=== PATIENT | male | born 1985 | race Caucasian/White ===

== ENCOUNTER 2022-09-05 21:29 | Emergency (ER) | payer MEDICAID, SELFPAY ==
[2022-09-05 21:44] VITALS: BP 134/81; BP 158/96; PULSE 103; PULSE 116; RESP 20; TEMP 36.5; O2SAT 98; O2SAT 99; BMI 32.5
--- NOTE | 2022-09-05 22:04 | ED.GENADULT ---
HPI - General Adult General Chief complaint: Psychiatric Symptoms Stated complaint: drug use Time Seen by Provider: 09/05/22 21:44 Source: patient and EMS Mode of arrival: EMS Limitations: no limitations and other History of Present Illness HPI narrative: Patient comes to the emergency room via EMS. Patient was [place] by police department [place]. Patient did not want to come to the emergency room but they convinced him to come. Patient has no complaints, denies SI or HI, admits that he has been smoking marijuana. Denies visual or auditory hallucinations Related Data Allergies Allergy/AdvReac Type Severity Reaction Status Date / Time No Known Allergies Allergy Verified 09/05/22 21:55 Review of Systems Review of Systems: Constitutional : No Weight loss, No Fever, No Chills, No Night Sweats, No Fatigue, No Malaise ENT/Mouth : No Hearing loss, No Ear Pain, No Nasal Congestion, No Sinus Pain, No Hoarseness, No sore throat, No Rhinorrhea, No Swallowing Difficulty Eyes: No Eye Pain, No Swelling, No Redness, No Foreign Body, No Discharge, No Vision Changes Cardiovascular : No Chest Pain, No SOB, No Dyspnea on Exertion, No Orthopnea, No Edema, No Palpitations Respiratory : No Cough, No Sputum, No Wheezing, No Smoke Exposure, No Dyspnea Gastrointestinal : No Nausea, No Vomiting, No Diarrhea, No Constipation, No abdominal Pain, No Hematochezia, No Melena Genitourinary : no irregular bleeding, No Dysuria, No Urinary Frequency, No Hematuria, No Urinary Incontinence, No Urgency, No Flank Pain, No Urinary Flow Changes, No Hesitancy Musculoskeletal : No joint pain, No Myalgias, No Joint Swelling Skin : No Skin Lesions, No rash Neuro : No Weakness, No Numbness, No Paresthesias, No Loss of Consciousness, No Dizziness, No Headache Psych : No Anxiety/Panic, No Depression, No SI/HI/AH/VH, admits to smoking marijuana, patient is homeless Heme/Lymph: No Bruising, No Bleeding,No Lymphadenopathy Endocrine : No Polyuria, No Polydipsia, No Temperature Intolerance Physical Exam ED Vital Signs: Vital Signs - 24 hr 09/05/22 21:44 Temperature 97.7 F Pulse Rate 103 H Respiratory Rate 20 Blood Pressure 134/81 Pulse Oximetry 99 Oxygen Delivery Method Room Air BMI result Body Mass Index 32.5 Const Other: Appearance: Alert. Oriented X3. No acute distress. Eyes: Pupils equal, round and reactive to light. ENT: Pharynx normal. Neck: Normal inspection. Neck supple. No lymph nodes noted. No crepitus CVS: Normal heart rate and rhythm. Pulses normal. Normal S1 and S2 Respiratory: No respiratory distress. Breath sounds normal. No Wheezing. No rales Abdomen: Soft and nontender. No rigidity. No distention. Skin: Skin warm and dry. Normal skin color. Normal skin turgor. Extremities: No lower extremity edema. No Lacerations. No Rash Neuro: Oriented X 3. No motor deficit. No sensory deficit. Moving all extremities. No slurred speech. CN 2 through 12 grossly intact Psych: calm, cooperative, normal affect Medical Decision Making Medical Decision Making MDM Narrative: -patient states that he has no medical reason to be here. -patient was convinced to come to the hospital but there is no reason for him to be here according to him. Discharge Plan Discharge Clinical Impression: Marijuana use Patient Disposition: Home, Self-Care Additional Instructions: Please follow-up with your primary care physician tomorrow. If you have any worsening or new symptoms, please return to the emergency room or call 911
== END 2022-09-05 23:20 | disposition home or self-care (01) ==
PROVIDERS: Emergency Provider Emergency Medicine
DX: F12.10 Cannabis abuse, uncomplicated (principal)
CPT/HCPCS: 99284; 99285

== ENCOUNTER 2022-09-07 23:45 | Inpatient (IN) | payer OTHER, SELFPAY ==
[2022-09-08 00:02] VITALS: BP 120/69; BP 134/82; PULSE 114; PULSE 98; RESP 18; TEMP 36.7; O2SAT 98; BMI 29.5
--- NOTE | 2022-09-08 00:50 | PC.NURSE ---
pt denies SI/ HI to this rn upon arrival. ed provider assessed pt in which pt verbalized SI. per dr horta pt to be transferred to pod. rn to rn report given security changing pt over to hospital attire
--- NOTE | 2022-09-08 01:00 | MHC.EDTECH ---
[place] Police called and notified this typewriter tester that this patient has been missing since September 04, STEVE al made aware and charge authorizer and transferred call to Care Team
--- NOTE | 2022-09-08 01:00 | ED.PSYCH ---
HPI - Psych General Chief Complaint: ETOH/Substance Use Stated Complaint: Substance use Time Seen by Provider: 09/08/22 00:02 History of Present Illness HPI Narrative: Patient is a 37-year-old male with a history of being found sleeping in the grass in his side of the road. PD try to wake up the patient. Patient unsure where he was. He admits to using marijuana. Denies any other recreational drug use. Denies any alcohol. To this provider patient claims that he is suicidal. He had thoughts of hurting himself by being still. Patient denies any fever chills. No diaphoresis. Denies any cocaine or heroin. Related Data Home Medications Medication Instructions Recorded Confirmed benztropine 1 mg tablet 1 mg PO BID 09/08/22 haloperidol 20 mg tablet 20 mg PO BEDTIME 09/08/22 hydroxyzine HCl 50 mg tablet 50 mg PO TID PRN Anxiety 09/08/22 lamotrigine 25 mg tablet 75 mg PO QAM 09/08/22 lithium carbonate 300 mg 600 mg PO BID 09/08/22 tablet,extended release melatonin 3 mg tablet 3 mg PO BEDTIME 09/08/22 mirtazapine 15 mg tablet 15 mg PO BEDTIME 09/08/22 propranolol 10 mg tablet 10 mg PO DAILY 09/08/22 Allergies Allergy/AdvReac Type Severity Reaction Status Date / Time No Known Allergies Allergy Verified 09/05/22 21:55 Review of Systems Review of Systems: Positive suicidal ideation Yes all other systems are reviewed and are negative [facility] Past Medical History Attestation statement: The following information was validated with the patient. Social History Social History Alcohol intake: current Alcohol intake frequency: holidays/special occasions only Substance Use Type: Marijuana Advance Directives: No Advance Directives Information Provided: Yes Physical Exam Vital Signs: Vital Signs: Last Vital Signs Temp 98.0 F 09/08/22 00:02 Pulse 98 09/08/22 00:02 Resp 18 09/08/22 00:02 BP 120/69 09/08/22 00:02 Pulse Ox 98 09/08/22 00:02 O2 Del Method Room Air 09/08/22 00:02 BMI result Body Mass Index 29.5 Appearance: Alert. No acute distress. Eyes: Pupils equal, round and reactive to light. ENT: Pharynx normal. Neck: Normal inspection. Neck supple. No lymph nodes noted. No crepitus CVS: Normal heart rate and rhythm. Pulses normal. Normal S1 and S2 Respiratory: No respiratory distress. Breath sounds normal. No Wheezing. No rales Abdomen: Soft and nontender. No rigidity. No distention. good BS x4 Skin: Skin warm and dry. Normal skin color. Normal skin turgor. Extremities: No lower extremity edema. Neurovascular intact to all extremities. No Lacerations. No Rash Neuro: Oriented to self.. No motor deficit. No sensory deficit. Moving all extermities. No slurred speech. Grossly neuro cranial nerve intact Medications Administered Discontinued Medications Generic Name Dose Route Start Last Admin Trade Name Freq PRN Reason Stop Dose Admin Haloperidol 10 mg 09/08/22 01:47 09/08/22 01:51 Haloperidol 5 Mg Tablet PO 09/08/22 01:48 10 mg ONCE ONE Administration Medical Decision Making Medical Decision Making [facility] Narrative: Patient had positive suicidal thoughts. Behavior seems odd. Patient section. Will require psychiatric evaluation. Vital signs are normal. Labs and tox screen ordered. Patient will require care team evaluation. PD contacted the emergency department patient is a missing person. Attempted to review patient's old record. There is no significant old records here at [place] [facility]. Differential Diagnosis Differential Diagnoses: The differential diagnosis associated with the presentation includes Psychiatric illness, suicidal ideation, polysubstance abuse Lab Data 09/08/22 01:12 09/08/22 01:12 Labs: Lab Results 09/08/22 09/08/22 09/08/22 Range/Units 01:09 01:12 01:12 WBC 8.7 (4.8-10.8) X10*3/uL RBC 4.35 L (4.60-5.80) X10*6/uL Hgb 12.7 L (14.0-18.0) g/dl Hct 37.5 L (42.0-52.0) % MCV 86.2 (80.0-98.0) fL MCH 29.2 (27.0-33.0) pg MCHC 33.9 (31.0-36.0) g/dl RDW 13.4 (11.0-16.0) % Plt Count 242 (160-400) X10*3/uL MPV 8.5 L (9.4-12.4) fL Immature Gran % (Auto) 0.3 (0.0-0.4) % Neut % (Auto) 56.2 (45-73) % Lymph % (Auto) 32.9 (20-40) % Tyrrell % (Auto) 8.9 (2-11) % Eos % (Auto) 1.5 (0-4) % Baso % (Auto) 0.2 (0-2) % Lymph # (Auto) 2.9 (1.2-4.9) X10*3/uL [place] # (Auto) 0.8 (0.1-1.2) X10*3/uL Eos # (Auto) 0.1 (0.0-0.4) X10*3/uL Baso # (Auto) 0.0 (0.0-0.2) X10*3/uL Abs Immat Gran (auto) 0.03 (0.00-0.03) X10*3/uL Absolute Neuts (auto) 4.9 (2.0-8.3) x10*3/uL Absolute Nucleated RBC 0.000 (0.0-0.012) X10*3/uL Nucleated RBC % (auto) 0.0 (0.0-0.2) /100WBC Sodium 141 (135-145) mmol/L Potassium 3.5 (3.3-5.1) mmol/L Chloride 107 (96-108) mmol/L Carbon Dioxide 23 (22-29) mmol/L Anion Gap 15 (12-20) BUN 7 L (9-16) mg/dL Creatinine 0.91 (0.5-1.4) mg/dL Estim Creat Clear Calc 132.6 Estimated GFR > 60 Random Glucose 101 (60-115) mg/dL Calcium 9.2 (8.4-10.2) mg/dL Total Bilirubin 0.9 (0.0-1.0) mg/dL AST 31 (5-37) U/L ALT 25 (0-40) U/L Alkaline Phosphatase 63 (39-117) U/L Total Protein 6.7 (6.5-8.0) g/dL Albumin 4.4 (3.5-5.0) g/dL Urine Color Urine Appearance Urine pH (5.0-9.0) Ur Specific [place] (1.005-1.025) Urine Protein (Neg-Trace) mg/dL Urine Glucose (UA) (Negative) mg/dL Urine Ketones (Negative) mg/dL Urine Blood (Negative) Urine Nitrite (Negative) Ur Leukocyte Esterase (Negative) Urine Opiates Screen (Not Detect) Urine Fentanyl Screen (Not Detect) Ur Barbiturates Screen (Not Detect) Ur Phencyclidine Scrn (Not Detect) Ur Amphetamines Screen (Not Detect) U Benzodiazepines Scrn (Not Detect) [place] (0.60-1.20) mmol/L Urine Cocaine Screen (Not Detect) U Marijuana (THC) Screen (Not Detect) Ethyl Alcohol < 10 mg/dL COVID-19 (SARAH) Negative (Negative) COVID-19 Clin Com See Note 09/08/22 09/08/22 09/08/22 Range/Units 01:12 01:14 01:14 WBC (4.8-10.8) X10*3/uL RBC (4.60-5.80) X10*6/uL Hgb (14.0-18.0) g/dl Hct (42.0-52.0) % MCV (80.0-98.0) fL MCH (27.0-33.0) pg MCHC (31.0-36.0) g/dl RDW (11.0-16.0) % Plt Count (160-400) X10*3/uL MPV (9.4-12.4) fL Immature Gran % (Auto) (0.0-0.4) % Neut % (Auto) (45-73) % Lymph % (Auto) (20-40) % Tyrrell % (Auto) (2-11) % Eos % (Auto) (0-4) % Baso % (Auto) (0-2) % Lymph # (Auto) (1.2-4.9) X10*3/uL [place] # (Auto) (0.1-1.2) X10*3/uL Eos # (Auto) (0.0-0.4) X10*3/uL Baso # (Auto) (0.0-0.2) X10*3/uL Abs Immat Gran (auto) (0.00-0.03) X10*3/uL Absolute Neuts (auto) (2.0-8.3) x10*3/uL Absolute Nucleated RBC (0.0-0.012) X10*3/uL Nucleated RBC % (auto) (0.0-0.2) /100WBC Sodium (135-145) mmol/L Potassium (3.3-5.1) mmol/L Chloride (96-108) mmol/L Carbon Dioxide (22-29) mmol/L Anion Gap (12-20) BUN (9-16) mg/dL Creatinine (0.5-1.4) mg/dL Estim Creat Clear Calc Estimated GFR Random Glucose (60-115) mg/dL Calcium (8.4-10.2) mg/dL Total Bilirubin (0.0-1.0) mg/dL AST (5-37) U/L ALT (0-40) U/L Alkaline Phosphatase (39-117) U/L Total Protein (6.5-8.0) g/dL Albumin (3.5-5.0) g/dL Urine Color Yellow Urine Appearance Clear Urine pH 6.5 (5.0-9.0) Ur Specific [place] 1.010 (1.005-1.025) Urine Protein Negative (Neg-Trace) mg/dL Urine Glucose (UA) Negative (Negative) mg/dL Urine Ketones 15 (Negative) mg/dL Urine Blood Negative (Negative) Urine Nitrite Negative (Negative) Ur Leukocyte Esterase Negative (Negative) Urine Opiates Screen Not Detected (Not Detect) Urine Fentanyl Screen Not Detected (Not Detect) Ur Barbiturates Screen Not Detected (Not Detect) Ur Phencyclidine Scrn Not Detected (Not Detect) Ur Amphetamines Screen Not Detected (Not Detect) U Benzodiazepines Scrn Not Detected (Not Detect) [place] < 0.10 L (0.60-1.20) mmol/L Urine Cocaine Screen Not Detected (Not Detect) U Marijuana (THC) Screen POSITIVE H (Not Detect) Ethyl Alcohol mg/dL COVID-19 (SARAH) (Negative) COVID-19 Clin Com Discharge Plan Discharge Clinical Impression: Suicidal ideation Patient Disposition: Still a Patient Prescriptions: No Action lithium carbonate 300 mg tablet extended release 600 mg PO BID hydroxyzine HCl 50 mg tablet 50 mg PO TID PRN (Reason: Anxiety) melatonin 3 mg tablet 3 mg PO BEDTIME lamotrigine 25 mg tablet 75 mg PO QAM propranolol 10 mg tablet 10 mg PO DAILY haloperidol 20 mg tablet 20 mg PO BEDTIME benztropine 1 mg tablet 1 mg PO BID mirtazapine 15 mg tablet 15 mg PO BEDTIME
--- NOTE | 2022-09-08 01:00 | MHC.CARE ---
Jeremy DIAL ([phone]) called and stated that this pt was reported as missing from [facility]. Jeremy DIAL asked to be notified immediately if/when the pt is released. Jeremy DIAL is going to try and reach [facility] and notify them that he is here. Pt is being held on a section 12.
[2022-09-08 01:20] LABS: Basophils Percent Auto 0.2 % (0-2); Eosinophils Absolute Auto 0.1 X10*3/uL (0.0-0.4); Eosinophils Percent Auto 1.5 % (0-4); Hematocrit 37.5 % (42.0-52.0); Hemoglobin 12.7 g/dl (14.0-18.0); Imm Gran Abs Auto 0.03 X10*3/uL (0.00-0.03); Imm Gran Pct Auto 0.3 % (0.0-0.4); Lymphocytes Absolute Auto 2.9 X10*3/uL (1.2-4.9); Lymphocytes Percent Auto 32.9 % (20-40); MANUAL DIFF FLAG NO; Mean Corpuscular HGB Conc 33.9 g/dl (31.0-36.0); Mean Corpuscular Hemoglobin 29.2 pg (27.0-33.0); Mean Corpuscular Volume 86.2 fL (80.0-98.0); Mean Platelet Volume 8.5 fL (9.4-12.4); Monocytes Absolute Auto 0.8 X10*3/uL (0.1-1.2); Monocytes Percent Auto 8.9 % (2-11); Neutrophils Absolute Auto 4.9 x10*3/uL (2.0-8.3); Neutrophils Percent Auto 56.2 % (45-73); Platelet Count 242 X10*3/uL (160-400); Red Blood Count 4.35 X10*6/uL (4.60-5.80); Red Cell Distribution Width 13.4 % (11.0-16.0); White Blood Count 8.7 X10*3/uL (4.8-10.8)
[2022-09-08 01:21] LABS: Appearance Urine Clear; Color Urine Yellow; Glucose Urine UA Negative (Negative); Leukocyte Esterase Urine Negative (Negative); Nitrite Urine Negative (Negative); PH 6.5 (5.0-9.0); Urine Blood Negative (Negative); Urine Ketones 15 mg/dL (Negative); Urine Protein Negative (Neg-Trace)
[2022-09-08 01:35] LABS: COVID-19 Test Negative (Negative); IDNOW Serial# 08D9AD1C
[2022-09-08] MEDS: HaloperidoL 5 MG TABLET 10 MG PO (01:51)
[2022-09-08 01:56] LABS: Alanine Aminotransferase 25 U/L (0-40); Albumin Level 4.4 g/dL (3.5-5.0); Alkaline Phosphatase 63 U/L (39-117); Anion Gap 15 (12-20); Aspartate Amino Transferase 31 U/L (5-37); Bilirubin Total 0.9 mg/dL (0.0-1.0); Blood Urea Nitrogen 7 mg/dL (9-16); Calcium 9.2 mg/dL (8.4-10.2); Carbon Dioxide 23 mmol/L (22-29); Chloride 107 mmol/L (96-108); Creatinine Clr Calc Pharmacy 132.6; Estimated Glomerular Filt Rate > 60; Ethanol < 10 mg/dL; Glucose Random 101 mg/dL (60-115); Potassium 3.5 mmol/L (3.3-5.1); Sodium 141 mmol/L (135-145); Total Protein 6.7 g/dL (6.5-8.0)
[2022-09-08 02:10] LABS: Amphetamine Screen Urine Not Detected (Not Detect); Barbiturates, Urine Not Detected (Not Detect); Benzodiazepines Screen Urine Not Detected (Not Detect); Cannabinoid Screen Urine POSITIVE (Not Detect); Cocaine Screen Urine Not Detected (Not Detect); Fentanyl, urine Not Detected (Not Detect); Opiate Screen Urine Not Detected (Not Detect); Phencyclidine Screen Urine Not Detected (Not Detect)
[2022-09-08 02:22] LABS: Lithium < 0.10 mmol/L (0.60-1.20)
--- NOTE | 2022-09-08 05:25 | PC.NURSE ---
Patient slept through the night, no distress observed/reported, Haldol 10 mg PO administered at 0151 with + effect, med rec completed/pending provider's approval, TRANSMISSION BUILDER called/spoke with Miguel Angel/agreed to fax med list and medical history but never faxed we will try again in the morning to avail those medical record, patient was sectioned by our provider per [place] Police request because patient was reported as missing person since 09/04/22 from [facility] from [place], med rec completed/pending provider approval, patient is off his medication a.e.b. Valproic level 0.10, labs completed/resulted, care consult ordered/pending evaluation, VSS, will continue to monitor.
--- NOTE | 2022-09-08 09:09 | PHA.MEDREC ---
Pharmacy Consult ? Medication Reconciliation Pharmacy has completed the medication reconciliation. Reviewed med rec done by nursing
[2022-09-08 13:36] VITALS: BP 116/65; PULSE 101; RESP 20; TEMP 36.7; O2SAT 99
[2022-09-08 18:00] VITALS: BP 130/75; PULSE 94; RESP 18; TEMP 36.7; O2SAT 97
--- NOTE | 2022-09-08 19:01 | PC.ADMIT ---
Cam arrived to the unit on a conditional voluntary, at 1700, upon approach appears disheveled, at times fixed eye contact. Sharps check done by male RN and mental health counselor. When asked if he knew where he was stated [place], he denied feeling anxious or depressed, endorsed auditory and visual hallucinations unable to elaborate stated It's a muffle. Jerrica denied suicidal and homicidal ideation. When answering questions some self dialogue noted, laughing/smiling inappropriately, looked at teletypewriter installer and stated Are you hypnotizing me? several times when asking him questions. Jerrica also had a delayed in response appears to be thought blocking started talking unable to finish sentences, then started crying. Per assessment Jerrica was reported missing from residential 09/04/2022, he is known for often leaving the residential and not taking his medications. He was found sleeping in the grass on the side of the road, he reported HI wanting to Kill Lucifer as well as SI. When he arrived to the ED appeared disorganized/decompensated stated Will you take my temperature through my asshole and strike me down with lighting.
[2022-09-08] MEDS: HaloperidoL 5 MG TABLET 20 MG PO (20:40)
[2022-09-08] MEDS: Mirtazapine 15 MG TABLET PO (20:40)
[2022-09-08] MEDS: Melatonin 3 MG TABLET PO (20:40)
[2022-09-08] MEDS: Lithium Carbonate ER 300 MG TABLET.ER 600 MG PO (20:40)
[2022-09-08] MEDS: Benztropine Mesylate 1 MG TABLET PO (20:40)
[2022-09-09 09:28] LABS: Estimated Average Glucose 77 mg/dL; Hemoglobin A1c % 4.3 %
[2022-09-09 09:43] LABS: Alanine Aminotransferase 19 U/L (0-40); Albumin Level 3.8 g/dL (3.5-5.0); Alkaline Phosphatase 52 U/L (39-117); Anion Gap 10 (12-20); Aspartate Amino Transferase 20 U/L (5-37); Bilirubin Total 0.5 mg/dL (0.0-1.0); Blood Urea Nitrogen 6 mg/dL (9-16); Calcium 8.7 mg/dL (8.4-10.2); Carbon Dioxide 22 mmol/L (22-29); Chloride 114 mmol/L (96-108); Cholesterol 131 mg/dL; Creatinine Clr Calc Pharmacy 143.6; Estimated Glomerular Filt Rate > 60; Glucose Fasting 97 mg/dL (60-99); HDL Cholesterol 25 mg/dL; LDL Cholesterol Calculated 76 mg/dl; Potassium 4.4 mmol/L (3.3-5.1); Sodium 142 mmol/L (135-145); Total Protein 5.9 g/dL (6.5-8.0); Triglycerides 150 mg/dL
[2022-09-09 10:11] LABS: Folate 16.1 ng/mL (> or = 4.0); Thyroid Stimulating Hormone 0.51 uIU/mL (0.32-4.0)
[2022-09-09] MEDS: Lithium Carbonate ER 300 MG TABLET.ER 600 MG PO ×2 (10:29→21:21)
[2022-09-09] MEDS: Propranolol HCL 10 MG TABLET PO (10:30)
[2022-09-09] MEDS: lamoTRIgine 25 MG TABLET PO (10:30)
[2022-09-09] MEDS: Benztropine Mesylate 1 MG TABLET PO ×2 (10:30→21:20)
[2022-09-09 10:35] VITALS: BP 119/67; PULSE 100; TEMP 36.7; O2SAT 98
--- NOTE | 2022-09-09 11:16 | PC.NURSE ---
Patient signed 3 day notice on 09/09/2022 up on Wednesday09/14/2022
[2022-09-09] MEDS: hydrOXYzine HCL 50 MG TABLET PO (11:37)
[2022-09-09 12:51] LABS: Free T4 (Free Thyroxine) 0.92 ng/dL (0.71-1.85); Vitamin B12 306 pg/mL (200-900)
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
[2022-09-09 20:09] VITALS: BP 130/80; PULSE 109; RESP 16; TEMP 36.7; O2SAT 96
[2022-09-09] MEDS: Melatonin 3 MG TABLET PO (21:20)
[2022-09-09] MEDS: HaloperidoL 5 MG TABLET 20 MG PO (21:20)
[2022-09-09] MEDS: Mirtazapine 15 MG TABLET PO (21:20)
[2022-09-10 10:00] VITALS: BP 115/72; PULSE 98; TEMP 36.6; O2SAT 97
[2022-09-10] MEDS: Lithium Carbonate ER 300 MG TABLET.ER 600 MG PO ×2 (10:01→21:08)
[2022-09-10] MEDS: Propranolol HCL 10 MG TABLET PO (10:01)
[2022-09-10] MEDS: Benztropine Mesylate 1 MG TABLET PO ×2 (10:02→21:08)
[2022-09-10] MEDS: lamoTRIgine 25 MG TABLET PO (10:02)
--- NOTE | 2022-09-10 14:24 | P.PNPSI_ITS ---
Subjective Subjective Date of Service: 09/10/22 Reason For Visit: SI Interim History: no complaints or requests. per staff, spent all day yesterday in bed. anx 7, dep 10. hopeless. feeling safe in hospital. Mental Status Exam Mental Status Exam Narrative: seated in bed. gynecomastia. calm. no PMA/PMR. minimally cooperative. speech nml rate, decr amount, nml latency, nml loudness. thoughts linear in very brief interaction. affect constricted, normo-intense, non-labile. no SI/HI/AVH expressed. Diagnostics Vital Signs (24Hr): Vital Signs - 24 hr 09/09/22 20:09 09/10/22 10:00 Temperature 98.1 F 98 F Pulse Rate 109 H 98 Respiratory Rate 16 Blood Pressure 130/80 115/72 Pulse Oximetry 96 97 Oxygen Delivery Method Room Air Room Air BMI result Body Mass Index 29.5 Labs 09/08/22 01:12 09/09/22 08:56 Labs: Laboratory Results - last 48 hr 09/09/22 09/09/22 09/09/22 08:56 08:56 11:58 Sodium 142 Potassium 4.4 D Chloride 114 H Carbon Dioxide 22 Anion Gap 10 L BUN 6 L Creatinine 0.84 Estim Creat Clear Calc 143.6 Estimated GFR > 60 Fasting Glucose 97 Estimat Average Glucose 77 Hemoglobin A1c % 4.3 Calcium 8.7 Total Bilirubin 0.5 AST 20 ALT 19 Alkaline Phosphatase 52 Total Protein 5.9 L Albumin 3.8 Triglycerides 150 Cholesterol 131 LDL Cholesterol, Calc 76 HDL Cholesterol 25 Vitamin B12 Cancelled 306 Folate 16.1 TSH 0.51 Free T4 Cancelled 0.92 Medications Medications Current Medications Acetaminophen (Acetaminophen 325 Mg Tablet) 650 mg PO Q6H PRN PRN Reason: Headache/Pain Mild Scale (1-3) Al Hydroxide/Mg Hydroxide (Magnesium Hydrox/Alum Hydrox 30 Ml Oral.Susp) 30 ml PO Q6H PRN PRN Reason: Heartburn/Nausea Benztropine Mesylate (Benztropine Mesylate 1 Mg Tablet) 1 mg PO BID [facility] Last Admin: 09/10/22 10:02 Dose: 1 mg Haloperidol (Haloperidol 5 Mg Tablet) 20 mg PO BEDTIME [facility] Last Admin: 09/09/22 21:20 Dose: 20 mg Hydroxyzine HCl (Hydroxyzine Hcl 50 Mg Tablet) 50 mg PO TID PRN PRN Reason: Anxiety Last Admin: 09/09/22 11:37 Dose: 50 mg Lamotrigine (Lamotrigine 25 Mg Tablet) 25 mg PO DAILY [facility] Last Admin: 09/10/22 10:02 Dose: 25 mg [place] Carbonate ([place] Carbonate Er 300 Mg Tablet.Er) 600 mg PO BID [facility] Last Admin: 09/10/22 10:01 Dose: 600 mg Magnesium Hydroxide (Milk Of Magnesia 30 Ml Oral.Susp) 30 ml PO DAILY PRN PRN Reason: Constipation Melatonin (Melatonin 3 Mg Tablet) 3 mg PO BEDTIME [facility] Last Admin: 09/09/22 21:20 Dose: 3 mg Mirtazapine (Mirtazapine 15 Mg Tablet) 15 mg PO BEDTIME [facility] Last Admin: 09/09/22 21:20 Dose: 15 mg Nicotine Polacrilex (Nicotine Polacrilex 2 Mg Gum) 4 mg BUCCAL Q2H PRN PRN Reason: Nicotine Cravings Propranolol HCl (Propranolol Hcl 10 Mg Tablet) 10 mg PO DAILY [facility]; Protocol Last Admin: 09/10/22 10:01 Dose: 10 mg Trazodone HCl (Trazodone Hcl 50 Mg Tablet) 50 mg PO BEDTIME MRX1 PRN PRN Reason: Insomnia Allergies Allergies Allergy/AdvReac Type Severity Reaction Status Date / Time No Known Allergies Allergy Verified 09/05/22 21:55 Assessment & Plan Assessment & Plan (1) Schizoaffective disorder, bipolar type: Status: Acute Code(s): F25.0 - Schizoaffective disorder, bipolar type (2) Cannabis use disorder: Status: Acute Code(s): F12.90 - Cannabis use, unspecified, uncomplicated Plan 09/09: continue/restart outpt meds regimen. started at only 20 mg haldol at HS; T/C returning to prescribed 30. should get GRAHAM, will investigate Hx with GRAHAM meds (several of which are on the maninder's order). 09/10: return HS haldol dosing to 30 mg as ordered outpt. taking meds, disorganized but stable. Reason for continued inpatient stay Substantial Risk for: harm to self, harm to others, inability to function and rapid decompensation Time Spent With Patient Time: Total time managing care of this patient today ____ minutes.
[2022-09-10 20:10] VITALS: BP 117/72; PULSE 86; RESP 16; TEMP 36.6; O2SAT 98
[2022-09-10] MEDS: Mirtazapine 15 MG TABLET PO (21:08)
[2022-09-10] MEDS: HaloperidoL 5 MG TABLET 30 MG PO (21:08)
[2022-09-10] MEDS: Melatonin 3 MG TABLET PO (21:08)
[2022-09-11 09:00] VITALS: BP 130/69; PULSE 90; TEMP 36.6; O2SAT 98
[2022-09-11] MEDS: Lithium Carbonate ER 300 MG TABLET.ER 600 MG PO ×2 (09:03→21:08)
[2022-09-11] MEDS: Propranolol HCL 10 MG TABLET PO (09:03)
[2022-09-11] MEDS: lamoTRIgine 25 MG TABLET PO (09:03)
[2022-09-11] MEDS: Benztropine Mesylate 1 MG TABLET PO ×2 (09:04→21:08)
--- NOTE | 2022-09-11 16:19 | HO.PSYCHPN ---
Subjective Subjective Date of Service: 09/11/22 Reason For Visit: SI Interim History: in bed. monosyllabic. no complaints or requests. skin lesions noted. per staff, 3-day up 09/14. staying in room all day. taking meds. raised rash on back. asking for discharge. Mental Status Exam Mental Status Exam Narrative: lying in bed. calm. no PMA/PMR. minimally cooperative. speech nml rate, decr amount, nml latency, nml loudness. thoughts linear in very brief interaction. affect constricted, normo-intense, non-labile. no SI/HI/AVH expressed. Diagnostics Vital Signs (24Hr): Vital Signs - 24 hr 09/10/22 20:10 09/11/22 09:00 Temperature 97.8 F 97.9 F Pulse Rate 86 90 Respiratory Rate 16 Blood Pressure 117/72 130/69 Pulse Oximetry 98 98 Oxygen Delivery Method Room Air Room Air BMI result Body Mass Index 29.5 Labs 09/08/22 01:12 09/09/22 08:56 Medications Medications Current Medications Acetaminophen (Acetaminophen 325 Mg Tablet) 650 mg PO Q6H PRN PRN Reason: Headache/Pain Mild Scale (1-3) Al Hydroxide/Mg Hydroxide (Magnesium Hydrox/Alum Hydrox 30 Ml Oral.Susp) 30 ml PO Q6H PRN PRN Reason: Heartburn/Nausea Benztropine Mesylate (Benztropine Mesylate 1 Mg Tablet) 1 mg PO BID [facility] Last Admin: 09/11/22 09:04 Dose: 1 mg Haloperidol (Haloperidol 5 Mg Tablet) 30 mg PO BEDTIME [facility] Last Admin: 09/10/22 21:08 Dose: 30 mg Hydroxyzine HCl (Hydroxyzine Hcl 50 Mg Tablet) 50 mg PO TID PRN PRN Reason: Anxiety Last Admin: 09/09/22 11:37 Dose: 50 mg Lamotrigine (Lamotrigine 25 Mg Tablet) 25 mg PO DAILY [facility] Last Admin: 09/11/22 09:03 Dose: 25 mg [place] Carbonate ([place] Carbonate Er 300 Mg Tablet.Er) 600 mg PO BID [facility] Last Admin: 09/11/22 09:03 Dose: 600 mg Magnesium Hydroxide (Milk Of Magnesia 30 Ml Oral.Susp) 30 ml PO DAILY PRN PRN Reason: Constipation Melatonin (Melatonin 3 Mg Tablet) 3 mg PO BEDTIME [facility] Last Admin: 09/10/22 21:08 Dose: 3 mg Mirtazapine (Mirtazapine 15 Mg Tablet) 15 mg PO BEDTIME [facility] Last Admin: 09/10/22 21:08 Dose: 15 mg Nicotine Polacrilex (Nicotine Polacrilex 2 Mg Gum) 4 mg BUCCAL Q2H PRN PRN Reason: Nicotine Cravings Propranolol HCl (Propranolol Hcl 10 Mg Tablet) 10 mg PO DAILY [facility]; Protocol Last Admin: 09/11/22 09:03 Dose: 10 mg Trazodone HCl (Trazodone Hcl 50 Mg Tablet) 50 mg PO BEDTIME MRX1 PRN PRN Reason: Insomnia Allergies Allergies Allergy/AdvReac Type Severity Reaction Status Date / Time No Known Allergies Allergy Verified 09/05/22 21:55 Assessment & Plan Assessment & Plan (1) Schizoaffective disorder, bipolar type: Status: Acute Code(s): F25.0 - Schizoaffective disorder, bipolar type (2) Cannabis use disorder: Status: Acute Code(s): F12.90 - Cannabis use, unspecified, uncomplicated Plan 09/09: continue/restart outpt meds regimen. started at only 20 mg haldol at HS; T/C returning to prescribed 30. should get GRAHAM, will investigate Hx with GRAHAM meds (several of which are on the maninder's order). 09/10: return HS haldol dosing to 30 mg as ordered outpt. taking meds, disorganized but stable. 09/11: continue current mgmt. stable presentation. Reason for continued inpatient stay Substantial Risk for: harm to self, inability to function and rapid decompensation Time Spent With Patient Time: Total time managing care of this patient today ____ minutes.
--- NOTE | 2022-09-11 19:22 | P.CONHOSP_ITS ---
History of Present Illness Data of Consult Service Date: 09/11/22 Primary Care Provider: Unknown Physician HPI Reason for consult: Skin lesions on hands, arms, and back Patient is a 37-year-old male with a PMH significant for schizoaffective disorder bipolar type who was admitted to psychiatry unit for increasing depression with a SI. Ptwas apparently found sleeping outside in the grass by the side of the road. Patient minimally responsive during interview, mostly monosyllabic and with a poor sense of his own history. Patient denied knowing where he might have gotten his skin lesions, not sure where he had been the past few days or where he had been sleeping. Says his skin lesions began a few days ago. Denies his skin lesions hurt. Says they ?sometimes? itch, though states they currently do not itch. Reports he has had a similar rash ?a long time? before, but is unable to clarify exactly when, from what source, or if he used any treatments to alleviate his symptoms. Patient denies fever, chills, nausea, vomiting, diarrhea, abdominal pain. No chest pain/pressure, palpitations. Denies shortness of breath. Patient admits to using marijuana but denies any other recreational drugs, including IV drugs. Review of Systems Review of Systems: Skin lesions on hands, arms, and back Lesions occasionally itch Denies lesions hurt No fever, chills, nausea, vomiting, diarrhea, abdominal pain Yes all other systems are reviewed and are negative [facility] Social History Household Members: Other Household Members Other:: Per assessment patient lives at [facility] in [place] Housing: Assisted Living Facility Housing Other:: I'm a traveler Do you presently have visiting nurse or other home services: No Unable to assess alcohol history related to: Unknown Alcohol intake: current Alcohol intake frequency: 3 or more drinks per day Alcohol type: other Patient Tobacco Use Status: Former Tobacco user Tobacco use type: Cigarette Smoked in Last 30 Days: Yes e-Cigarette/Vaping Use: Never Used Patient Interested in Nicotine Replacement: No Patient Given Instructions on How to Stop Smoking: No Second Hand Smoke Exposure: No Use of substances other than those prescribed or required for medical reasons: Yes Substance Use Type: Marijuana Substance Use Frequency: Chronic Longstanding Last Used Substance: Just Prior to Admission Last Used Substance Other:: Per assessment prior to admission. Currently Displaying Signs/Symptoms of Drug Intoxication Withdrawal: No Any prior treatment program specific to substance use: Yes Advance Directives: No Advance Directives Information Provided: Yes Healthcare Proxy: No Guardian: Yes (Joe Wells [phone]) Do you have thoughts of harming others: None Do you have a plan to hurt others: No Plan Recently lost weight without trying: Unsure Eating poorly because of decreased appetite: No Nutrition Risks: No Nutritional Risk service: No Sexual orientation: Don't Know Meds Allergies Allergy/AdvReac Type Severity Reaction Status Date / Time No Known Allergies Allergy Verified 09/05/22 21:55 Active Medications: Current Medications Acetaminophen (Acetaminophen 325 Mg Tablet) 650 mg PO Q6H PRN PRN Reason: Headache/Pain Mild Scale (1-3) Al Hydroxide/Mg Hydroxide (Magnesium Hydrox/Alum Hydrox 30 Ml Oral.Susp) 30 ml PO Q6H PRN PRN Reason: Heartburn/Nausea Benztropine Mesylate (Benztropine Mesylate 1 Mg Tablet) 1 mg PO BID [facility] Last Admin: 09/11/22 09:04 Dose: 1 mg Haloperidol (Haloperidol 5 Mg Tablet) 30 mg PO BEDTIME [facility] Last Admin: 09/10/22 21:08 Dose: 30 mg Hydroxyzine HCl (Hydroxyzine Hcl 50 Mg Tablet) 50 mg PO TID PRN PRN Reason: Anxiety Last Admin: 09/09/22 11:37 Dose: 50 mg Lamotrigine (Lamotrigine 25 Mg Tablet) 25 mg PO DAILY [facility] Last Admin: 09/11/22 09:03 Dose: 25 mg [place] Carbonate ([place] Carbonate Er 300 Mg Tablet.Er) 600 mg PO BID [facility] Last Admin: 09/11/22 09:03 Dose: 600 mg Magnesium Hydroxide (Milk Of Magnesia 30 Ml Oral.Susp) 30 ml PO DAILY PRN PRN Reason: Constipation Melatonin (Melatonin 3 Mg Tablet) 3 mg PO BEDTIME [facility] Last Admin: 09/10/22 21:08 Dose: 3 mg Mirtazapine (Mirtazapine 15 Mg Tablet) 15 mg PO BEDTIME [facility] Last Admin: 09/10/22 21:08 Dose: 15 mg Nicotine Polacrilex (Nicotine Polacrilex 2 Mg Gum) 4 mg BUCCAL Q2H PRN PRN Reason: Nicotine Cravings Propranolol HCl (Propranolol Hcl 10 Mg Tablet) 10 mg PO DAILY [facility]; Protocol Last Admin: 09/11/22 09:03 Dose: 10 mg Trazodone HCl (Trazodone Hcl 50 Mg Tablet) 50 mg PO BEDTIME MRX1 PRN PRN Reason: Insomnia Home Medications Medication Instructions Recorded Confirmed Last Taken Type benztropine 1 mg tablet 1 mg PO BID 09/08/22 09/08/22 Unknown History haloperidol 10 mg tablet 10 mg PO BEDTIME 09/08/22 09/08/22 Unknown History haloperidol 20 mg tablet 20 mg PO BEDTIME 09/08/22 09/08/22 Unknown History hydroxyzine HCl 50 mg tablet 50 mg PO TID PRN Anxiety 09/08/22 09/08/22 Unknown History lamotrigine 25 mg tablet 75 mg PO QAM 09/08/22 09/08/22 Unknown History lithium carbonate 300 mg 600 mg PO BID 09/08/22 09/08/22 Unknown History tablet,extended release melatonin 3 mg tablet 3 mg PO BEDTIME 09/08/22 09/08/22 Unknown History mirtazapine 15 mg tablet 15 mg PO BEDTIME 09/08/22 09/08/22 Unknown History propranolol 10 mg tablet 10 mg PO DAILY 09/08/22 09/08/22 Unknown History Physical Exam Vital Signs and Narrative: Vital Signs: Last Vital Signs Temp 97.9 F 09/11/22 09:00 Pulse 90 09/11/22 09:00 Resp 16 09/10/22 20:10 BP 130/69 09/11/22 09:00 Pulse Ox 98 09/11/22 09:00 O2 Del Method Room Air 09/11/22 09:00 BMI result Body Mass Index 29.5 General: AOx3, no acute distress Resp: Breathing nonlabored, no accessory muscles use, have a low speaking in full sentences GI: NT, no distention Skin: Multiple sites of maculopapular rash on the left antecubital fossa area, right elbow, lateral palmar aspect of right hand, and back of patient. Large 4- 5cm circular area of erythema on right upper mid back. Please see pictures below. Neuro: Cranial nerves II-XII grossly intact bilaterally. Motor grossly intact bilaterally Extremities: No edema Psych: Appropriate affect Results Labs 09/08/22 01:12 09/09/22 08:56 Assessment and Plan (1) Maculopapular rash: Status: Acute Plan Patient is a 37-year-old male with a PMH significant for schizoaffective disorder bipolar type who was admitted to [facility] psychiatry unit for increasing depression with a SI. Ptwas apparently found sleeping outside in the grass by the side of the road. Patient minimally responsive during interview, mostly monosyllabic and with a poor sense of his own history. Patient denied knowing where he might have gotten his skin lesions, not sure where he had been the past few days or where he had been sleeping. Says his skin lesions began a few days ago. Denies his skin lesions hurt. Says they ?sometimes? itch, though states they currently do not itch. Maculopapular rash Unclear etiology: Contact dermatitis versus insect bites versus eczema versus psoriasis Will obtain labs: CBC, CMP, ESR, CRP, TRINI Patient currently asymptomatic with no pain or itching, will defer treatment pending labs If pt continues to be asymptomatic and labs unremarkable, patient should follow- up outpatient with PCP or dermatology Thank you for allowing us to participate in the care of this patient. Will continue to follow at this time. Please let us know if there are any acute complaints or questions. Time Spent With Patient Time: Total time managing care of this patient today ____ minutes.
[2022-09-11] MEDS: Mirtazapine 15 MG TABLET PO (21:08)
[2022-09-11] MEDS: Melatonin 3 MG TABLET PO (21:08)
[2022-09-11] MEDS: HaloperidoL 5 MG TABLET 30 MG PO (21:08)
[2022-09-11 21:10] VITALS: BP 107/58; PULSE 85; RESP 18; TEMP 37.1; O2SAT 99
--- NOTE | 2022-09-12 05:38 | PC.NURSE ---
Cam spent the entire evening and night in bed. he had to be awoken for HS medications he denies all psych symptoms, no behavioral concerns
[2022-09-12 06:00] VITALS: BP 127/83; PULSE 77; RESP 16; TEMP 37; O2SAT 98
--- NOTE | 2022-09-12 07:14 | PC.NURSE ---
Cam's rash was evaluated by this RN and the area on his mid back appears to be a bug bite AEB a large softball sized bright red area with an apparent bite cherelle in the center. the remainder of rash areas on bilateral low back buttock and arms appear to be a contact dermatitis which resembles a typical rash from poison tawnya. it does not appear to be weeping but some areas to have a serous type crust. the patient reports that the rash is itchy.
[2022-09-12] MEDS: lamoTRIgine 25 MG TABLET PO (10:06)
[2022-09-12] MEDS: Benztropine Mesylate 1 MG TABLET PO ×2 (10:06→21:49)
[2022-09-12] MEDS: Lithium Carbonate ER 300 MG TABLET.ER 600 MG PO ×2 (10:06→21:49)
[2022-09-12] MEDS: Propranolol HCL 10 MG TABLET PO (10:07)
--- NOTE | 2022-09-12 13:48 | HO.PSYCHPN ---
Subjective Subjective Date of Service: 09/12/22 Reason For Visit: SI Interim History: in bed. monosyllabic. no complaints or requests. skin lesions noted. per staff, 3-day up 09/14. staying in room all day. taking meds. raised rash on back. Withdrawn. Desheveled. Internally preoccupied. Review of Systems Review of Systems Skin lesions on hands, arms, and back Lesions occasionally itch Denies lesions hurt No fever, chills, nausea, vomiting, diarrhea, abdominal pain Yes all other systems are reviewed and are negative Mental Status Exam Mental Status Exam Narrative: lying in bed. calm. no PMA/PMR. minimally cooperative. speech nml rate, decr amount, nml latency, nml loudness. thoughts linear in very brief interaction. affect constricted, normo-intense, non-labile. no SI/HI/AVH expressed. Diagnostics Vital Signs (24Hr): Vital Signs - 24 hr 09/11/22 21:10 09/12/22 06:00 Temperature 98.7 F 98.6 F Pulse Rate 85 77 Respiratory Rate 18 16 Blood Pressure 107/58 L 127/83 Pulse Oximetry 99 98 Oxygen Delivery Method Room Air Room Air BMI result Body Mass Index 29.5 Labs 09/08/22 01:12 09/09/22 08:56 Medications Medications Current Medications Acetaminophen (Acetaminophen 325 Mg Tablet) 650 mg PO Q6H PRN PRN Reason: Headache/Pain Mild Scale (1-3) Al Hydroxide/Mg Hydroxide (Magnesium Hydrox/Alum Hydrox 30 Ml Oral.Susp) 30 ml PO Q6H PRN PRN Reason: Heartburn/Nausea Benztropine Mesylate (Benztropine Mesylate 1 Mg Tablet) 1 mg PO BID [facility] Last Admin: 09/12/22 10:06 Dose: 1 mg Haloperidol (Haloperidol 5 Mg Tablet) 30 mg PO BEDTIME [facility] Last Admin: 09/11/22 21:08 Dose: 30 mg Hydroxyzine HCl (Hydroxyzine Hcl 50 Mg Tablet) 50 mg PO TID PRN PRN Reason: Anxiety Last Admin: 09/09/22 11:37 Dose: 50 mg Lamotrigine (Lamotrigine 25 Mg Tablet) 25 mg PO DAILY [facility] Last Admin: 09/12/22 10:06 Dose: 25 mg [place] Carbonate ([place] Carbonate Er 300 Mg Tablet.Er) 600 mg PO BID [facility] Last Admin: 09/12/22 10:06 Dose: 600 mg Magnesium Hydroxide (Milk Of Magnesia 30 Ml Oral.Susp) 30 ml PO DAILY PRN PRN Reason: Constipation Melatonin (Melatonin 3 Mg Tablet) 3 mg PO BEDTIME [facility] Last Admin: 09/11/22 21:08 Dose: 3 mg Mirtazapine (Mirtazapine 15 Mg Tablet) 15 mg PO BEDTIME [facility] Last Admin: 09/11/22 21:08 Dose: 15 mg Nicotine Polacrilex (Nicotine Polacrilex 2 Mg Gum) 4 mg BUCCAL Q2H PRN PRN Reason: Nicotine Cravings Propranolol HCl (Propranolol Hcl 10 Mg Tablet) 10 mg PO DAILY [facility]; Protocol Last Admin: 09/12/22 10:07 Dose: 10 mg Trazodone HCl (Trazodone Hcl 50 Mg Tablet) 50 mg PO BEDTIME MRX1 PRN PRN Reason: Insomnia Allergies Allergies Allergy/AdvReac Type Severity Reaction Status Date / Time No Known Allergies Allergy Verified 09/05/22 21:55 Assessment & Plan Assessment & Plan (1) Schizoaffective disorder, bipolar type: Status: Acute Code(s): F25.0 - Schizoaffective disorder, bipolar type Assessment and Plan: 09/09:? continue/restart outpt meds regimen.? started at only 20 mg haldol at HS; T/C returning to prescribed 30.? should get GRAHAM, will investigate Hx with GRAHAM meds (several of which are on the maninder's order). 09/10:? return HS haldol dosing to 30 mg as ordered outpt.? taking meds, disorganized but stable. 09/11:? continue current mgmt.? stable presentation. 09/12: Continue current regimen. Plan Patient is a 37-year-old male with a PMH significant for schizoaffective disorder bipolar type who was admitted to psychiatry unit for increasing depression with a SI. Ptwas apparently found sleeping outside in the grass by the side of the road. Patient minimally responsive during interview, mostly monosyllabic and with a poor sense of his own history. Patient denied knowing where he might have gotten his skin lesions, not sure where he had been the past few days or where he had been sleeping. Says his skin lesions began a few days ago. Denies his skin lesions hurt. Says they ?sometimes? itch, though states they currently do not itch. Maculopapular rash Unclear etiology: Contact dermatitis versus insect bites versus eczema versus psoriasis Will obtain labs: CBC, CMP, ESR, CRP, TRINI Patient currently asymptomatic with no pain or itching, will defer treatment pending labs If pt continues to be asymptomatic and labs unremarkable, patient should follow-up outpatient with PCP or dermatology Thank you for allowing us to participate in the care of this patient. Will continue to follow at this time. Please let us know if there are any acute complaints or questions. Reason for continued inpatient stay Substantial Risk for: harm to self, inability to function and rapid decompensation Time Spent With Patient Time: Total time managing care of this patient today ____ minutes.
--- NOTE | 2022-09-12 13:58 | PM.EVENT ---
Event Note Date of Service: 09/12/22 Event Note: Pt with macuopapular rash of back of unclear etiology that appears slightly improved compared to yesterday. He does ensorse some pruritus. Please collect labs as ordered previously. Recommend famotidine BID and loratidine until rash resolves. Can continue using hydroxyzine prn. Use topical hydrocortisone BID prn. Thank you for allowing me to participate in this consult. Signing off at this time. Please do not hesitate to call for further questions. Time Spent With Patient Time: Total time managing care of this patient today ____ minutes.
[2022-09-12] MEDS: Mirtazapine 15 MG TABLET PO (21:49)
[2022-09-12] MEDS: Famotidine 20 MG TABLET PO (21:49)
[2022-09-12] MEDS: hydrOXYzine HCL 50 MG TABLET PO (21:49)
[2022-09-12] MEDS: Melatonin 3 MG TABLET PO (21:49)
[2022-09-12] MEDS: Hydrocortisone 1 % Cream 28.35 GM TUBE 1 APPL TOPICAL (21:49)
[2022-09-12] MEDS: HaloperidoL 5 MG TABLET 30 MG PO (21:50)
[2022-09-13 06:00] VITALS: BP 118/67; PULSE 77; RESP 16; TEMP 36.6; O2SAT 98
[2022-09-13] MEDS: lamoTRIgine 25 MG TABLET PO (09:35)
[2022-09-13] MEDS: Propranolol HCL 10 MG TABLET PO (09:35)
[2022-09-13] MEDS: Famotidine 20 MG TABLET PO ×2 (09:35→20:59)
[2022-09-13] MEDS: Benztropine Mesylate 1 MG TABLET PO ×2 (09:35→20:59)
[2022-09-13] MEDS: Loratadine 10 MG TABLET PO (09:35)
[2022-09-13] MEDS: Lithium Carbonate ER 300 MG TABLET.ER 600 MG PO ×2 (09:35→20:58)
--- NOTE | 2022-09-13 15:51 | HO.PSYCHPN ---
Subjective Subjective Date of Service: 09/13/22 Reason For Visit: SI Interim History: In bed. monosyllabic answers. no complaints or requests. Reported that he doesn't remember anything how he came here because he was smoking MJ and he blacked out. per staff, 3-day up 09/14. staying in room most of the day except for brief trips to the kitchen to get juice then goes back. Taking meds. raised rash on back. Withdrawn. Disheveled. Internally preoccupied. Review of Systems Review of Systems Skin lesions on hands, arms, and back Lesions occasionally itch Denies lesions hurt No fever, chills, nausea, vomiting, diarrhea, abdominal pain Yes all other systems are reviewed and are negative Mental Status Exam Mental Status Exam Narrative: lying in bed. calm. no PMA/PMR. minimally cooperative. speech nml rate, decr amount, nml latency, nml loudness. thoughts linear in very brief interaction. affect constricted, normo-intense, non-labile. no SI/HI/AVH expressed. Diagnostics Vital Signs (24Hr): Vital Signs - 24 hr 09/13/22 06:00 Temperature 97.8 F Pulse Rate 77 Respiratory Rate 16 Blood Pressure 118/67 Pulse Oximetry 98 Oxygen Delivery Method Room Air BMI result Body Mass Index 29.5 Labs 09/08/22 01:12 09/09/22 08:56 Medications Medications Current Medications Acetaminophen (Acetaminophen 325 Mg Tablet) 650 mg PO Q6H PRN PRN Reason: Headache/Pain Mild Scale (1-3) Al Hydroxide/Mg Hydroxide (Magnesium Hydrox/Alum Hydrox 30 Ml Oral.Susp) 30 ml PO Q6H PRN PRN Reason: Heartburn/Nausea Benztropine Mesylate (Benztropine Mesylate 1 Mg Tablet) 1 mg PO BID [facility] Last Admin: 09/13/22 09:35 Dose: 1 mg Famotidine (Famotidine 20 Mg Tablet) 20 mg PO BID [facility] Last Admin: 09/13/22 09:35 Dose: 20 mg Haloperidol (Haloperidol 5 Mg Tablet) 30 mg PO BEDTIME [facility] Last Admin: 09/12/22 21:50 Dose: 30 mg Hydrocortisone (Hydrocortisone 1 % Cream 28.35 Gm Tube) 1 appl TOPICAL BID PRN; Protocol PRN Reason: Rash Last Admin: 09/12/22 21:49 Dose: 1 appl Hydroxyzine HCl (Hydroxyzine Hcl 50 Mg Tablet) 50 mg PO TID PRN PRN Reason: Anxiety Last Admin: 09/12/22 21:49 Dose: 50 mg Lamotrigine (Lamotrigine 25 Mg Tablet) 25 mg PO DAILY [facility] Last Admin: 09/13/22 09:35 Dose: 25 mg Donald Carbonate (Donald Carbonate Er 300 Mg Tablet.Er) 600 mg PO BID [facility] Last Admin: 09/13/22 09:35 Dose: 600 mg Loratadine (Loratadine 10 Mg Tablet) 10 mg PO DAILY [facility] Last Admin: 09/13/22 09:35 Dose: 10 mg Magnesium Hydroxide (Milk Of Magnesia 30 Ml Oral.Susp) 30 ml PO DAILY PRN PRN Reason: Constipation Melatonin (Melatonin 3 Mg Tablet) 3 mg PO BEDTIME [facility] Last Admin: 09/12/22 21:49 Dose: 3 mg Mirtazapine (Mirtazapine 15 Mg Tablet) 15 mg PO BEDTIME [facility] Last Admin: 09/12/22 21:49 Dose: 15 mg Nicotine Polacrilex (Nicotine Polacrilex 2 Mg Gum) 4 mg BUCCAL Q2H PRN PRN Reason: Nicotine Cravings Propranolol HCl (Propranolol Hcl 10 Mg Tablet) 10 mg PO DAILY [facility]; Protocol Last Admin: 09/13/22 09:35 Dose: 10 mg Trazodone HCl (Trazodone Hcl 50 Mg Tablet) 50 mg PO BEDTIME MRX1 PRN PRN Reason: Insomnia Allergies Allergies Allergy/AdvReac Type Severity Reaction Status Date / Time No Known Allergies Allergy Verified 09/05/22 21:55 Assessment & Plan Assessment & Plan (1) Schizoaffective disorder, bipolar type: Status: Acute Code(s): F25.0 - Schizoaffective disorder, bipolar type Assessment and Plan: 09/09:? continue/restart outpt meds regimen.? started at only 20 mg haldol at HS; T/C returning to prescribed 30.? should get GRAHAM, will investigate Hx with GRAHAM meds (several of which are on the maninder's order). 09/10:? return HS haldol dosing to 30 mg as ordered outpt.? taking meds, disorganized but stable. 09/11:? continue current mgmt.? stable presentation. 09/12: Continue current regimen. 09/13: Continue current treatment. 09/13: He refused labs yesterday for work up of the rash. Plan Patient is a 37-year-old male with a PMH significant for schizoaffective disorder bipolar type who was admitted to [facility] for increasing depression with a SI. Ptwas apparently found sleeping outside in the grass by the side of the road. Patient minimally responsive during interview, mostly monosyllabic and with a poor sense of his own history. Patient denied knowing where he might have gotten his skin lesions, not sure where he had been the past few days or where he had been sleeping. Says his skin lesions began a few days ago. Denies his skin lesions hurt. Says they ?sometimes? itch, though states they currently do not itch. Maculopapular rash Unclear etiology: Contact dermatitis versus insect bites versus eczema versus psoriasis Will obtain labs: CBC, CMP, ESR, CRP, TRINI Patient currently asymptomatic with no pain or itching, will defer treatment pending labs If pt continues to be asymptomatic and labs unremarkable, patient should follow-up outpatient with PCP or dermatology Thank you for allowing us to participate in the care of this patient. Will continue to follow at this time. Please let us know if there are any acute complaints or questions. Reason for continued inpatient stay Substantial Risk for: inability to function and rapid decompensation Time Spent With Patient Time: Total time managing care of this patient today ____ minutes.
--- NOTE | 2022-09-13 17:48 | PM.EVENT ---
Event Note Date of Service: 09/13/22 Event Note: Maculopapular rash on back greatly improved on exam today. Erythema receding with mild excoriation noted. Suspect this is a contact/irritant dermatitis following laying in grass for prolonged period as previously mentioned. Would recommend continuing famotidine and loratidine until rash resolved. use hydrocortisone cream as needed. Pt denies any pruritus at this time.Will sign off at this time. Please do not hesitate to reach out with any questions or concerns. Time Spent With Patient Time: Total time managing care of this patient today ____ minutes.
[2022-09-13 20:27] VITALS: BP 112/66; PULSE 85; RESP 14; TEMP 36.6; O2SAT 97
[2022-09-13] MEDS: HaloperidoL 5 MG TABLET 30 MG PO (20:57)
[2022-09-13] MEDS: Melatonin 3 MG TABLET PO (20:59)
[2022-09-13] MEDS: Mirtazapine 15 MG TABLET PO (20:59)
[2022-09-13] MEDS: Hydrocortisone 1 % Cream 28.35 GM TUBE 1 APPL TOPICAL (21:01)
[2022-09-14 09:50] VITALS: BP 109/64; PULSE 90; TEMP 36.4; O2SAT 97
[2022-09-14] MEDS: Lithium Carbonate ER 300 MG TABLET.ER 600 MG PO ×2 (09:57→21:29)
[2022-09-14] MEDS: lamoTRIgine 25 MG TABLET PO (09:57)
[2022-09-14] MEDS: Famotidine 20 MG TABLET PO ×2 (09:58→21:25)
[2022-09-14] MEDS: Benztropine Mesylate 1 MG TABLET PO ×2 (09:58→21:25)
[2022-09-14] MEDS: Propranolol HCL 10 MG TABLET PO (09:58)
[2022-09-14] MEDS: Loratadine 10 MG TABLET PO (09:58)
[2022-09-14] MEDS: Paliperidone Palmitate 234 MG/1.5 ML SYRINGE IM (14:11)
--- NOTE | 2022-09-14 15:14 | PC.NURSE ---
Pt ws upset that he wasn't being discharged today. He took AM medications without issues but after he was told he wasn't leaving, he initially refused IM Invega. When RN explained that he had to receive this per his Bjorn's order, pt refused and placed blanket over his face & did not engage with staff. Pt eventually accepted IM injection at 1411 in left deltoid. Pt has remained withdrawn to his room.
--- NOTE | 2022-09-14 16:13 | P.PNPSI_ITS ---
Subjective Subjective Date of Service: 09/14/22 Reason For Visit: SI Interim History: seen with BRIAN. calm and cooperative. states he does not wish to return to his shelter and plans to go to [facility] for a couple weeks and sleep on the sidewalk, which he describes as a safe place to sleep. says his room at the shelter has bad energy, and he does not feel safe there. per SW, according to pt's father he usually agrees to return to the shelter when he is ready to leave the hospital. per shelter pt last had invega oswaldo in mid july. per staff, 3-day notice up today. isolative to room. takes meds. Mental Status Exam Mental Status Exam Narrative: OOB. calm. no PMA/PMR. cooperative. speech nml rate, decr amount, nml latency, nml loudness. thoughts linear and illogical. affect constricted, normo-intense, non-labile. no SI/HI/AVH expressed. Diagnostics Vital Signs (24Hr): Vital Signs - 24 hr 09/13/22 20:27 09/14/22 09:50 Temperature 97.8 F 97.6 F Pulse Rate 85 90 Respiratory Rate 14 Blood Pressure 112/66 109/64 Pulse Oximetry 97 97 Oxygen Delivery Method Room Air Room Air BMI result Body Mass Index 29.5 Labs 09/08/22 01:12 09/09/22 08:56 Medications Medications Current Medications Acetaminophen (Acetaminophen 325 Mg Tablet) 650 mg PO Q6H PRN PRN Reason: Headache/Pain Mild Scale (1-3) Al Hydroxide/Mg Hydroxide (Magnesium Hydrox/Alum Hydrox 30 Ml Oral.Susp) 30 ml PO Q6H PRN PRN Reason: Heartburn/Nausea Benztropine Mesylate (Benztropine Mesylate 1 Mg Tablet) 1 mg PO BID [facility] Last Admin: 09/14/22 09:58 Dose: 1 mg Famotidine (Famotidine 20 Mg Tablet) 20 mg PO BID [facility] Last Admin: 09/14/22 09:58 Dose: 20 mg Haloperidol (Haloperidol 5 Mg Tablet) 30 mg PO BEDTIME [facility] Last Admin: 09/13/22 20:57 Dose: 30 mg Hydrocortisone (Hydrocortisone 1 % Cream 28.35 Gm Tube) 1 appl TOPICAL BID PRN; Protocol PRN Reason: Rash Last Admin: 09/13/22 21:01 Dose: 1 appl Hydroxyzine HCl (Hydroxyzine Hcl 50 Mg Tablet) 50 mg PO TID PRN PRN Reason: Anxiety Last Admin: 09/12/22 21:49 Dose: 50 mg Lamotrigine (Lamotrigine 25 Mg Tablet) 25 mg PO DAILY [facility] Last Admin: 09/14/22 09:57 Dose: 25 mg [place] Carbonate ([place] Carbonate Er 300 Mg Tablet.Er) 600 mg PO BID [facility] Last Admin: 09/14/22 09:57 Dose: 600 mg Loratadine (Loratadine 10 Mg Tablet) 10 mg PO DAILY [facility] Last Admin: 09/14/22 09:58 Dose: 10 mg Magnesium Hydroxide (Milk Of Magnesia 30 Ml Oral.Susp) 30 ml PO DAILY PRN PRN Reason: Constipation Melatonin (Melatonin 3 Mg Tablet) 3 mg PO BEDTIME [facility] Last Admin: 09/13/22 20:59 Dose: 3 mg Mirtazapine (Mirtazapine 15 Mg Tablet) 15 mg PO BEDTIME [facility] Last Admin: 09/13/22 20:59 Dose: 15 mg Nicotine Polacrilex (Nicotine Polacrilex 2 Mg Gum) 4 mg BUCCAL Q2H PRN PRN Reason: Nicotine Cravings Propranolol HCl (Propranolol Hcl 10 Mg Tablet) 10 mg PO DAILY [facility]; Protocol Last Admin: 09/14/22 09:58 Dose: 10 mg Trazodone HCl (Trazodone Hcl 50 Mg Tablet) 50 mg PO BEDTIME MRX1 PRN PRN Reason: Insomnia Allergies Allergies Allergy/AdvReac Type Severity Reaction Status Date / Time No Known Allergies Allergy Verified 09/05/22 21:55 Assessment & Plan Assessment & Plan (1) Schizoaffective disorder, bipolar type: Status: Acute Code(s): F25.0 - Schizoaffective disorder, bipolar type Assessment and Plan: 09/09:? continue/restart outpt meds regimen.? started at only 20 mg haldol at HS; T/C returning to prescribed 30.? should get GRAHAM, will investigate Hx with GRAHAM meds (several of which are on the maninder's order). 09/10:? return HS haldol dosing to 30 mg as ordered outpt.? taking meds, disorganized but stable. 09/11:? continue current mgmt.? stable presentation. 09/12: Continue current regimen. 6/11: Continue current treatment. 09/13: He refused labs yesterday for work up of the rash. 09/14: 3-day up, commitment paperwork filed. cassy sustenna 234 mg given today, per maninder's order. next 156 mg in 3 days. improved from admission but not able to protect himself in the community. Plan Patient is a 37-year-old male with a PMH significant for schizoaffective disorder bipolar type who was admitted to [facility] for increasing depression with a SI. Ptwas apparently found sleeping outside in the grass by the side of the road. Patient minimally responsive during interview, mostly monosyllabic and with a poor sense of his own history. Patient denied knowing where he might have gotten his skin lesions, not sure where he had been the past few days or where he had been sleeping. Says his skin lesions began a few days ago. Denies his skin lesions hurt. Says they ?sometimes? itch, though states they currently do not itch. Maculopapular rash Unclear etiology: Contact dermatitis versus insect bites versus eczema versus psoriasis Will obtain labs: CBC, CMP, ESR, CRP, TRINI Patient currently asymptomatic with no pain or itching, will defer treatment pending labs If pt continues to be asymptomatic and labs unremarkable, patient should follow- up outpatient with PCP or dermatology Thank you for allowing us to participate in the care of this patient. Will continue to follow at this time. Please let us know if there are any acute complaints or questions. Reason for continued inpatient stay Substantial Risk for: harm to self, inability to function and rapid decompensation Time Spent With Patient Time: Total time managing care of this patient today __35__ minutes.
[2022-09-14] MEDS: Mirtazapine 15 MG TABLET PO (21:25)
[2022-09-14] MEDS: Melatonin 3 MG TABLET PO (21:25)
[2022-09-14] MEDS: HaloperidoL 5 MG TABLET 30 MG PO (21:28)
[2022-09-14] MEDS: Hydrocortisone 1 % Cream 28.35 GM TUBE 1 APPL TOPICAL (21:29)
[2022-09-14 21:30] VITALS: BP 99/57; PULSE 89; RESP 14; TEMP 36.7; O2SAT 95
[2022-09-15 09:08] VITALS: BP 112/61; PULSE 77; RESP 20; TEMP 37.2; O2SAT 95
[2022-09-15] MEDS: Propranolol HCL 10 MG TABLET PO (09:09)
[2022-09-15] MEDS: Benztropine Mesylate 1 MG TABLET PO ×2 (09:09→21:14)
[2022-09-15] MEDS: lamoTRIgine 25 MG TABLET PO (09:09)
[2022-09-15] MEDS: Lithium Carbonate ER 300 MG TABLET.ER 600 MG PO ×2 (09:09→21:13)
[2022-09-15] MEDS: Famotidine 20 MG TABLET PO ×2 (09:10→21:13)
[2022-09-15] MEDS: Loratadine 10 MG TABLET PO (09:10)
--- NOTE | 2022-09-15 13:27 | HO.PSYCHPN ---
Subjective Subjective Date of Service: 09/15/22 Reason For Visit: SI Interim History: restin in bed, rousable. hypo-verbal, denies any problems. no questions or complaints. per staff, upset re no D/C yesterday. ate breakfast, refused lunch. upset to have been given invega sustenna yesterday. slept well. Mental Status Exam Mental Status Exam Narrative: lying in bed. calm. no PMA/PMR. minimally cooperative. speech nml rate, decr amount, nml latency, nml loudness. thoughts linear in very brief interaction. affect constricted, normo-intense, non-labile. no SI/HI/AVH expressed. Diagnostics Vital Signs (24Hr): Vital Signs - 24 hr 09/14/22 21:30 09/15/22 09:08 Temperature 98.1 F 98.9 F Pulse Rate 89 77 Respiratory Rate 14 20 Blood Pressure 99/57 L 112/61 Pulse Oximetry 95 95 Oxygen Delivery Method Room Air Room Air BMI result Body Mass Index 29.5 Labs 09/08/22 01:12 09/09/22 08:56 Medications Medications Current Medications Acetaminophen (Acetaminophen 325 Mg Tablet) 650 mg PO Q6H PRN PRN Reason: Headache/Pain Mild Scale (1-3) Al Hydroxide/Mg Hydroxide (Magnesium Hydrox/Alum Hydrox 30 Ml Oral.Susp) 30 ml PO Q6H PRN PRN Reason: Heartburn/Nausea Benztropine Mesylate (Benztropine Mesylate 1 Mg Tablet) 1 mg PO BID [facility] Last Admin: 09/15/22 09:09 Dose: 1 mg Famotidine (Famotidine 20 Mg Tablet) 20 mg PO BID [facility] Last Admin: 09/15/22 09:10 Dose: 20 mg Haloperidol (Haloperidol 5 Mg Tablet) 30 mg PO BEDTIME [facility] [place] Last Admin: 09/14/22 21:28 Dose: 30 mg Hydrocortisone (Hydrocortisone 1 % Cream 28.35 Gm Tube) 1 appl TOPICAL BID PRN; Protocol PRN Reason: Rash Last Admin: 09/14/22 21:29 Dose: 1 appl Hydroxyzine HCl (Hydroxyzine Hcl 50 Mg Tablet) 50 mg PO TID PRN PRN Reason: Anxiety Last Admin: 09/12/22 21:49 Dose: 50 mg Lamotrigine (Lamotrigine 25 Mg Tablet) 25 mg PO DAILY [facility] [place] Last Admin: 09/15/22 09:09 Dose: 25 mg Angelica Carbonate (Angelica Carbonate Er 300 Mg Tablet.Er) 600 mg PO BID [facility] [place] Last Admin: 09/15/22 09:09 Dose: 600 mg Loratadine (Loratadine 10 Mg Tablet) 10 mg PO DAILY [facility] Last Admin: 09/15/22 09:10 Dose: 10 mg Magnesium Hydroxide (Milk Of Magnesia 30 Ml Oral.Susp) 30 ml PO DAILY PRN PRN Reason: Constipation Melatonin (Melatonin 3 Mg Tablet) 3 mg PO BEDTIME [facility] Last Admin: 09/14/22 21:25 Dose: 3 mg Mirtazapine (Mirtazapine 15 Mg Tablet) 15 mg PO BEDTIME [facility] [place] Last Admin: 09/14/22 21:25 Dose: 15 mg Nicotine Polacrilex (Nicotine Polacrilex 2 Mg Gum) 4 mg BUCCAL Q2H PRN PRN Reason: Nicotine Cravings Propranolol HCl (Propranolol Hcl 10 Mg Tablet) 10 mg PO DAILY [facility] [place]; Protocol Last Admin: 09/15/22 09:09 Dose: 10 mg Trazodone HCl (Trazodone Hcl 50 Mg Tablet) 50 mg PO BEDTIME MRX1 PRN PRN Reason: Insomnia Allergies Allergies Allergy/AdvReac Type Severity Reaction Status Date / Time No Known Allergies Allergy Verified 09/05/22 21:55 Assessment & Plan Assessment & Plan (1) Schizoaffective disorder, bipolar type: Status: Acute Code(s): F25.0 - Schizoaffective disorder, bipolar type Assessment and Plan: 09/09:? continue/restart outpt meds regimen.? started at only 20 mg haldol at HS; T/C returning to prescribed 30.? should get GRAHAM, will investigate Hx with GRAHAM meds (several of which are on the maninder's order). 09/10:? return HS haldol dosing to 30 mg as ordered outpt.? taking meds, disorganized but stable. 09/11:? continue current mgmt.? stable presentation. 09/12: Continue current regimen. 09/13: Continue current treatment. 09/13: He refused labs yesterday for work up of the rash. 09/14: 3-day up, commitment paperwork filed. invega sustenna 234 mg given today, per maninder's order. next 156 mg in 3 days. improved from admission but not able to protect himself in the community. 09/15: no change in presentation, not engaging. Invega sustenna 156 mg for . Plan Patient is a 37-year-old male with a PMH significant for schizoaffective disorder bipolar type who was admitted to [facility] for increasing depression with a SI. Ptwas apparently found sleeping outside in the grass by the side of the road. Patient minimally responsive during interview, mostly monosyllabic and with a poor sense of his own history. Patient denied knowing where he might have gotten his skin lesions, not sure where he had been the past few days or where he had been sleeping. Says his skin lesions began a few days ago. Denies his skin lesions hurt. Says they ?sometimes? itch, though states they currently do not itch. Maculopapular rash Unclear etiology: Contact dermatitis versus insect bites versus eczema versus psoriasis Will obtain labs: CBC, CMP, ESR, CRP, TRINI Patient currently asymptomatic with no pain or itching, will defer treatment pending labs If pt continues to be asymptomatic and labs unremarkable, patient should follow-up outpatient with PCP or dermatology Thank you for allowing us to participate in the care of this patient. Will continue to follow at this time. Please let us know if there are any acute complaints or questions. Reason for continued inpatient stay Substantial Risk for: harm to self, harm to others, inability to function and rapid decompensation Time Spent With Patient Time: Total time managing care of this patient today ____ minutes.
[2022-09-15 20:30] VITALS: BP 121/69; PULSE 77; RESP 18; TEMP 36.9; O2SAT 97
[2022-09-15] MEDS: Melatonin 3 MG TABLET PO (21:13)
[2022-09-15] MEDS: HaloperidoL 5 MG TABLET 30 MG PO (21:13)
[2022-09-15] MEDS: Mirtazapine 15 MG TABLET PO (21:13)
[2022-09-16 06:00] VITALS: BP 110/58; PULSE 75; RESP 18; O2SAT 97
[2022-09-16] MEDS: Propranolol HCL 10 MG TABLET PO (08:30)
[2022-09-16] MEDS: Loratadine 10 MG TABLET PO (08:31)
[2022-09-16] MEDS: lamoTRIgine 25 MG TABLET PO (08:31)
[2022-09-16] MEDS: Lithium Carbonate ER 300 MG TABLET.ER 600 MG PO ×2 (08:31→21:26)
[2022-09-16] MEDS: Famotidine 20 MG TABLET PO ×2 (08:31→21:27)
[2022-09-16] MEDS: Benztropine Mesylate 1 MG TABLET PO ×2 (08:31→21:27)
--- NOTE | 2022-09-16 14:08 | HO.PSYCHPN ---
Subjective Subjective Date of Service: 09/16/22 Reason For Visit: SI Interim History: calm, cooperative. not forthcoming - sitting in bed writing extensively, declines to inform MD of what is on his mind or what he is writing about. states he would like to return to the halfway but unable to say what has changed his mind. no complaints or requests. per staff, isolative. unsure of his plans. says he wants to return to halfway, though. Mental Status Exam Mental Status Exam Narrative: sitting in bed writing. calm. no PMA/PMR. minimally cooperative. speech nml rate, decr amount, incr latency, nml loudness. thoughts linear in very brief interaction, but vague and evasive. affect constricted, normo-intense, non-labile. no SI/HI/AVH expressed. Diagnostics Vital Signs (24Hr): Vital Signs - 24 hr 09/15/22 20:30 09/16/22 06:00 Temperature 98.4 F Pulse Rate 77 75 Respiratory Rate 18 18 Blood Pressure 121/69 110/58 L Pulse Oximetry 97 97 Oxygen Delivery Method Room Air Room Air BMI result Body Mass Index 29.5 Labs 09/08/22 01:12 09/09/22 08:56 Medications Medications Current Medications Acetaminophen (Acetaminophen 325 Mg Tablet) 650 mg PO Q6H PRN PRN Reason: Headache/Pain Mild Scale (1-3) Al Hydroxide/Mg Hydroxide (Magnesium Hydrox/Alum Hydrox 30 Ml Oral.Susp) 30 ml PO Q6H PRN PRN Reason: Heartburn/Nausea Benztropine Mesylate (Benztropine Mesylate 1 Mg Tablet) 1 mg PO BID [facility] Last Admin: 09/16/22 08:31 Dose: 1 mg Famotidine (Famotidine 20 Mg Tablet) 20 mg PO BID [facility] Last Admin: 09/16/22 08:31 Dose: 20 mg Haloperidol (Haloperidol 5 Mg Tablet) 30 mg PO BEDTIME [facility] Last Admin: 09/15/22 21:13 Dose: 30 mg Hydrocortisone (Hydrocortisone 1 % Cream 28.35 Gm Tube) 1 appl TOPICAL BID PRN; Protocol PRN Reason: Rash Last Admin: 09/14/22 21:29 Dose: 1 appl Hydroxyzine HCl (Hydroxyzine Hcl 50 Mg Tablet) 50 mg PO TID PRN PRN Reason: Anxiety Last Admin: 09/12/22 21:49 Dose: 50 mg Lamotrigine (Lamotrigine 25 Mg Tablet) 25 mg PO DAILY [facility] Last Admin: 09/16/22 08:31 Dose: 25 mg [place] Carbonate ([place] Carbonate Er 300 Mg Tablet.Er) 600 mg PO BID [facility] Last Admin: 09/16/22 08:31 Dose: 600 mg Loratadine (Loratadine 10 Mg Tablet) 10 mg PO DAILY [facility] Last Admin: 09/16/22 08:31 Dose: 10 mg Magnesium Hydroxide (Milk Of Magnesia 30 Ml Oral.Susp) 30 ml PO DAILY PRN PRN Reason: Constipation Melatonin (Melatonin 3 Mg Tablet) 3 mg PO BEDTIME [facility] Last Admin: 09/15/22 21:13 Dose: 3 mg Mirtazapine (Mirtazapine 15 Mg Tablet) 15 mg PO BEDTIME [facility] Last Admin: 09/15/22 21:13 Dose: 15 mg Nicotine Polacrilex (Nicotine Polacrilex 2 Mg Gum) 4 mg BUCCAL Q2H PRN PRN Reason: Nicotine Cravings Paliperidone Palmitate (Paliperidone Palmitate 156 Mg/Ml Syringe) 156 mg IM ONCE ONE Stop: 09/17/22 08:01 Propranolol HCl (Propranolol Hcl 10 Mg Tablet) 10 mg PO DAILY [facility]; Protocol Last Admin: 09/16/22 08:30 Dose: 10 mg Trazodone HCl (Trazodone Hcl 50 Mg Tablet) 50 mg PO BEDTIME MRX1 PRN PRN Reason: Insomnia Allergies Allergies Allergy/AdvReac Type Severity Reaction Status Date / Time No Known Allergies Allergy Verified 09/05/22 21:55 Assessment & Plan Assessment & Plan (1) Schizoaffective disorder, bipolar type: Status: Acute Code(s): F25.0 - Schizoaffective disorder, bipolar type Assessment and Plan: 09/09:? continue/restart outpt meds regimen.? started at only 20 mg haldol at HS; T/C returning to prescribed 30.? should get GRAHAM, will investigate Hx with GRAHAM meds (several of which are on the maninder's order). 09/10:? return HS haldol dosing to 30 mg as ordered outpt.? taking meds, disorganized but stable. 09/11:? continue current mgmt.? stable presentation. 09/12: Continue current regimen. 09/13: Continue current treatment. 6/11: He refused labs yesterday for work up of the rash. 09/14: 3-day up, commitment paperwork filed. invega sustenna 234 mg given today, per maninder's order. next 156 mg in 3 days. improved from admission but not able to protect himself in the community. 09/15: no change in presentation, not engaging. Invega sustenna 156 mg for . 09/16: no change to plan. now saying he wants to return to halfway. invega sustenna 156 tomorrow. attempt to have halfway staff come in to assess for baseline and attempt to establish connection. court scheduled for next wednesday. Plan Patient is a 37-year-old male with a PMH significant for schizoaffective disorder bipolar type who was admitted to psychiatry unit for increasing depression with a SI. Ptwas apparently found sleeping outside in the grass by the side of the road. Patient minimally responsive during interview, mostly monosyllabic and with a poor sense of his own history. Patient denied knowing where he might have gotten his skin lesions, not sure where he had been the past few days or where he had been sleeping. Says his skin lesions began a few days ago. Denies his skin lesions hurt. Says they ?sometimes? itch, though states they currently do not itch. Maculopapular rash Unclear etiology: Contact dermatitis versus insect bites versus eczema versus psoriasis Will obtain labs: CBC, CMP, ESR, CRP, TRINI Patient currently asymptomatic with no pain or itching, will defer treatment pending labs If pt continues to be asymptomatic and labs unremarkable, patient should follow-up outpatient with PCP or dermatology Thank you for allowing us to participate in the care of this patient. Will continue to follow at this time. Please let us know if there are any acute complaints or questions. Reason for continued inpatient stay Substantial Risk for: harm to self, inability to function and rapid decompensation Time Spent With Patient Time: Total time managing care of this patient today __25__ minutes.
[2022-09-16] MEDS: HaloperidoL 5 MG TABLET 30 MG PO (21:26)
[2022-09-16] MEDS: Melatonin 3 MG TABLET PO (21:27)
[2022-09-16] MEDS: Mirtazapine 15 MG TABLET PO (21:27)
[2022-09-16 21:35] VITALS: BP 124/70; PULSE 72; RESP 18; TEMP 36.8; O2SAT 97
[2022-09-17 06:00] VITALS: BP 129/89; PULSE 86; RESP 18; TEMP 36.8; O2SAT 95
[2022-09-17] MEDS: lamoTRIgine 25 MG TABLET PO (09:27)
[2022-09-17] MEDS: Famotidine 20 MG TABLET PO ×2 (09:27→21:12)
[2022-09-17] MEDS: Benztropine Mesylate 1 MG TABLET PO ×2 (09:27→21:12)
[2022-09-17] MEDS: Propranolol HCL 10 MG TABLET PO (09:27)
[2022-09-17] MEDS: Lithium Carbonate ER 300 MG TABLET.ER 600 MG PO ×2 (09:27→21:11)
[2022-09-17] MEDS: Loratadine 10 MG TABLET PO (09:27)
[2022-09-17] MEDS: Paliperidone Palmitate 156 MG/ML SYRINGE IM (10:34)
[2022-09-17] MEDS: hydrOXYzine HCL 50 MG TABLET PO (13:57)
--- NOTE | 2022-09-17 16:16 | P.PNPSI_ITS ---
Subjective Subjective Date of Service: 09/17/22 Reason For Visit: SI Interim History: lying in bed resting, either awake or easily roused. denies any problems, has no questions or complaints. informed pt his ACCS worker would be visiting tomorrow at 11:30. pt denied knowledge of the identity of said worker. per staff, anxious and depressed. not attending groups. sleeping a lot. denies AVH. paranoid/guarded. ACCS worker to visit tomorrow at 1130. Mental Status Exam Mental Status Exam Narrative: lying in bed. calm. no PMA/PMR. minimally cooperative. speech nml rate, decr amount, nml latency, nml loudness. thoughts linear in very brief interaction. affect constricted, normo-intense, non-labile. no SI/HI/AVH expressed. Diagnostics Vital Signs (24Hr): Vital Signs - 24 hr 09/16/22 21:35 09/17/22 06:00 Temperature 98.3 F 98.3 F Pulse Rate 72 86 Respiratory Rate 18 18 Blood Pressure 124/70 129/89 Pulse Oximetry 97 95 Oxygen Delivery Method Room Air Room Air BMI result Body Mass Index 29.5 Labs 09/08/22 01:12 09/09/22 08:56 Medications Medications Current Medications Acetaminophen (Acetaminophen 325 Mg Tablet) 650 mg PO Q6H PRN PRN Reason: Headache/Pain Mild Scale (1-3) Al Hydroxide/Mg Hydroxide (Magnesium Hydrox/Alum Hydrox 30 Ml Oral.Susp) 30 ml PO Q6H PRN PRN Reason: Heartburn/Nausea Benztropine Mesylate (Benztropine Mesylate 1 Mg Tablet) 1 mg PO BID [facility] Last Admin: 09/17/22 09:27 Dose: 1 mg Famotidine (Famotidine 20 Mg Tablet) 20 mg PO BID [facility] Last Admin: 09/17/22 09:27 Dose: 20 mg Haloperidol (Haloperidol 5 Mg Tablet) 30 mg PO BEDTIME [facility] Last Admin: 09/16/22 21:26 Dose: 30 mg Hydrocortisone (Hydrocortisone 1 % Cream 28.35 Gm Tube) 1 appl TOPICAL BID PRN; Protocol PRN Reason: Rash Last Admin: 09/14/22 21:29 Dose: 1 appl Hydroxyzine HCl (Hydroxyzine Hcl 50 Mg Tablet) 50 mg PO TID PRN PRN Reason: Anxiety Last Admin: 09/17/22 13:57 Dose: 50 mg Lamotrigine (Lamotrigine 25 Mg Tablet) 25 mg PO DAILY [facility] Last Admin: 09/17/22 09:27 Dose: 25 mg [place] Carbonate ([place] Carbonate Er 300 Mg Tablet.Er) 600 mg PO BID [facility] Last Admin: 09/17/22 09:27 Dose: 600 mg Loratadine (Loratadine 10 Mg Tablet) 10 mg PO DAILY [facility] Last Admin: 09/17/22 09:27 Dose: 10 mg Magnesium Hydroxide (Milk Of Magnesia 30 Ml Oral.Susp) 30 ml PO DAILY PRN PRN Reason: Constipation Melatonin (Melatonin 3 Mg Tablet) 3 mg PO BEDTIME [facility] Last Admin: 09/16/22 21:27 Dose: 3 mg Mirtazapine (Mirtazapine 15 Mg Tablet) 15 mg PO BEDTIME [facility] Last Admin: 09/16/22 21:27 Dose: 15 mg Nicotine Polacrilex (Nicotine Polacrilex 2 Mg Gum) 4 mg BUCCAL Q2H PRN PRN Reason: Nicotine Cravings Propranolol HCl (Propranolol Hcl 10 Mg Tablet) 10 mg PO DAILY [facility]; Protocol Last Admin: 09/17/22 09:27 Dose: 10 mg Trazodone HCl (Trazodone Hcl 50 Mg Tablet) 50 mg PO BEDTIME MRX1 PRN PRN Reason: Insomnia Allergies Allergies Allergy/AdvReac Type Severity Reaction Status Date / Time No Known Allergies Allergy Verified 09/05/22 21:55 Assessment & Plan Assessment & Plan (1) Schizoaffective disorder, bipolar type: Status: Acute Code(s): F25.0 - Schizoaffective disorder, bipolar type Assessment and Plan: 09/09:? continue/restart outpt meds regimen.? started at only 20 mg haldol at HS; T/C returning to prescribed 30.? should get GRAHAM, will investigate Hx with GRAHAM meds (several of which are on the maninder's order). 09/10:? return HS haldol dosing to 30 mg as ordered outpt.? taking meds, disorganized but stable. 09/11:? continue current mgmt.? stable presentation. 09/12: Continue current regimen. 09/13: Continue current treatment. 09/13: He refused labs yesterday for work up of the rash. 09/14: 3-day up, commitment paperwork filed. invega sustenna 234 mg given today, per maninder's order. next 156 mg in 3 days. improved from admission but not able to protect himself in the community. 09/15: no change in presentation, not engaging. Invega sustenna 156 mg for . 09/16: no change to plan. now saying he wants to return to skilled nursing. invega sustenna 156 tomorrow. attempt to have skilled nursing staff come in to assess for baseline and attempt to establish connection. court scheduled for next wednesday. 09/17: no change in presentation. received invega sustenna 156 mg IM today. ACCS worker to visit tomorrow. court scheduled for wednesday. Plan Patient is a 37-year-old male with a PMH significant for schizoaffective disorder bipolar type who was admitted to [facility] unit for increasing depression with a SI. Ptwas apparently found sleeping outside in the grass by the side of the road. Patient minimally responsive during interview, mostly monosyllabic and with a poor sense of his own history. Patient denied knowing where he might have gotten his skin lesions, not sure where he had been the past few days or where he had been sleeping. Says his skin lesions began a few days ago. Denies his skin lesions hurt. Says they ?sometimes? itch, though states they currently do not itch. Maculopapular rash Unclear etiology: Contact dermatitis versus insect bites versus eczema versus psoriasis Will obtain labs: CBC, CMP, ESR, CRP, TRINI Patient currently asymptomatic with no pain or itching, will defer treatment pending labs If pt continues to be asymptomatic and labs unremarkable, patient should follow- up outpatient with PCP or dermatology Thank you for allowing us to participate in the care of this patient. Will continue to follow at this time. Please let us know if there are any acute complaints or questions. Reason for continued inpatient stay Substantial Risk for: inability to function and rapid decompensation Time Spent With Patient Time: Total time managing care of this patient today __25__ minutes.
[2022-09-17] MEDS: HaloperidoL 5 MG TABLET 30 MG PO (21:11)
[2022-09-17] MEDS: Mirtazapine 15 MG TABLET PO (21:12)
[2022-09-17] MEDS: Melatonin 3 MG TABLET PO (21:12)
[2022-09-17 21:40] VITALS: BP 125/75; PULSE 82; RESP 20; TEMP 36.8; O2SAT 98
[2022-09-18 08:30] VITALS: BP 111/71; PULSE 81; RESP 16; TEMP 36.6; O2SAT 95
[2022-09-18] MEDS: Lithium Carbonate ER 300 MG TABLET.ER 600 MG PO ×2 (08:48→20:39)
[2022-09-18] MEDS: Benztropine Mesylate 1 MG TABLET PO ×2 (08:48→20:39)
[2022-09-18] MEDS: lamoTRIgine 25 MG TABLET PO (08:48)
[2022-09-18] MEDS: Propranolol HCL 10 MG TABLET PO (08:48)
[2022-09-18] MEDS: Famotidine 20 MG TABLET PO ×2 (08:49→20:39)
[2022-09-18] MEDS: Loratadine 10 MG TABLET PO (08:49)
--- NOTE | 2022-09-18 13:40 | HO.PSYCHPN ---
Subjective Subjective Date of Service: 09/18/22 Reason For Visit: SI Interim History: in bed, rousable. no change in presentation. sattes he is doing good. no questions or complaints. per staff, got second invega dose yesterday. paranoid. only drinking bottled water, eating sealed foods. Mental Status Exam Mental Status Exam Narrative: lying in bed. calm. no PMA/PMR. minimally cooperative. speech nml rate, decr amount, nml latency, nml loudness. thoughts linear in very brief interaction. affect constricted, normo-intense, non-labile. no SI/HI/AVH expressed. Diagnostics Vital Signs (24Hr): Vital Signs - 24 hr 09/17/22 21:40 Temperature 98.3 F Pulse Rate 82 Respiratory Rate 20 Blood Pressure 125/75 Pulse Oximetry 98 Oxygen Delivery Method Room Air BMI result Body Mass Index 29.5 Labs 09/08/22 01:12 09/09/22 08:56 Medications Medications Current Medications Acetaminophen (Acetaminophen 325 Mg Tablet) 650 mg PO Q6H PRN PRN Reason: Headache/Pain Mild Scale (1-3) Al Hydroxide/Mg Hydroxide (Magnesium Hydrox/Alum Hydrox 30 Ml Oral.Susp) 30 ml PO Q6H PRN PRN Reason: Heartburn/Nausea Benztropine Mesylate (Benztropine Mesylate 1 Mg Tablet) 1 mg PO BID [facility] Last Admin: 09/18/22 08:48 Dose: 1 mg Famotidine (Famotidine 20 Mg Tablet) 20 mg PO BID [facility] Last Admin: 09/18/22 08:49 Dose: 20 mg Haloperidol (Haloperidol 5 Mg Tablet) 30 mg PO BEDTIME [facility] Last Admin: 09/17/22 21:11 Dose: 30 mg Hydrocortisone (Hydrocortisone 1 % Cream 28.35 Gm Tube) 1 appl TOPICAL BID PRN; Protocol PRN Reason: Rash Last Admin: 09/14/22 21:29 Dose: 1 appl Hydroxyzine HCl (Hydroxyzine Hcl 50 Mg Tablet) 50 mg PO TID PRN PRN Reason: Anxiety Last Admin: 09/17/22 13:57 Dose: 50 mg Lamotrigine (Lamotrigine 25 Mg Tablet) 25 mg PO DAILY [facility] Last Admin: 09/18/22 08:48 Dose: 25 mg [place] Carbonate ([place] Carbonate Er 300 Mg Tablet.Er) 600 mg PO BID [facility] Last Admin: 09/18/22 08:48 Dose: 600 mg Loratadine (Loratadine 10 Mg Tablet) 10 mg PO DAILY [facility] Last Admin: 09/18/22 08:49 Dose: 10 mg Magnesium Hydroxide (Milk Of Magnesia 30 Ml Oral.Susp) 30 ml PO DAILY PRN PRN Reason: Constipation Melatonin (Melatonin 3 Mg Tablet) 3 mg PO BEDTIME [facility] Last Admin: 09/17/22 21:12 Dose: 3 mg Mirtazapine (Mirtazapine 15 Mg Tablet) 15 mg PO BEDTIME [facility] Last Admin: 09/17/22 21:12 Dose: 15 mg Nicotine Polacrilex (Nicotine Polacrilex 2 Mg Gum) 4 mg BUCCAL Q2H PRN PRN Reason: Nicotine Cravings Propranolol HCl (Propranolol Hcl 10 Mg Tablet) 10 mg PO DAILY [facility]; Protocol Last Admin: 09/18/22 08:48 Dose: 10 mg Trazodone HCl (Trazodone Hcl 50 Mg Tablet) 50 mg PO BEDTIME MRX1 PRN PRN Reason: Insomnia Allergies Allergies Allergy/AdvReac Type Severity Reaction Status Date / Time No Known Allergies Allergy Verified 09/05/22 21:55 Assessment & Plan Assessment & Plan (1) Schizoaffective disorder, bipolar type: Status: Acute Code(s): F25.0 - Schizoaffective disorder, bipolar type Assessment and Plan: 09/09:? continue/restart outpt meds regimen.? started at only 20 mg haldol at HS; T/C returning to prescribed 30.? should get GRAHAM, will investigate Hx with GRAHAM meds (several of which are on the maninder's order). 09/10:? return HS haldol dosing to 30 mg as ordered outpt.? taking meds, disorganized but stable. 09/11:? continue current mgmt.? stable presentation. 09/12: Continue current regimen. 09/13: Continue current treatment. 09/13: He refused labs yesterday for work up of the rash. 09/14: 3-day up, commitment paperwork filed. invega sustenna 234 mg given today, per maninder's order. next 156 mg in 3 days. improved from admission but not able to protect himself in the community. 09/15: no change in presentation, not engaging. Invega sustenna 156 mg for . 09/16: no change to plan. now saying he wants to return to snf. invega sustenna 156 tomorrow. attempt to have snf staff come in to assess for baseline and attempt to establish connection. court scheduled for next wednesday. 09/17: no change in presentation. received invega sustenna 156 mg IM today. ACCS worker to visit tomorrow. court scheduled for wednesday. 09/18: per SW, ACCS worker feels pt is at his baseline. will continue to Tx pt in structured setting but will likely discharge back to snf if he continues in good behavioral control and continues to endorse reasonable discharge plan through the weekend. continue current mgmt. Plan Patient is a 37-year-old male with a PMH significant for schizoaffective disorder bipolar type who was admitted to psychiatry unit for increasing depression with a SI. Ptwas apparently found sleeping outside in the grass by the side of the road. Patient minimally responsive during interview, mostly monosyllabic and with a poor sense of his own history. Patient denied knowing where he might have gotten his skin lesions, not sure where he had been the past few days or where he had been sleeping. Says his skin lesions began a few days ago. Denies his skin lesions hurt. Says they ?sometimes? itch, though states they currently do not itch. Maculopapular rash Unclear etiology: Contact dermatitis versus insect bites versus eczema versus psoriasis Will obtain labs: CBC, CMP, ESR, CRP, TRINI Patient currently asymptomatic with no pain or itching, will defer treatment pending labs If pt continues to be asymptomatic and labs unremarkable, patient should follow-up outpatient with PCP or dermatology Thank you for allowing us to participate in the care of this patient. Will continue to follow at this time. Please let us know if there are any acute complaints or questions. Reason for continued inpatient stay Substantial Risk for: harm to self, inability to function and rapid decompensation Time Spent With Patient Time: Total time managing care of this patient today __25__ minutes.
[2022-09-18 20:30] VITALS: BP 128/74; PULSE 85; RESP 16; TEMP 36.8; O2SAT 96
[2022-09-18] MEDS: HaloperidoL 5 MG TABLET 30 MG PO (20:37)
[2022-09-18] MEDS: Mirtazapine 15 MG TABLET PO (20:39)
[2022-09-18] MEDS: Melatonin 3 MG TABLET PO (20:39)
[2022-09-19 08:42] VITALS: BP 92/60; PULSE 88; RESP 18; TEMP 37.1; O2SAT 98
[2022-09-19] MEDS: Benztropine Mesylate 1 MG TABLET PO ×2 (08:43→20:49)
[2022-09-19] MEDS: Propranolol HCL 10 MG TABLET PO (08:43)
[2022-09-19] MEDS: Loratadine 10 MG TABLET PO (08:43)
[2022-09-19] MEDS: Lithium Carbonate ER 300 MG TABLET.ER 600 MG PO ×2 (08:43→20:48)
[2022-09-19] MEDS: Famotidine 20 MG TABLET PO ×2 (08:43→20:49)
[2022-09-19] MEDS: lamoTRIgine 25 MG TABLET PO (08:43)
--- NOTE | 2022-09-19 09:01 | P.PNPSI_ITS ---
Subjective Subjective Date of Service: 09/19/22 Reason For Visit: SI Subjective Notes: [facility] Order and Section 7 Interim History: Patient was seen and discussed in rounds today. Records and plans were reviewed. He continues to be mostly in his room, isolative with very limited response to others. Denies any auditory or visual hallucinations. No SI. He has been medication compliant and received his Invega Sustenna 234 mg. Eating adequately/sealed food No complaints or side effects. No changes were made today Medication Compliance: Yes Side effects from medications: No Attending Groups: No Review of Systems Review of Systems Skin lesions on hands, arms, and back Lesions occasionally itch Denies lesions hurt No fever, chills, nausea, vomiting, diarrhea, abdominal pain Yes all other systems are reviewed and are negative Mental Status Exam Mental Status Exam Narrative: In today's visit he is alert, minimally interactive. Normal speech. No eye contact. Affect is constricted. Denies any auditory or visual hallucinations. No overt delusions. Cognitively he has slow thought processes and paucity of thought. No active SI. Judgment is marginal. Diagnostics Vital Signs (24Hr): Vital Signs - 24 hr 09/18/22 20:30 09/19/22 08:42 Temperature 98.3 F 98.8 F Pulse Rate 85 88 Respiratory Rate 16 18 Blood Pressure 128/74 92/60 Pulse Oximetry 96 98 Oxygen Delivery Method Room Air Room Air BMI result Body Mass Index 29.5 Labs 09/08/22 01:12 09/09/22 08:56 Medications Medications Current Medications Acetaminophen (Acetaminophen 325 Mg Tablet) 650 mg PO Q6H PRN PRN Reason: Headache/Pain Mild Scale (1-3) Al Hydroxide/Mg Hydroxide (Magnesium Hydrox/Alum Hydrox 30 Ml Oral.Susp) 30 ml PO Q6H PRN PRN Reason: Heartburn/Nausea Benztropine Mesylate (Benztropine Mesylate 1 Mg Tablet) 1 mg PO BID [facility] Last Admin: 09/19/22 08:43 Dose: 1 mg Famotidine (Famotidine 20 Mg Tablet) 20 mg PO BID [facility] Last Admin: 09/19/22 08:43 Dose: 20 mg Haloperidol (Haloperidol 5 Mg Tablet) 30 mg PO BEDTIME [facility] Last Admin: 09/18/22 20:37 Dose: 30 mg Hydrocortisone (Hydrocortisone 1 % Cream 28.35 Gm Tube) 1 appl TOPICAL BID PRN; Protocol PRN Reason: Rash Last Admin: 09/14/22 21:29 Dose: 1 appl Hydroxyzine HCl (Hydroxyzine Hcl 50 Mg Tablet) 50 mg PO TID PRN PRN Reason: Anxiety Last Admin: 09/17/22 13:57 Dose: 50 mg Lamotrigine (Lamotrigine 25 Mg Tablet) 25 mg PO DAILY [facility] Last Admin: 09/19/22 08:43 Dose: 25 mg [place] Carbonate ([place] Carbonate Er 300 Mg Tablet.Er) 600 mg PO BID [facility] Last Admin: 09/19/22 08:43 Dose: 600 mg Loratadine (Loratadine 10 Mg Tablet) 10 mg PO DAILY [facility] Last Admin: 09/19/22 08:43 Dose: 10 mg Magnesium Hydroxide (Milk Of Magnesia 30 Ml Oral.Susp) 30 ml PO DAILY PRN PRN Reason: Constipation Melatonin (Melatonin 3 Mg Tablet) 3 mg PO BEDTIME [facility] Last Admin: 09/18/22 20:39 Dose: 3 mg Mirtazapine (Mirtazapine 15 Mg Tablet) 15 mg PO BEDTIME [facility] Last Admin: 09/18/22 20:39 Dose: 15 mg Nicotine Polacrilex (Nicotine Polacrilex 2 Mg Gum) 4 mg BUCCAL Q2H PRN PRN Reason: Nicotine Cravings Propranolol HCl (Propranolol Hcl 10 Mg Tablet) 10 mg PO DAILY [facility]; Protocol Last Admin: 09/19/22 08:43 Dose: 10 mg Trazodone HCl (Trazodone Hcl 50 Mg Tablet) 50 mg PO BEDTIME MRX1 PRN PRN Reason: Insomnia Allergies Allergies Allergy/AdvReac Type Severity Reaction Status Date / Time No Known Allergies Allergy Verified 09/05/22 21:55 Assessment & Plan Assessment & Plan (1) Schizoaffective disorder, bipolar type: Status: Acute Code(s): F25.0 - Schizoaffective disorder, bipolar type Assessment and Plan: 09/09:? continue/restart outpt meds regimen.? started at only 20 mg haldol at HS; T/C returning to prescribed 30.? should get GRAHAM, will investigate Hx with GRAHAM meds (several of which are on the maninder's order). 09/10:? return HS haldol dosing to 30 mg as ordered outpt.? taking meds, disorganized but stable. 09/11:? continue current mgmt.? stable presentation. 09/12: Continue current regimen. 09/13: Continue current treatment. 09/13: He refused labs yesterday for work up of the rash. 09/14: 3-day up, commitment paperwork filed. invega sustenna 234 mg given today, per maninder's order. next 156 mg in 3 days. improved from admission but not able to protect himself in the community. 09/15: no change in presentation, not engaging. Invega sustenna 156 mg for . 09/16: no change to plan. now saying [facility]. invega sustenna 156 tomorrow. attempt to have [facility]iary staff come in to assess for baseline and attempt to establish connection. court scheduled for next wednesday. 09/17: no change in presentation. received invega sustenna 156 mg IM today. ACCS worker to visit tomorrow. court scheduled for wednesday. 09/18: per SW, ACCS worker feels pt is at his baseline. will continue to Tx pt in structured setting but will likely discharge back to [facility]iary if he continues in good behavioral control and continues to endorse reasonable discharge plan through the weekend. continue current mgmt. 09/19: Continue current regimen and plans Plan Patient is a 37-year-old male with a PMH significant for schizoaffective disorder bipolar type who was admitted to [facility] for increasing depression with a SI. Ptwas apparently found sleeping outside in the grass by the side of the road. Patient minimally responsive during interview, mostly monosyllabic and with a poor sense of his own history. Patient denied knowing where he might have gotten his skin lesions, not sure where he had been the past few days or where he had been sleeping. Says his skin lesions began a few days ago. Denies his skin lesions hurt. Says they ?sometimes? itch, though states t hey currently do not itch. Maculopapular rash Unclear etiology: Contact dermatitis versus insect bites versus eczema versus psoriasis Will obtain labs: CBC, CMP, ESR, CRP, TRINI Patient currently asymptomatic with no pain or itching, will defer treatment pending labs If pt continues to be asymptomatic and labs unremarkable, patient should follow- up outpatient with PCP or dermatology Thank you for allowing us to participate in the care of this patient. Will continue to follow at this time. Please let us know if there are any acute complaints or questions. Reason for continued inpatient stay Substantial Risk for: med/psych decompensation Time Spent With Patient Time: Total time managing care of this patient today ____ minutes.
[2022-09-19 20:40] VITALS: BP 122/70; PULSE 88; RESP 16; TEMP 35.7; O2SAT 99
[2022-09-19] MEDS: HaloperidoL 5 MG TABLET 30 MG PO (20:48)
[2022-09-19] MEDS: Mirtazapine 15 MG TABLET PO (20:49)
[2022-09-19] MEDS: Melatonin 3 MG TABLET PO (20:49)
[2022-09-20 08:57] VITALS: BP 102/56; PULSE 79; RESP 18; TEMP 37; O2SAT 96
[2022-09-20] MEDS: Lithium Carbonate ER 300 MG TABLET.ER 600 MG PO ×2 (08:58→21:00)
[2022-09-20] MEDS: Famotidine 20 MG TABLET PO ×2 (08:58→21:01)
[2022-09-20] MEDS: Loratadine 10 MG TABLET PO (08:58)
[2022-09-20] MEDS: lamoTRIgine 25 MG TABLET PO (08:58)
[2022-09-20] MEDS: Propranolol HCL 10 MG TABLET PO (08:59)
--- NOTE | 2022-09-20 09:24 | HO.PSYCHPN ---
Subjective Subjective Date of Service: 09/20/22 Reason For Visit: SI Subjective Notes: Parsons Order and Section 7 Interim History: Patient was seen and discussed in rounds today. Records and plans were reviewed. He continues to be mostly isolative and in his room. He was sleeping most of the day yesterday. He endorses some anxiety. No SI. Eating and sleeping adequately and excessively with his sleep. No changes on his injection site reaction. He is medication compliant. No changes were made today. Medication Compliance: Yes Side effects from medications: No Attending Groups: No Review of Systems Review of Systems Skin lesions on hands, arms, and back Lesions occasionally itch Denies lesions hurt No fever, chills, nausea, vomiting, diarrhea, abdominal pain Yes all other systems are reviewed and are negative Diagnostics Vital Signs (24Hr): Vital Signs - 24 hr 09/19/22 20:40 09/20/22 08:57 Temperature 96.2 F L 98.6 F Pulse Rate 88 79 Respiratory Rate 16 18 Blood Pressure 122/70 102/56 L Pulse Oximetry 99 96 Oxygen Delivery Method Room Air Room Air BMI result Body Mass Index 29.5 Labs 09/08/22 01:12 09/09/22 08:56 Medications Medications Current Medications Acetaminophen (Acetaminophen 325 Mg Tablet) 650 mg PO Q6H PRN PRN Reason: Headache/Pain Mild Scale (1-3) Al Hydroxide/Mg Hydroxide (Magnesium Hydrox/Alum Hydrox 30 Ml Oral.Susp) 30 ml PO Q6H PRN PRN Reason: Heartburn/Nausea Benztropine Mesylate (Benztropine Mesylate 1 Mg Tablet) 1 mg PO BID SMITA Last Admin: 09/19/22 20:49 Dose: 1 mg Famotidine (Famotidine 20 Mg Tablet) 20 mg PO BID SMITA Last Admin: 09/20/22 08:58 Dose: 20 mg Haloperidol (Haloperidol 5 Mg Tablet) 30 mg PO BEDTIME [facility] Last Admin: 09/19/22 20:48 Dose: 30 mg Hydrocortisone (Hydrocortisone 1 % Cream 28.35 Gm Tube) 1 appl TOPICAL BID PRN; Protocol PRN Reason: Rash Last Admin: 09/14/22 21:29 Dose: 1 appl Hydroxyzine HCl (Hydroxyzine Hcl 50 Mg Tablet) 50 mg PO TID PRN PRN Reason: Anxiety Last Admin: 09/17/22 13:57 Dose: 50 mg Lamotrigine (Lamotrigine 25 Mg Tablet) 25 mg PO DAILY [facility] Last Admin: 09/20/22 08:58 Dose: 25 mg [place] Carbonate ([place] Carbonate Er 300 Mg Tablet.Er) 600 mg PO BID [facility] Last Admin: 09/20/22 08:58 Dose: 600 mg Loratadine (Loratadine 10 Mg Tablet) 10 mg PO DAILY [facility] Last Admin: 09/20/22 08:58 Dose: 10 mg Magnesium Hydroxide (Milk Of Magnesia 30 Ml Oral.Susp) 30 ml PO DAILY PRN PRN Reason: Constipation Melatonin (Melatonin 3 Mg Tablet) 3 mg PO BEDTIME [facility] Last Admin: 09/19/22 20:49 Dose: 3 mg Mirtazapine (Mirtazapine 15 Mg Tablet) 15 mg PO BEDTIME [facility] Last Admin: 09/19/22 20:49 Dose: 15 mg Nicotine Polacrilex (Nicotine Polacrilex 2 Mg Gum) 4 mg BUCCAL Q2H PRN PRN Reason: Nicotine Cravings Propranolol HCl (Propranolol Hcl 10 Mg Tablet) 10 mg PO DAILY [facility]; Protocol Last Admin: 09/20/22 08:59 Dose: 10 mg Trazodone HCl (Trazodone Hcl 50 Mg Tablet) 50 mg PO BEDTIME MRX1 PRN PRN Reason: Insomnia Allergies Allergies Allergy/AdvReac Type Severity Reaction Status Date / Time No Known Allergies Allergy Verified 09/05/22 21:55 Assessment & Plan Assessment & Plan (1) Schizoaffective disorder, bipolar type: Status: Acute Code(s): F25.0 - Schizoaffective disorder, bipolar type Assessment and Plan: 09/09:? continue/restart outpt meds regimen.? started at only 20 mg haldol at HS; T/C returning to prescribed 30.? should get GRAHAM, will investigate Hx with GRAHAM meds (several of which are on the maninder's order). 09/10:? return HS haldol dosing to 30 mg as ordered outpt.? taking meds, disorganized but stable. 09/11:? continue current mgmt.? stable presentation. 09/12: Continue current regimen. 09/13: Continue current treatment. 09/13: He refused labs yesterday for work up of the rash. 09/14: 3-day up, commitment paperwork filed. invega sustenna 234 mg given today, per maninder's order. next 156 mg in 3 days. improved from admission but not able to protect himself in the community. 09/15: no change in presentation, not engaging. Invega sustenna 156 mg for . 09/16: no change to plan. now saying he wants to return to [facility]. invega sustenna 156 tomorrow. attempt to have [facility] staff come in to assess for baseline and attempt to establish connection. court scheduled for next wednesday. 09/17: no change in presentation. received invega sustenna 156 mg IM today. ACCS worker to visit tomorrow. court scheduled for wednesday. 09/18: per SW, ACCS worker feels pt is at his baseline. will continue to Tx pt in structured setting but will likely discharge back to [facility] if he continues in good behavioral control and continues to endorse reasonable discharge plan through the weekend. continue current mgmt. 09/19: Continue current regimen and plans 09/20: Continue current plans and regimen Plan Patient is a 37-year-old male with a PMH significant for schizoaffective disorder bipolar type who was admitted to [facility] psychiatry unit for increasing depression with a SI. Ptwas apparently found sleeping outside in the grass by the side of the road. Patient minimally responsive during interview, mostly monosyllabic and with a poor sense of his own history. Patient denied knowing where he might have gotten his skin lesions, not sure where he had been the past few days or where he had been sleeping. Says his skin lesions began a few days ago. Denies his skin lesions hurt. Says they ?sometimes? itch, though states they currently do not itch. Maculopapular rash Unclear etiology: Contact dermatitis versus insect bites versus eczema versus psoriasis Will obtain labs: CBC, CMP, ESR, CRP, TRINI Patient currently asymptomatic with no pain or itching, will defer treatment pending labs If pt continues to be asymptomatic and labs unremarkable, patient should follow-up outpatient with PCP or dermatology Thank you for allowing us to participate in the care of this patient. Will continue to follow at this time. Please let us know if there are any acute complaints or questions. Reason for continued inpatient stay Substantial Risk for: inability to function and med/psych decompensation Time Spent With Patient Time: Total time managing care of this patient today ____ minutes.
[2022-09-20] MEDS: Benztropine Mesylate 1 MG TABLET PO ×2 (09:58→21:00)
[2022-09-20 20:20] VITALS: BP 124/72; PULSE 87; RESP 18; TEMP 36.8; O2SAT 95
[2022-09-20 20:29] LABS: Lithium 0.75 mmol/L (0.60-1.20)
[2022-09-20 20:35] LABS: Anion Gap 15 (12-20); Blood Urea Nitrogen 14 mg/dL (9-16); Calcium 9.9 mg/dL (8.4-10.2); Carbon Dioxide 25 mmol/L (22-29); Chloride 104 mmol/L (96-108); Creatinine Clr Calc Pharmacy 118.3; Estimated Glomerular Filt Rate > 60; Glucose Random 91 mg/dL (60-115); Potassium 4.1 mmol/L (3.3-5.1); Sodium 140 mmol/L (135-145)
[2022-09-20] MEDS: HaloperidoL 5 MG TABLET 30 MG PO (20:59)
[2022-09-20] MEDS: Melatonin 3 MG TABLET PO (21:00)
[2022-09-20] MEDS: Mirtazapine 15 MG TABLET PO (21:01)
[2022-09-21 06:00] VITALS: BP 118/68; RESP 16; TEMP 36.9; O2SAT 97
[2022-09-21] MEDS: Propranolol HCL 10 MG TABLET PO (09:19)
[2022-09-21] MEDS: Lithium Carbonate ER 300 MG TABLET.ER 600 MG PO ×2 (09:19→20:39)
[2022-09-21] MEDS: Famotidine 20 MG TABLET PO ×2 (09:19→20:39)
[2022-09-21] MEDS: lamoTRIgine 25 MG TABLET PO (09:19)
[2022-09-21] MEDS: Benztropine Mesylate 1 MG TABLET PO ×2 (09:19→20:39)
[2022-09-21] MEDS: Loratadine 10 MG TABLET PO (09:20)
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
[2022-09-21 18:37] VITALS: BP 133/75; PULSE 88; RESP 20; TEMP 36.9; O2SAT 96
[2022-09-21] MEDS: Melatonin 3 MG TABLET PO (20:35)
[2022-09-21] MEDS: HaloperidoL 5 MG TABLET 30 MG PO (20:39)
[2022-09-21] MEDS: Mirtazapine 15 MG TABLET PO (20:39)
[2022-09-22 08:20] VITALS: BP 128/70; PULSE 89; RESP 16; TEMP 36.7; O2SAT 94
[2022-09-22] MEDS: Lithium Carbonate ER 300 MG TABLET.ER 600 MG PO (08:25)
[2022-09-22] MEDS: Famotidine 20 MG TABLET PO (08:25)
[2022-09-22] MEDS: Benztropine Mesylate 1 MG TABLET PO (08:25)
[2022-09-22] MEDS: Loratadine 10 MG TABLET PO (08:25)
[2022-09-22] MEDS: lamoTRIgine 25 MG TABLET PO (08:25)
[2022-09-22] MEDS: Propranolol HCL 10 MG TABLET PO (08:25)
--- NOTE | 2022-09-22 08:54 | PC.NURSE ---
Cam ia alert, pleasant and cooperative with discharge process. He denies ideation, plan or intent to harm himself or others. He denies physical complaint
== END 2022-09-22 10:46 | disposition home or self-care (01) | DRG 885 ==
LOC: HO.ED 09-08 07:39 → HO.PADLT16 09-08 16:47
PROVIDERS: Admitting Provider Psychiatry & Neurology Psychiatry; Emergency Provider Emergency Medicine Emergency Medical Services; Visit Provider Psychiatry & Neurology Psychiatry
DX: F25.0 Schizoaffective disorder, bipolar type (principal); L25.5 Unspecified contact dermatitis due to plants, except food; Z87.891 Personal history of nicotine dependence; Z79.899 Other long term (current) drug therapy
CPT/HCPCS: 36415; 80048; 80053; 80061; 80178; 80307; 81003; 82607; 82746; 83036; 84439; 84443; 85025; 87635; 99285; J2426; S9485

== ENCOUNTER 2022-11-04 18:26 | Inpatient (IN) | payer OTHER, SELFPAY ==
[2022-11-04 19:40] VITALS: BP 143/93; PULSE 106; RESP 18; TEMP 36.7; O2SAT 97
--- NOTE | 2022-11-04 21:20 | PC.ADMIT ---
Cam arrived to the unit at 1850 on a section 12B. He appeared flat on approach, some eye contact made. He denied feeling anxious or depressed, when asked if he had any thoughts of wanting to hurt self stated No, nodded head for yes when asked if he would notify staff if urge to hurt self occurred. When asked if he had any pain stated Yes, I'm hurting inside, tears started coming down. 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
[2022-11-05 07:00] VITALS: BMI 30.6
[2022-11-05 08:15] VITALS: BP 125/86; PULSE 117; RESP 18; TEMP 36.1; O2SAT 97
[2022-11-05 09:40] LABS: Estimated Average Glucose 80 mg/dL; Hemoglobin A1C 82.9955 umol/L; Hemoglobin A1c % 4.4 %
[2022-11-05 09:42] LABS: Alanine Aminotransferase 18 U/L (0-40); Albumin Level 4.2 g/dL (3.5-5.0); Alkaline Phosphatase 56 U/L (39-117); Anion Gap 16 (12-20); Aspartate Amino Transferase 16 U/L (5-37); Bilirubin Total 0.7 mg/dL (0.0-1.0); Blood Urea Nitrogen 13 mg/dL (9-16); Calcium 9.3 mg/dL (8.4-10.2); Carbon Dioxide 20 mmol/L (22-29); Chloride 109 mmol/L (96-108); Cholesterol 127 mg/dL; Estimated Glomerular Filt Rate > 60; Glucose Fasting 101 mg/dL (60-99); HDL Cholesterol 28 mg/dL; LDL Cholesterol Calculated 75 mg/dl; Magnesium 2.3 mg/dL (1.6-2.6); Sodium 141 mmol/L (135-145); Total Protein 6.9 g/dL (6.5-8.0); Triglycerides 121 mg/dL
[2022-11-05 09:51] LABS: Free T4 (Free Thyroxine) 0.85 ng/dL (0.71-1.85); Thyroid Stimulating Hormone 1.11 uIU/mL (0.32-4.0)
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
[2022-11-05 10:10] LABS: Folate 13.4 ng/mL (> or = 4.0); Vitamin B12 340 pg/mL (200-900)
[2022-11-05] MEDS: LORazepam 1 MG TABLET 2 MG PO ×2 (14:20→21:20)
[2022-11-05] MEDS: LORazepam 1 MG TABLET PO (16:35)
[2022-11-05 18:39] VITALS: BP 115/72; PULSE 117; RESP 18; TEMP 37.3; O2SAT 96
--- NOTE | 2022-11-05 18:43 | PC.NURSE ---
PT given 1mg of Ativan at 16:26 with no effect. PT is lying in bed, minimally responsive to commands but will shake head yes and no. Denies any somatic complaints. VS stable @ this time.
--- NOTE | 2022-11-05 19:14 | HO.PM.IMCN ---
History of Present Illness Data of Consult Service Date: 11/05/22 Primary Care Provider: Unknown Physician HPI Reason for consult: Admission H&P Pt is a 37-year-old male with a PMH significant for?schizoaffective disorder bipolar type who is admitted to psychiatry unit after being found wandering in the middle of the street and displaying disorganized thoughts, possibly secondary to meth and marijuana use. Medical consult for admission H&P. ?Patient has no acute medical complaints at this time. Denies headache, vision changes, lightheadedness, dizziness. No chest pain/pressure, palpitations. Denies shortness of breath. No fever, chills, nausea, vomiting, diarrhea, abdominal pain. Labs reviewed, grossly unremarkable. Review of Systems Review of Systems: Patient has no acute medical complaints at this time Yes all other systems are reviewed and are negative [facility]LY [facility], [facility] Social History Household Members: Unknown / Unable to assess Household Members Other:: Per assessment patient lives at [facility] Housing: Assisted Living Facility Housing Other:: I'm a traveler Do you presently have visiting nurse or other home services: No Unable to assess alcohol history related to: Unknown Alcohol intake: current Alcohol intake frequency: 3 or more drinks per day Alcohol type: other Patient Tobacco Use Status: Former Tobacco user Tobacco use type: Cigarette e-Cigarette/Vaping Use: Never Used Use of substances other than those prescribed or required for medical reasons: Yes Substance Use Type: Marijuana and Other Substance Use Type Other:: Meth Last Used Substance Other:: Unknown Currently Displaying Signs/Symptoms of Drug Intoxication Withdrawal: No Spiritual Healthcare Practices: Unknown Advance Directives: No Advance Directives Information Provided: No Do you have thoughts of harming others: None Do you have a plan to hurt others: No Plan Recently lost weight without trying: Unsure service: No Sexual orientation: Don't Know Meds Allergies Allergy/AdvReac Type Severity Reaction Status Date / Time No Known Allergies Allergy Verified 09/05/22 21:55 Active Medications: Current Medications Acetaminophen (Acetaminophen 325 Mg Tablet) 650 mg PO Q6H PRN PRN Reason: Headache/Pain Mild Scale (1-3) Al Hydroxide/Mg Hydroxide (Magnesium Hydrox/Alum Hydrox 30 Ml Oral.Susp) 30 ml PO Q6H PRN PRN Reason: Heartburn/Nausea Hydroxyzine HCl (Hydroxyzine Hcl 25 Mg Tablet) 25 mg PO Q6H PRN PRN Reason: Anxiety Lorazepam (Lorazepam 1 Mg Tablet) 2 mg PO TID SMITA Magnesium Hydroxide (Milk Of Magnesia 30 Ml Oral.Susp) 30 ml PO DAILY PRN PRN Reason: Constipation Trazodone HCl (Trazodone Hcl 50 Mg Tablet) 50 mg PO BEDTIME PRN PRN Reason: Insomnia Physical Exam Vital Signs and Narrative: Vital Signs: Last Vital Signs Temp 99.1 F 11/05/22 18:39 Pulse 117 H 11/05/22 18:39 Resp 18 11/05/22 18:39 BP 115/72 11/05/22 18:39 Pulse Ox 96 11/05/22 18:39 O2 Del Method Room Air 11/05/22 18:39 BMI result Body Mass Index 30.6 General: AOx3, no acute distress Resp: CTA bilaterally CVS: S1, S2, regular rhythm, tachy GI: +BS, NT, no distention Skin: No rash Neuro: Cranial nerves II-XII grossly intact bilaterally. Motor grossly intact bilaterally Extremities: No edema Psych: Flat affect Results Labs 11/05/22 08:44 Labs: Laboratory Results - last 24 hr 11/05/22 11/05/22 11/05/22 08:44 08:44 08:44 Anion Gap 16 Estim Creat Clear Calc TNP Estimated GFR > 60 Fasting Glucose 101 H Estimat Average Glucose 80 Hemoglobin A1c % 4.4 Calcium 9.3 D Magnesium 2.3 Total Bilirubin 0.7 AST 16 ALT 18 Alkaline Phosphatase 56 Total Protein 6.9 Albumin 4.2 Triglycerides 121 Cholesterol 127 LDL Cholesterol, Calc 75 HDL Cholesterol 28 Vitamin B12 340 Folate 13.4 TSH 1.11 Free T4 0.85 Assessment and Plan (1) Routine history and physical examination of adult: Status: Acute Plan Pt is a 37-year-old male with a PMH significant for?schizoaffective disorder bipolar type who is admitted to M5 psychiatry unit after being found wandering in the middle of the street and displaying disorganized thoughts, possibly secondary to meth and marijuana use. Medical consult for admission H&P. ?Patient has no acute medical complaints at this time. Mood disorder Plan as per Psychiatry Maculopapular rash, resolved Patient presented on 09/11/2022 with widespread maculopapular rash likely secondary to contact dermatitis as patient was sleeping on the ground in a field Rash now resolved, patient's skin clear Thank you for allowing us to participate in the care of this patient. Signing off at this time. Please let us know if there are any acute complaints or questions. Time Spent With Patient Time: Total time managing care of this patient today ____ minutes.
[2022-11-06 08:00] VITALS: BP 124/66; PULSE 115; RESP 16; TEMP 36.4; O2SAT 98
[2022-11-06] MEDS: LORazepam 1 MG TABLET 2 MG PO ×3 (09:03→21:19)
--- NOTE | 2022-11-06 16:48 | P.PNPSI_ITS ---
Subjective Subjective Date of Service: 11/06/22 Reason For Visit: schizoaffective d/o; bipolar type Subjective Notes: Conditional Voluntary Interim History: Pt mostly in bed, slightly more talkative but still staring in bed, minimal spontaneous verbalization. Pt denies SI/HI. When explained catatonia, he states no, I am fine. Then again is staring at ceiling. Review of Systems Review of Systems Patient has no acute medical complaints at this time Yes all other systems are reviewed and are negative Mental Status Exam Mental Status Exam Narrative: Appearance: wearing hospital gown, disheveled, poor hygiene, in NAD Behavior: limited participation due to catatonia and underlying psychosis Psychomotor: retardation noted, waxy flexibility Speech: mostly mute, soft when he does speak, single words, minimally spontaneous TP: single words TC: mostly mute Mood: unable to describe Affect: constricted SI: pt denied HI: denies VH/AH: appears internally preoccupied. Delusions: appears internally preoccupied Insight/judgment: impaired x 2. Diagnostics Vital Signs (24Hr): Vital Signs - 24 hr 11/05/22 18:39 11/06/22 08:00 Temperature 99.1 F 97.6 F Pulse Rate 117 H 115 H Respiratory Rate 18 16 Blood Pressure 115/72 124/66 Pulse Oximetry 96 98 Oxygen Delivery Method Room Air Room Air BMI result Body Mass Index 30.6 Labs 11/05/22 08:44 Labs: Laboratory Results - last 48 hr 11/05/22 11/05/22 11/05/22 08:44 08:44 08:44 Sodium 141 Potassium 4.0 Chloride 109 H Carbon Dioxide 20 L Anion Gap 16 BUN 13 Creatinine 0.88 Estim Creat Clear Calc TNP Estimated GFR > 60 Fasting Glucose 101 H Estimat Average Glucose 80 Hemoglobin A1c % 4.4 Calcium 9.3 D Magnesium 2.3 Total Bilirubin 0.7 AST 16 ALT 18 Alkaline Phosphatase 56 Total Protein 6.9 Albumin 4.2 Triglycerides 121 Cholesterol 127 LDL Cholesterol, Calc 75 HDL Cholesterol 28 Vitamin B12 340 Folate 13.4 TSH 1.11 Free T4 0.85 Medications Medications Current Medications Acetaminophen (Acetaminophen 325 Mg Tablet) 650 mg PO Q6H PRN PRN Reason: Headache/Pain Mild Scale (1-3) Al Hydroxide/Mg Hydroxide (Magnesium Hydrox/Alum Hydrox 30 Ml Oral.Susp) 30 ml PO Q6H PRN PRN Reason: Heartburn/Nausea Hydroxyzine HCl (Hydroxyzine Hcl 25 Mg Tablet) 25 mg PO Q6H PRN PRN Reason: Anxiety Lorazepam (Lorazepam 1 Mg Tablet) 2 mg PO TID SMITA Last Admin: 11/06/22 14:15 Dose: 2 mg Magnesium Hydroxide (Milk Of Magnesia 30 Ml Oral.Susp) 30 ml PO DAILY PRN PRN Reason: Constipation Trazodone HCl (Trazodone Hcl 50 Mg Tablet) 50 mg PO BEDTIME PRN PRN Reason: Insomnia Allergies Allergies Allergy/AdvReac Type Severity Reaction Status Date / Time No Known Allergies Allergy Verified 09/05/22 21:55 Assessment & Plan Assessment & Plan (1) Schizophrenia, 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 Zabala is a 37 year-old male with hx of schizophrenia. He resides at from [facility] for about one year. Since then, per staff, pt has had about 12 inpati ent admission. Pt was recently discharged from medical floor after being treated for pneumonia. The day after pt was described as disorganized, wondering the streets, laying on the streets. He was brought via EMS to [facility]. Utox is negative. Pt does have hx of cannabis use but this time it was negative. Pt presents with symptoms of catatonia including waxy flexibility, negativism, intermittent mutism and black stare. Pt has not missed dose of Invega Sustenna- he has been on 234mg IM which has been given on 09/15 while on M3, 10/17 in the community. Pt also on haldol 30mg po qhs. Will hold haldol given s/s of catatonia. Pt is on [facility] which expires today but extension has been filed and granted- per CM awating paperwork from court. Guardian is his father- Joe Wells [phone]. PLAN 1. Admit to M5, Sect 12b, 15 minutes checks 2. start ativan 2mg po TID- for catatonia. Pt given one time dose ativan 2mg po with good effect. 3. Will hold haldol due to catatonia 4. obtain collateral information 5. Aftercare planning. 11/06 continue ativan, monitor s/s catatonia. hold haldol until some improvement in s/s of catatonia. Reason for continued inpatient stay Substantial Risk for: inability to function Time Spent With Patient Time: Total time managing care of this patient today ____ minutes.
[2022-11-06 17:01] VITALS: BP 118/66; PULSE 108; RESP 18; TEMP 36.9; O2SAT 95
[2022-11-07 08:00] VITALS: BP 107/65; PULSE 94; RESP 16; TEMP 36.6; O2SAT 98
[2022-11-07] MEDS: LORazepam 1 MG TABLET 2 MG PO ×3 (08:49→22:23)
[2022-11-07 18:00] VITALS: BP 112/74; PULSE 104; RESP 18; TEMP 37.2; O2SAT 99
--- NOTE | 2022-11-07 18:55 | P.PNPSI_ITS ---
Subjective Subjective Date of Service: 11/07/22 Reason For Visit: schizoaffective d/o; bipolar type Interim History: Pt seen, reviewed with the team. Pt is in bed. He is diffiuclt to engage and denies issues of concern. Denies psych sx Isolative, not visable in milieu today. Medication Compliance: Yes Side effects from medications: No Attending Groups: No Review of Systems Acute medical concerns: No Medical Review of Systems: unchanged Mental Status Exam Mental Status Exam Narrative: Appearance: wearing hospital gown, disheveled, poor hygiene, in NAD Behavior: limited participation due to catatonia and underlying psychosis Psychomotor: retardation noted, waxy flexibility Speech: mostly mute, soft when he does speak, single words, minimally spontaneous TP: single words TC: mostly mute Mood: unable to describe Affect: constricted SI: pt denied HI: denies VH/AH: appears internally preoccupied. Delusions: appears internally preoccupied Insight/judgment: impaired x 2. Diagnostics Vital Signs (24Hr): Vital Signs - 24 hr 11/07/22 08:00 Temperature 97.9 F Pulse Rate 94 Respiratory Rate 16 Blood Pressure 107/65 Pulse Oximetry 98 Oxygen Delivery Method Room Air BMI result Body Mass Index 30.6 Labs 11/05/22 08:44 Medications Medications Current Medications Acetaminophen (Acetaminophen 325 Mg Tablet) 650 mg PO Q6H PRN PRN Reason: Headache/Pain Mild Scale (1-3) Al Hydroxide/Mg Hydroxide (Magnesium Hydrox/Alum Hydrox 30 Ml Oral.Susp) 30 ml PO Q6H PRN PRN Reason: Heartburn/Nausea Hydroxyzine HCl (Hydroxyzine Hcl 25 Mg Tablet) 25 mg PO Q6H PRN PRN Reason: Anxiety Lorazepam (Lorazepam 1 Mg Tablet) 2 mg PO TID [facility] Last Admin: 11/07/22 08:49 Dose: 2 mg Magnesium Hydroxide (Milk Of Magnesia 30 Ml Oral.Susp) 30 ml PO DAILY PRN PRN Reason: Constipation Trazodone HCl (Trazodone Hcl 50 Mg Tablet) 50 mg PO BEDTIME PRN PRN Reason: Insomnia Allergies Allergies Allergy/AdvReac Type Severity Reaction Status Date / Time No Known Allergies Allergy Verified 09/05/22 21:55 Assessment & Plan Assessment & Plan (1) Schizophrenia, 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 Salken is a 37 year-old male with hx of schizophrenia. He resides at from [facility] for about one year. Since then, per staff, pt has had about 12 inpatient admission. Pt was recently discharged from medical floor after being treated for pneumonia. The day after pt was described as disorganized, wondering the streets, laying on the streets. He was brought via EMS to [facility]. Utox is n egative. Pt does have hx of cannabis use but this time it was negative. Pt presents with symptoms of catatonia including waxy flexibility, negativism, intermittent mutism and black stare. Pt has not missed dose of Invega Sustenna- he has been on 234mg IM which has been given on 09/15 while on M3, 10/17 in the community. Pt also on haldol 30mg po qhs. Will hold haldol given s/s of catatonia. Pt is on [place] which expires today but extension has been filed and granted- per CM awating paperwork from court. Guardian is his father- Joe Wells [phone]. PLAN 1. Admit to M5, Sect 12b, 15 minutes checks 2. start ativan 2mg po TID- for catatonia. Pt given one time dose ativan 2mg po with good effect. 3. Will hold haldol due to catatonia 4. obtain collateral information 5. Aftercare planning. 11/06 continue ativan, monitor s/s catatonia. hold haldol until some improvement in s/s of catatonia. 11/07/22- continue current regime and plan of care. Pt denies all symptoms. Informed Consent: further education needed Reason for continued inpatient stay Substantial Risk for: rapid decompensation Time Spent With Patient Time: Total time managing care of this patient today ____ minutes.
[2022-11-08 08:00] VITALS: BP 121/70; PULSE 95; RESP 16; TEMP 36.7; O2SAT 100
[2022-11-08] MEDS: LORazepam 1 MG TABLET 2 MG PO ×3 (08:39→20:13)
--- NOTE | 2022-11-08 16:51 | P.PNPSI_ITS ---
Subjective Subjective Date of Service: 11/08/22 Reason For Visit: schizoaffective d/o; bipolar type Interim History: Pt reviewed with team who report a reverse sleep cycle. Pt sleeps days and is awake evenings/nights. Pt denies sx of concern. Eating, drinking, sleeping. Denies concerns at this time. Medication Compliance: Yes Side effects from medications: No Attending Groups: No Review of Systems Acute medical concerns: No Medical Review of Systems: unchanged Mental Status Exam Mental Status Exam Patient Appearance: Fatigued Patient Orientation: Person and Place Level of Consciousness: Sedated Patient Behavior: Fatigued Mood Description: Flat Affect Description: Flat Patient Cognition Impaired: No Ability to Follow Directions: Good Speech Pattern: Impoverished and Spontaneous Speech Hallucinations: None Perceptual Disturbances: Depersonalization Depressive Symptoms: Sleeping More Than Usual Judgement: Poor Diagnostics Vital Signs (24Hr): Vital Signs - 24 hr 11/07/22 18:00 11/08/22 08:00 Temperature 99.0 F 98.0 F Pulse Rate 104 H 95 Respiratory Rate 18 16 Blood Pressure 112/74 121/70 Pulse Oximetry 99 100 Oxygen Delivery Method Room Air Room Air BMI result Body Mass Index 30.6 Labs 11/05/22 08:44 Medications Medications Current Medications Acetaminophen (Acetaminophen 325 Mg Tablet) 650 mg PO Q6H PRN PRN Reason: Headache/Pain Mild Scale (1-3) Al Hydroxide/Mg Hydroxide (Magnesium Hydrox/Alum Hydrox 30 Ml Oral.Susp) 30 ml PO Q6H PRN PRN Reason: Heartburn/Nausea Hydroxyzine HCl (Hydroxyzine Hcl 25 Mg Tablet) 25 mg PO Q6H PRN PRN Reason: Anxiety Lorazepam (Lorazepam 1 Mg Tablet) 2 mg PO TID SMITA Last Admin: 11/08/22 14:08 Dose: 2 mg Magnesium Hydroxide (Milk Of Magnesia 30 Ml Oral.Susp) 30 ml PO DAILY PRN PRN Reason: Constipation Trazodone HCl (Trazodone Hcl 50 Mg Tablet) 50 mg PO BEDTIME PRN PRN Reason: Insomnia Allergies Allergies Allergy/AdvReac Type Severity Reaction Status Date / Time No Known Allergies Allergy Verified 09/05/22 21:55 Assessment & Plan Assessment & Plan (1) Schizophrenia, 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 Zabala is a 37 year-old male with hx of schizophrenia. He resides at from [facility] for about one year. Since then, per staff, pt has had about 12 inpatient admission. Pt was recently discharged from medical floor after being treated for pneumonia. The day after pt was described as disorganized, wondering the streets, laying on the streets. He was brought via EMS to [facility]. Utox is negative. Pt does have hx of cannabis use but this time it was negative. Pt presents with symptoms of catatonia including waxy flexibility, negativism, intermittent mutism and black stare. Pt has not missed dose of Invega Sustenna- he has been on 234mg IM which has been given on 09/15 while on M3, 10/17 in the community. Pt also on haldol 30mg po qhs. Will hold haldol given s/s of catatonia. Pt is on [place] which expires today but extension has been filed and granted- per CM awating paperwork from court. Guardian is his father- Joe Wells [phone]. PLAN 1. Admit to M5, Sect 12b, 15 minutes checks 2. start ativan 2mg po TID- for catatonia. Pt given one time dose ativan 2mg po with good effect. 3. Will hold haldol due to catatonia 4. obtain collateral information 5. Aftercare planning. 11/06 continue ativan, monitor s/s catatonia. hold haldol until some improvement in s/s of catatonia. 11/07/22- continue current regime and plan of care. Pt denies all symptoms. 11/08/22- starting to hear reports of evening improvement. continue current plan for now. Reason for continued inpatient stay Substantial Risk for: rapid decompensation Time Spent With Patient Time: Total time managing care of this patient today ____ minutes.
[2022-11-08 18:00] VITALS: BP 118/68; PULSE 94; RESP 18; TEMP 37.2; O2SAT 100
[2022-11-09 08:00] VITALS: BP 126/71; PULSE 101; RESP 14; TEMP 36.4; O2SAT 98
[2022-11-09] MEDS: LORazepam 1 MG TABLET 2 MG PO ×4 (08:35→22:47)
--- NOTE | 2022-11-09 17:11 | HO.PSYCHPN ---
Subjective Subjective Date of Service: 11/09/22 Reason For Visit: schizoaffective d/o; bipolar type Subjective Notes: Section 7 Interim History: Pt has been mostly in bed. Speech continues to be minimally spontaneous. Pt's 3 day is up today. He asks if he will be discharged. Pt informed team concern about his ability to care for himself. When asked if he would retract 3 day or would rather have team file, pt states I want to file. Pt denies SI/HI. He reports he read over the weekend but staff reports pt in room, not sleeping but with eyes covered with blanket around head. Review of Systems Review of Systems Patient has no acute medical complaints at this time Yes all other systems are reviewed and are negative Mental Status Exam Mental Status Exam Narrative: Appearance: wearing hospital gown, disheveled, poor hygiene, in NAD Behavior: limited participation due to catatonia and underlying psychosis Psychomotor: retardation noted, waxy flexibility Speech: mostly mute, soft when he does speak, single words, minimally spontaneous TP: single words TC: mostly mute Mood: unable to describe Affect: constricted SI: pt denied HI: denies VH/AH: appears internally preoccupied. Delusions: appears internally preoccupied Insight/judgment: impaired x 2. Diagnostics Vital Signs (24Hr): Vital Signs - 24 hr 11/08/22 18:00 11/09/22 08:00 Temperature 99 F 97.6 F Pulse Rate 94 101 H Respiratory Rate 18 14 Blood Pressure 118/68 126/71 Pulse Oximetry 100 98 Oxygen Delivery Method Room Air Room Air BMI result Body Mass Index 30.6 Labs 11/05/22 08:44 Medications Medications Current Medications Acetaminophen (Acetaminophen 325 Mg Tablet) 650 mg PO Q6H PRN PRN Reason: Headache/Pain Mild Scale (1-3) Al Hydroxide/Mg Hydroxide (Magnesium Hydrox/Alum Hydrox 30 Ml Oral.Susp) 30 ml PO Q6H PRN PRN Reason: Heartburn/Nausea Hydroxyzine HCl (Hydroxyzine Hcl 25 Mg Tablet) 25 mg PO Q6H PRN PRN Reason: Anxiety Blue Grass Carbonate (Blue Grass Carbonate 300 Mg Capsule) 300 mg PO BID SMITA Lorazepam (Lorazepam 1 Mg Tablet) 2 mg PO QID SMITA Magnesium Hydroxide (Milk Of Magnesia 30 Ml Oral.Susp) 30 ml PO DAILY PRN PRN Reason: Constipation Trazodone HCl (Trazodone Hcl 50 Mg Tablet) 50 mg PO BEDTIME PRN PRN Reason: Insomnia Allergies Allergies Allergy/AdvReac Type Severity Reaction Status Date / Time No Known Allergies Allergy Verified 09/05/22 21:55 Assessment & Plan Assessment & Plan (1) Schizophrenia, 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 Zabala is a 37 year-old male with hx of schizophrenia. He resides at from [facility] for about one year. Since then, per staff, pt has had about 12 inpatient admission. Pt was recently discharged from medical floor after being treated for pneumonia. The day after pt was described as disorganized, wondering the streets, laying on the streets. He was brought via EMS to [facility]. Utox is negative. Pt does have hx of cannabis use but this time it was negative. Pt presents with symptoms of catatonia including waxy flexibility, negativism, intermittent mutism and black stare. Pt has not missed dose of Invega Sustenna- he has been on 234mg IM which has been given on 09/15 while on M3, 10/17 in the community. Pt also on haldol 30mg po qhs. Will hold haldol given s/s of catatonia. Pt is on [place] which expires today but extension has been filed and granted- per CM awating paperwork from court. Guardian is his father- Joe Wells [phone]. PLAN 1. Admit to M5, Sect 12b, 15 minutes checks 2. start ativan 2mg po TID- for catatonia. Pt given one time dose ativan 2mg po with good effect. 3. Will hold haldol due to catatonia 4. obtain collateral information 5. Aftercare planning. 11/06 continue ativan, monitor s/s catatonia. hold haldol until some improvement in s/s of catatonia. 11/07/22- continue current regime and plan of care. Pt denies all symptoms. 11/08/22- starting to hear reports of evening improvement. continue current plan for now. 11/09 file for involuntary tx due to inability to care for self due to catatonia. will restart lithium 300mg po BID. Reason for continued inpatient stay Substantial Risk for: inability to function Time Spent With Patient Time: Total time managing care of this patient today ____ minutes.
[2022-11-09 18:00] VITALS: BP 117/92; PULSE 107; RESP 18; TEMP 36; O2SAT 97
[2022-11-09] MEDS: Lithium Carbonate 300 MG CAPSULE PO (22:47)
[2022-11-10 06:00] VITALS: BP 122/85; PULSE 104; RESP 16; TEMP 36.8; O2SAT 100
[2022-11-10] MEDS: Lithium Carbonate 300 MG CAPSULE PO ×2 (08:29→20:12)
[2022-11-10] MEDS: LORazepam 1 MG TABLET PO ×3 (08:30→20:12)
--- NOTE | 2022-11-10 17:41 | P.PNPSI_ITS ---
Subjective Subjective Date of Service: 11/10/22 Reason For Visit: schizoaffective d/o; bipolar type Subjective Notes: Section 7 Interim History: Pt agree to get out of the room. He reports feeling depressed. When asked to elaborate, he states, I'm here. Pt mostly staring. He denies SI/HI. He also denies VH/AH but appears internally preoccupied. Pt reports spiritual themes have been on concern to him, when asked to elaborate, he states I wonder what happens after you When asked if he is worried about dying or if he believes something specific will happen to him after he dies, he states I don't know. it was explained to patient, concern in terms of his ability to care for himself as he was lying on the streets, and here mostly in bed, talking more now but still not at baseline. Per nursing, pt mostly in his room, not interacting with peers. Medication Compliance: Yes Side effects from medications: No Review of Systems Review of Systems Patient has no acute medical complaints at this time Yes all other systems are reviewed and are negative Mental Status Exam Mental Status Exam Narrative: Appearance: wearing hospital gown, disheveled, poor hygiene, in NAD Behavior: limited participation due to catatonia and underlying psychosis Psychomotor: retardation noted, waxy flexibility Speech: mostly mute, soft when he does speak, single words, minimally spontaneous TP: single words TC: mostly mute Mood: unable to describe Affect: constricted SI: pt denied HI: denies VH/AH: appears internally preoccupied. Delusions: appears internally preoccupied Insight/judgment: impaired x 2. Diagnostics Vital Signs (24Hr): Vital Signs - 24 hr 11/09/22 18:00 11/10/22 06:00 Temperature 96.8 F 98.3 F Pulse Rate 107 H 104 H Respiratory Rate 18 16 Blood Pressure 117/92 H 122/85 Pulse Oximetry 97 100 Oxygen Delivery Method Room Air Room Air BMI result Body Mass Index 30.6 Labs 11/05/22 08:44 Medications Medications Current Medications Acetaminophen (Acetaminophen 325 Mg Tablet) 650 mg PO Q6H PRN PRN Reason: Headache/Pain Mild Scale (1-3) Al Hydroxide/Mg Hydroxide (Magnesium Hydrox/Alum Hydrox 30 Ml Oral.Susp) 30 ml PO Q6H PRN PRN Reason: Heartburn/Nausea Hydroxyzine HCl (Hydroxyzine Hcl 25 Mg Tablet) 25 mg PO Q6H PRN PRN Reason: Anxiety [place] Carbonate ([place] Carbonate 300 Mg Capsule) 300 mg PO BID [facility] Last Admin: 11/10/22 08:29 Dose: 300 mg Lorazepam (Lorazepam 1 Mg Tablet) 1 mg PO TID [facility] Last Admin: 11/10/22 15:47 Dose: 1 mg Magnesium Hydroxide (Milk Of Magnesia 30 Ml Oral.Susp) 30 ml PO DAILY PRN PRN Reason: Constipation Trazodone HCl (Trazodone Hcl 50 Mg Tablet) 50 mg PO BEDTIME PRN PRN Reason: Insomnia Allergies Allergies Allergy/AdvReac Type Severity Reaction Status Date / Time No Known Allergies Allergy Verified 09/05/22 21:55 Assessment & Plan Assessment & Plan (1) Schizophrenia, 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 Zabala is a 37 year-old male with hx of schizophrenia. He resides at from [facility] for about one year. Since then, per staff, pt has had about 12 inpatient admission. Pt was recently discharged from medical floor after being treated for pneumonia. The day after pt was described as disorganized, wondering the streets, laying on the streets. He was brought via EMS to [facility]. Utox is negative. Pt does have hx of cannabis use but this time it was negative. Pt presents with symptoms of catatonia including waxy flexibility, negativism, intermittent mutism and black stare. Pt has not missed dose of Invega Sustenna- he has been on 234mg IM which has been given on 09/15 while on M3, 10/17 in the community. Pt also on haldol 30mg po qhs. Will hold haldol given s/s of catatoni a. Pt is on [facility] which expires today but extension has been filed and granted- per CM awating paperwork from court. Guardian is his father- Joe Wells [phone]. PLAN 1. Admit to M5, Sect 12b, 15 minutes checks 2. start ativan 2mg po TID- for catatonia. Pt given one time dose ativan 2mg po with good effect. 3. Will hold haldol due to catatonia 4. obtain collateral information 5. Aftercare planning. 11/06 continue ativan, monitor s/s catatonia. hold haldol until some improvement in s/s of catatonia. 11/07/22- continue current regime and plan of care. Pt denies all symptoms. 11/08/22- starting to hear reports of evening improvement. continue current plan for now. 11/09 file for involuntary tx due to inability to care for self due to catatonia. will restart lithium 300mg po BID. 11/10 slightly less mute, still with delayed response rate and appears internally preoccupied. will lower ativan continue monitor for worsening of s/s of catatonia. Reason for continued inpatient stay Substantial Risk for: inability to function Time Spent With Patient Time: Total time managing care of this patient today ____ minutes.
[2022-11-10 18:33] VITALS: BP 126/81; PULSE 91; TEMP 36.2; O2SAT 97
[2022-11-11 06:00] VITALS: RESP 16
[2022-11-11] MEDS: LORazepam 1 MG TABLET PO ×3 (08:40→21:34)
[2022-11-11] MEDS: Lithium Carbonate 300 MG CAPSULE PO ×2 (08:40→21:34)
[2022-11-11 09:42] LABS: Lithium 0.27 mmol/L (0.60-1.20)
[2022-11-11 19:10] VITALS: BP 123/80; PULSE 98; TEMP 36.4; O2SAT 95
--- NOTE | 2022-11-11 20:27 | HO.PSYCHPN ---
Subjective Subjective Date of Service: 11/11/22 Reason For Visit: schizoaffective d/o; bipolar type Subjective Notes: Section 7 Interim History: Pt's speech is more spontaneous and fluid with less delayed in response. Pt denies SI/HI. Poverty of thought noted. Pt mostly in room but slowly coming out of his room. Not social with peers or staff. No aggression towards self or others. Collateral information gathered from his father, Ramon, who reports he has not seen him in 4 years. Father reports he does not believe that his son has schizophrenia. Father does admit that he has seen pt talking to himself and delusional content. Father reports this is due to cannabis and other substance use. Father educated on fact that substances can worsen psychosis but in his son's case he also has underlying psychiatric illness. Father reports he was unaware of [facility]. Father also reports he would like son to receive naturopathic treatment. This physician underwriter asked father if he has consider bringing him to alternative treatment since he feels so strongly about it, but father reports he has not because he is not in the [facility]. Father also informed that pt this time presented with s/s of catatonia, which seems to be slowly resolving and that his utox was negative for all substances including cannabis. Medication Compliance: Yes Side effects from medications: No Review of Systems Review of Systems Patient has no acute medical complaints at this time Yes all other systems are reviewed and are negative Mental Status Exam Mental Status Exam Narrative: Appearance: wearing hospital gown, disheveled, poor hygiene, in NAD Behavior: limited participation due to catatonia and underlying psychosis Psychomotor: retardation noted, waxy flexibility Speech: mostly mute, soft when he does speak, single words, minimally spontaneous TP: single words TC: mostly mute Mood: unable to describe Affect: constricted SI: pt denied HI: denies VH/AH: appears internally preoccupied. Delusions: appears internally preoccupied Insight/judgment: impaired x 2. Diagnostics Vital Signs (24Hr): Vital Signs - 24 hr 11/11/22 06:00 11/11/22 19:10 Temperature 97.5 F Pulse Rate 98 Respiratory Rate 16 Blood Pressure 123/80 Pulse Oximetry 95 Oxygen Delivery Method Room Air BMI result Body Mass Index 30.6 Labs 11/05/22 08:44 Labs: Laboratory Results - last 48 hr 11/11/22 08:49 [place] 0.27 L Medications Medications Current Medications Acetaminophen (Acetaminophen 325 Mg Tablet) 650 mg PO Q6H PRN PRN Reason: Headache/Pain Mild Scale (1-3) Al Hydroxide/Mg Hydroxide (Magnesium Hydrox/Alum Hydrox 30 Ml Oral.Susp) 30 ml PO Q6H PRN PRN Reason: Heartburn/Nausea Hydroxyzine HCl (Hydroxyzine Hcl 25 Mg Tablet) 25 mg PO Q6H PRN PRN Reason: Anxiety [place] Carbonate ([place] Carbonate 300 Mg Capsule) 300 mg PO BID [facility] Last Admin: 11/11/22 08:40 Dose: 300 mg Lorazepam (Lorazepam 1 Mg Tablet) 1 mg PO TID [facility] Last Admin: 11/11/22 14:02 Dose: 1 mg Magnesium Hydroxide (Milk Of Magnesia 30 Ml Oral.Susp) 30 ml PO DAILY PRN PRN Reason: Constipation Trazodone HCl (Trazodone Hcl 50 Mg Tablet) 50 mg PO BEDTIME PRN PRN Reason: Insomnia Allergies Allergies Allergy/AdvReac Type Severity Reaction Status Date / Time No Known Allergies Allergy Verified 09/05/22 21:55 Assessment & Plan Assessment & Plan (1) Schizophrenia, 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 Zabala is a 37 year-old male with hx of schizophrenia. He resides at from [facility] for about one year. Since then, per staff, pt has had about 12 inpatient admission. Pt was recently discharged from medical floor after being treated for pneumonia. The day after pt was described as disorganized, wondering the streets, laying on the streets. He was brought via EMS to [facility]. Utox is negative. Pt does have hx of cannabis use but this time it was negative. Pt presents with symptoms of catatonia including waxy flexibility, negativism, intermittent mutism and black stare. Pt has not missed dose of Invega Sustenna- he has been on 234mg IM which has been given on 09/15 while on M3, 10/17 in the community. Pt also on haldol 30mg po qhs. Will hold haldol given s/s of catatonia. Pt is on [facility] which expires today but extension has been filed and granted- per CM awating paperwork from court. Guardian is his father- Joe Wells [phone]. PLAN 1. Admit to M5, Sect 12b, 15 minutes checks 2. start ativan 2mg po TID- for catatonia. Pt given one time dose ativan 2mg po with good effect. 3. Will hold haldol due to catatonia 4. obtain collateral information 5. Aftercare planning. 11/06 continue ativan, monitor s/s catatonia. hold haldol until some improvement in s/s of catatonia. 11/07/22- continue current regime and plan of care. Pt denies all symptoms. 11/08/22- starting to hear reports of evening improvement. continue current plan for now. 11/09 file for involuntary tx due to inability to care for self due to catatonia. will restart lithium 300mg po BID. 11/10 slightly less mute, still with delayed response rate and appears internally preoccupied. will lower ativan continue monitor for worsening of s/s of catatonia. 11/11 less mute, more spontaneous in speech, less psychomotor retardation. Patient educated on: diagnosis and medication risk/benefits Guardian/Caregiver educated on: diagnosis Informed Consent: further education needed Reason for continued inpatient stay Substantial Risk for: inability to function Time Spent With Patient Time: Total time managing care of this patient today ____ minutes.
[2022-11-12 07:00] VITALS: BMI 30.3
[2022-11-12 08:20] VITALS: BP 123/74; PULSE 101; RESP 18; TEMP 36.9; O2SAT 96
[2022-11-12] MEDS: Lithium Carbonate 300 MG CAPSULE PO ×2 (08:56→21:23)
[2022-11-12] MEDS: LORazepam 1 MG TABLET PO ×3 (08:56→21:23)
--- NOTE | 2022-11-12 13:50 | HO.PSYCHPN ---
Subjective Subjective Date of Service: 11/12/22 Reason For Visit: schizoaffective d/o; bipolar type Subjective Notes: Conditional Voluntary Interim History: Pt slightly more visible, speech more spontaneous but continues to be mostly in his room. He denies SI/HI. he appears internally preoccupied. Per nursing, pt slept through the night. He continues to take medications as prescribed. Medication Compliance: Yes Side effects from medications: No Attending Groups: No Review of Systems Review of Systems Patient has no acute medical complaints at this time Yes all other systems are reviewed and are negative Mental Status Exam Mental Status Exam Narrative: Appearance: wearing hospital gown, disheveled, poor hygiene, in NAD Behavior: limited participation due to catatonia and underlying psychosis Psychomotor: retardation noted, waxy flexibility Speech: mostly mute, soft when he does speak, single words, minimally spontaneous TP: single words TC: mostly mute Mood: unable to describe Affect: constricted SI: pt denied HI: denies VH/AH: appears internally preoccupied. Delusions: appears internally preoccupied Insight/judgment: impaired x 2. Patient Appearance: Fatigued Patient Orientation: Person and Place Level of Consciousness: Sedated Patient Behavior: Fatigued Mood Description: Flat Affect Description: Flat Patient Cognition Impaired: No Ability to Follow Directions: Good Speech Pattern: Impoverished and Spontaneous Speech Diagnostics Vital Signs (24Hr): Vital Signs - 24 hr 11/11/22 19:10 11/12/22 08:20 Temperature 97.5 F 98.4 F Pulse Rate 98 101 H Respiratory Rate 18 Blood Pressure 123/80 123/74 Pulse Oximetry 95 96 Oxygen Delivery Method Room Air Room Air BMI result Body Mass Index 30.3 Labs 11/05/22 08:44 Labs: Laboratory Results - last 48 hr 11/11/22 08:49 [place] 0.27 L Medications Medications Current Medications Acetaminophen (Acetaminophen 325 Mg Tablet) 650 mg PO Q6H PRN PRN Reason: Headache/Pain Mild Scale (1-3) Al Hydroxide/Mg Hydroxide (Magnesium Hydrox/Alum Hydrox 30 Ml Oral.Susp) 30 ml PO Q6H PRN PRN Reason: Heartburn/Nausea Hydroxyzine HCl (Hydroxyzine Hcl 25 Mg Tablet) 25 mg PO Q6H PRN PRN Reason: Anxiety [place] Carbonate ([place] Carbonate 300 Mg Capsule) 300 mg PO BID [facility] Last Admin: 11/12/22 08:56 Dose: 300 mg Lorazepam (Lorazepam 1 Mg Tablet) 1 mg PO TID [facility] Last Admin: 11/12/22 08:56 Dose: 1 mg Magnesium Hydroxide (Milk Of Magnesia 30 Ml Oral.Susp) 30 ml PO DAILY PRN PRN Reason: Constipation Trazodone HCl (Trazodone Hcl 50 Mg Tablet) 50 mg PO BEDTIME PRN PRN Reason: Insomnia Allergies Allergies Allergy/AdvReac Type Severity Reaction Status Date / Time No Known Allergies Allergy Verified 09/05/22 21:55 Assessment & Plan Assessment & Plan (1) Schizophrenia, 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 Zabala is a 37 year-old male with hx of schizophrenia. He resides at from [facility] for about one year. Since then, per staff, pt has had about 12 inpatient admission. Pt was recently discharged from medical floor after being treated for pneumonia. The day after pt was described as disorganized, wondering the streets, laying on the streets. He was brought via EMS to [facility]. Utox is negative. Pt does have hx of cannabis use but this time it was negative. Pt presents with symptoms of catatonia including waxy flexibility, negativism, intermittent mutism and black stare. Pt has not missed dose of Invega Sustenna- he has been on 234mg IM which has been given on 09/15 while on M3, 10/17 in the community. Pt also on haldol 30mg po qhs. Will hold haldol given s/s of catatonia. Pt is on [facility] which expires today but extension has been filed and granted- per CM awating paperwork from court. Guardian is his father- Joe Wells [phone]. PLAN 1. Admit to M5, Sect 12b, 15 minutes checks 2. start ativan 2mg po TID- for catatonia. Pt given one time dose ativan 2mg po with good effect. 3. Will hold haldol due to catatonia 4. obtain collateral information 5. Aftercare planning. 11/06 continue ativan, monitor s/s catatonia. hold haldol until some improvement in s/s of catatonia. 11/07/22- continue current regime and plan of care. Pt denies all symptoms. 11/08/22- starting to hear reports of evening improvement. continue current plan for now. 11/09 file for involuntary tx due to inability to care for self due to catatonia. will restart lithium 300mg po BID. 11/10 slightly less mute, still with delayed response rate and appears internally preoccupied. will lower ativan continue monitor for worsening of s/s of catatonia. 11/11 less mute, more spontaneous in speech, less psychomotor retardation. 11/12 continue tx. Next Invega Sustenna 234mg IM due on 11/13/2022 Reason for continued inpatient stay Substantial Risk for: inability to function Time Spent With Patient Time: Total time managing care of this patient today ____ minutes.
[2022-11-12 18:00] VITALS: BP 124/82; PULSE 96; RESP 16; TEMP 36.8; O2SAT 97
--- NOTE | 2022-11-13 | ECG_ITS ---
Test Reason : chest tightness Blood Pressure : / mmHG Vent. Rate : 098 BPM Atrial Rate : 098 BPM P-R Int : 198 ms QRS Dur : 088 ms QT Int : 340 ms P-R-T Axes : 050 045 043 degrees QTc Int : 434 ms Normal sinus rhythm Normal ECG No previous ECGs available Referred By: Cori Haile Electronically Signed By:Tip Agneles
[2022-11-13 06:00] VITALS: BP 120/76; PULSE 101; RESP 16; TEMP 36.4; O2SAT 98
--- NOTE | 2022-11-13 08:43 | P.PNPSI_ITS ---
Subjective Subjective Date of Service: 11/13/22 Reason For Visit: schizoaffective d/o; bipolar type Subjective Notes: Conditional Voluntary Interim History: Pt more talkative. Pt reports he has heart burn. Pt also reports some chest tightness. EKG completed, which is normal. Pt started on tums- which he reports helped in the past. Pt reports he hopes to be discharged soon. He states I get in trouble a lot. When asked to explained he states I was lying on the road. Pt does report that is easier to talk. He received Invega Sustenna 234mg IM today. continue to monitor exacerbation of catatonia. Review of Systems Review of Systems Patient has no acute medical complaints at this time Yes all other systems are reviewed and are negative Mental Status Exam Mental Status Exam Narrative: Appearance: wearing hospital gown, disheveled, poor hygiene, in NAD Behavior: limited participation due to catatonia and underlying psychosis Psychomotor: retardation noted, waxy flexibility Speech: mostly mute, soft when he does speak, single words, minimally spontaneous TP: single words TC: mostly mute Mood: unable to describe Affect: constricted SI: pt denied HI: denies VH/AH: appears internally preoccupied. Delusions: appears internally preoccupied Insight/judgment: impaired x 2. Diagnostics Vital Signs (24Hr): Vital Signs - 24 hr 11/12/22 18:00 Temperature 98.2 F Pulse Rate 96 Respiratory Rate 16 Blood Pressure 124/82 Pulse Oximetry 97 Oxygen Delivery Method Room Air BMI result Body Mass Index 30.3 Labs 11/05/22 08:44 Labs: Laboratory Results - last 48 hr 11/11/22 08:49 [place] 0.27 L Medications Medications Current Medications Acetaminophen (Acetaminophen 325 Mg Tablet) 650 mg PO Q6H PRN PRN Reason: Headache/Pain Mild Scale (1-3) Al Hydroxide/Mg Hydroxide (Magnesium Hydrox/Alum Hydrox 30 Ml Oral.Susp) 30 ml PO Q6H PRN PRN Reason: Heartburn/Nausea Hydroxyzine HCl (Hydroxyzine Hcl 25 Mg Tablet) 25 mg PO Q6H PRN PRN Reason: Anxiety [place] Carbonate ([place] Carbonate 300 Mg Capsule) 300 mg PO BID [facility] Last Admin: 11/12/22 21:23 Dose: 300 mg Lorazepam (Lorazepam 1 Mg Tablet) 1 mg PO TID [facility] Last Admin: 11/12/22 21:23 Dose: 1 mg Magnesium Hydroxide (Milk Of Magnesia 30 Ml Oral.Susp) 30 ml PO DAILY PRN PRN Reason: Constipation Paliperidone Palmitate (Paliperidone Palmitate 234 Mg/1.5 Ml Syringe) 234 mg IM Q30D [facility] Trazodone HCl (Trazodone Hcl 50 Mg Tablet) 50 mg PO BEDTIME PRN PRN Reason: Insomnia Allergies Allergies Allergy/AdvReac Type Severity Reaction Status Date / Time No Known Allergies Allergy Verified 09/05/22 21:55 Assessment & Plan Assessment & Plan (1) Schizophrenia, 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 Zabala is a 37 year-old male with hx of schizophrenia. He resides at from [facility] for about one year. Since then, per staff, pt has had about 12 innv tie admission. Pt was recently discharged from medical floor after being treated for pneumonia. The day after pt was described as disorganized, wondering the streets, laying on the streets. He was brought via EMS to [facility]. Utox is negative. Pt does have hx of cannabis use but this time it was negative. Pt presents with symptoms of catatonia including waxy flexibility, negativism, intermittent mutism and black stare. Pt has not missed dose of Invega Sustenna- he has been on 234mg IM which has been given on 09/15 while on M3, 10/17 in the community. Pt also on haldol 30mg po qhs. Will hold haldol given s/s of catatonia. Pt is on [facility] which expires today but extension has been filed and granted- per CM awating paperwork from court. Guardian is his father- Joe Wells [phone]. PLAN 1. Admit to M5, Sect 12b, 15 minutes checks 2. start ativan 2mg po TID- for catatonia. Pt given one time dose ativan 2mg po with good effect. 3. Will hold haldol due to catatonia 4. obtain collateral information 5. Aftercare planning. 11/06 continue ativan, monitor s/s catatonia. hold haldol until some improvement in s/s of catatonia. 11/07/22- continue current regime and plan of care. Pt denies all symptoms. 11/08/22- starting to hear reports of evening improvement. continue current plan for now. 11/09 file for involuntary tx due to inability to care for self due to catatonia. will restart lithium 300mg po BID. 11/10 slightly less mute, still with delayed response rate and appears internally preoccupied. will lower ativan continue monitor for worsening of s/s of catatonia. 11/11 less mute, more spontaneous in speech, less psychomotor retardation. 11/12 continue tx. Next Invega Sustenna 234mg IM due on 11/13/202211/13 He received Invega Sustenna 234mg IM today. continue to monitor exacerbation of catatonia. continue ativan 1mg po TID. Reason for continued inpatient stay Substantial Risk for: inability to function Time Spent With Patient Time: Total time managing care of this patient today ____ minutes.
[2022-11-13] MEDS: Lithium Carbonate 300 MG CAPSULE PO ×2 (08:53→20:14)
[2022-11-13] MEDS: LORazepam 1 MG TABLET PO ×4 (08:53→20:14)
[2022-11-13] MEDS: Paliperidone Palmitate 234 MG/1.5 ML SYRINGE IM (09:36)
[2022-11-13] MEDS: Calcium Carbonate 750 MG TAB.CHEW PO ×2 (12:16→20:14)
[2022-11-13 18:00] VITALS: BP 128/86; PULSE 94; TEMP 36.4; O2SAT 96
[2022-11-14] MEDS: Calcium Carbonate 750 MG TAB.CHEW PO ×2 (09:18→20:43)
[2022-11-14] MEDS: Lithium Carbonate 300 MG CAPSULE PO ×2 (09:18→20:43)
[2022-11-14] MEDS: LORazepam 1 MG TABLET PO ×3 (09:19→20:43)
[2022-11-14 09:20] VITALS: BP 128/72; PULSE 103; RESP 18; TEMP 36.8; O2SAT 96
--- NOTE | 2022-11-14 13:41 | P.PNPSI_ITS ---
Subjective Subjective Date of Service: 11/14/22 Reason For Visit: schizoaffective d/o; bipolar type Subjective Notes: Section 7 Interim History: Patient anxious ruminating appears fearful very soft-spoken generally not wanting to engage Medication Compliance: No Mental Status Exam Mental Status Exam Narrative: Appearance: wearing hospital gown, disheveled, poor hygiene, in NAD Behavior: limited participation due to catatonia and underlying psychosis Psychomotor: retardation noted, waxy flexibility Speech: mostly mute, soft when he does speak, single words, minimally spontaneous TP: single words TC: mostly mute Mood: unable to describe Affect: constricted SI: pt denied HI: denies VH/AH: appears internally preoccupied. Delusions: appears internally preoccupied Insight/judgment: impaired x 2. Diagnostics Vital Signs (24Hr): Vital Signs - 24 hr 11/13/22 18:00 11/14/22 09:20 Temperature 97.6 F 98.2 F Pulse Rate 94 103 H Respiratory Rate 18 Blood Pressure 128/86 128/72 Pulse Oximetry 96 96 Oxygen Delivery Method Room Air Room Air BMI result Body Mass Index 30.3 Labs 11/05/22 08:44 Medications Medications Current Medications Acetaminophen (Acetaminophen 325 Mg Tablet) 650 mg PO Q6H PRN PRN Reason: Headache/Pain Mild Scale (1-3) Al Hydroxide/Mg Hydroxide (Magnesium Hydrox/Alum Hydrox 30 Ml Oral.Susp) 30 ml PO Q6H PRN PRN Reason: Heartburn/Nausea Calcium Carbonate (Calcium Carbonate 750 Mg Tab.Chew) 750 mg PO BID ON LICENSE OF [facility] Last Admin: 11/14/22 09:18 Dose: 750 mg Hydroxyzine HCl (Hydroxyzine Hcl 25 Mg Tablet) 25 mg PO Q6H PRN PRN Reason: Anxiety [place] Carbonate ([place] Carbonate 300 Mg Capsule) 300 mg PO BID ON LICENSE OF [facility] Last Admin: 11/14/22 09:18 Dose: 300 mg Lorazepam (Lorazepam 1 Mg Tablet) 1 mg PO TID ON LICENSE OF [facility] Last Admin: 11/14/22 09:19 Dose: 1 mg Magnesium Hydroxide (Milk Of Magnesia 30 Ml Oral.Susp) 30 ml PO DAILY PRN PRN Reason: Constipation Paliperidone Palmitate (Paliperidone Palmitate 234 Mg/1.5 Ml Syringe) 234 mg IM Q30D ON LICENSE OF [facility] Last Admin: 11/13/22 09:36 Dose: 234 mg Trazodone HCl (Trazodone Hcl 50 Mg Tablet) 50 mg PO BEDTIME PRN PRN Reason: Insomnia Allergies Allergies Allergy/AdvReac Type Severity Reaction Status Date / Time No Known Allergies Allergy Verified 09/05/22 21:55 Assessment & Plan Assessment & Plan (1) Schizophrenia, 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 Zabala is a 37 year-old male with hx of schizophrenia. He resides at from [facility] for about one year. Since then, per staff, pt has had about 12 inpatient admission. Pt was recently discharged from medical floor after being treated for pneumonia. The day after pt was described as disorganized, wondering the streets, laying on the streets. He was brought via EMS to [facility]. Utox is negative. Pt does have hx of cannabis use but this time it was negative. Pt presents with symptoms of catatonia including waxy flexibility, negativism, intermittent mutism and black stare. Pt has not missed dose of Invega Sustenna- he has been on 234mg IM which has been given on 09/15 while on M3, 10/17 in the community. Pt also on haldol 30mg po qhs. Will hold haldol given s/s of catatonia. Pt is on [place] which expires today but extension has been filed and granted- per CM awating paperwork from court. Guardian is his father- Joe Wells [phone]. PLAN 1. Admit to M5, Sect 12b, 15 minutes checks 2. start ativan 2mg po TID- for catatonia. Pt given one time dose ativan 2mg po with good effect. 3. Will hold haldol due to catatonia 4. obtain collateral information 5. Aftercare planning. 11/06 continue ativan, monitor s/s catatonia. hold haldol until some improvement in s/s of catatonia. 11/07/22- continue current regime and plan of care. Pt denies all symptoms. 11/08/22- starting to hear reports of evening improvement. continue current plan for now. 11/09 file for involuntary tx due to inability to care for self due to catatonia. will restart lithium 300mg po BID. 11/10 slightly less mute, still with delayed response rate and appears internally preoccupied. will lower ativan continue monitor for worsening of s/s of catatonia. 11/11 less mute, more spontaneous in speech, less psychomotor retardation. 11/12 continue tx. Next Invega Sustenna 234mg IM due on 11/13/202211/13 He received Invega Sustenna 234mg IM today. continue to monitor exacerbation of catatonia. continue ativan 1mg po TID. 11/14/2022 No clear improvement to this point Patient fearful M withdrawn Reason for continued inpatient stay Substantial Risk for: inability to function, rapid decompensation and med/psych decompensation Time Spent With Patient Time: Total time managing care of this patient today ____ minutes.
[2022-11-14 18:00] VITALS: BP 132/75; PULSE 135; TEMP 36.5; O2SAT 93
[2022-11-15] MEDS: LORazepam 1 MG TABLET PO (08:19)
[2022-11-15] MEDS: Lithium Carbonate 300 MG CAPSULE PO ×2 (08:19→19:55)
[2022-11-15] MEDS: Calcium Carbonate 750 MG TAB.CHEW PO ×2 (08:19→19:55)
[2022-11-15 08:20] VITALS: BP 129/100; PULSE 110; RESP 18; TEMP 36.2; O2SAT 95
[2022-11-15 19:35] VITALS: BP 121/88; PULSE 103; RESP 18; TEMP 37.2; O2SAT 97
--- NOTE | 2022-11-16 00:27 | HO.PSYCHPN ---
Subjective Subjective Date of Service: 11/15/22 Reason For Visit: schizoaffective d/o; bipolar type Subjective Notes: Section 7 Interim History: Patient continues isolative to room lying in bed covers over him generally not wanting to engage very soft-spoken no significant information or engagement Mental Status Exam Mental Status Exam Narrative: Appearance: wearing hospital gown, disheveled, poor hygiene, in NAD Behavior: limited participation due to catatonia and underlying psychosis Psychomotor: retardation noted, waxy flexibility Speech: mostly mute, soft when he does speak, single words, minimally spontaneous TP: single words TC: mostly mute Mood: unable to describe Affect: constricted SI: pt denied HI: denies VH/AH: appears internally preoccupied. Delusions: appears internally preoccupied Insight/judgment: impaired x 2. Diagnostics Vital Signs (24Hr): Vital Signs - 24 hr 11/15/22 08:20 11/15/22 19:35 Temperature 97.2 F 98.9 F Pulse Rate 110 H 103 H Respiratory Rate 18 18 Blood Pressure 129/100 H 121/88 Pulse Oximetry 95 97 Oxygen Delivery Method Room Air Room Air BMI result Body Mass Index 30.3 Labs 11/05/22 08:44 Medications Medications Current Medications Acetaminophen (Acetaminophen 325 Mg Tablet) 650 mg PO Q6H PRN PRN Reason: Headache/Pain Mild Scale (1-3) Al Hydroxide/Mg Hydroxide (Magnesium Hydrox/Alum Hydrox 30 Ml Oral.Susp) 30 ml PO Q6H PRN PRN Reason: Heartburn/Nausea Calcium Carbonate (Calcium Carbonate 750 Mg Tab.Chew) 750 mg PO BID [facility] Last Admin: 11/15/22 19:55 Dose: 750 mg Hydroxyzine HCl (Hydroxyzine Hcl 25 Mg Tablet) 25 mg PO Q6H PRN PRN Reason: Anxiety [place] Carbonate ([place] Carbonate 300 Mg Capsule) 300 mg PO BID [facility] Last Admin: 11/15/22 19:55 Dose: 300 mg Magnesium Hydroxide (Milk Of Magnesia 30 Ml Oral.Susp) 30 ml PO DAILY PRN PRN Reason: Constipation Paliperidone Palmitate (Paliperidone Palmitate 234 Mg/1.5 Ml Syringe) 234 mg IM Q30D [facility] Last Admin: 11/13/22 09:36 Dose: 234 mg Trazodone HCl (Trazodone Hcl 50 Mg Tablet) 50 mg PO BEDTIME PRN PRN Reason: Insomnia Allergies Allergies Allergy/AdvReac Type Severity Reaction Status Date / Time No Known Allergies Allergy Verified 09/05/22 21:55 Assessment & Plan Assessment & Plan (1) Schizophrenia, 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 Zabala is a 37 year-old male with hx of schizophrenia. He resides at from [facility] for about one year. Since then, per staff, pt has had about 12 inpatient admission. Pt was recently discharged from medical floor after being treated for pneumonia. The day after pt was described as disorganized, wondering the streets, laying on the streets. He was brought via EMS to [facility]. Utox is negative. Pt does have hx of cannabis use but this time it was negative. Pt presents with symptoms of catatonia including waxy flexibility, negativism, intermittent mutism and black stare. Pt has not missed dose of Invega Sustenna- he has been on 234mg IM which has been given on 09/15 while on M3, 10/17 in the community. Pt also on haldol 30mg po qhs. Will hold haldol given s/s of catatonia. Pt is on [place] which expires today but extension has been filed and granted- per CM awating paperwork from court. Guardian is his father- Joe Wells [phone]. PLAN 1. Admit to M5, Sect 12b, 15 minutes checks 2. start ativan 2mg po TID- for catatonia. Pt given one time dose ativan 2mg po with good effect. 3. Will hold haldol due to catatonia 4. obtain collateral information 5. Aftercare planning. 11/06 continue ativan, monitor s/s catatonia. hold haldol until some improvement in s/s of catatonia. 11/07/22- continue current regime and plan of care. Pt denies all symptoms. 11/08/22- starting to hear reports of evening improvement. continue current plan for now. 11/09 file for involuntary tx due to inability to care for self due to catatonia. will restart lithium 300mg po BID. 11/10 slightly less mute, still with delayed response rate and appears internally preoccupied. will lower ativan continue monitor for worsening of s/s of catatonia. 11/11 less mute, more spontaneous in speech, less psychomotor retardation. 11/12 continue tx. Next Invega Sustenna 234mg IM due on 11/13/202211/13 He received Invega Sustenna 234mg IM today. continue to monitor exacerbation of catatonia. continue ativan 1mg po TID. 11/14/2022 No clear improvement to this point Patient fearful M withdrawn 11/15/2022 No clear improvement question ECT Reason for continued inpatient stay Substantial Risk for: inability to function and med/psych decompensation Time Spent With Patient Time: Total time managing care of this patient today ____ minutes.
[2022-11-16 08:20] VITALS: BP 118/75; PULSE 102; RESP 18; TEMP 37.1; O2SAT 95
[2022-11-16] MEDS: Lithium Carbonate 300 MG CAPSULE PO ×2 (08:57→20:06)
[2022-11-16] MEDS: Calcium Carbonate 750 MG TAB.CHEW PO (08:57)
--- NOTE | 2022-11-16 14:23 | P.PNPSI_ITS ---
Subjective Subjective Date of Service: 11/16/22 Reason For Visit: schizoaffective d/o; bipolar type Interim History: met with patient; discussed with team; reviewed notes pt remains with significant speech latency and internal preoccupations; confirms he still has AH, but says more of it's positive than negative. He would like the negative to be reduced but does not want to stay longer on unit for more medication management, saying he misses senior care. Discussed catatonia and he does remember staying in bed most of weekend; agrees to continued tx for catatonia. Remains isolated but out of bed a little more and a little more engaging him Mental Status Exam Mental Status Exam Narrative: Pt is alert and oriented; behavior is slowed, quiet, isolative but not uncoop erative;patient is not in distress; dressed in hospital attire with unkempt hair and malodorous; mood is described as ok and affect blunted; eye contact appropriate; Speech is latent, slowed, low volume, monotone; significant psychomotor retardation present; thought process is marred by thought blocking but able to be goal directed; Thought content is on AH; no paranoid delusions expressed; denies any SI/HI. Positive for AH Patients insight and judgment impaired Diagnostics Vital Signs (24Hr): Vital Signs - 24 hr 11/15/22 19:35 11/16/22 08:20 Temperature 98.9 F 98.8 F Pulse Rate 103 H 102 H Respiratory Rate 18 18 Blood Pressure 121/88 118/75 Pulse Oximetry 97 95 Oxygen Delivery Method Room Air Room Air BMI result Body Mass Index 30.3 Labs 11/05/22 08:44 Medications Medications Current Medications Acetaminophen (Acetaminophen 325 Mg Tablet) 650 mg PO Q6H PRN PRN Reason: Headache/Pain Mild Scale (1-3) Al Hydroxide/Mg Hydroxide (Magnesium Hydrox/Alum Hydrox 30 Ml Oral.Susp) 30 ml PO Q6H PRN PRN Reason: Heartburn/Nausea Calcium Carbonate (Calcium Carbonate 750 Mg Tab.Chew) 750 mg PO BID [facility] Last Admin: 11/16/22 08:57 Dose: 750 mg Hydroxyzine HCl (Hydroxyzine Hcl 25 Mg Tablet) 25 mg PO Q6H PRN PRN Reason: Anxiety [place] Carbonate ([place] Carbonate 300 Mg Capsule) 300 mg PO BID [facility] Last Admin: 11/16/22 08:57 Dose: 300 mg Magnesium Hydroxide (Milk Of Magnesia 30 Ml Oral.Susp) 30 ml PO DAILY PRN PRN Reason: Constipation Paliperidone Palmitate (Paliperidone Palmitate 234 Mg/1.5 Ml Syringe) 234 mg IM Q30D [facility] Last Admin: 11/13/22 09:36 Dose: 234 mg Trazodone HCl (Trazodone Hcl 50 Mg Tablet) 50 mg PO BEDTIME PRN PRN Reason: Insomnia Allergies Allergies Allergy/AdvReac Type Severity Reaction Status Date / Time No Known Allergies Allergy Verified 09/05/22 21:55 Assessment & Plan Assessment & Plan (1) Schizophrenia, 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 Zabala is a 37 year-old male with hx of schizophrenia. He resides at from [facility] for about one year. Since then, per staff, pt has had about 12 inpatient admission. Pt was recently discharged from medical floor after being treated for pneumonia. The day after pt was described as disorganized, wondering the streets, laying on the streets. He was brought via EMS to [facility]. Utox is negative. Pt does have hx of cannabis use but this time it was negative. Pt presents with symptoms of catatonia including waxy flexibility, negativism, intermittent mutism and black stare. Pt has not missed dose of Invega Sustenna- he has been on 234mg IM which has been given on 09/15 while on M3, 10/17 in the community. Pt also on haldol 30mg po qhs. Will hold haldol given s/s of catatonia. Pt is on [facility] which expires today but extension has been filed and granted- per CM awating paperwork from court. Guardian is his father- Joe Wells [phone]. PLAN 1. Admit to M5, Sect 12b, 15 minutes checks 2. start ativan 2mg po TID- for catatonia. Pt given one time dose ativan 2mg po with good effect. 3. Will hold haldol due to catatonia 4. obtain collateral information 5. Aftercare planning. 11/06 continue ativan, monitor s/s catatonia. hold haldol until some improvement in s/s of catatonia. 11/07/22- continue current regime and plan of care. Pt denies all symptoms. 11/08/22- starting to hear reports of evening improvement. continue current plan for now. 11/09 file for involuntary tx due to inability to care for self due to catatonia. will restart lithium 300mg po BID. 11/10 slightly less mute, still with delayed response rate and appears internally preoccupied. will lower ativan continue monitor for worsening of s/s of catatonia. 11/11 less mute, more spontaneous in speech, less psychomotor retardation. 11/12 continue tx. Next Invega Sustenna 234mg IM due on 11/13/202211/13 He received Invega Sustenna 234mg IM today. continue to monitor exacerbation of catatonia. continue ativan 1mg po TID. 11/14/2022 No clear improvement to this point Patient fearful M withdrawn 11/15/2022 No clear improvement question ECT 11/16 patient remains with catatonic symptoms; staff reports patient is doing a little better will continue with Ativan; still need collateral on baseline Patient educated on: diagnosis and medication risk/benefits Informed Consent: understands and further education needed Reason for continued inpatient stay Substantial Risk for: inability to function and rapid decompensation Time Spent With Patient Time: Total time managing care of this patient today ____ minutes.
[2022-11-16 19:19] VITALS: BP 130/75; PULSE 103; TEMP 36.6
[2022-11-17] MEDS: Lithium Carbonate 300 MG CAPSULE PO ×2 (09:21→23:16)
[2022-11-17 09:23] VITALS: BP 134/84; PULSE 97; RESP 18; TEMP 37; O2SAT 95
[2022-11-17] MEDS: LORazepam 1 MG TABLET 2 MG PO ×3 (13:24→23:16)
--- NOTE | 2022-11-17 17:42 | P.PNPSI_ITS ---
Subjective Subjective Date of Service: 11/17/22 Reason For Visit: schizoaffective d/o; bipolar type Interim History: Met with patient; discussed with team Patient remains with significant speech latency and psychomotor retardation; today he seems slower than yesterday and it was discovered that Ativan inadvertently was discontinued and he did not receive any yesterday. Patient agrees that he is slower today and that it is harder to talk. Had another discussion about catatonia and the treatment; patient said that he did want to stay longer on the unit to help treat catatonia and signed a CV. AH remain, but he reports not overly negative. Remains eating very little, hardly get out of bed Mental Status Exam Mental Status Exam Narrative: Pt is alert and oriented; behavior is slowed, quiet, isolative but not uncooperative;patient is not in distress; dressed in hospital attire with unkempt hair and malodorous; mood is described as ok and affect blunted; eye contact appropriate; Speech is latent, slowed, low volume, monotone; significant psychomotor retardation present; thought process is marred by thought blocking but able to be goal directed; Thought content is on AH; no paranoid delusions expressed; denies any SI/HI. Positive for Patients insight and judgment impaired Diagnostics Vital Signs (24Hr): Vital Signs - 24 hr 11/16/22 19:19 11/17/22 09:23 Temperature 97.8 F 98.6 F Pulse Rate 103 H 97 Respiratory Rate 18 Blood Pressure 130/75 134/84 Pulse Oximetry 95 Oxygen Delivery Method Room Air BMI result Body Mass Index 30.3 Labs 11/05/22 08:44 Medications Medications Current Medications Acetaminophen (Acetaminophen 325 Mg Tablet) 650 mg PO Q6H PRN PRN Reason: Headache/Pain Mild Scale (1-3) Al Hydroxide/Mg Hydroxide (Magnesium Hydrox/Alum Hydrox 30 Ml Oral.Susp) 30 ml PO Q6H PRN PRN Reason: Heartburn/Nausea Calcium Carbonate (Calcium Carbonate 750 Mg Tab.Chew) 750 mg PO BID [facility] Last Admin: 11/17/22 09:21 Dose: Not Given Hydroxyzine HCl (Hydroxyzine Hcl 25 Mg Tablet) 25 mg PO Q6H PRN PRN Reason: Anxiety [place] Carbonate ([place] Carbonate 300 Mg Capsule) 300 mg PO BID [facility] Last Admin: 11/17/22 09:21 Dose: 300 mg Lorazepam (Lorazepam 1 Mg Tablet) 2 mg PO TID [facility] Last Admin: 11/17/22 13:24 Dose: 2 mg Magnesium Hydroxide (Milk Of Magnesia 30 Ml Oral.Susp) 30 ml PO DAILY PRN PRN Reason: Constipation Paliperidone Palmitate (Paliperidone Palmitate 234 Mg/1.5 Ml Syringe) 234 mg IM Q30D [facility] Last Admin: 11/13/22 09:36 Dose: 234 mg Trazodone HCl (Trazodone Hcl 50 Mg Tablet) 50 mg PO BEDTIME PRN PRN Reason: Insomnia Allergies Allergies Allergy/AdvReac Type Severity Reaction Status Date / Time No Known Allergies Allergy Verified 09/05/22 21:55 Assessment & Plan Assessment & Plan (1) Schizophrenia, 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 Zabala is a 37 year-old male with hx of schizophrenia. He resides at from [facility] for about one year. Since then, per staff, pt has had about 12 inpatient admission. Pt was recently discharged from medical floor after being treated for pneumonia. The day after pt was described as disorganized, wondering the streets, laying on the streets. He was brought via EMS to [facility]. Utox is negative. Pt does have hx of cannabis use but this time it was negative. Pt presents with symptoms of catatonia including waxy flexibility, negativism, intermittent mutism and black stare. Pt has not missed dose of Invega Sustenna- he has been on 234mg IM which has been given on 09/15 while on M3, 10/17 in the community. Pt also on haldol 30mg po qhs. Will hold haldol given s/s of catatonia. Pt is on [place] which expires today but extension has been filed and granted- per CM awating paperwork from court. Guardian is his father- Joe Wells [phone]. PLAN CV Q 15 minute checks Restart ativan 2mg po TID- for catatonia (inadvertently was discontinued) Will hold haldol due to catatonia Received Invega Sustenna 234 mg IM on 11/13 Invega Sustenna 156mg IM due on by 11/20 4. obtain collateral information 5. Aftercare planning. 11/06 continue ativan, monitor s/s catatonia. hold haldol until some improvement in s/s of catatonia. 11/07/22- continue current regime and plan of care. Pt denies all symptoms. 11/08/22- starting to hear reports of evening improvement. continue current plan for now. 11/09 file for involuntary tx due to inability to care for self due to catatonia. will restart lithium 300mg po BID. 11/10 slightly less mute, still with delayed response rate and appears internally preoccupied. will lower ativan continue monitor for worsening of s/s of catatoni a. 11/11 less mute, more spontaneous in speech, less psychomotor retardation. 11/12 continue tx. Next Invega Sustenna 234mg IM due on 11/13/202211/13 He received Invega Sustenna 234mg IM today. continue to monitor exacerbation of catatonia. continue ativan 1mg po TID. 11/14/2022 No clear improvement to this point Patient fearful M withdrawn 11/15/2022 No clear improvement question ECT 11/16 patient remains with catatonic symptoms; staff reports patient is doing a little better will continue with Ativan; still need collateral on baseline 11/17 restarted Ativan 2 mg t.i.d. since it accidentally fell off and patient's catatonic symptoms have worsened. Patient understands he has catatonia and signed a CV to remain on the unit longer for treatment Patient educated on: diagnosis and medication risk/benefits Informed Consent: understands and further education needed Reason for continued inpatient stay Substantial Risk for: inability to function Time Spent With Patient Time: Total time managing care of this patient today ____ minutes.
[2022-11-17 18:00] VITALS: BP 121/78; PULSE 99; TEMP 36.1
[2022-11-17] MEDS: Milk of Magnesia 30 ML ORAL.SUSP PO (19:43)
[2022-11-18 08:46] VITALS: BP 136/86; PULSE 99; RESP 16; TEMP 36.4; O2SAT 96
--- NOTE | 2022-11-18 10:21 | HO.PSYCHPN ---
Subjective Subjective Date of Service: 11/18/22 Reason For Visit: schizoaffective d/o; bipolar type Interim History: Met with patient; discussed with team; discussed case without patient's provider LESLIE Laurent Patient remains with significant catatonic symptoms, slowed speech, slow movements, hardly getting out of bed at all, not eating much, but still seems to be drinking fluids adequately. Patient said he is disappointed heating get to go back home but accepts to remain for continued treatment. Talked with patient's outpatient prescriber who reports that over the past year she has only seen him 3 times because he ends up in the hospital so frequently. She says that typically he will get out of the hospital and within a few weeks [facility], looking for cannabis; once he starts smoking cannabis he is gets and all kinds of other substance abuse. She says he was last at [facility] where he was started on Haldol which seems the likely cause of this episode of catatonia. She says this admission was the 1st time he was not engaged in substance abuse. She says at baseline he is able to have a fluent conversation; she said his speech may be a little bit slowed but not much and talks spontaneously without any latency or thought blocking. She agrees that current presentation sounds like catatonia and agrees that Haldol should not be restarted. Regarding medications she said he is normally on lithium 600 b.i.d.; she thought Latuda might be good option once catatonia resolved. Mental Status Exam Mental Status Exam Narrative: Pt is alert and oriented; behavior is slowed, quiet, isolative, mostly lying in bed all day, but not uncooperative;patient is not in distress; dressed in hospital attire with unkempt hair and malodorous; mood is described as ok and affect blunted; eye contact appropriate; Speech is latent, slowed, low volume, monotone; significant psychomotor retardation present; thought process is marred by thought blocking but able to be goal directed; Thought content is on AH; no paranoid delusions expressed; denies any SI/HI. Positive for AH Patients insight and judgment impaired Diagnostics Vital Signs (24Hr): Vital Signs - 24 hr 11/17/22 18:00 Temperature 97 F Pulse Rate 99 Blood Pressure 121/78 BMI result Body Mass Index 30.3 Labs 11/05/22 08:44 Medications Medications Current Medications Acetaminophen (Acetaminophen 325 Mg Tablet) 650 mg PO Q6H PRN PRN Reason: Headache/Pain Mild Scale (1-3) Al Hydroxide/Mg Hydroxide (Magnesium Hydrox/Alum Hydrox 30 Ml Oral.Susp) 30 ml PO Q6H PRN PRN Reason: Heartburn/Nausea Calcium Carbonate (Calcium Carbonate 750 Mg Tab.Chew) 750 mg PO BID [facility] Last Admin: 11/17/22 23:23 Dose: Not Given Hydroxyzine HCl (Hydroxyzine Hcl 25 Mg Tablet) 25 mg PO Q6H PRN PRN Reason: Anxiety Dane Carbonate (Dane Carbonate 300 Mg Capsule) 300 mg PO BID [facility] Last Admin: 11/17/22 23:16 Dose: 300 mg Lorazepam (Lorazepam 1 Mg Tablet) 2 mg PO TID [facility] Last Admin: 11/17/22 23:16 Dose: 2 mg Magnesium Hydroxide (Milk Of Magnesia 30 Ml Oral.Susp) 30 ml PO DAILY PRN PRN Reason: Constipation Last Admin: 11/17/22 19:43 Dose: 30 ml Paliperidone Palmitate (Paliperidone Palmitate 234 Mg/1.5 Ml Syringe) 234 mg IM Q30D [facility] Last Admin: 11/13/22 09:36 Dose: 234 mg Trazodone HCl (Trazodone Hcl 50 Mg Tablet) 50 mg PO BEDTIME PRN PRN Reason: Insomnia Allergies Allergies Allergy/AdvReac Type Severity Reaction Status Date / Time No Known Allergies Allergy Verified 09/05/22 21:55 Assessment & Plan Assessment & Plan (1) Schizophrenia, 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 Zabala is a 37 year-old male with hx of schizophrenia. He resides at from [facility] for about one year. Since then, per staff, pt has had about 12 inpatient admission. Pt was recently discharged from medical floor after being treated for pneumonia. The day after pt was described as disorganized, wondering the streets, laying on the streets. He was brought via EMS to [facility]. Utox is negative. Pt does have hx of cannabis use but this time it was negative. Pt presents with symptoms of catatonia including waxy flexibility, negativism, intermittent mutism and black stare. Pt has not missed dose of Invega Sustenna- he has been on 234mg IM which has been given on 09/15 while on M3, 10/17 in the community. Pt also on haldol 30mg po qhs. Will hold haldol given s/s of catatonia. Pt is on [employer] which expires today but extension has been filed and granted- per CM awating paperwork from court. Guardian is his father- Joe Wells [phone]. PLAN CV Q 15 minute checks Restart ativan 2mg po TID- for catatonia (inadvertently was discontinued) DC haldol due to likely cause of catatonia (started at most recent admission at [facility]) Received Invega Sustenna 234 mg IM on 11/13 Invega Sustenna 156mg IM due on by 11/20, but will likely hold 4. obtain collateral information 5. Aftercare planning. 11/06 continue ativan, monitor s/s catatonia. hold haldol until some improvement in s/s of catatonia. 11/07/22- continue current regime and plan of care. Pt denies all symptoms. 11/08/22- starting to hear reports of evening improvement. continue current plan for now. 11/09 file for involuntary tx due to inability to care for self due to catatonia. will restart lithium 300mg po BID. 11/10 slightly less mute, still with delayed response rate and appears internally preoccupied. will lower ativan continue monitor for worsening of s/s of catatonia. 11/11 less mute, more spontaneous in speech, less psychomotor retardation. 11/12 continue tx. Next Invega Sustenna 234mg IM due on 11/13/202211/13 He received Invega Sustenna 234mg IM today. continue to monitor exacerbation of catatonia. continue ativan 1mg po TID. 11/14/2022 No clear improvement to this point Patient fearful M withdrawn 11/15/2022 No clear improvement question ECT 11/16 patient remains with catatonic symptoms; staff reports patient is doing a little better will continue with Ativan; still need collateral on baseline 11/17 restarted Ativan 2 mg t.i.d. since it accidentally fell off and patient's catatonic symptoms have worsened. Patient understands he has catatonia and signed a CV to remain on the unit longer for treatment 8/16 Patient remains with significant catatonic symptoms, slowed speech, slow movements, hardly getting out of bed at all, not eating much, but still seems to be drinking fluids adequately. Talked with patient's provider LESLIE Laurent who reports that over the past year she has only seen him 3 times because he ends up in the hospital so frequently. She says that typically he will get out of the hospital and within a few weeks [facility] from the [facility], looking for cannabis; once he starts smoking cannabis he is gets and all kinds of other substance abuse. She says he was last at [facility] where he was started on Haldol which seems the likely cause of this episode of catatonia. She says this admission was the 1st time he was not engaged in substance abuse. She says at baseline he is able to have a fluent conversation; she said his speech may be a little bit slowed but not much and talks spontaneously without any latency or thought blocking. She agrees that current presentation sounds like catatonia Patient educated on: diagnosis and medication risk/benefits Informed Consent: understands and further education needed Reason for continued inpatient stay Substantial Risk for: inability to function Time Spent With Patient Time: Total time managing care of this patient today ____ minutes.
[2022-11-18] MEDS: LORazepam 1 MG TABLET 2 MG PO ×3 (10:43→20:10)
[2022-11-18] MEDS: Calcium Carbonate 750 MG TAB.CHEW PO (10:43)
[2022-11-18] MEDS: Lithium Carbonate 300 MG CAPSULE PO ×2 (10:43→20:10)
[2022-11-18 18:56] VITALS: BP 117/70; PULSE 91; TEMP 37.1
[2022-11-19 07:00] VITALS: BMI 29.7
[2022-11-19 08:10] VITALS: BP 114/69; PULSE 94; RESP 18; TEMP 36.8; O2SAT 97
[2022-11-19] MEDS: Lithium Carbonate 300 MG CAPSULE PO ×2 (08:19→20:34)
[2022-11-19] MEDS: LORazepam 1 MG TABLET 2 MG PO ×4 (08:19→20:34)
--- NOTE | 2022-11-19 12:45 | PC.NURSE ---
Pt refused AM tums
--- NOTE | 2022-11-19 18:34 | P.PNPSI_ITS ---
Subjective Subjective Date of Service: 11/19/22 Reason For Visit: schizoaffective d/o; bipolar type Interim History: Met with patient; discussed with team Patient agrees that he remains very slowed down; not eating much at all; not getting out of bed. Discussed patient's condition and he remembered the word catatonia and necessary treatment. He agreed to increasing Ativan to 4 times a day; also discussed the possible need for ECT should catatonia not resolve with Ativan. He said he will consider at. Discussed medication for preventing DVT which patient agreed to. Patient says auditory hallucinations are bad. Mental Status Exam Mental Status Exam Narrative: Pt is alert and oriented; behavior is slowed, quiet, remains in bed almost all day, eating very little; isolative but not uncooperative; patient is not in distress; dressed in hospital attire with unkempt hair and malodorous; mood is described as ok and affect blunted; eye contact with a blank stare; Speech is latent, slowed, low volume, monotone; significant psychomotor retardation present; thought process is marred by thought blocking but able to be goal directed; Thought content is on AH; no paranoid delusions expressed; denies any SI/HI. Positive for AH Patients insight and judgment impaired Diagnostics Vital Signs (24Hr): Vital Signs - 24 hr 11/18/22 18:56 11/19/22 08:10 Temperature 98.7 F 98.2 F Pulse Rate 91 94 Respiratory Rate 18 Blood Pressure 117/70 114/69 Pulse Oximetry 97 Oxygen Delivery Method Room Air BMI result Body Mass Index 29.7 Labs 11/05/22 08:44 Medications Medications Current Medications Acetaminophen (Acetaminophen 325 Mg Tablet) 650 mg PO Q6H PRN PRN Reason: Headache/Pain Mild Scale (1-3) Al Hydroxide/Mg Hydroxide (Magnesium Hydrox/Alum Hydrox 30 Ml Oral.Susp) 30 ml PO Q6H PRN PRN Reason: Heartburn/Nausea Calcium Carbonate (Calcium Carbonate 750 Mg Tab.Chew) 750 mg PO BID [facility] Last Admin: 11/19/22 08:20 Dose: Not Given Hydroxyzine HCl (Hydroxyzine Hcl 25 Mg Tablet) 25 mg PO Q6H PRN PRN Reason: Anxiety [place] Carbonate ([place] Carbonate 300 Mg Capsule) 300 mg PO BID [facility] Last Admin: 11/19/22 08:19 Dose: 300 mg Lorazepam (Lorazepam 1 Mg Tablet) 2 mg PO QID [facility] Last Admin: 11/19/22 16:34 Dose: 2 mg Magnesium Hydroxide (Milk Of Magnesia 30 Ml Oral.Susp) 30 ml PO DAILY PRN PRN Reason: Constipation Last Admin: 11/17/22 19:43 Dose: 30 ml Paliperidone Palmitate (Paliperidone Palmitate 234 Mg/1.5 Ml Syringe) 234 mg IM Q30D [facility] Last Admin: 11/13/22 09:36 Dose: 234 mg Trazodone HCl (Trazodone Hcl 50 Mg Tablet) 50 mg PO BEDTIME PRN PRN Reason: Insomnia Allergies Allergies Allergy/AdvReac Type Severity Reaction Status Date / Time No Known Allergies Allergy Verified 09/05/22 21:55 Assessment & Plan Assessment & Plan (1) Schizophrenia, 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 Zabala is a 37 year-old male, on community [employer]/guardian, with hx of schizophrenia. He resides at from [facility] for about one year. Since then, per staff, pt has had about 12 inpatient admission. Pt was recently discharged from medical floor after being treated for pneumonia. The day after pt was described as disorganized, wondering the streets, laying on the streets. He was brought via EMS to [facility]. Utox is negative. Pt does have hx of cannabis use but this time it was negative. Pt presents with symptoms of catatonia including waxy flexibility, negativism, intermittent mutism and black stare. Pt has not missed dose of Invega Sustenna- he has been on 234mg IM which has been given on 09/15 while on M3, 10/17 in the community. Pt also on haldol 30mg po qhs. Will hold haldol given s/s of catatonia. Pt is on [employer] which expires today but extension has been filed and granted- per CM awating paperwork from court. Guardian is his father- Joe Wells [phone]. PLAN CV Q 15 minute checks add Lovenox to prevent DVT (pt hardly gets out of bed at all) INCREASED TO ativan 2mg po QID- for continued catatonia DC haldol due to likely cause of catatonia (started at most recent admission at [facility]) Received Invega Sustenna 234 mg IM on 11/13 HOLD Off on Invega Sustenna 156mg IM (due on by 11/20) since pt remains w/ catatonia Need to consider ECT if Ativan not effective discuss with guardian (father) HOSPITAL COURSE: 11/06 continue ativan, monitor s/s catatonia. hold haldol until some improvement in s/s of catatonia. 11/07/22- continue current regime and plan of care. Pt denies all symptoms. 11/08/22- starting to hear reports of evening improvement. continue current plan f or now. 11/09 file for involuntary tx due to inability to care for self due to catatonia. will restart lithium 300mg po BID. 11/10 slightly less mute, still with delayed response rate and appears internally preoccupied. will lower ativan continue monitor for worsening of s/s of catatonia. 11/11 less mute, more spontaneous in speech, less psychomotor retardation. 11/12 continue tx. Next Invega Sustenna 234mg IM due on 11/13/202211/13 He received Invega Sustenna 234mg IM today. continue to monitor exace rbation of catatonia. continue ativan 1mg po TID. 11/14/2022 No clear improvement to this point; Patient fearful M withdrawn 11/15/2022 No clear improvement question ECT 11/16 patient remains with catatonic symptoms; staff reports patient is doing a little better will continue with Ativan; still need collateral on baseline 11/17 restarted Ativan 2 mg t.i.d. since it accidentally fell off and patient's catatonic symptoms have worsened. Patient understands he has catatonia and signed a CV to remain on the unit longer for treatment 11/18 Patient remains with significant catatonic symptoms, slowed speech, slow movements, hardly getting out of bed at all, not eating much, but still seems to be drinking fluids adequately. Talked with patient's provider LESLIE Laurent who reports that over the past year she has only seen him 3 times because he ends up in the hospital so frequently. She says that typically he will get out of the hospital and within a few weeks eloped from the alf, looking for cannabis; once he starts smoking cannabis he is gets and all kinds of other substance abuse. She says he was last at [facility] where he was started on Haldol which seems the likely cause of this episode of catatonia. She says this admission was the 1st time he was not engaged in substance abuse. She says at baseline he is able to have a fluent conversation; she said his speech may be a little bit slowed but not much and talks spontaneously without any latency or thought blocking. She agrees that current presentation sounds like catatonia 11/19 patient agrees to increasing Ativan if needed; discussed possibility of ECT which he said he agreed to consider (patient on [facility] and has a guardian and is not able to consent) Patient educated on: diagnosis, medication risk/benefits and ECT Informed Consent: understands and further education needed Reason for continued inpatient stay Substantial Risk for: inability to function Time Spent With Patient Time: Total time managing care of this patient today ____ minutes.
[2022-11-19 19:23] VITALS: BP 117/73; PULSE 98; RESP 18; TEMP 36.1; O2SAT 97
[2022-11-20 08:30] VITALS: BP 128/72; PULSE 95; RESP 18; TEMP 36.6; O2SAT 96
[2022-11-20] MEDS: LORazepam 1 MG TABLET 2 MG PO ×2 (08:40→13:55)
[2022-11-20] MEDS: Lithium Carbonate 300 MG CAPSULE PO ×2 (08:40→20:16)
--- NOTE | 2022-11-20 12:25 | HO.PSYCHPN ---
Subjective Subjective Date of Service: 11/20/22 Reason For Visit: schizoaffective d/o; bipolar type Interim History: Met with patient; discussed with team; discussed with legal; discussed case with colleagues No change, patient remains lying in bed, moving very slowly, significant speech latency, talking slowly. Hardly eating (though continues to drink fluids). Agrees to increase Ativan. Discussed situation with legal arm of the team; as patient is currently on a Parsons order with a guardian, he cannot consent to ECT. Hopefully with increased Ativan, catatonic symptoms will break. Mental Status Exam Mental Status Exam Narrative: Pt is alert and oriented; behavior is slowed, quiet, remains in bed almost all day, eating very little; isolative but not uncooperative; patient is not in distress; dressed in hospital attire with unkempt hair and malodorous; mood is described as ok and affect blunted; eye contact with a blank stare; Speech is latent, slowed, low volume, monotone; significant psychomotor retardation present; thought process is marred by thought blocking but able to be goal directed; Thought content is on AH; no paranoid delusions expressed; denies any SI/HI. Positive for AH Patients insight and judgment impaired Diagnostics Vital Signs (24Hr): Vital Signs - 24 hr 11/19/22 19:23 11/20/22 08:30 Temperature 97.0 F 97.9 F Pulse Rate 98 95 Respiratory Rate 18 18 Blood Pressure 117/73 128/72 Pulse Oximetry 97 96 Oxygen Delivery Method Room Air Room Air BMI result Body Mass Index 29.7 Labs 11/05/22 08:44 Medications Medications Current Medications Acetaminophen (Acetaminophen 325 Mg Tablet) 650 mg PO Q6H PRN PRN Reason: Headache/Pain Mild Scale (1-3) Al Hydroxide/Mg Hydroxide (Magnesium Hydrox/Alum Hydrox 30 Ml Oral.Susp) 30 ml PO Q6H PRN PRN Reason: Heartburn/Nausea Calcium Carbonate (Calcium Carbonate 750 Mg Tab.Chew) 750 mg PO BID [facility] Last Admin: 11/20/22 08:38 Dose: Not Given Enoxaparin Sodium (Enoxaparin Sodium 30 Mg/0.3 Ml Syringe) 30 mg SUBCUT Q24H [facility] Last Admin: 11/19/22 20:35 Dose: Not Given Hydroxyzine HCl (Hydroxyzine Hcl 25 Mg Tablet) 25 mg PO Q6H PRN PRN Reason: Anxiety [place] Carbonate ([place] Carbonate 300 Mg Capsule) 300 mg PO BID [facility] Last Admin: 11/20/22 08:40 Dose: 300 mg Lorazepam (Lorazepam 1 Mg Tablet) 2 mg PO QID [facility] Last Admin: 11/20/22 08:40 Dose: 2 mg Magnesium Hydroxide (Milk Of Magnesia 30 Ml Oral.Susp) 30 ml PO DAILY PRN PRN Reason: Constipation Last Admin: 11/17/22 19:43 Dose: 30 ml Paliperidone Palmitate (Paliperidone Palmitate 234 Mg/1.5 Ml Syringe) 234 mg IM Q30D [facility] Last Admin: 11/13/22 09:36 Dose: 234 mg Trazodone HCl (Trazodone Hcl 50 Mg Tablet) 50 mg PO BEDTIME PRN PRN Reason: Insomnia Allergies Allergies Allergy/AdvReac Type Severity Reaction Status Date / Time No Known Allergies Allergy Verified 09/05/22 21:55 Assessment & Plan Assessment & Plan (1) Schizophrenia, 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 Zabala is a 37 year-old male, on community Parsons/guardian, with hx of schizophrenia. He resides at from [facility] for about one year. Since then, per staff, pt has had about 12 inpatient admission. Pt was recently discharged from medical floor after being treated for pneumonia. The day after pt was described as disorganized, wondering the streets, laying on the streets. He was brought via EMS to [facility]. Utox is negative. Pt does have hx of cannabis use but this time it was negative. Pt presents with symptoms of catatonia including waxy flexibility, negativism, intermittent mutism and black stare. Pt has not missed dose of Invega Sustenna- he has been on 234mg IM which has been given on 09/15 while on M3, 10/17 in the community. Pt also on haldol 30mg po qhs. Will hold haldol given s/s of catatonia. Pt is on [employer]ons which expires today but extension has been filed and granted- per CM awating paperwork from court. Guardian is his father- Joe Wells [phone]. PLAN CV Q 15 minute checks add Lovenox to prevent DVT (pt hardly gets out of bed at all) INCREASED TO ativan 3mg po QID- for continued catatonia (up from 2mg) DC haldol due to likely cause of catatonia (started at most recent admission at [facility]) Received Invega Sustenna 234 mg IM on 11/13 HOLD Off on Invega Sustenna 156mg IM (due on by 11/20) since pt remains w/ catatonia Need to consider ECT if Ativan not effective discuss with guardian (father) HOSPITAL COURSE: 11/06 continue ativan, monitor s/s catatonia. hold haldol until some improvement in s/s of catatonia. 11/07/22- continue current regime and plan of care. Pt denies all symptoms. 11/08/22- starting to hear reports of evening improvement. continue current plan for now. 11/09 file for involuntary tx due to inability to care for self due to catatonia. will restart lithium 300mg po BID. 11/10 slightly less mute, still with delayed response rate and appears internally preoccupied. will lower ativan continue monitor for worsening of s/s of catatonia. 11/11 less mute, more spontaneous in speech, less psychomotor retardation. 11/12 continue tx. Next Invega Sustenna 234mg IM due on 11/13/202211/13 He received Invega Sustenna 234mg IM today. continue to monitor exacerbation of catatonia. continue ativan 1mg po TID. 11/14/2022 No clear improvement to this point; Patient fearful M withdrawn 11/15/2022 No clear improvement question ECT 11/16 patient remains with catatonic symptoms; staff reports patient is doing a little better will continue with Ativan; still need collateral on baseline 11/17 restarted Ativan 2 mg t.i.d. since it accidentally fell off and patient's catatonic symptoms have worsened. Patient understands he has catatonia and signed a CV to remain on the unit longer for treatment 11/18 Patient remains with significant catatonic symptoms, slowed speech, slow movements, hardly getting out of bed at all, not eating much, but still seems to be drinking fluids adequately. Talked with patient's provider LESLIE Laurent who reports that over the past year she has only seen him 3 times because he ends up in the hospital so frequently. She says that typically he will get out of the hospital and within a few weeks eloped from the longterm, looking for cannabis; once he starts smoking cannabis he is gets and all kinds of other substance abuse. She says he was last at [facility] where he was started on Haldol which seems the likely cause of this episode of catatonia. She says this admission was the 1st time he was not engaged in substance abuse. She says at baseline he is able to have a fluent conversation; she said his speech may be a little bit slowed but not much and talks spontaneously without any latency or thought blocking. She agrees that current presentation sounds like catatonia 11/19 patient agrees to increasing Ativan if needed; discussed possibility of ECT which he said he agreed to consider (patient on [facility]ons and has a guardian and is not able to consent) 11/20 No change, patient remains lying in bed, moving very slowly, significant speech latency, talking slowly. Hardly eating (though continues to drink fluids). Agrees to increase Ativan. Discussed situation with legal arm of the team; as patient is currently on a Parsons order with a guardian, he cannot consent to ECT. Hopefully with increased Ativan, catatonic symptoms will break. Discussed treatment for catatonia with colleagues with 2 different thoughts, one going as high as 16 mg per day, another hesitant to go above 8 mg. Since no improvement thus far engineering writer decided to split the difference and increased to total of 12 mg daily (there is little harm in going to higher doses of ativan other than it makes tapering off a more lengthy process) Patient educated on: diagnosis and medication risk/benefits Informed Consent: understands and further education needed Reason for continued inpatient stay Substantial Risk for: inability to function Time Spent With Patient Time: Total time managing care of this patient today ____ minutes.
[2022-11-20] MEDS: LORazepam 1 MG TABLET 3 MG PO ×2 (16:09→20:16)
[2022-11-20] MEDS: Rivaroxaban 10 MG TABLET PO (16:32)
[2022-11-20 19:45] VITALS: BP 129/84; PULSE 109; RESP 17; TEMP 36; O2SAT 97
[2022-11-21 06:00] VITALS: BP 117/68; PULSE 86; RESP 18
[2022-11-21] MEDS: Rivaroxaban 10 MG TABLET PO (08:35)
[2022-11-21] MEDS: Lithium Carbonate 300 MG CAPSULE PO ×2 (08:35→20:01)
[2022-11-21] MEDS: LORazepam 1 MG TABLET 3 MG PO ×4 (08:35→20:01)
--- NOTE | 2022-11-21 12:05 | HO.PSYCHPN ---
Subjective Subjective Date of Service: 11/21/22 Reason For Visit: schizoaffective d/o; bipolar type Interim History: Isolative and in room; No change, patient remains lying in bed, moving very slowly, significant speech latency, talking slowly. Hardly eating (though continues to drink fluids). Tolerating increase in Ativan. Medication Compliance: Yes Side effects from medications: No Attending Groups: No Review of Systems Review of Systems Patient has no acute medical complaints at this time Yes all other systems are reviewed and are negative Mental Status Exam Mental Status Exam Narrative: Pt is alert and oriented; behavior is slowed, quiet, remains in bed almost all day, eating very little; isolative but not uncooperative; patient is not in distress; dressed in hospital attire with unkempt hair and malodorous; mood is described as ok and affect blunted; eye contact with a blank stare; Speech is latent, slowed, low volume, monotone; significant psychomotor retardation present; thought process is marred by thought blocking but able to be goal directed; Thought content is on AH; no paranoid delusions expressed; denies any SI/HI. Positive for AH. Patients insight and judgment impaired Patient Appearance: Fatigued Patient Orientation: Person and Place Level of Consciousness: Sedated Patient Behavior: Fatigued Mood Description: Flat Affect Description: Flat Patient Cognition Impaired: No Ability to Follow Directions: Good Speech Pattern: Impoverished and Spontaneous Speech Diagnostics Vital Signs (24Hr): Vital Signs - 24 hr 11/20/22 19:45 11/21/22 06:00 Temperature 96.8 F Pulse Rate 109 H 86 Respiratory Rate 17 18 Blood Pressure 129/84 117/68 Pulse Oximetry 97 Oxygen Delivery Method Room Air BMI result Body Mass Index 29.7 Labs 11/05/22 08:44 Medications Medications Current Medications Acetaminophen (Acetaminophen 325 Mg Tablet) 650 mg PO Q6H PRN PRN Reason: Headache/Pain Mild Scale (1-3) Al Hydroxide/Mg Hydroxide (Magnesium Hydrox/Alum Hydrox 30 Ml Oral.Susp) 30 ml PO Q6H PRN PRN Reason: Heartburn/Nausea Calcium Carbonate (Calcium Carbonate 750 Mg Tab.Chew) 750 mg PO BID [facility] Last Admin: 11/21/22 08:36 Dose: Not Given Hydroxyzine HCl (Hydroxyzine Hcl 25 Mg Tablet) 25 mg PO Q6H PRN PRN Reason: Anxiety [place] Carbonate ([place] Carbonate 300 Mg Capsule) 300 mg PO BID [facility] Last Admin: 11/21/22 08:35 Dose: 300 mg Lorazepam (Lorazepam 1 Mg Tablet) 3 mg PO QID [facility] Last Admin: 11/21/22 08:35 Dose: 3 mg Magnesium Hydroxide (Milk Of Magnesia 30 Ml Oral.Susp) 30 ml PO DAILY PRN PRN Reason: Constipation Last Admin: 11/17/22 19:43 Dose: 30 ml Paliperidone Palmitate (Paliperidone Palmitate 234 Mg/1.5 Ml Syringe) 234 mg IM Q30D [facility] Last Admin: 11/13/22 09:36 Dose: 234 mg Rivaroxaban (Rivaroxaban 10 Mg Tablet) 10 mg PO DAILY [facility] Last Admin: 11/21/22 08:35 Dose: 10 mg Trazodone HCl (Trazodone Hcl 50 Mg Tablet) 50 mg PO BEDTIME PRN PRN Reason: Insomnia Allergies Allergies Allergy/AdvReac Type Severity Reaction Status Date / Time No Known Allergies Allergy Verified 09/05/22 21:55 Assessment & Plan Assessment & Plan (1) Schizophrenia, 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 Zabala is a 37 year-old male, on community [employer]/guardian, with hx of schizophrenia. He resides at from [facility] for about one year. Since then, per staff, pt has had about 12 inpatient admission. Pt was recently discharged from medical floor after being treated for pneumonia. The day after pt was described as disorganized, wondering the streets, laying on the streets. He was brought via EMS to [facility]. Utox is negative. Pt does have hx of cannabis use but this time it was negative. Pt presents with symptoms of catatonia including waxy flexibility, negativism, intermittent mutism and black stare. Pt has not missed dose of Invega Sustenna- he has been on 234mg IM which has been given on 09/15 while on M3, 10/17 in the community. Pt also on haldol 30mg po qhs. Will hold haldol given s/s of catatonia. Pt is on [employer]ons which expires today but extension has been filed and granted- per CM awating paperwork from court. Guardian is his father- Joe Wells [phone]. PLAN CV Q 15 minute checks add Lovenox to prevent DVT (pt hardly gets out of bed at all) INCREASED TO ativan 3mg po QID- for continued catatonia (up from 2mg) DC haldol due to likely cause of catatonia (started at most recent admission at [facility]) Received Invega Sustenna 234 mg IM on 11/13 HOLD Off on Invega Sustenna 156mg IM (due on by 11/20) since pt remains w/ catatonia Need to consider ECT if Ativan not effective discuss with guardian (father) HOSPITAL COURSE: 11/06 continue ativan, monitor s/s catatonia. hold haldol until some improvement in s/s of catatonia. 11/07/22- continue current regime and plan of care. Pt denies all symptoms. 11/08/22- starting to hear reports of evening improvement. continue current plan for now. 11/09 file for involuntary tx due to inability to care for self due to catatonia. will restart lithium 300mg po BID. 11/10 slightly less mute, still with delayed response rate and appears internally preoccupied. will lower ativan continue monitor for worsening of s/s of catatonia. 11/11 less mute, more spontaneous in speech, less psychomotor retardation. 11/12 continue tx. Next Invega Sustenna 234mg IM due on 11/13/202211/13 He received Invega Sustenna 234mg IM today. continue to monitor exacerbation of catatonia. continue ativan 1mg po TID. 11/14/2022 No clear improvement to this point; Patient fearful M withdrawn 11/15/2022 No clear improvement question ECT 11/16 patient remains with catatonic symptoms; staff reports patient is doing a little better will continue with Ativan; still need collateral on baseline 11/17 restarted Ativan 2 mg t.i.d. since it accidentally fell off and patient's catatonic symptoms have worsened. Patient understands he has catatonia and signed a CV to remain on the unit longer for treatment 11/18 Patient remains with significant catatonic symptoms, slowed speech, slow movements, hardly getting out of bed at all, not eating much, but still seems to be drinking fluids adequately. Talked with patient's provider LESLIE Laurent who reports that over the past year she has only seen him 3 times because he ends up in the hospital so frequently. She says that typically he will get out of the hospital and within a few weeks [facility] the [place], looking for cannabis; once he starts smoking cannabis he is gets and all kinds of other substance abuse. She says he was last at [facility] where he was started on Haldol which seems the likely cause of this episode of catatonia. She says this admission was the 1st time he was not engaged in substance abuse. She says at baseline he is able to have a fluent conversation; she said his speech may be a little bit slowed but not much and talks spontaneously without any latency or thought blocking. She agrees that current presentation sounds like catatonia 11/19 patient agrees to increasing Ativan if needed; discussed possibility of ECT which he said he agreed to consider (patient on community Parsons and has a guardian and is not able to consent) 11/20 No change, patient remains lying in bed, moving very slowly, significant speech latency, talking slowly. Hardly eating (though continues to drink fluids). Agrees to increase Ativan. Discussed situation with legal arm of the team; as patient is currently on a [employer]ons order with a guardian, he cannot consent to ECT. Hopefully with increased Ativan, catatonic symptoms will break. Discussed treatment for catatonia with colleagues with 2 different thoughts, one going as high as 16 mg per day, another hesitant to go above 8 mg. Since no improvement thus far marketing writer decided to split the difference and increased to total of 12 mg daily (there is little harm in going to higher doses of ativan other than it makes tapering off a more lengthy process) 11/21/22 Continue with current treatment plan Reason for continued inpatient stay Substantial Risk for: harm to self, inability to function, rapid decompensation and med/psych decompensation Time Spent With Patient Time: Total time managing care of this patient today ____ minutes.
[2022-11-21 16:29] VITALS: BP 113/70; PULSE 103; TEMP 36.6; O2SAT 94
[2022-11-22 06:00] VITALS: BP 104/68; PULSE 82; RESP 16; TEMP 36.9; O2SAT 96
[2022-11-22] MEDS: Calcium Carbonate 750 MG TAB.CHEW PO (08:56)
[2022-11-22] MEDS: Rivaroxaban 10 MG TABLET PO (08:56)
[2022-11-22] MEDS: LORazepam 1 MG TABLET 3 MG PO ×4 (08:56→20:12)
--- NOTE | 2022-11-22 12:21 | HO.PSYCHPN ---
Subjective Subjective Date of Service: 11/22/22 Reason For Visit: schizoaffective d/o; bipolar type Interim History: Pt spending much of shift in his bed; staff report in afternoon and evening he is getting out of bed and asking for water; when he does that staff instruct him to walk some laps in [place] and he is doing that. During day he is still moving very slowly, significant speech latency, talking slowly. Hardly eating (though continues to drink fluids). Tolerating increase in Ativan and appears to be benefitting from it. Medication Compliance: Yes Side effects from medications: No Attending Groups: No Review of Systems Acute medical concerns: No Medical Review of Systems: unchanged Review of Systems Review of Systems Patient has no acute medical complaints at this time Yes all other systems are reviewed and are negative Mental Status Exam Mental Status Exam Narrative: Pt is alert and oriented; behavior is slowed, quiet, remains in bed most of day, reports of him oob more in evening nd late afternoon; eating very little; isolating but not uncooperative; patient is not in distress; dressed in hospital attire with unkempt hair and malodorous; mood is described as ok and affect blunted; eye contact with a blank stare; Speech is latent, slowed, low volume, monotone; significant psychomotor retardation present; thought process is marred by thought blocking but able to be goal directed; Thought content is on AH; no paranoid delusions expressed; denies any SI/HI. Positive for AH. Patients insight and judgment impaired Patient Appearance: Fatigued Patient Orientation: Person and Place Level of Consciousness: Sedated Patient Behavior: Fatigued Mood Description: Flat Affect Description: Flat Patient Cognition Impaired: No Ability to Follow Directions: Good Speech Pattern: Impoverished and Spontaneous Speech Diagnostics Vital Signs (24Hr): Vital Signs - 24 hr 11/21/22 16:29 11/22/22 06:00 Temperature 97.9 F 98.4 F Pulse Rate 103 H 82 Respiratory Rate 16 Blood Pressure 113/70 104/68 Pulse Oximetry 94 96 Oxygen Delivery Method Room Air Room Air BMI result Body Mass Index 29.7 Labs 11/05/22 08:44 Medications Medications Current Medications Acetaminophen (Acetaminophen 325 Mg Tablet) 650 mg PO Q6H PRN PRN Reason: Headache/Pain Mild Scale (1-3) Al Hydroxide/Mg Hydroxide (Magnesium Hydrox/Alum Hydrox 30 Ml Oral.Susp) 30 ml PO Q6H PRN PRN Reason: Heartburn/Nausea Calcium Carbonate (Calcium Carbonate 750 Mg Tab.Chew) 750 mg PO BID [facility] Last Admin: 11/22/22 08:56 Dose: 750 mg Hydroxyzine HCl (Hydroxyzine Hcl 25 Mg Tablet) 25 mg PO Q6H PRN PRN Reason: Anxiety [place] Carbonate ([place] Carbonate 300 Mg Capsule) 300 mg PO BID [facility] Last Admin: 11/22/22 09:01 Dose: Not Given Lorazepam (Lorazepam 1 Mg Tablet) 3 mg PO QID [facility] Last Admin: 11/22/22 08:56 Dose: 3 mg Magnesium Hydroxide (Milk Of Magnesia 30 Ml Oral.Susp) 30 ml PO DAILY PRN PRN Reason: Constipation Last Admin: 11/17/22 19:43 Dose: 30 ml Paliperidone Palmitate (Paliperidone Palmitate 234 Mg/1.5 Ml Syringe) 234 mg IM Q30D [facility] Last Admin: 11/13/22 09:36 Dose: 234 mg Rivaroxaban (Rivaroxaban 10 Mg Tablet) 10 mg PO DAILY [facility] Last Admin: 11/22/22 08:56 Dose: 10 mg Trazodone HCl (Trazodone Hcl 50 Mg Tablet) 50 mg PO BEDTIME PRN PRN Reason: Insomnia Allergies Allergies Allergy/AdvReac Type Severity Reaction Status Date / Time No Known Allergies Allergy Verified 09/05/22 21:55 Assessment & Plan Assessment & Plan (1) Schizophrenia, 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 Zabala is a 37 year-old male, on community Parsons/guardian, with hx of schizophrenia. He resides at from [facility] for about one year. Since then, per staff, pt has had about 12 inpatient admission. Pt was recently discharged from medical floor after being treated for pneumonia. The day after pt was described as disorganized, wondering the streets, laying on the streets. He was brought via EMS to [facility]. Utox is negative. Pt does have hx of cannabis use but this time it was negative. Pt presents with symptoms of catatonia including waxy flexibility, negativism, intermittent mutism and black stare. Pt has not missed dose of Invega Sustenna- he has been on 234mg IM which has been given on 09/15 while on M3, 10/17 in the community. Pt also on haldol 30mg po qhs. Will hold haldol given s/s of catatonia. Pt is on Parsons which expires today but extension has been filed and granted- per CM awating paperwork from court. Guardian is his father- Joe Wells [phone]. PLAN CV Q 15 minute checks add Lovenox to prevent DVT (pt hardly gets out of bed at all) INCREASED TO ativan 3mg po QID- for continued catatonia (up from 2mg) DC haldol due to likely cause of catatonia (started at most recent admission at [facility]) Received Invega Sustenna 234 mg IM on 11/13 HOLD Off on Invega Sustenna 156mg IM (due on by 11/20) since pt remains w/ catatonia Need to consider ECT if Ativan not effective discuss with guardian (father) HOSPITAL COURSE: 11/06 continue ativan, monitor s/s catatonia. hold haldol until some improvement in s/s of catatonia. 11/07/22- continue current regime and plan of care. Pt denies all symptoms. 11/08/22- starting to hear reports of evening improvement. continue current plan for now. 11/09 file for involuntary tx due to inability to care for self due to catatonia. will restart lithium 300mg po BID. 11/10 slightly less mute, still with delayed response rate and appears internally preoccupied. will lower ativan continue monitor for worsening of s/s of catatonia. 11/11 less mute, more spontaneous in speech, less psychomotor retardation. 11/12 continue tx. Next Invega Sustenna 234mg IM due on 11/13/202211/13 He received Invega Sustenna 234mg IM today. continue to monitor exacerbation of catatonia. continue ativan 1mg po TID. 11/14/2022 No clear improvement to this point; Patient fearful M withdrawn 11/15/2022 No clear improvement question ECT 11/16 patient remains with catatonic symptoms; staff reports patient is doing a little better will continue with Ativan; still need collateral on baseline 11/17 restarted Ativan 2 mg t.i.d. since it accidentally fell off and patient's catatonic symptoms have worsened. Patient understands he has catatonia and signed a CV to remain on the unit longer for treatment 11/18 Patient remains with significant catatonic symptoms, slowed speech, slow movements, hardly getting out of bed at all, not eating much, but still seems to be drinking fluids adequately. Talked with patient's provider LESLIE Laurent who reports that over the past year she has only seen him 3 times because he ends up in the hospital so frequently. She says that typically he will get out of the hospital and within a few weeks eloped from the senior living, looking for cannabis; once he starts smoking cannabis he is gets and all kinds of other substance abuse. She says he was last at [facility] where he was started on Haldol which seems the likely cause of this episode of catatonia. She says this admission was the 1st time he was not engaged in substance abuse. She says at baseline he is able to have a fluent conversation; she said his speech may be a little bit slowed but not much and talks spontaneously without any latency or thought blocking. She agrees that current presentation sounds like catatonia 11/19 patient agrees to increasing Ativan if needed; discussed possibility of ECT which he said he agreed to consider (patient on [facility] and has a guardian and is not able to consent) 11/20 No change, patient remains lying in bed, moving very slowly, significant speech latency, talking slowly. Hardly eating (though continues to drink fluids). Agrees to increase Ativan. Discussed situation with legal arm of the team; as patient is currently on a [employer] order with a guardian, he cannot consent to ECT. Hopefully with increased Ativan, catatonic symptoms will break. Discussed treatment for catatonia with colleagues with 2 different thoughts, one going as high as 16 mg per day, another hesitant to go above 8 mg. Since no improvement thus far gag writer decided to split the difference and increased to total of 12 mg daily (there is little harm in going to higher doses of ativan other than it makes tapering off a more lengthy process) 11/21/22 Continue with current treatment plan 11/22/22 Continue treatmetn plan Patient educated on: diagnosis, medication risk/benefits and therapeutic strategies Informed Consent: further education needed Reason for continued inpatient stay Substantial Risk for: inability to function and rapid decompensation Time Spent With Patient Time: Total time managing care of this patient today ____ minutes.
[2022-11-22 17:55] VITALS: BP 112/70; PULSE 101; TEMP 36.1
[2022-11-22] MEDS: Lithium Carbonate 300 MG CAPSULE PO (20:12)
[2022-11-23 08:40] VITALS: BP 117/76; PULSE 84; RESP 16; TEMP 37.2; O2SAT 100
[2022-11-23] MEDS: Rivaroxaban 10 MG TABLET PO (08:42)
[2022-11-23] MEDS: LORazepam 1 MG TABLET 3 MG PO ×3 (08:42→16:15)
[2022-11-23] MEDS: Lithium Carbonate 300 MG CAPSULE PO ×2 (08:42→20:30)
--- NOTE | 2022-11-23 09:23 | HO.PSYCHPN ---
Subjective Subjective Date of Service: 11/23/22 Reason For Visit: schizoaffective d/o; bipolar type Interim History: Met with patient; discussed with team; reviewed progress notes pt has some improved behaviors and did take a shower yesterday and even sat in on a group; also willingly walking davis to avoid dvt; however, still remains with very slowed movements, slowed speech, sometimes holding arm aloft w/out purpose, staying in bed most of the day needing prompting, and eating very little. Discussed treatment and he says his parents are against ECT. He said he is willing to have it if he needs it; agrees to increase in Ativan. Intermittent AH. Mental Status Exam Mental Status Exam Narrative: Pt is alert and oriented; behavior is slowed, quiet, remains in bed almost all day, eating very little, however did get out of bed yesterday and showered, willingly walking halls w/ prompting; isolative; cooperative; patient is not in distress; dressed in hospital attire with unkempt hair and improved hygiene; mood is described as ok and affect blunted; eye contact with a blank stare; Speech is latent, slowed, low volume, monotone; significant psychomotor retardation present; thought process is marred by thought blocking but able to be goal directed; Thought content is on AH; no paranoid delusions expressed; denies any SI/HI. Positive for AH Patients insight and judgment impaired. Diagnostics Vital Signs (24Hr): Vital Signs - 24 hr 11/22/22 17:55 11/23/22 08:40 Temperature 97 F 99 F Pulse Rate 101 H 84 Respiratory Rate 16 Blood Pressure 112/70 117/76 Pulse Oximetry 100 Oxygen Delivery Method Room Air BMI result Body Mass Index 29.7 Labs 11/05/22 08:44 Medications Medications Current Medications Acetaminophen (Acetaminophen 325 Mg Tablet) 650 mg PO Q6H PRN PRN Reason: Headache/Pain Mild Scale (1-3) Al Hydroxide/Mg Hydroxide (Magnesium Hydrox/Alum Hydrox 30 Ml Oral.Susp) 30 ml PO Q6H PRN PRN Reason: Heartburn/Nausea Calcium Carbonate (Calcium Carbonate 750 Mg Tab.Chew) 750 mg PO BID [facility] Last Admin: 11/23/22 08:44 Dose: Not Given Hydroxyzine HCl (Hydroxyzine Hcl 25 Mg Tablet) 25 mg PO Q6H PRN PRN Reason: Anxiety [place] Carbonate ([place] Carbonate 300 Mg Capsule) 300 mg PO BID [facility] Last Admin: 11/23/22 08:42 Dose: 300 mg Lorazepam (Lorazepam 1 Mg Tablet) 3 mg PO QID [facility] Last Admin: 11/23/22 08:42 Dose: 3 mg Magnesium Hydroxide (Milk Of Magnesia 30 Ml Oral.Susp) 30 ml PO DAILY PRN PRN Reason: Constipation Last Admin: 11/17/22 19:43 Dose: 30 ml Paliperidone Palmitate (Paliperidone Palmitate 234 Mg/1.5 Ml Syringe) 234 mg IM Q30D [facility] Last Admin: 11/13/22 09:36 Dose: 234 mg Rivaroxaban (Rivaroxaban 10 Mg Tablet) 10 mg PO DAILY [facility] Last Admin: 11/23/22 08:42 Dose: 10 mg Trazodone HCl (Trazodone Hcl 50 Mg Tablet) 50 mg PO BEDTIME PRN PRN Reason: Insomnia Allergies Allergies Allergy/AdvReac Type Severity Reaction Status Date / Time No Known Allergies Allergy Verified 09/05/22 21:55 Assessment & Plan Assessment & Plan (1) Schizophrenia, 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 Zabala is a 37 year-old male, on community Parsons/guardian, with hx of schizophrenia. He resides at from [facility] for about one year. Since then, per staff, pt has had about 12 inpatient admission. Pt was recently discharged from medical floor after being treated for pneumonia. The day after pt was described as disorganized, wondering the streets, laying on the streets. He was brought via EMS to [facility]. Utox is negative. Pt does have hx of cannabis use but this time it was negative. Pt presents with symptoms of catatonia including waxy flexibility, negativism, intermittent mutism and black stare. Pt has not missed dose of Invega Sustenna- he has been on 234mg IM which has been given on 09/15 while on M3, 10/17 in the community. Pt also on haldol 30mg po qhs. Will hold haldol given s/s of catatonia. Pt is on Parsons which expires today but extension has been filed and granted- per CM awating paperwork from court. Guardian is his father- Joe Wells [phone]. PLAN 3 day Q 15 minute checks DC Xeralto (pt now walks davis w/ prompting) INCREASED TO ativan 4mg po QID- for continued catatonia (up from 2mg) DC haldol due to likely cause of catatonia (started at most recent admission at [facility]) Received Invega Sustenna 234 mg IM on 11/13 HOLD Off on Invega Sustenna 156mg IM (due on by 11/20) since pt remains w/ catatonia Need to consider ECT if Ativan not effective discuss with guardian (father) HOSPITAL COURSE: 11/06 continue ativan, monitor s/s catatonia. hold haldol until some improvement in s/s of catatonia. 11/07/22- continue current regime and plan of care. Pt denies all symptoms. 11/08/22- starting to hear reports of evening improvement. continue current plan for now. 11/09 file for involuntary tx due to inability to care for self due to catatonia. will restart lithium 300mg po BID. 11/10 slightly less mute, still with delayed response rate and appears internally preoccupied. will lower ativan continue monitor for worsening of s/s of catatonia. 11/11 less mute, more spontaneous in speech, less psychomotor retardation. 11/12 continue tx. Next Invega Sustenna 234mg IM due on 11/13/202211/13 He received Invega Sustenna 234mg IM today. continue to monitor exacerbation of catatonia. continue ativan 1mg po TID. 11/14/2022 No clear improvement to this point; Patient fearful M withdrawn 11/15/2022 No clear improvement question ECT 11/16 patient remains with catatonic symptoms; staff reports patient is doing a little better will continue with Ativan; still need collateral on baseline 11/17 restarted Ativan 2 mg t.i.d. since it accidentally fell off and patient's catatonic symptoms have worsened. Patient understands he has catatonia and signed a CV to remain on the unit longer for treatment 11/18 Patient remains with significant catatonic symptoms, slowed speech, slow movements, hardly getting out of bed at all, not eating much, but still seems to be drinking fluids adequately. Talked with patient's provider LESLIE Laurent who reports that over the past year she has only seen him 3 times because he ends up in the hospital so frequently. She says that typically he will get out of the hospital and within a few weeks eloped from the senior care, looking for cannabis; once he starts smoking cannabis he is gets and all kinds of other substance abuse. She says he was last at [facility] where he was started on Haldol which seems the likely cause of this episode of catatonia. She says this admission was the 1st time he was not engaged in substance abuse. She says at baseline he is able to have a fluent conversation; she said his speech may be a little bit slowed but not much and talks spontaneously without any latency or thought blocking. She agrees that current presentation sounds like catatonia 11/19 patient agrees to increasing Ativan if needed; discussed possibility of ECT which he said he agreed to consider (patient on [facility] Parsons and has a guardian and is not able to consent) 11/20 No change, patient remains lying in bed, moving very slowly, significant speech latency, talking slowly. Hardly eating (though continues to drink fluids). Agrees to increase Ativan. Discussed situation with legal arm of the team; as patient is currently on a Parsons order with a guardian, he cannot consent to ECT. Hopefully with increased Ativan, catatonic symptoms will break. Discussed treatment for catatonia with colleagues with 2 different thoughts, one going as high as 16 mg per day, another hesitant to go above 8 mg. Since no improvement thus far senior copywriter decided to split the difference and increased to total of 12 mg daily (there is little harm in going to higher doses of ativan other than it makes tapering off a more lengthy process) 11/21/22 Continue with current treatment plan 11/22/22 Continue treatmetn plan 11/23 pt some improvement, showering yesterday, sat in on a group and willing to walk the davis each shift to avoid DVT. However, when not prompted, stays in bed, hardly moving, eating very little, significant psycomotor retardation and speech latency. Agrees to increase ativan; says he is open to ECT if he needs it but his parents, father who is guardian, is against it. Later in day, pt signed 3 day. Thus, Will increase Ativan to 4mg qid (total daily dose of 16mg) in hopes for effect. His improvement is minimal and he remains at significant risk for continued and worsening catatonic symptoms. Will reach out to Father/guardian; will dc Xeralto since walking periodically during day. Patient educated on: diagnosis, medication risk/benefits and ECT Informed Consent: understands and further education needed Reason for continued inpatient stay Substantial Risk for: inability to function Time Spent With Patient Time: Total time managing care of this patient today ____ minutes.
[2022-11-23 18:00] VITALS: BP 109/68; PULSE 86; RESP 16; TEMP 37.1; O2SAT 98
[2022-11-23] MEDS: LORazepam 1 MG TABLET 4 MG PO (20:30)
[2022-11-23] MEDS: Calcium Carbonate 750 MG TAB.CHEW PO (20:31)
[2022-11-24 08:10] VITALS: BP 119/72; PULSE 88; RESP 18; TEMP 36.5; O2SAT 95
[2022-11-24] MEDS: LORazepam 1 MG TABLET 4 MG PO ×4 (08:16→21:58)
[2022-11-24] MEDS: Lithium Carbonate 300 MG CAPSULE PO ×2 (08:16→21:55)
--- NOTE | 2022-11-24 10:02 | HO.PSYCHPN ---
Subjective Subjective Date of Service: 11/24/22 Reason For Visit: schizoaffective d/o; bipolar type Interim History: met with patient; discussed with team Maintenance Mechanic Millwright gave woodard warning which patient expressed that he understood and explained it back to teletypewriter installer. pt remains catatonic, with significant psychomotor retardation slowed movements, slowed speech speech latency, hardly eating; blank stare. thankfully patient is drinking fluids and willingly walking up and down the davis at least once per shift to avoid DVT. Maintenance Mechanic Millwright asked about 3 day notice and patient said it is because his parents want me out of here and do not want to get ECT. Maintenance Mechanic Millwright explained catatonia again and the risks associated with it including worsening catatonia into malignant catatonia which can be life-threatening. Patient says he wants treatment, he does not want to , wants treatment to prevent catatonia from worsening however he still wants to discharge home. Maintenance Mechanic Millwright explained that patient's function is severely impaired and is at high risk for worsening symptoms and the hospital is considering asking for involuntary commitment if patient continues to pursue discharge. Focused neuro exam: No upper/lower limb stiffness or rigidity; b/l patellar, triceps brachioradialis reflexes 2+/ WNL Mental Status Exam Mental Status Exam Narrative: Pt is alert and oriented; behavior is slowed, quiet, remains in bed almost all day, eating very little; willingly walking halls w/ prompting; isolative; cooperative; patient is not in distress; dressed in hospital attire with unkempt hair and improved hygiene; mood is described as ok and affect blunted; eye contact with a blank stare; Speech is latent, slowed, low volume, monotone; significant psychomotor retardation present; thought process is marred by thought blocking but able to be goal directed; Thought content is on discharge or vacuous; no paranoid delusions expressed; denies any SI/HI. Positive for AH Patients insight and judgment impaired. Diagnostics Vital Signs (24Hr): Vital Signs - 24 hr 11/23/22 18:00 11/24/22 08:10 Temperature 98.7 F 97.7 F Pulse Rate 86 88 Respiratory Rate 16 18 Blood Pressure 109/68 119/72 Pulse Oximetry 98 95 Oxygen Delivery Method Room Air Room Air BMI result Body Mass Index 29.7 Labs 11/05/22 08:44 Medications Medications Current Medications Acetaminophen (Acetaminophen 325 Mg Tablet) 650 mg PO Q6H PRN PRN Reason: Headache/Pain Mild Scale (1-3) Al Hydroxide/Mg Hydroxide (Magnesium Hydrox/Alum Hydrox 30 Ml Oral.Susp) 30 ml PO Q6H PRN PRN Reason: Heartburn/Nausea Calcium Carbonate (Calcium Carbonate 750 Mg Tab.Chew) 750 mg PO BID [facility] Last Admin: 11/24/22 09:11 Dose: Not Given Hydroxyzine HCl (Hydroxyzine Hcl 25 Mg Tablet) 25 mg PO Q6H PRN PRN Reason: Anxiety [place] Carbonate ([place] Carbonate 300 Mg Capsule) 300 mg PO BID [facility] Last Admin: 11/24/22 08:16 Dose: 300 mg Lorazepam (Lorazepam 1 Mg Tablet) 4 mg PO QID [facility] Last Admin: 11/24/22 08:16 Dose: 4 mg Magnesium Hydroxide (Milk Of Magnesia 30 Ml Oral.Susp) 30 ml PO DAILY PRN PRN Reason: Constipation Last Admin: 11/17/22 19:43 Dose: 30 ml Paliperidone Palmitate (Paliperidone Palmitate 234 Mg/1.5 Ml Syringe) 234 mg IM Q30D [facility] Last Admin: 11/13/22 09:36 Dose: 234 mg Trazodone HCl (Trazodone Hcl 50 Mg Tablet) 50 mg PO BEDTIME PRN PRN Reason: Insomnia Allergies Allergies Allergy/AdvReac Type Severity Reaction Status Date / Time No Known Allergies Allergy Verified 09/05/22 21:55 Assessment & Plan Assessment & Plan (1) Schizophrenia, 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 Zabala is a 37 year-old male, on community Parsons/guardian, with hx of schizophrenia. He resides at from [facility] for about one year. Since then, per staff, pt has had about 12 inpatient admission. Pt was recently discharged from medical floor after being treated for pneumonia. The day after pt was described as disorganized, wondering the streets, laying on the streets. He was brought via EMS to [facility]. Utox is negative. Pt does have hx of cannabis use but this time it was negative. Pt presents with symptoms of catatonia including waxy flexibility, negativism, intermittent mutism and black stare. Pt has not missed dose of Invega Sustenna- he has been on 234mg IM which has been given on 09/15 while on M3, 10/17 in the community. Pt also on haldol 30mg po qhs. Will hold haldol given s/s of catatonia. Pt is on Parsons which expires today but extension has been filed and granted- per CM awating paperwork from court. Guardigerardo is his father- Joe Wells [phone]. PLAN 3 day Q 15 minute checks DC Xeralto (pt now walks davis w/ prompting) Continue ativan 4mg po QID- for continued catatonia (up from 2mg) DC haldol due to likely cause of catatonia (started at most recent admission at [facility]) Received Invega Sustenna 234 mg IM on 11/13 HOLD Off on Invega Sustenna 156mg IM (due on by 11/20) since pt remains w/ catatonia Need to consider ECT if Ativan not effective Left voicemail for baljeet (father) HOSPITAL COURSE: 11/06 continue ativan, monitor s/s catatonia. hold haldol until some improvement in s/s of catatonia. 11/07/22- continue current regime and plan of care. Pt denies all symptoms. 11/08/22- starting to hear reports of evening improvement. continue current plan for now. 11/09 file for involuntary tx due to inability to care for self due to catatonia. will restart lithium 300mg po BID. 11/10 slightly less mute, still with delayed response rate and appears internally preoccupied. will lower ativan continue monitor for worsening of s/s of catatonia. 11/11 less mute, more spontaneous in speech, less psychomotor retardation. 11/12 continue tx. Next Invega Sustenna 234mg IM due on 11/13/202211/13 He received Invega Sustenna 234mg IM today. continue to monitor exacerbation of catatonia. continue ativan 1mg po TID. 11/14/2022 No clear improvement to this point; Patient fearful M withdrawn 11/15/2022 No clear improvement question ECT 11/16 patient remains with catatonic symptoms; staff reports patient is doing a little better will continue with Ativan; still need collateral on baseline 11/17 restarted Ativan 2 mg t.i.d. since it accidentally fell off and patient's catatonic symptoms have worsened. Patient understands he has catatonia and signed a CV to remain on the unit longer for treatment 11/18 Patient remains with significant catatonic symptoms, slowed speech, slow movements, hardly getting out of bed at all, not eating much, but still seems to be drinking fluids adequately. Talked with patient's provider LESLIE Laurent who reports that over the past year she has only seen him 3 times because he ends up in the hospital so frequently. She says that typically he will get out of the hospital and within a few weeks eloped from the longterm, looking for cannabis; once he starts smoking cannabis he is gets and all kinds of other substance abuse. She says he was last at [facility] where he was started on Haldol which seems the likely cause of this episode of catatonia. She says this admission was the 1st time he was not engaged in substance abuse. She says at baseline he is able to have a fluent conversation; she said his speech may be a little bit slowed but not much and talks spontaneously without any latency or thought blocking. She agrees that current presentation sounds like catatonia 11/19 patient agrees to increasing Ativan if needed; discussed possibility of ECT which he said he agreed to consider (patient on community Parsons and has a guardian and is not able to consent) 11/20 No change, patient remains lying in bed, moving very slowly, significant speech latency, talking slowly. Hardly eating (though continues to drink fluids). Agrees to increase Ativan. Discussed situation with legal arm of the team; as patient is currently on a Parsons order with a guardian, he cannot consent to ECT. Hopefully with increased Ativan, catatonic symptoms will break. Discussed treatment for catatonia with colleagues with 2 different thoughts, one going as high as 16 mg per day, another hesitant to go above 8 mg. Since no improvement thus far teletypewriter installer decided to split the difference and increased to total of 12 mg daily (there is little harm in going to higher doses of ativan other than it makes tapering off a more lengthy process) 11/21/22 Continue with current treatment plan 11/22/22 Continue treatmetn plan 11/23 pt some improvement, showering yesterday, sat in on a group and willing to walk the davis each shift to avoid DVT. However, when not prompted, stays in bed, hardly moving, eating very little, significant psycomotor retardation and speech latency. Agrees to increase ativan; says he is open to ECT if he needs it but his parents, father who is guardian, is against it. Later in day, pt signed 3 day. Thus, Will increase Ativan to 4mg qid (total daily dose of 16mg) in hopes for effect. His improvement is minimal and he remains at significant risk for continued and worsening catatonic symptoms. Will reach out to Father/guardian; will dc Xeralto since walking periodically during day. 11/24 patient remains with retarded catatonia with Inhibited movements, posturing, blankly staring; poor food intake; Though thankfully seems to be adequate fluid intake. currently no longer at risk for DVT; since patient is now walking with prompting. Has insight to know that he has catatonia; however while he seems to understand that without treatment this is a high risk of it worsening and that it can become life-threatening and despite expressing he wants to live and wants treatment, he is not yet willing to retract his 3 day notice and commit to staying for treatment. Patient says that his parents want him out of the hospital and do not want him to get ECT. Maintenance Mechanic Millwright explained again that the only treatments for catatonia are benzodiazepines and ECT which patient said he understood. -patient is catatonic and remains with significantly impaired functioning. Maintenance Mechanic Millwright reviewed literature on catatonia in [employer] and standard treatment is that if benzodiazepines are not effectively resolving catatonia within 1 week, ECT becomes the next and only other treatment option and should be started promptl; otherwise risk catatonia developing into a malignant catatonia which can be life-threatening (malignant catatonia which is associated with fever, autonomic instability (hypertension/hypotension, tachycardia, tachypnea, diaphoresis, delirium, rigidity and ). Additionally patient is on only half his regular dose of lithium and did not get full dose of Invega Sustenna leaving his psychotic illness only partially treated. Patient requires prompting to do ADLs. At this time, patient is not safe for discharge, needs continued treatment with longterm. If patient does not retract his 3 day notice will very likely petitioned the court for involuntary commitment and substituted judgment for treatment. -teletypewriter installer has reached out to father who is patient's guardian and left a voicemail. Focused neuro exam: No upper/lower limb stiffness or rigidity; b/l patellar, triceps brachioradialis reflexes 2+/ WNL No autonomic instability and low concern for NMS however ordered WBC, CPK; LDH; also ordered bun/Cr given patient on lithium and also lying in bed much of the day with some mildly increased risk for rhabdo Patient educated on: diagnosis, medication risk/benefits, ECT and medical condition Informed Consent: understands Reason for continued inpatient stay Substantial Risk for: inability to function Time Spent With Patient Time: Total time managing care of this patient today ____ minutes.
[2022-11-24 16:59] LABS: Alanine Aminotransferase 12 U/L (0-40); Albumin Level 4.3 g/dL (3.5-5.0); Alkaline Phosphatase 44 U/L (39-117); Anion Gap 10 (12-20); Aspartate Amino Transferase 10 U/L (5-37); Bilirubin Total 0.4 mg/dL (0.0-1.0); Blood Urea Nitrogen 6 mg/dL (9-16); Calcium 9.8 mg/dL (8.4-10.2); Carbon Dioxide 23 mmol/L (22-29); Chloride 110 mmol/L (96-108); Creatinine Clr Calc Pharmacy 144.8; Estimated Glomerular Filt Rate > 60; Glucose Random 121 mg/dL (60-115); Lactate Dehydrogenase 101 U/L (118-273); Potassium 3.7 mmol/L (3.3-5.1); Sodium 139 mmol/L (135-145)
[2022-11-24 17:10] LABS: TSH reflex Free T4 0.46 uIU/mL (0.32-4.0)
[2022-11-24 18:00] VITALS: BP 110/75; PULSE 88; RESP 18; TEMP 36.8; O2SAT 92
[2022-11-24] MEDS: traZODone HCL 50 MG TABLET PO (21:55)
[2022-11-25 08:15] VITALS: BP 102/68; PULSE 93; RESP 18; TEMP 34.1; O2SAT 97
[2022-11-25] MEDS: Lithium Carbonate 300 MG CAPSULE PO ×2 (08:52→20:07)
[2022-11-25] MEDS: LORazepam 1 MG TABLET 4 MG PO ×4 (08:52→20:07)
--- NOTE | 2022-11-25 10:05 | HO.PSYCHPN ---
Subjective Subjective Date of Service: 11/25/22 Reason For Visit: schizoaffective d/o; bipolar type Subjective Notes: 3 Day Interim History: met with patient; discussed with team; discussed case with father who is his guardian and patient's mother Alejandrina; father asked creative services writer to call and discuss with patient's mother Patient remains with catatonic symptoms, hardly moving hardly talking, with significant psychomotor retardation, speech latency; hardly eating so creative services writer ordered ensure since he continues to drink fluid. [employer] discussed patient's catatonic symptoms and he retracted is 3 day notice saying he wants to remain for treatment; he says he wants ECT. [employer] discussed case with his father who is guardian. After discussing catatonia and treatment, patient's father/guardian said that he would agree with ECT treatment as long as his mother concurred and asked creative services writer to call patient's mother Alejandrina. [employer] discussed case with Alejandrina who also agreed with ECT given the lack of other options. In general his father does not want him on any medications at all. When discussing patient's auditory hallucinations, father said so what? And explained that AH is not worse than medications side effects. He said maybe patient's psychotic symptoms are also partly due to a spirit a problem or a nutritional deficit. He also blames a significant amount of patient's worsening symptoms on his chronic cannabis use. Patient's mother feels somewhat differently and wondered if there is some medication that could help him return to a more normal life. She referred to a hospital in [place] were patient was doing well but does not know what medications patient was on at the time. She also expressed significant dissatisfaction with patient's current skilled nursing situation and wants him to be in a different setting. Mental Status Exam Mental Status Exam Narrative: Pt is alert and oriented; behavior is slowed, quiet, remains in bed almost all day, eating very little; willingly walking halls w/ prompting; isolative; cooperative; patient is not in distress; dressed in hospital attire with unkempt hair and improved hygiene; mood is blunted; affect blunted; eye contact with a blank stare; Speech is latent, few words, slowed, low volume and monotone; significant psychomotor retardation present; thought process is marred by thought blocking but able to be goal directed; Thought content is on treatment; no paranoid delusions expressed though he will only drink bottled water; denies any SI/HI. Positive for AH Patients insight and judgment impaired. Diagnostics Vital Signs (24Hr): Vital Signs - 24 hr 11/24/22 18:00 Temperature 98.2 F Pulse Rate 88 Respiratory Rate 18 Blood Pressure 110/75 Pulse Oximetry 92 Oxygen Delivery Method Room Air BMI result Body Mass Index 29.7 Labs 11/24/22 16:28 Labs: Laboratory Results - last 48 hr 11/24/22 16:28 Sodium 139 Potassium 3.7 Chloride 110 H Carbon Dioxide 23 Anion Gap 10 L BUN 6 L Creatinine 0.86 Estim Creat Clear Calc 144.8 Estimated GFR > 60 Random Glucose 121 H Calcium 9.8 Total Bilirubin 0.4 AST 10 ALT 12 Alkaline Phosphatase 44 Lactate Dehydrogenase 101 L Total Creatine Kinase 25 L Total Protein 7.0 Albumin 4.3 TSH 0.46 Medications Medications Current Medications Acetaminophen (Acetaminophen 325 Mg Tablet) 650 mg PO Q6H PRN PRN Reason: Headache/Pain Mild Scale (1-3) Al Hydroxide/Mg Hydroxide (Magnesium Hydrox/Alum Hydrox 30 Ml Oral.Susp) 30 ml PO Q6H PRN PRN Reason: Heartburn/Nausea Calcium Carbonate (Calcium Carbonate 750 Mg Tab.Chew) 750 mg PO BID [facility] Last Admin: 11/25/22 08:53 Dose: Not Given Hydroxyzine HCl (Hydroxyzine Hcl 25 Mg Tablet) 25 mg PO Q6H PRN PRN Reason: Anxiety Sherrard Carbonate (Sherrard Carbonate 300 Mg Capsule) 300 mg PO BID [facility] Last Admin: 11/25/22 08:52 Dose: 300 mg Lorazepam (Lorazepam 1 Mg Tablet) 4 mg PO QID [facility] Last Admin: 11/25/22 08:52 Dose: 4 mg Magnesium Hydroxide (Milk Of Magnesia 30 Ml Oral.Susp) 30 ml PO DAILY PRN PRN Reason: Constipation Last Admin: 11/17/22 19:43 Dose: 30 ml Paliperidone Palmitate (Paliperidone Palmitate 234 Mg/1.5 Ml Syringe) 234 mg IM Q30D [facility] Last Admin: 11/13/22 09:36 Dose: 234 mg Trazodone HCl (Trazodone Hcl 50 Mg Tablet) 50 mg PO BEDTIME PRN PRN Reason: Insomnia Last Admin: 11/24/22 21:55 Dose: 50 mg Allergies Allergies Allergy/AdvReac Type Severity Reaction Status Date / Time No Known Allergies Allergy Verified 09/05/22 21:55 Assessment & Plan Assessment & Plan (1) Schizophrenia, 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 Zabala is a 37 year-old male, on community Parsons/guardian, with hx of schizophrenia. He resides at from [facility] for about one year. Since then, per staff, pt has had about 12 inpatient admission. Pt was recently discharged from medical floor after being treated for pneumonia. The day after pt was described as disorganized, wondering the streets, laying on the streets. He was brought via EMS to [facility]. Utox is negative. Pt does have hx of cannabis use but this time it was negative. Pt presents with symptoms of catatonia including waxy flexibility, negativism, intermittent mutism and black stare. Pt has not missed dose of Invega Sustenna- he has been on 234mg IM which has been given on 09/15 while on M3, 10/17 in the community. Pt also on haldol 30mg po qhs. Will hold haldol given s/s of catatonia. Pt is on Parsons which expires today but extension has been filed and granted- per CM awating paperwork from court. Guardian is his father- Joe Wells [phone]. PLAN 3 day Q 15 minute checks DC Xeralto (pt now walks davis w/ prompting) Continue ativan 4mg po QID- for continued catatonia (up from 2mg) DC haldol due to likely cause of catatonia (started at most recent admission at [facility]) Received Invega Sustenna 234 mg IM on 11/13 HOLD Off on Invega Sustenna 156mg IM (due on by 11/20) since pt remains w/ catatonia Need to consider ECT if Ativan not effective Left voicemail for guardian (father) HOSPITAL COURSE: 11/06 continue ativan, monitor s/s catatonia. hold haldol until some improvement in s/s of catatonia. 11/07/22- continue current regime and plan of care. Pt denies all symptoms. 11/08/22- starting to hear reports of evening improvement. continue current plan for now. 11/09 file for involuntary tx due to inability to care for self due to catatonia. will restart lithium 300mg po BID. 11/10 slightly less mute, still with delayed response rate and appears internally preoccupied. will lower ativan continue monitor for worsening of s/s of catatonia. 11/11 less mute, more spontaneous in speech, less psychomotor retardation. 11/12 continue tx. Next Invega Sustenna 234mg IM due on 11/13/202211/13 He received Invega Sustenna 234mg IM today. continue to monitor exacerbation of catatonia. continue ativan 1mg po TID. 11/14/2022 No clear improvement to this point; Patient fearful M withdrawn 11/15/2022 No clear improvement question ECT 11/16 patient remains with catatonic symptoms; staff reports patient is doing a little better will continue with Ativan; still need collateral on baseline 11/17 restarted Ativan 2 mg t.i.d. since it accidentally fell off and patient's catatonic symptoms have worsened. Patient understands he has catatonia and signed a CV to remain on the unit longer for treatment 11/18 Patient remains with significant catatonic symptoms, slowed speech, slow movements, hardly getting out of bed at all, not eating much, but still seems to be drinking fluids adequately. Talked with patient's provider LESLIE Laurent who reports that over the past year she has only seen him 3 times because he ends up in the hospital so frequently. She says that typically he will get out of the hospital and within a few weeks eloped from the skilled nursing, looking for cannabis; once he starts smoking cannabis he is gets and all kinds of other substance abuse. She says he was last at [facility] where he was started on Haldol which seems the likely cause of this episode of catatonia. She says this admission was the 1st time he was not engaged in substance abuse. She says at baseline he is able to have a fluent conversation; she said his speech may be a little bit slowed but not much and talks spontaneously without any latency or thought blocking. She agrees that current presentation sounds like catatonia 11/19 patient agrees to increasing Ativan if needed; discussed possibility of ECT which he said he agreed to consider (patient on [facility] and has a guardian and is not able to consent) 11/20 No change, patient remains lying in bed, moving very slowly, significant speech latency, talking slowly. Hardly eating (though continues to drink fluids). Agrees to increase Ativan. Discussed situation with legal arm of the team; as patient is currently on a Parsons order with a guardian, he cannot consent to ECT. Hopefully with increased Ativan, catatonic symptoms will break. Discussed treatment for catatonia with colleagues with 2 different thoughts, one going as high as 16 mg per day, another hesitant to go above 8 mg. Since no improvement thus far creative services writer decided to split the difference and increased to total of 12 mg daily (there is little harm in going to higher doses of ativan other than it makes tapering off a more lengthy process) 11/21/22 Continue with current treatment plan 11/22/22 Continue treatmetn plan 11/23 pt some improvement, showering yesterday, sat in on a group and willing to walk the davis each shift to avoid DVT. However, when not prompted, stays in bed, hardly moving, eating very little, significant psycomotor retardation and speech latency. Agrees to increase ativan; says he is open to ECT if he needs it but his parents, father who is guardian, is against it. Later in day, pt signed 3 day. Thus, Will increase Ativan to 4mg qid (total daily dose of 16mg) in hopes for effect. His improvement is minimal and he remains at significant risk for continued and worsening catatonic symptoms. Will reach out to Father/guardian; will dc Xeralto since walking periodically during day. 11/24 patient remains with retarded catatonia with Inhibited movements, posturing, blankly staring; poor food intake; Though thankfully seems to be adequate fluid intake. currently no longer at risk for DVT; since patient is now walking with prompting. Has insight to know that he has catatonia; however while he seems to understand that without treatment this is a high risk of it worsening and that it can become life-threatening and despite expressing he wants to live and wants treatment, he is not yet willing to retract his 3 day notice and commit to staying for treatment. Patient says that his parents want him out of the hospital and do not want him to get ECT. [employer] explained again that the only treatments for catatonia are benzodiazepines and ECT which patient said he understood. -patient is catatonic and remains with significantly impaired functioning. [employer] reviewed literature on catatonia in [employer] and standard treatment is that if benzodiazepines are not effectively resolving catatonia within 1 week, ECT becomes the next and only other treatment option and should be started promptl; otherwise risk catatonia developing into a malignant catatonia which can be life-threatening (malignant catatonia which is associated with fever, autonomic instability (hypertension/hypotension, tachycardia, tachypnea, diaphoresis, delirium, rigidity and ). Additionally patient is on only half his regular dose of lithium and did not get full dose of Invega Sustenna leaving his psychotic illness only partially treated. Patient requires prompting to do ADLs. At this time, patient is not safe for discharge, needs continued treatment with nursing home. If patient does not retract his 3 day notice will very likely petitioned the court for involuntary commitment and substituted judgment for treatment. -creative services writer has reached out to father who is patient's guardian and left a voicemail. Focused neuro exam: No upper/lower limb stiffness or rigidity; b/l patellar, triceps brachioradialis reflexes 2+/ WNL No autonomic instability and low concern for NMS however ordered WBC, CPK; LDH; also ordered bun/Cr given patient on lithium and also lying in bed much of the day with some mildly increased risk for rhabdo 11/25 Patient remains with catatonic symptoms, hardly moving hardly talking, with significant psychomotor retardation, speech latency; hardly eating so creative services writer ordered ensure since he continues to drink fluid. [employer] discussed patient's catatonic symptoms and he retracted is 3 day notice saying he wants to remain for treatment; he says he wants ECT. [employer] discussed case with his father who is guardian. After discussing catatonia and treatment, patient's father/guardian said that he would agree with ECT treatment as long as his mother concurred and asked creative services writer to call patient's mother Alejandrina. [employer] discussed case with Alejandrina who also agreed with ECT given the lack of other options. Patient educated on: diagnosis, medication risk/benefits and ECT Informed Consent: understands and further education needed Reason for continued inpatient stay Substantial Risk for: inability to function Time Spent With Patient Time: Total time managing care of this patient today ____ minutes.
[2022-11-25 18:32] VITALS: BP 123/79; PULSE 86; TEMP 36.3
[2022-11-26 06:00] VITALS: BP 118/69; PULSE 86; RESP 14; TEMP 36.5; O2SAT 95
[2022-11-26] MEDS: Lithium Carbonate 300 MG CAPSULE PO ×2 (09:24→20:45)
[2022-11-26] MEDS: LORazepam 1 MG TABLET 4 MG PO ×4 (09:24→20:44)
--- NOTE | 2022-11-26 13:40 | P.PNPSI_ITS ---
Subjective Subjective Date of Service: 11/26/22 Reason For Visit: schizoaffective d/o; bipolar type Interim History: Met with patient; discussed with team Patient a little bit more articulate which is perhaps some mild improvement. Patient eating a muffin. He says that auditory hallucinations are not so much. He also says he wants to go to a different [facility]. When editorial writer asked him why, he said they give meet to many medications... Spanish Language Lecturer explained that it is the provider that prescribes medications and would never usp he goes to, they will be giving him the medications that he is prescribed. Spanish Language Lecturer asked if he likes the staff and the people there to which he replied that he does. Spanish Language Lecturer agreed to discuss usp situation after patient recovers and approaches discharge. Mental Status Exam Mental Status Exam Narrative: Pt is alert and oriented; behavior is slowed, quiet, remains in bed almost all day, eating very little; willingly walking halls w/ prompting; isolative; cooperative; patient is not in distress; dressed in hospital attire with unkempt hair and improved hygiene; mood is blunted; affect blunted; eye contact with a blank stare; Speech is latent, few words, slowed, low volume and monotone; significant psychomotor retardation present; thought process is marred by thought blocking but able to be goal directed; Thought content is on treatment; no paranoid delusions expressed though he will only drink bottled water; denies any SI/HI. Positive for Patients insight and judgment impaired. Diagnostics Vital Signs (24Hr): Vital Signs - 24 hr 11/25/22 18:32 11/26/22 06:00 Temperature 97.3 F 97.7 F Pulse Rate 86 86 Respiratory Rate 14 Blood Pressure 123/79 118/69 Pulse Oximetry 95 Oxygen Delivery Method Room Air BMI result Body Mass Index 29.7 Labs 11/24/22 16:28 Labs: Laboratory Results - last 48 hr 11/24/22 16:28 Sodium 139 Potassium 3.7 Chloride 110 H Carbon Dioxide 23 Anion Gap 10 L BUN 6 L Creatinine 0.86 Estim Creat Clear Calc 144.8 Estimated GFR > 60 Random Glucose 121 H Calcium 9.8 Total Bilirubin 0.4 AST 10 ALT 12 Alkaline Phosphatase 44 Lactate Dehydrogenase 101 L Total Creatine Kinase 25 L Total Protein 7.0 Albumin 4.3 TSH 0.46 Medications Medications Current Medications Acetaminophen (Acetaminophen 325 Mg Tablet) 650 mg PO Q6H PRN PRN Reason: Headache/Pain Mild Scale (1-3) Al Hydroxide/Mg Hydroxide (Magnesium Hydrox/Alum Hydrox 30 Ml Oral.Susp) 30 ml PO Q6H PRN PRN Reason: Heartburn/Nausea Calcium Carbonate (Calcium Carbonate 750 Mg Tab.Chew) 750 mg PO BID [facility] Last Admin: 11/26/22 10:06 Dose: Not Given Hydroxyzine HCl (Hydroxyzine Hcl 25 Mg Tablet) 25 mg PO Q6H PRN PRN Reason: Anxiety [place] Carbonate ([place] Carbonate 300 Mg Capsule) 300 mg PO BID [facility] Last Admin: 11/26/22 09:24 Dose: 300 mg Lorazepam (Lorazepam 1 Mg Tablet) 4 mg PO QID [facility] Last Admin: 11/26/22 13:19 Dose: 4 mg Magnesium Hydroxide (Milk Of Magnesia 30 Ml Oral.Susp) 30 ml PO DAILY PRN PRN Reason: Constipation Last Admin: 11/17/22 19:43 Dose: 30 ml Paliperidone Palmitate (Paliperidone Palmitate 234 Mg/1.5 Ml Syringe) 234 mg IM Q30D [facility] Last Admin: 11/13/22 09:36 Dose: 234 mg Trazodone HCl (Trazodone Hcl 50 Mg Tablet) 50 mg PO BEDTIME PRN PRN Reason: Insomnia Last Admin: 11/24/22 21:55 Dose: 50 mg Allergies Allergies Allergy/AdvReac Type Severity Reaction Status Date / Time No Known Allergies Allergy Verified 09/05/22 21:55 Assessment & Plan Assessment & Plan (1) Schizophrenia, 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 Zabala is a 37 year-old male, on community Parsons/guardian, with hx of schizophrenia. He resides at from [facility] for about one year. Since then, per staff, pt has had about 12 inpatient admission. Pt was recently discharged from medical floor after being treated for pneumonia. The day after pt was described as disorganized, wondering the streets, laying on the streets. He was brought via EMS to [facility]. Utox is negative. Pt does have hx of cannabis use but this time it was negative. Pt presents with symptoms of catatonia including waxy flexibility, negativism, intermittent mutism and black stare. Pt has not missed dose of Invega Sustenna- he has been on 234mg IM which has been given on 09/15 while on M3, 10/17 in the community. Pt also on haldol 30mg po qhs. Will hold haldol given s/s of catatonia. Pt is on Parsons which expires today but extension has been filed and granted- per CM awating paperwork from court. Guardian is his father- Joe Wells [phone]. PLAN 3 day Q 15 minute checks DC Xeralto (pt now walks davis w/ prompting) Continue ativan 4mg po QID- for continued catatonia (up from 2mg) DC haldol due to likely cause of catatonia (started at most recent admission at [facility]) Received Invega Sustenna 234 mg IM on 11/13 HOLD Off on Invega Sustenna 156mg IM (due on by 11/20) since pt remains w/ catatonia Need to consider ECT if Ativan not effective Left voicemail for baljeet (father) HOSPITAL COURSE: 11/06 continue ativan, monitor s/s catatonia. hold haldol until some improvement in s/s of catatonia. 11/07/22- continue current regime and plan of care. Pt denies all symptoms. 11/08/22- starting to hear reports of evening improvement. continue current plan for now. 11/09 file for involuntary tx due to inability to care for self due to catatonia. will restart lithium 300mg po BID. 11/10 slightly less mute, still with delayed response rate and appears internally preoccupied. will lower ativan continue monitor for worsening of s/s of catatonia. 11/11 less mute, more spontaneous in speech, less psychomotor retardation. 11/12 continue tx. Next Invega Sustenna 234mg IM due on 11/13/202211/13 He received Invega Sustenna 234mg IM today. continue to monitor exacerbation of catatonia. continue ativan 1mg po TID. 11/14/2022 No clear improvement to this point; Patient fearful M withdrawn 11/15/2022 No clear improvement question ECT 11/16 patient remains with catatonic symptoms; staff reports patient is doing a little better will continue with Ativan; still need collateral on baseline 11/17 restarted Ativan 2 mg t.i.d. since it accidentally fell off and patient's catatonic symptoms have worsened. Patient understands he has catatonia and signed a CV to remain on the unit longer for treatment 11/18 Patient remains with significant catatonic symptoms, slowed speech, slow movements, hardly getting out of bed at all, not eating much, but still seems to be drinking fluids adequately. Talked with patient's provider LESLIE Laurent who reports that over the past year she has only seen him 3 times because he ends up in the hospital so frequently. She says that typically he will get out of the hospital and within a few weeks eloped from the [facility], looking for cannabis; once he starts smoking cannabis he is gets and all kinds of other substance abuse. She says he was last at [facility] where he was started on Haldol which seems the likely cause of this episode of catatonia. She says this admission was the 1st time he was not engaged in substance abuse. She says at baseline he is able to have a fluent conversation; she said his speech may be a little bit slowed but not much and talks spontaneously without any latency or thought blocking. She agrees that current presentation sounds like catatonia 11/19 patient agrees to increasing Ativan if needed; discussed possibility of ECT which he said he agreed to consider (patient on community Parsons and has a guardian and is not able to consent) 11/20 No change, patient remains lying in bed, moving very slowly, significant speech latency, talking slowly. Hardly eating (though continues to drink fluids). Agrees to increase Ativan. Discussed situation with legal arm of the team; as patient is currently on a Parsons order with a guardian, he cannot consent to ECT. Hopefully with increased Ativan, catatonic symptoms will break. Discussed treatment for catatonia with colleagues with 2 different thoughts, one going as high as 16 mg per day, another hesitant to go above 8 mg. Since no improvement thus far editorial writer decided to split the difference and increased to total of 12 mg daily (there is little harm in going to higher doses of ativan other than it makes tapering off a more lengthy process) 11/21/22 Continue with current treatment plan 11/22/22 Continue treatmetn plan 11/23 pt some improvement, showering yesterday, sat in on a group and willing to walk the davis each shift to avoid DVT. However, when not prompted, stays in bed, hardly moving, eating very little, significant psycomotor retardation and speech latency. Agrees to increase ativan; says he is open to ECT if he needs it but his parents, father who is guardian, is against it. Later in day, pt signed 3 day. Thus, Will increase Ativan to 4mg qid (total daily dose of 16mg) in hopes for effect. His improvement is minimal and he remains at significant risk for continued and worsening catatonic symptoms. Will reach out to Father/guardian; will dc Xeralto since walking periodically during day. 11/24 patient remains with retarded catatonia with Inhibited movements, posturing, blankly staring; poor food intake; Though thankfully seems to be adequate fluid intake. currently no longer at risk for DVT; since patient is now walking with prompting. Has insight to know that he has catatonia; however while he seems to understand that without treatment this is a high risk of it worsening and that it can become life-threatening and despite expressing he wants to live and wants treatment, he is not yet willing to retract his 3 day notice and commit to staying for treatment. Patient says that his parents want him out of the hospital and do not want him to get ECT. Spanish Language Lecturer explained again that the only treatments for catatonia are benzodiazepines and ECT which patient said he understood. -patient is catatonic and remains with significantly impaired functioning. Spanish Language Lecturer reviewed literature on catatonia in [employer] and standard treatment is that if benzodiazepines are not effectively resolving catatonia within 1 week, ECT becomes the next and only other treatment option and should be started promptl; otherwise risk catatonia developing into a malignant catatonia which can be life-threatening (malignant catatonia which is associated with fever, autonomic instability (hypertension/hypotension, tachycardia, tachypnea, diaphoresis, delirium, rigidity and ). Additionally patient is on only half his regular dose of lithium and did not get full dose of Invega Sustenna leaving his psychotic illness only partially treated. Patient requires prompting to do ADLs. At this time, patient is not safe for discharge, needs continued treatment with long-term. If patient does not retract his 3 day notice will very likely petitioned the court for involuntary commitment and substituted judgment for treatment. -editorial writer has reached out to father who is patient's guardian and left a voicemail. Focused neuro exam: No upper/lower limb stiffness or rigidity; b/l patellar, triceps brachioradialis reflexes 2+/ WNL No autonomic instability and low concern for NMS however ordered WBC, CPK; LDH; also ordered bun/Cr given patient on lithium and also lying in bed much of the day with some mildly increased risk for rhabdo 11/25 Patient remains with catatonic symptoms, hardly moving hardly talking, with significant psychomotor retardation, speech latency; hardly eating so editorial writer ordered ensure since he continues to drink fluid. Spanish Language Lecturer discussed patient's catatonic symptoms and he retracted is 3 day notice saying he wants to remain for treatment; he says he wants ECT. Spanish Language Lecturer discussed case with his father who is guardian. After discussing catatonia and treatment, patient's father/guardian said that he would agree with ECT treatment as long as his mother concurred and asked editorial writer to call patient's mother Alejandrina. Spanish Language Lecturer discussed case with Alejandrina who also agreed with ECT given the lack of other options. 11/26 continue current treatment plan Patient educated on: diagnosis and therapeutic strategies Informed Consent: understands and further education needed Reason for continued inpatient stay Substantial Risk for: inability to function Time Spent With Patient Time: Total time managing care of this patient today ____ minutes.
[2022-11-26 18:00] VITALS: BP 132/86; PULSE 121; RESP 16; TEMP 36; O2SAT 96
[2022-11-27 06:00] VITALS: BP 120/73; PULSE 90; RESP 16; TEMP 36.6; O2SAT 96
[2022-11-27] MEDS: LORazepam 1 MG TABLET 4 MG PO ×4 (09:15→21:22)
[2022-11-27] MEDS: Lithium Carbonate 300 MG CAPSULE PO ×2 (09:15→21:22)
[2022-11-27] MEDS: Calcium Carbonate 750 MG TAB.CHEW PO (09:15)
--- NOTE | 2022-11-27 09:53 | HO.PSYCHPN ---
Subjective Subjective Date of Service: 11/27/22 Reason For Visit: schizoaffective d/o; bipolar type Interim History: Met with patient; discussed with team; discussed with legal and feeling out Parsons order addendum Patient remains with catatonic symptoms; no improvement at all and maybe even a little less movement today. On approach, Looked up at typewriter assembly and parts inspector and muttered something but difficult with which to engage. hardly eating. Will increase monitoring Mental Status Exam Mental Status Exam Narrative: Pt is alert and oriented; behavior is slowed, quiet, remains in bed almost all day, eating very little; patient is not in physical distress; dressed in hospital attire with unkempt hair and poor hygiene; mood is blunted; affect blunted; eye contact with a blank stare; Speech is latent, few words, slowed, low volume and monotone; significant psychomotor retardation present; thought process is marred by thought blocking but can be goal directed; Thought content is on treatment; no paranoid delusions expressed, though he will only drink bottled water; denies any SI/HI. Positive for Patients insight and judgment impaired. Diagnostics Vital Signs (24Hr): Vital Signs - 24 hr 11/26/22 18:00 11/27/22 06:00 Temperature 96.8 F 97.8 F Pulse Rate 121 H 90 Respiratory Rate 16 16 Blood Pressure 132/86 120/73 Pulse Oximetry 96 96 Oxygen Delivery Method Room Air Room Air BMI result Body Mass Index 29.7 Labs 11/24/22 16:28 Medications Medications Current Medications Acetaminophen (Acetaminophen 325 Mg Tablet) 650 mg PO Q6H PRN PRN Reason: Headache/Pain Mild Scale (1-3) Al Hydroxide/Mg Hydroxide (Magnesium Hydrox/Alum Hydrox 30 Ml Oral.Susp) 30 ml PO Q6H PRN PRN Reason: Heartburn/Nausea Calcium Carbonate (Calcium Carbonate 750 Mg Tab.Chew) 750 mg PO BID [facility] Last Admin: 11/27/22 09:15 Dose: 750 mg Hydroxyzine HCl (Hydroxyzine Hcl 25 Mg Tablet) 25 mg PO Q6H PRN PRN Reason: Anxiety [place] Carbonate ([place] Carbonate 300 Mg Capsule) 300 mg PO BID [facility] Last Admin: 11/27/22 09:15 Dose: 300 mg Lorazepam (Lorazepam 1 Mg Tablet) 4 mg PO QID [facility] Last Admin: 11/27/22 09:15 Dose: 4 mg Magnesium Hydroxide (Milk Of Magnesia 30 Ml Oral.Susp) 30 ml PO DAILY PRN PRN Reason: Constipation Last Admin: 11/17/22 19:43 Dose: 30 ml Paliperidone Palmitate (Paliperidone Palmitate 234 Mg/1.5 Ml Syringe) 234 mg IM Q30D [facility] Last Admin: 11/13/22 09:36 Dose: 234 mg Trazodone HCl (Trazodone Hcl 50 Mg Tablet) 50 mg PO BEDTIME PRN PRN Reason: Insomnia Last Admin: 11/24/22 21:55 Dose: 50 mg Allergies Allergies Allergy/AdvReac Type Severity Reaction Status Date / Time No Known Allergies Allergy Verified 09/05/22 21:55 Assessment & Plan Assessment & Plan (1) Schizophrenia, 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 Zabala is a 37 year-old male, on community Parsons/guardian, with hx of schizophrenia. He resides at from [facility] for about one year. Since then, per staff, pt has had about 12 inpatient admission. Pt was recently discharged from medical floor after being treated for pneumonia. The day after pt was described as disorganized, wondering the streets, laying on the streets. He was brought via EMS to [facility]. Utox is negative. Pt does have hx of cannabis use but this time it was negative. Pt presents with symptoms of catatonia including waxy flexibility, negativism, intermittent mutism and black stare. Pt has not missed dose of Invega Sustenna- he has been on 234mg IM which has been given on 09/15 while on M3, 10/17 in the community. Pt also on haldol 30mg po qhs. Will hold haldol given s/s of catatonia. Pt is on Parsons which expires today but extension has been filed and granted- per CM awating paperwork from court. Guardian is his father- Joe Wells [phone]. PLAN 3 day Q 15 minute checks DC Xeralto (pt now walks davis w/ prompting) Continue ativan 4mg po QID- for continued catatonia (up from 2mg) DC haldol due to likely cause of catatonia (started at most recent admission at [facility]) Received Invega Sustenna 234 mg IM on 11/13 HOLD Off on Invega Sustenna 156mg IM (due on by 11/20) since pt remains w/ catatonia Need to consider ECT if Ativan not effective Left voicemail for guardian (father) HOSPITAL COURSE: 11/06 continue ativan, monitor s/s catatonia. hold haldol until some improvement in s/s of catatonia. 11/07/22- continue current regime and plan of care. Pt denies all symptoms. 11/08/22- starting to hear reports of evening improvement. continue current plan for now. 11/09 file for involuntary tx due to inability to care for self due to catatonia. will restart lithium 300mg po BID. 11/10 slightly less mute, still with delayed response rate and appears internally preoccupied. will lower ativan continue monitor for worsening of s/s of catatonia. 11/11 less mute, more spontaneous in speech, less psychomotor retardation. 11/12 continue tx. Next Invega Sustenna 234mg IM due on 11/13/202211/13 He received Invega Sustenna 234mg IM today. continue to monitor exacerbation of catatonia. continue ativan 1mg po TID. 11/14/2022 No clear improvement to this point; Patient fearful M withdrawn 11/15/2022 No clear improvement question ECT 11/16 patient remains with catatonic symptoms; staff reports patient is doing a little better will continue with Ativan; still need collateral on baseline 11/17 restarted Ativan 2 mg t.i.d. since it accidentally fell off and patient's catatonic symptoms have worsened. Patient understands he has catatonia and signed a CV to remain on the unit longer for treatment 11/18 Patient remains with significant catatonic symptoms, slowed speech, slow movements, hardly getting out of bed at all, not eating much, but still seems to be drinking fluids adequately. Talked with patient's provider LESLIE Laurent who reports that over the past year she has only seen him 3 times because he ends up in the hospital so frequently. She says that typically he will get out of the hospital and within a few weeks eloped from the halfway, looking for cannabis; once he starts smoking cannabis he is gets and all kinds of other substance abuse. She says he was last at [facility] where he was started on Haldol which seems the likely cause of this episode of catatonia. She says this admission was the 1st time he was not engaged in substance abuse. She says at baseline he is able to have a fluent conversation; she said his speech may be a little bit slowed but not much and talks spontaneously without any latency or thought blocking. She agrees that current presentation sounds like catatonia 11/19 patient agrees to increasing Ativan if needed; discussed possibility of ECT which he said he agreed to consider (patient on [facility] Parsons and has a guardian and is not able to consent) 11/20 No change, patient remains lying in bed, moving very slowly, significant speech latency, talking slowly. Hardly eating (though continues to drink fluids). Agrees to increase Ativan. Discussed situation with legal arm of the team; as patient is currently on a Parsons order with a guardian, he cannot consent to ECT. Hopefully with increased Ativan, catatonic symptoms will break. Discussed treatment for catatonia with colleagues with 2 different thoughts, one going as high as 16 mg per day, another hesitant to go above 8 mg. Since no improvement thus far typewriter assembly and parts inspector decided to split the difference and increased to total of 12 mg daily (there is little harm in going to higher doses of ativan other than it makes tapering off a more lengthy process) 11/21/22 Continue with current treatment plan 11/22/22 Continue treatmetn plan 11/23 pt some improvement, showering yesterday, sat in on a group and willing to walk the davis each shift to avoid DVT. However, when not prompted, stays in bed, hardly moving, eating very little, significant psycomotor retardation and speech latency. Agrees to increase ativan; says he is open to ECT if he needs it but his parents, father who is guardian, is against it. Later in day, pt signed 3 day. Thus, Will increase Ativan to 4mg qid (total daily dose of 16mg) in hopes for effect. His improvement is minimal and he remains at significant risk for continued and worsening catatonic symptoms. Will reach out to Father/guardian; will dc Xeralto since walking periodically during day. 11/24 patient remains with retarded catatonia with Inhibited movements, posturing, blankly staring; poor food intake; Though thankfully seems to be adequate fluid intake. currently no longer at risk for DVT; since patient is now walking with prompting. Has insight to know that he has catatonia; however while he seems to understand that without treatment this is a high risk of it worsening and that it can become life-threatening and despite expressing he wants to live and wants treatment, he is not yet willing to retract his 3 day notice and commit to staying for treatment. Patient says that his parents want him out of the hospital and do not want him to get ECT. Sisal Picker explained again that the only treatments for catatonia are benzodiazepines and ECT which patient said he understood. -patient is catatonic and remains with significantly impaired functioning. Sisal Picker reviewed literature on catatonia in [employer]To[employer] and standard treatment is that if benzodiazepines are not effectively resolving catatonia within 1 week, ECT becomes the next and only other treatment option and should be started promptl; otherwise risk catatonia developing into a malignant catatonia which can be life-threatening (malignant catatonia which is associated with fever, autonomic instability (hypertension/hypotension, tachycardia, tachypnea, diaphoresis, delirium, rigidity and ). Additionally patient is on only half his regular dose of lithium and did not get full dose of Invega Sustenna leaving his psychotic illness only partially treated. Patient requires prompting to do ADLs. At this time, patient is not safe for discharge, needs continued treatment [facility]. If patient does not retract his 3 day notice will very likely petitioned the court for involuntary commitment and substituted judgment for treatment. -typewriter assembly and parts inspector has reached out to father who is patient's guardian and left a voicemail. -Focused neuro exam: No upper/lower limb stiffness or rigidity; b/l patellar, triceps brachioradialis reflexes 2+/ WNL -No autonomic instability and low concern for NMS however ordered WBC, CPK; LDH; also ordered bun/Cr given patient on lithium and also lying in bed much of the day with some mildly increased risk for rhabdo 11/25 Patient remains with catatonic symptoms, hardly moving hardly talking, with significant psychomotor retardation, speech latency; hardly eating so typewriter assembly and parts inspector ordered ensure since he continues to drink fluid. Sisal Picker discussed patient's catatonic symptoms and he retracted is 3 day notice saying he wants to remain for treatment; he says he wants ECT. Sisal Picker discussed case with his father who is guardian. After discussing catatonia and treatment, patient's father/guardian said that he would agree with ECT treatment as long as his mother concurred and asked typewriter assembly and parts inspector to call patient's mother Alejandrina. Sisal Picker discussed case with Alejandrina who also agreed with ECT given the lack of other options. 11/26 continue current treatment plan 11/27 remains with severe catatonic symptoms; will increase monitoring of vitals to t.i.d.; nursing staff informed to make sure patient walks the davis once per day to avoid DVT; otherwise to inform provider to consider DVT prophylaxis. Discussed case with colleague who recommended giving a 1 time extra Ativan dose to see if there was any benefit at all as a means to consider whether not to increase total daily Ativan dose. Discussed case with legal and filling out paperwork to amend Parsons with ECT. Reason for continued inpatient stay Substantial Risk for: inability to function Time Spent With Patient Time: Total time managing care of this patient today ____ minutes.
[2022-11-27] MEDS: LORazepam 1 MG TABLET 2 MG PO ×2 (18:25→19:19)
[2022-11-27 19:02] VITALS: BP 126/82; PULSE 98; TEMP 36.4
[2022-11-28] MEDS: LORazepam 1 MG TABLET 4 MG PO ×4 (08:17→19:54)
[2022-11-28] MEDS: Lithium Carbonate 300 MG CAPSULE PO ×2 (08:17→19:54)
[2022-11-28 08:30] VITALS: BP 110/72; PULSE 82; RESP 18; TEMP 36.3; O2SAT 95
[2022-11-28 13:00] VITALS: BP 111/69; PULSE 101; RESP 18; TEMP 36.5; O2SAT 95
--- NOTE | 2022-11-28 16:13 | HO.PSYCHPN ---
Subjective Subjective Date of Service: 11/28/22 Reason For Visit: schizoaffective d/o; bipolar type Interim History: met with patient. Chart reviewed. Discussed with Nursing. Noted SCZ, catatonia and current Ativan dosing. Also noted pursuing potential ECT treatment with court order. Patient has been accepting medication. Has been walking around once per shift. Noted some empty water bottles decide bed today. He does present as alert and oriented. Recognize resume writer from another hospital. Reports that he is hearing voices and they are negative in nature and upsetting. Reports feeling safe on the unit. Aware he has been here for around 3 weeks or so. Medication Compliance: Yes Side effects from medications: No Attending Groups: No Review of Systems Review of Systems Nothing acute. Ongoing monitoring around mobilization and intake Mental Status Exam Mental Status Exam Narrative: in bed. For self-care. Is alert, but minimal engagement and psychomotor retardation. Endorses auditory hallucinations. Does appear paranoid and guarded. No evidence of SI or HI. Insight and judgment is limited Diagnostics Vital Signs (24Hr): Vital Signs - 24 hr 11/27/22 19:02 11/28/22 08:30 11/28/22 13:00 Temperature 97.6 F 97.4 F 97.7 F Pulse Rate 98 82 101 H Respiratory Rate 18 18 Blood Pressure 126/82 110/72 111/69 Pulse Oximetry 95 95 Oxygen Delivery Method Room Air Room Air BMI result Body Mass Index 29.7 Labs 11/24/22 16:28 Medications Medications Current Medications Acetaminophen (Acetaminophen 325 Mg Tablet) 650 mg PO Q6H PRN PRN Reason: Headache/Pain Mild Scale (1-3) Al Hydroxide/Mg Hydroxide (Magnesium Hydrox/Alum Hydrox 30 Ml Oral.Susp) 30 ml PO Q6H PRN PRN Reason: Heartburn/Nausea Calcium Carbonate (Calcium Carbonate 750 Mg Tab.Chew) 750 mg PO BID [facility] Last Admin: 11/28/22 08:44 Dose: Not Given Hydroxyzine HCl (Hydroxyzine Hcl 25 Mg Tablet) 25 mg PO Q6H PRN PRN Reason: Anxiety [place] Carbonate ([place] Carbonate 300 Mg Capsule) 300 mg PO BID [facility] Last Admin: 11/28/22 08:17 Dose: 300 mg Lorazepam (Lorazepam 1 Mg Tablet) 4 mg PO QID [facility] Last Admin: 11/28/22 12:42 Dose: 4 mg Magnesium Hydroxide (Milk Of Magnesia 30 Ml Oral.Susp) 30 ml PO DAILY PRN PRN Reason: Constipation Last Admin: 11/17/22 19:43 Dose: 30 ml Paliperidone Palmitate (Paliperidone Palmitate 234 Mg/1.5 Ml Syringe) 234 mg IM Q30D [facility] Last Admin: 11/13/22 09:36 Dose: 234 mg Trazodone HCl (Trazodone Hcl 50 Mg Tablet) 50 mg PO BEDTIME PRN PRN Reason: Insomnia Last Admin: 11/24/22 21:55 Dose: 50 mg Allergies Allergies Allergy/AdvReac Type Severity Reaction Status Date / Time No Known Allergies Allergy Verified 09/05/22 21:55 Assessment & Plan Assessment & Plan (1) Schizophrenia, 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 Zabala is a 37 year-old male, on community Parsons/guardian, with hx of schizophrenia. He resides at from [facility] for about one year. Since then, per staff, pt has had about 12 inpatient admission. Pt was recently discharged from medical floor after being treated for pneumonia. The day after pt was described as disorganized, wondering the streets, laying on the streets. He was brought via EMS to [facility]. Utox is negative. Pt does have hx of cannabis use but this time it was negative. Pt presents with symptoms of catatonia including waxy flexibility, negativism, intermittent mutism and black stare. Pt has not missed dose of Invega Sustenna- he has been on 234mg IM which has been given on 09/15 while on M3, 10/17 in the community. Pt also on haldol 30mg po qhs. Will hold haldol given s/s of catatonia. Pt is on Parsons which expires today but extension has been filed and granted- per CM awating paperwork from court. Guardian is his father- Joe Wells [phone]. PLAN 3 day Q 15 minute checks DC Xeralto (pt now walks davis w/ prompting) Continue ativan 4mg po QID- for continued catatonia (up from 2mg) DC haldol due to likely cause of catatonia (started at most recent admission at [facility]) Received Invega Sustenna 234 mg IM on 11/13 HOLD Off on Invega Sustenna 156mg IM (due on by 11/20) since pt remains w/ catatonia Need to consider ECT if Ativan not effective Left voicemail for guardian (father) HOSPITAL COURSE: 11/06 continue ativan, monitor s/s catatonia. hold haldol until some improvement in s/s of catatonia. 11/07/22- continue current regime and plan of care. Pt denies all symptoms. 11/08/22- starting to hear reports of evening improvement. continue current plan for now. 11/09 file for involuntary tx due to inability to care for self due to catatonia. will restart lithium 300mg po BID. 11/10 slightly less mute, still with delayed response rate and appears internally preoccupied. will lower ativan continue monitor for worsening of s/s of catatonia. 11/11 less mute, more spontaneous in speech, less psychomotor retardation. 11/12 continue tx. Next Invega Sustenna 234mg IM due on 11/13/202211/13 He received Invega Sustenna 234mg IM today. continue to monitor exacerbation of catatonia. continue ativan 1mg po TID. 11/14/2022 No clear improvement to this point; Patient fearful M withdrawn 11/15/2022 No clear improvement question ECT 11/16 patient remains with catatonic symptoms; staff reports patient is doing a little better will continue with Ativan; still need collateral on baseline 11/17 restarted Ativan 2 mg t.i.d. since it accidentally fell off and patient's catatonic symptoms have worsened. Patient understands he has catatonia and signed a CV to remain on the unit longer for treatment 11/18 Patient remains with significant catatonic symptoms, slowed speech, slow movements, hardly getting out of bed at all, not eating much, but still seems to be drinking fluids adequately. Talked with patient's provider LESLIE Laurent who reports that over the past year she has only seen him 3 times because he ends up in the hospital so frequently. She says that typically he will get out of the hospital and within a few weeks eloped from the halfway, looking for cannabis; once he starts smoking cannabis he is gets and all kinds of other substance abuse. She says he was last at [facility] where he was started on Haldol which seems the likely cause of this episode of catatonia. She says this admission was the 1st time he was not engaged in substance abuse. She says at baseline he is able to have a fluent conversation; she said his speech may be a little bit slowed but not much and talks spontaneously without any latency or thought blocking. She agrees that current presentation sounds like catatonia 11/19 patient agrees to increasing Ativan if needed; discussed possibility of ECT which he said he agreed to consider (patient on [facility] and has a guardian and is not able to consent) 11/20 No change, patient remains lying in bed, moving very slowly, significant speech latency, talking slowly. Hardly eating (though continues to drink fluids). Agrees to increase Ativan. Discussed situation with legal arm of the team; as patient is currently on a Parsons order with a guardian, he cannot consent to ECT. Hopefully with increased Ativan, catatonic symptoms will break. Discussed treatment for catatonia with colleagues with 2 different thoughts, one going as high as 16 mg per day, another hesitant to go above 8 mg. Since no improvement thus far resume writer decided to split the difference and increased to total of 12 mg daily (there is little harm in going to higher doses of ativan other than it makes tapering off a more lengthy process) 11/21/22 Continue with current treatment plan 11/22/22 Continue treatmetn plan 11/23 pt some improvement, showering yesterday, sat in on a group and willing to walk the davis each shift to avoid DVT. However, when not prompted, stays in bed, hardly moving, eating very little, significant psycomotor retardation and speech latency. Agrees to increase ativan; says he is open to ECT if he needs it but his parents, father who is guardian, is against it. Later in day, pt signed 3 day. Thus, Will increase Ativan to 4mg qid (total daily dose of 16mg) in hopes for effect. His improvement is minimal and he remains at significant risk for continued and worsening catatonic symptoms. Will reach out to Father/guardian; will dc Xeralto since walking periodically during day. 11/24 patient remains with retarded catatonia with Inhibited movements, posturing, blankly staring; poor food intake; Though thankfully seems to be adequate fluid intake. currently no longer at risk for DVT; since patient is now walking with prompting. Has insight to know that he has catatonia; however while he seems to understand that without treatment this is a high risk of it worsening and that it can become life-threatening and despite expressing he wants to live and wants treatment, he is not yet willing to retract his 3 day notice and commit to staying for treatment. Patient says that his parents want him out of the hospital and do not want him to get ECT. [employer] Representative explained again that the only treatments for catatonia are benzodiazepines and ECT which patient said he understood. -patient is catatonic and remains with significantly impaired functioning. [employer] Representative reviewed literature on catatonia in [employer] and standard treatment is that if benzodiazepines are not effectively resolving catatonia within 1 week, ECT becomes the next and only other treatment option and should be started promptl; otherwise risk catatonia developing into a malignant catatonia which can be life-threatening (malignant catatonia which is associated with fever, autonomic instability (hypertension/hypotension, tachycardia, tachypnea, diaphoresis, delirium, rigidity and ). Additionally patient is on only half his regular dose of lithium and did not get full dose of Invega Sustenna leaving his psychotic illness only partially treated. Patient requires prompting to do ADLs. At this time, patient is not safe for discharge, needs continued treatment with [facility]. If patient does not retract his 3 day notice will very likely petitioned the court for involuntary commitment and substituted judgment for treatment. -resume writer has reached out to father who is patient's guardian and left a voicemail. -Focused neuro exam: No upper/lower limb stiffness or rigidity; b/l patellar, triceps brachioradialis reflexes 2+/ WNL -No autonomic instability and low concern for NMS however ordered WBC, CPK; LDH; also ordered bun/Cr given patient on lithium and also lying in bed much of the day with some mildly increased risk for rhabdo 11/25 Patient remains with catatonic symptoms, hardly moving hardly talking, with significant psychomotor retardation, speech latency; hardly eating so resume writer ordered ensure since he continues to drink fluid. [employer] Representative discussed patient's catatonic symptoms and he retracted is 3 day notice saying he wants to remain for treatment; he says he wants ECT. [employer] Representative discussed case with his father who is guardian. After discussing catatonia and treatment, patient's father/guardian said that he would agree with ECT treatment as long as his mother concurred and asked resume writer to call patient's mother Alejandrina. [employer] Representative discussed case with Alejandrina who also agreed with ECT given the lack of other options. 11/26 continue current treatment plan 11/27 remains with severe catatonic symptoms; will increase monitoring of vitals to t.i.d.; nursing staff informed to make sure patient walks the davis once per day to avoid DVT; otherwise to inform provider to consider DVT prophylaxis. Discussed case with colleague who recommended giving a 1 time extra Ativan dose to see if there was any benefit at all as a means to consider whether not to increase total daily Ativan dose. Discussed case with legal and filling out paperwork to amend [facility] with ECT. 11/28/2022: No changes to current plan. Reason for continued inpatient stay Substantial Risk for: inability to function Time Spent With Patient Time: Total time managing care of this patient today ____ minutes.
--- NOTE | 2022-11-28 17:59 | PC.NURSE ---
Patient ambulated in the hallway twice.
[2022-11-28 19:45] VITALS: BP 106/69; PULSE 100; TEMP 36.6; O2SAT 96
[2022-11-29] MEDS: LORazepam 1 MG TABLET 4 MG PO ×4 (08:44→21:29)
[2022-11-29] MEDS: Lithium Carbonate 300 MG CAPSULE PO ×2 (08:45→21:29)
[2022-11-29 08:50] VITALS: BP 117/73; PULSE 87; RESP 18; TEMP 36.2; O2SAT 98
[2022-11-29 13:00] VITALS: BP 120/74; PULSE 92; RESP 18; TEMP 36.3; O2SAT 96
--- NOTE | 2022-11-29 13:10 | HO.PSYCHPN ---
Subjective Subjective Date of Service: 11/29/22 Reason For Visit: schizoaffective d/o; bipolar type Interim History: Ongoing SCZ and catatonia. Patient has been accepting medication. Has been walking around once per shift. Noted some empty water bottles decide bed today and chocolate milk. Not eating breakfast. He does present as alert and oriented. Still hearing voices and they are negative in nature and upsetting. Reports feeling safe on the unit. Aware team pursuing ECT Medication Compliance: Yes Side effects from medications: No Attending Groups: No Review of Systems Review of Systems Nothing acute. Ongoing monitoring around mobilization and intake Mental Status Exam Mental Status Exam Narrative: in bed. For self-care. Is alert, but minimal engagement and psychomotor retardation. Endorses auditory hallucinations. Does appear paranoid and guarded. No evidence of SI or HI. Insight and judgment is limited Diagnostics Vital Signs (24Hr): Vital Signs - 24 hr 11/28/22 19:45 11/29/22 08:50 Temperature 97.8 F 97.2 F Pulse Rate 100 87 Respiratory Rate 18 Blood Pressure 106/69 117/73 Pulse Oximetry 96 98 Oxygen Delivery Method Room Air Room Air BMI result Body Mass Index 29.7 Labs 11/24/22 16:28 Medications Medications Current Medications Acetaminophen (Acetaminophen 325 Mg Tablet) 650 mg PO Q6H PRN PRN Reason: Headache/Pain Mild Scale (1-3) Al Hydroxide/Mg Hydroxide (Magnesium Hydrox/Alum Hydrox 30 Ml Oral.Susp) 30 ml PO Q6H PRN PRN Reason: Heartburn/Nausea Calcium Carbonate (Calcium Carbonate 750 Mg Tab.Chew) 750 mg PO BID [facility] Last Admin: 11/29/22 09:01 Dose: Not Given Hydroxyzine HCl (Hydroxyzine Hcl 25 Mg Tablet) 25 mg PO Q6H PRN PRN Reason: Anxiety [place] Carbonate ([place] Carbonate 300 Mg Capsule) 300 mg PO BID [facility] Last Admin: 11/29/22 08:45 Dose: 300 mg Lorazepam (Lorazepam 1 Mg Tablet) 4 mg PO QID [facility] Last Admin: 11/29/22 08:44 Dose: 4 mg Magnesium Hydroxide (Milk Of Magnesia 30 Ml Oral.Susp) 30 ml PO DAILY PRN PRN Reason: Constipation Last Admin: 11/17/22 19:43 Dose: 30 ml Paliperidone Palmitate (Paliperidone Palmitate 234 Mg/1.5 Ml Syringe) 234 mg IM Q30D [facility] Last Admin: 11/13/22 09:36 Dose: 234 mg Trazodone HCl (Trazodone Hcl 50 Mg Tablet) 50 mg PO BEDTIME PRN PRN Reason: Insomnia Last Admin: 11/24/22 21:55 Dose: 50 mg Allergies Allergies Allergy/AdvReac Type Severity Reaction Status Date / Time No Known Allergies Allergy Verified 09/05/22 21:55 Assessment & Plan Assessment & Plan (1) Schizophrenia, 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 Zabala is a 37 year-old male, on community Parsons/guardian, with hx of schizophrenia. He resides at from [facility] for about one year. Since then, per staff, pt has had about 12 inpatient admission. Pt was recently discharged from medical floor after being treated for pneumonia. The day after pt was described as disorganized, wondering the streets, laying on the streets. He was brought via EMS to [facility]. Utox is negative. Pt does have hx of cannabis use but this time it was negative. Pt presents with symptoms of catatonia including waxy flexibility, negativism, intermittent mutism and black stare. Pt has not missed dose of Invega Sustenna- he has been on 234mg IM which has been given on 09/15 while on M3, 10/17 in the community. Pt also on haldol 30mg po qhs. Will hold haldol given s/s of catatonia. Pt is on Parsons which expires today but extension has been filed and granted- per CM awating paperwork from court. Guardian is his father- Joe Wells [phone]. PLAN 3 day Q 15 minute checks DC Xeralto (pt now walks davis w/ prompting) Continue ativan 4mg po QID- for continued catatonia (up from 2mg) DC haldol due to likely cause of catatonia (started at most recent admission at [facility]) Received Invega Sustenna 234 mg IM on 11/13 HOLD Off on Invega Sustenna 156mg IM (due on by 11/20) since pt remains w/ catatonia Need to consider ECT if Ativan not effective Left voicemail for guardian (father) HOSPITAL COURSE: 11/06 continue ativan, monitor s/s catatonia. hold haldol until some improvement in s/s of catatonia. 11/07/22- continue current regime and plan of care. Pt denies all symptoms. 11/08/22- starting to hear reports of evening improvement. continue current plan for now. 11/09 file for involuntary tx due to inability to care for self due to catatonia. will restart lithium 300mg po BID. 11/10 slightly less mute, still with delayed response rate and appears internally preoccupied. will lower ativan continue monitor for worsening of s/s of catatonia. 11/11 less mute, more spontaneous in speech, less psychomotor retardation. 11/12 continue tx. Next Invega Sustenna 234mg IM due on 11/13/202211/13 He received Invega Sustenna 234mg IM today. continue to monitor exacerbation of catatonia. continue ativan 1mg po TID. 11/14/2022 No clear improvement to this point; Patient fearful M withdrawn 11/15/2022 No clear improvement question ECT 11/16 patient remains with catatonic symptoms; staff reports patient is doing a little better will continue with Ativan; still need collateral on baseline 11/17 restarted Ativan 2 mg t.i.d. since it accidentally fell off and patient's catatonic symptoms have worsened. Patient understands he has catatonia and signed a CV to remain on the unit longer for treatment 11/18 Patient remains with significant catatonic symptoms, slowed speech, slow movements, hardly getting out of bed at all, not eating much, but still seems to be drinking fluids adequately. Talked with patient's provider LESLIE Laurent who reports that over the past year she has only seen him 3 times because he ends up in the hospital so frequently. She says that typically he will get out of the hospital and within a few [facility], [facility]; once he starts smoking cannabis he is gets and all kinds of other substance abuse. She says he was last at [facility] where he was started on Haldol which seems the likely cause of this episode of catatonia. She says this admission was the 1st time he was not engaged in substance abuse. She says at baseline he is able to have a fluent conversation; she said his speech may be a little bit slowed but not much and talks spontaneously without any latency or thought blocking. She agrees that current presentation sounds like catatonia 11/19 patient agrees to increasing Ativan if needed; discussed possibility of ECT which he said he agreed to consider (patient on community Parsons and has a guardian and is not able to consent) 11/20 No change, patient remains lying in bed, moving very slowly, significant speech latency, talking slowly. Hardly eating (though continues to drink fluids). Agrees to increase Ativan. Discussed situation with legal arm of the team; as patient is currently on a Parsons order with a guardian, he cannot consent to ECT. Hopefully with increased Ativan, catatonic symptoms will break. Discussed treatment for catatonia with colleagues with 2 different thoughts, one going as high as 16 mg per day, another hesitant to go above 8 mg. Since no improvement thus far report writer decided to split the difference and increased to total of 12 mg daily (there is little harm in going to higher doses of ativan other than it makes tapering off a more lengthy process) 11/21/22 Continue with current treatment plan 11/22/22 Continue treatmetn plan 11/23 pt some improvement, showering yesterday, sat in on a group and willing to walk the davis each shift to avoid DVT. However, when not prompted, stays in bed, hardly moving, eating very little, significant psycomotor retardation and speech latency. Agrees to increase ativan; says he is open to ECT if he needs it but his parents, father who is guardian, is against it. Later in day, pt signed 3 day. Thus, Will increase Ativan to 4mg qid (total daily dose of 16mg) in hopes for effect. His improvement is minimal and he remains at significant risk for continued and worsening catatonic symptoms. Will reach out to Father/guardian; will dc Xeralto since walking periodically during day. 11/24 patient remains with retarded catatonia with Inhibited movements, posturing, blankly staring; poor food intake; Though thankfully seems to be adequate fluid intake. currently no longer at risk for DVT; since patient is now walking with prompting. Has insight to know that he has catatonia; however while he seems to understand that without treatment this is a high risk of it worsening and that it can become life-threatening and despite expressing he wants to live and wants treatment, he is not yet willing to retract his 3 day notice and commit to staying for treatment. Patient says that his parents want him out of the hospital and do not want him to get ECT. Communications Systems Engineer explained again that the only treatments for catatonia are benzodiazepines and ECT which patient said he understood. -patient is catatonic and remains with significantly impaired functioning. Communications Systems Engineer reviewed literature on catatonia in [employer] and standard treatment is that if benzodiazepines are not effectively resolving catatonia within 1 week, ECT becomes the next and only other treatment option and should be started promptl; otherwise risk catatonia developing into a malignant catatonia which can be life-threatening (malignant catatonia which is associated with fever, autonomic instability (hypertension/hypotension, tachycardia, tachypnea, diaphoresis, delirium, rigidity and ). Additionally patient is on only half his regular dose of lithium and did not get full dose of Invega Sustenna leaving his psychotic illness only partially treated. Patient requires prompting to do ADLs. At this time, patient is not safe for discharge, needs continued treatment with jail. If patient does not retract his 3 day notice will very likely petitioned the court for involuntary commitment and substituted judgment for treatment. -report writer has reached out to father who is patient's guardian and left a voicemail. -Focused neuro exam: No upper/lower limb stiffness or rigidity; b/l patellar, triceps brachioradialis reflexes 2+/ WNL -No autonomic instability and low concern for NMS however ordered WBC, CPK; LDH; also ordered bun/Cr given patient on lithium and also lying in bed much of the day with some mildly increased risk for rhabdo 11/25 Patient remains with catatonic symptoms, hardly moving hardly talking, with significant psychomotor retardation, speech latency; hardly eating so report writer ordered ensure since he continues to drink fluid. Communications Systems Engineer discussed patient's catatonic symptoms and he retracted is 3 day notice saying he wants to remain for treatment; he says he wants ECT. Communications Systems Engineer discussed case with his father who is guardian. After discussing catatonia and treatment, patient's father/guardian said that he would agree with ECT treatment as long as his mother concurred and asked report writer to call patient's mother Alejandrina. Communications Systems Engineer discussed case with Alejandrina who also agreed with ECT given the lack of other options. 11/26 continue current treatment plan 11/27 remains with severe catatonic symptoms; will increase monitoring of vitals to t.i.d.; nursing staff informed to make sure patient walks the davis once per day to avoid DVT; otherwise to inform provider to consider DVT prophylaxis. Discussed case with colleague who recommended giving a 1 time extra Ativan dose to see if there was any benefit at all as a means to consider whether not to increase total daily Ativan dose. Discussed case with legal and filling out paperwork to amend [facility] with ECT. 11/29/2022: No changes to current plan. Reason for continued inpatient stay Substantial Risk for: inability to function Time Spent With Patient Time: Total time managing care of this patient today ____ minutes.
[2022-11-29 16:37] VITALS: BP 114/70; PULSE 102; TEMP 36.4; O2SAT 96
[2022-11-30] MEDS: LORazepam 1 MG TABLET 4 MG PO ×4 (08:15→20:53)
[2022-11-30] MEDS: Lithium Carbonate 300 MG CAPSULE PO ×2 (08:16→20:53)
[2022-11-30 08:30] VITALS: BP 118/86; PULSE 88; RESP 16; TEMP 36.7; O2SAT 95
--- NOTE | 2022-11-30 09:52 | P.PNPSI_ITS ---
Subjective Subjective Date of Service: 11/30/22 Reason For Visit: schizoaffective d/o; bipolar type Interim History: Met with patient; discussed with team; reviewed chart notes No change in presentation and remains catatonic, speaking little, eating very little, walking halls when prompted; did shower. Continues to drink fluid. After incoherent mumbling, patient whispered when am I getting ECT? And technical proposal writer explained legal process. -discussed case with Dr. Chavarria who agrees with current approach and medication regimen. Mental Status Exam Mental Status Exam Narrative: Pt is alert and oriented; behavior is slowed, quiet, remains in bed almost all day, eating very little; patient is not in physical distress; dressed in hospital attire with unkempt hair, but improved hygiene; mood is blunted; affect blunted; eye contact with a blank stare; Speech is latent, few words, slowed, low volume and monotone; significant psychomotor retardation present; thought process is marred by thought blocking but can be goal directed; Thought content is on treatment; no paranoid delusions expressed, though he will only drink bottled water; denies any SI/HI. Positive for Patients insight and judgment impaired. Diagnostics Vital Signs (24Hr): Vital Signs - 24 hr 11/29/22 13:00 11/29/22 16:37 11/30/22 08:30 Temperature 97.4 F 97.5 F 98.1 F Pulse Rate 92 102 H 88 Respiratory Rate 18 16 Blood Pressure 120/74 114/70 118/86 Pulse Oximetry 96 96 95 Oxygen Delivery Method Room Air Room Air Room Air BMI result Body Mass Index 29.7 Labs 11/24/22 16:28 Medications Medications Current Medications Acetaminophen (Acetaminophen 325 Mg Tablet) 650 mg PO Q6H PRN PRN Reason: Headache/Pain Mild Scale (1-3) Al Hydroxide/Mg Hydroxide (Magnesium Hydrox/Alum Hydrox 30 Ml Oral.Susp) 30 ml PO Q6H PRN PRN Reason: Heartburn/Nausea Calcium Carbonate (Calcium Carbonate 750 Mg Tab.Chew) 750 mg PO BID [facility] Last Admin: 11/30/22 09:48 Dose: Not Given Hydroxyzine HCl (Hydroxyzine Hcl 25 Mg Tablet) 25 mg PO Q6H PRN PRN Reason: Anxiety [place] Carbonate ([place] Carbonate 300 Mg Capsule) 300 mg PO BID [facility] Last Admin: 11/30/22 08:16 Dose: 300 mg Lorazepam (Lorazepam 1 Mg Tablet) 4 mg PO QID [facility] Last Admin: 11/30/22 08:15 Dose: 4 mg Magnesium Hydroxide (Milk Of Magnesia 30 Ml Oral.Susp) 30 ml PO DAILY PRN PRN Reason: Constipation Last Admin: 11/17/22 19:43 Dose: 30 ml Paliperidone Palmitate (Paliperidone Palmitate 234 Mg/1.5 Ml Syringe) 234 mg IM Q30D [facility] Last Admin: 11/13/22 09:36 Dose: 234 mg Trazodone HCl (Trazodone Hcl 50 Mg Tablet) 50 mg PO BEDTIME PRN PRN Reason: Insomnia Last Admin: 11/24/22 21:55 Dose: 50 mg Allergies Allergies Allergy/AdvReac Type Severity Reaction Status Date / Time No Known Allergies Allergy Verified 09/05/22 21:55 Assessment & Plan Assessment & Plan (1) Schizophrenia, 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 Zabala is a 37 year-old male, on community Parsons/guardian, with hx of schizophrenia. He resides at from [facility] for about one year. Since then, per staff, pt has had about 12 inpatient admission. Pt was recently discharged from medical floor after being treated for pneumonia. The day after pt was descr ibed as disorganized, wondering the streets, laying on the streets. He was brought via EMS to [facility]. Utox is negative. Pt does have hx of cannabis use but this time it was negative. Pt presents with symptoms of catatonia including waxy flexibility, negativism, intermittent mutism and black stare. Pt has not missed dose of Invega Sustenna- he has been on 234mg IM which has been given on 09/15 while on M3, 10/17 in the community. Pt also on haldol 30mg po qhs. Will hold haldol given s/s of catatonia. Pt is on Parsons which expires today but extension has been filed and granted- per CM awating paperwork from court. Guardian is his father- Joe Wells [phone]. PLAN CV Q 15 minute checks Hope for ECT Pursuing legal paperwork/affidavit for ECT DC Xeralto (pt now walks davis w/ prompting) Continue ativan 4mg po QID- for continued catatonia (up from 2mg) DC haldol due to likely cause of catatonia (started at most recent admission at [facility]) Received Invega Sustenna 234 mg IM on 11/13 HOLD Off on Invega Sustenna 156mg IM (due on by 11/20) since pt remains w/ catatonia HOSPITAL COURSE: 11/06 continue ativan, monitor s/s catatonia. hold haldol until some improvement in s/s of catatonia. 11/07/22- continue current regime and plan of care. Pt denies all symptoms. 11/08/22- starting to hear reports of evening improvement. continue current plan f or now. 11/09 file for involuntary tx due to inability to care for self due to catatonia. will restart lithium 300mg po BID. 11/10 slightly less mute, still with delayed response rate and appears internally preoccupied. will lower ativan continue monitor for worsening of s/s of catatonia. 11/11 less mute, more spontaneous in speech, less psychomotor retardation. 11/12 continue tx. Next Invega Sustenna 234mg IM due on 11/13/202211/13 He received Invega Sustenna 234mg IM today. continue to monitor exace rbation of catatonia. continue ativan 1mg po TID. 11/14/2022 No clear improvement to this point; Patient fearful M withdrawn 11/15/2022 No clear improvement question ECT 11/16 patient remains with catatonic symptoms; staff reports patient is doing a little better will continue with Ativan; still need collateral on baseline 11/17 restarted Ativan 2 mg t.i.d. since it accidentally fell off and patient's catatonic symptoms have worsened. Patient understands he has catatonia and signed a CV to remain on the unit longer for treatment 11/18 Patient remains with significant catatonic symptoms, slowed speech, slow movements, hardly getting out of bed at all, not eating much, but still seems to be drinking fluids adequately. Talked with patient's provider LESLIE Laurent who reports that over the past year she has only seen him 3 times because he ends up in the hospital so frequently. She says that typically he will get out of the hospital and within a few weeks [facility] from the [facility], looking for cannabis; once he starts smoking cannabis he is gets and all kinds of other substance abuse. She says he was last at [facility] where he was started on Haldol which seems the likely cause of this episode of catatonia. She says this admission was the 1st time he was not engaged in substance abuse. She says at baseline he is able to have a fluent conversation; she said his speech may be a little bit slowed but not much and talks spontaneously without any latency or thought blocking. She agrees that current presentation sounds like catatonia 11/19 patient agrees to increasing Ativan if needed; discussed possibility of ECT which he said he agreed to consider (patient on [facility] Parsons and has a guardian and is not able to consent) 11/20 No change, patient remains lying in bed, moving very slowly, significant speech latency, talking slowly. Hardly eating (though continues to drink fluids). Agrees to increase Ativan. Discussed situation with legal arm of the team; as patient is currently on a Parsons order with a guardian, he cannot consent to ECT. Hopefully with increased Ativan, catatonic symptoms will break. Discussed treatment for catatonia with colleagues with 2 different thoughts, one going as high as 16 mg per day, another hesitant to go above 8 mg. Since no improvement thus far technical proposal writer decided to split the difference and increased to total of 12 mg daily (there is little harm in going to higher doses of ativan other than it makes tapering off a more lengthy process) 11/21/22 Continue with current treatment plan 11/22/22 Continue treatmetn plan 11/23 pt some improvement, showering yesterday, sat in on a group and willing to walk the davis each shift to avoid DVT. However, when not prompted, stays in bed, hardly moving, eating very little, significant psycomotor retardation and speech latency. Agrees to increase ativan; says he is open to ECT if he needs it but his parents, father who is guardian, is against it. Later in day, pt signed 3 day. Thus, Will increase Ativan to 4mg qid (total daily dose of 16mg) in hopes for effect. His improvement is minimal and he remains at significant risk for continued and worsening catatonic symptoms. Will reach out to Father/guardian; will dc Xeralto since walking periodically during day. 11/24 patient remains with retarded catatonia with Inhibited movements, posturing, blankly staring; poor food intake; Though thankfully seems to be adequate fluid intake. currently no longer at risk for DVT; since patient is now walking with prompting. Has insight to know that he has catatonia; however while he seems to understand that without treatment this is a high risk of it worsening and that it can become life-threatening and despite expressing he wants to live and wants treatment, he is not yet willing to retract his 3 day notice and commit to staying for treatment. Patient says that his parents want him out of the hospital and do not want him to get ECT. Before School explained again that the only treatments for catatonia are benzodiazepines and ECT which patient said he understood. -patient is catatonic and remains with significantly impaired functioning. Before School reviewed literature on catatonia in [employer]To[employer] and standard treatment is that if benzodiazepines are not effectively resolving catatonia within 1 week, ECT becomes the next and only other treatment option and should be started promptl; otherwise risk catatonia developing into a malignant catatonia which can be life-threatening (malignant catatonia which is associated with fever, autonomic instability (hypertension/hypotension, tachycardia, tachypnea, diaphoresis, delirium, rigidity and ). Additionally patient is on only half his regular dose of lithium and did not get full dose of Invega Sustenna leaving his psychotic illness only partially treated. Patient requires prompting to do ADLs. At this time, patient is not safe for discharge, needs continued treatment [facility]. If patient does not retract his 3 day notice will very likely petitioned the court for involuntary commitment and substituted judgment for treatment. -technical proposal writer has reached out to father who is patient's guardian and left a voicemail. -Focused neuro exam: No upper/lower limb stiffness or rigidity; b/l patellar, triceps brachioradialis reflexes 2+/ WNL -No autonomic instability and low concern for NMS however ordered WBC, CPK; LDH; also ordered bun/Cr given patient on lithium and also lying in bed much of the day with some mildly increased risk for rhabdo 11/25 Patient remains with catatonic symptoms, hardly moving hardly talking, with significant psychomotor retardation, speech latency; hardly eating so technical proposal writer ordered ensure since he continues to drink fluid. Before School discussed patient's catatonic symptoms and he retracted is 3 day notice saying he wants to remain for treatment; he says he wants ECT. Before School discussed case with his father who is guardian. After discussing catatonia and treatment, patient's father/guardian said that he would agree with ECT treatment as long as his mother concurred and asked technical proposal writer to call patient's mother Alejandrina. Before School discussed case with Alejandrina who also agreed with ECT given the lack of other options. 11/26 continue current treatment plan 11/27 remains with severe catatonic symptoms; will increase monitoring of vitals to t.i.d.; nursing staff informed to make sure patient walks the davis once per day to avoid DVT; otherwise to inform provider to consider DVT prophylaxis. Discussed case with colleague who recommended giving a 1 time extra Ativan dose to see if there was any benefit at all as a means to consider whether not to increase total daily Ativan dose. Discussed case with legal and filling out paperwork to amend [facility] with ECT. 11/29/2022: No changes to current plan. 11/30 patient remains catatonic; continue with efforts to procure treatment for ECT and submitted affidavit Patient's mother left voicemail saying that he has a long history of trauma; also that she hopes will be at the lowest dose of medication possible and reiterated ideas about a new [facility] Patient educated on: diagnosis and medication risk/benefits Informed Consent: understands and further education needed Reason for continued inpatient stay Substantial Risk for: inability to function Time Spent With Patient Time: Total time managing care of this patient today ____ minutes.
[2022-11-30 13:00] VITALS: BP 116/74; PULSE 89; RESP 16; TEMP 36.9; O2SAT 95
[2022-11-30 18:30] VITALS: BP 119/80; PULSE 115; TEMP 36.2
[2022-11-30 20:32] VITALS: BP 132/78; PULSE 93; RESP 18; TEMP 36.7; O2SAT 99
[2022-12-01 09:10] VITALS: BP 121/73; PULSE 99; RESP 18; TEMP 36.6; O2SAT 95
[2022-12-01] MEDS: Lithium Carbonate 300 MG CAPSULE PO ×2 (09:25→20:25)
[2022-12-01] MEDS: LORazepam 1 MG TABLET 4 MG PO ×4 (09:25→20:25)
--- NOTE | 2022-12-01 09:34 | HO.PSYCHPN ---
Subjective Subjective Date of Service: 12/01/22 Reason For Visit: schizoaffective d/o; bipolar type Interim History: met with patient; discussed with team Patient remains in bed, moving very little, hardly talking. Staff reports patient ate 0% of meal yesterday. station worker met with patient that with struggle, patient eventually express paranoid, delusional thinking, saying that voices told him to protect himself from a peer and that he has a paper index card that he is going to use for protection. Patient could not elaborate. With continued severe speech latency, patient said he does not want ECT... And said I don't have catatonia cause i was faking...Faking catatonia. Manager Servicing asked if patient was then able to demonstrate his baseline ability to walk, talk, interact however he remained in bed, slowly moving his arms in different positions, staring blankly and struggling to talk. Manager Servicing again explained catatonia saying that his trouble answering greeting card writer's question, getting his words out, moving is all due to catatonia. Patient then said he agreed maybe he does have catatonia. Patient's mother called and left a message wanted to discuss treatment, saying she still agreed with ECT and asked greeting card writer to again explain the reasons for ECT to patient. Mental Status Exam Mental Status Exam Narrative: Pt is alert and oriented; behavior is slowed, quiet, remains in bed almost all day, eating very little; patient is not in physical distress; dressed in hospital attire with unkempt hair, but improved hygiene; mood is blunted; affect blunted; eye contact with a blank stare; Speech is latent, few words, slowed, low volume and monotone; significant psychomotor retardation present; thought process is marred by thought blocking but can be goal directed; Thought content is on treatment; no paranoid delusions expressed, though he will only drink bottled water; denies any SI/HI. Positive for Patients insight and judgment impaired. Diagnostics Vital Signs (24Hr): Vital Signs - 24 hr 11/30/22 13:00 11/30/22 18:30 11/30/22 20:32 Temperature 98.5 F 97.1 F 98.0 F Pulse Rate 89 115 H 93 Respiratory Rate 16 18 Blood Pressure 116/74 119/80 132/78 Pulse Oximetry 95 99 Oxygen Delivery Method Room Air Room Air BMI result Body Mass Index 29.7 Labs 11/24/22 16:28 Medications Medications Current Medications Acetaminophen (Acetaminophen 325 Mg Tablet) 650 mg PO Q6H PRN PRN Reason: Headache/Pain Mild Scale (1-3) Al Hydroxide/Mg Hydroxide (Magnesium Hydrox/Alum Hydrox 30 Ml Oral.Susp) 30 ml PO Q6H PRN PRN Reason: Heartburn/Nausea Calcium Carbonate (Calcium Carbonate 750 Mg Tab.Chew) 750 mg PO BID [facility] Last Admin: 12/01/22 09:26 Dose: Not Given Hydroxyzine HCl (Hydroxyzine Hcl 25 Mg Tablet) 25 mg PO Q6H PRN PRN Reason: Anxiety [place] Carbonate ([place] Carbonate 300 Mg Capsule) 300 mg PO BID [facility] Last Admin: 12/01/22 09:25 Dose: 300 mg Lorazepam (Lorazepam 1 Mg Tablet) 4 mg PO QID [facility] Last Admin: 12/01/22 09:25 Dose: 4 mg Magnesium Hydroxide (Milk Of Magnesia 30 Ml Oral.Susp) 30 ml PO DAILY PRN PRN Reason: Constipation Last Admin: 11/17/22 19:43 Dose: 30 ml Paliperidone Palmitate (Paliperidone Palmitate 234 Mg/1.5 Ml Syringe) 234 mg IM Q30D [facility] Last Admin: 11/13/22 09:36 Dose: 234 mg Allergies Allergies Allergy/AdvReac Type Severity Reaction Status Date / Time No Known Allergies Allergy Verified 09/05/22 21:55 Assessment & Plan Assessment & Plan (1) Schizophrenia, 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 Zabala is a 37 year-old male, on community Parsons/guardian, with hx of schizophrenia. He resides at from [facility] for about one year. Since then, per staff, pt has had about 12 inpatient admission. Pt was recently discharged from medical floor after being treated for pneumonia. The day after pt was described as disorganized, wondering the streets, laying on the streets. He was brought via EMS to [facility]. Utox is negative. Pt does have hx of cannabis use but this time it was negative. Pt presents with symptoms of catatonia including waxy flexibility, negativism, intermittent mutism and black stare. Pt has not missed dose of Invega Sustenna- he has been on 234mg IM which has been given on 09/15 while on M3, 10/17 in the community. Pt also on haldol 30mg po qhs. Will hold haldol given s/s of catatonia. Pt is on Parsons which expires today but extension has been filed and granted- per CM awating paperwork from court. Guardian is his father- Joe Wells [phone]. PLAN CV Q 15 minute checks Hope for ECT Pursuing legal paperwork/affidavit for ECT DC Xeralto (pt now walks davis w/ prompting) Continue ativan 4mg po QID- for continued catatonia (up from 2mg) DC haldol due to likely cause of catatonia (started at most recent admission at [facility]) Received Invega Sustenna 234 mg IM on 11/13 HOLD Off on Invega Sustenna 156mg IM (due on by 11/20) since pt remains w/ catatonia HOSPITAL COURSE: 11/06 continue ativan, monitor s/s catatonia. hold haldol until some improvement in s/s of catatonia. 11/07/22- continue current regime and plan of care. Pt denies all symptoms. 11/08/22- starting to hear reports of evening improvement. continue current plan for now. 11/09 file for involuntary tx due to inability to care for self due to catatonia. will restart lithium 300mg po BID. 11/10 slightly less mute, still with delayed response rate and appears internally preoccupied. will lower ativan continue monitor for worsening of s/s of catatonia. 11/11 less mute, more spontaneous in speech, less psychomotor retardation. 11/12 continue tx. Next Invega Sustenna 234mg IM due on 11/13/202211/13 He received Invega Sustenna 234mg IM today. continue to monitor exacerbation of catatonia. continue ativan 1mg po TID. 11/14/2022 No clear improvement to this point; Patient fearful M withdrawn 11/15/2022 No clear improvement question ECT 11/16 patient remains with catatonic symptoms; staff reports patient is doing a little better will continue with Ativan; still need collateral on baseline 11/17 restarted Ativan 2 mg t.i.d. since it accidentally fell off and patient's catatonic symptoms have worsened. Patient understands he has catatonia and signed a CV to remain on the unit longer for treatment 11/18 Patient remains with significant catatonic symptoms, slowed speech, slow movements, hardly getting out of bed at all, not eating much, but still seems to be drinking fluids adequately. Talked with patient's provider LESLIE Laurent who reports that over the past year she has only seen him 3 times because he ends up in the hospital so frequently. She says that typically he will get out of the hospital and within a few weeks eloped from the residential, looking for cannabis; once he starts smoking cannabis he is gets and all kinds of other substance abuse. She says he was last at [facility] where he was started on Haldol which seems the likely cause of this episode of catatonia. She says this admission was the 1st time he was not engaged in substance abuse. She says at baseline he is able to have a fluent conversation; she said his speech may be a little bit slowed but not much and talks spontaneously without any latency or thought blocking. She agrees that current presentation sounds like catatonia 11/19 patient agrees to increasing Ativan if needed; discussed possibility of ECT which he said he agreed to consider (patient on community Parsons and has a guardian and is not able to consent) 11/20 No change, patient remains lying in bed, moving very slowly, significant speech latency, talking slowly. Hardly eating (though continues to drink fluids). Agrees to increase Ativan. Discussed situation with legal arm of the team; as patient is currently on a Parsons order with a guardian, he cannot consent to ECT. Hopefully with increased Ativan, catatonic symptoms will break. Discussed treatment for catatonia with colleagues with 2 different thoughts, one going as high as 16 mg per day, another hesitant to go above 8 mg. Since no improvement thus far greeting card writer decided to split the difference and increased to total of 12 mg daily (there is little harm in going to higher doses of ativan other than it makes tapering off a more lengthy process) 11/21/22 Continue with current treatment plan 11/22/22 Continue treatmetn plan 11/23 pt some improvement, showering yesterday, sat in on a group and willing to walk the davis each shift to avoid DVT. However, when not prompted, stays in bed, hardly moving, eating very little, significant psycomotor retardation and speech latency. Agrees to increase ativan; says he is open to ECT if he needs it but his parents, father who is guardian, is against it. Later in day, pt signed 3 day. Thus, Will increase Ativan to 4mg qid (total daily dose of 16mg) in hopes for effect. His improvement is minimal and he remains at significant risk for continued and worsening catatonic symptoms. Will reach out to Father/guardian; will dc Xeralto since walking periodically during day. 11/24 patient remains with retarded catatonia with Inhibited movements, posturing, blankly staring; poor food intake; Though thankfully seems to be adequate fluid intake. currently no longer at risk for DVT; since patient is now walking with prompting. Has insight to know that he has catatonia; however while he seems to understand that without treatment this is a high risk of it worsening and that it can become life-threatening and despite expressing he wants to live and wants treatment, he is not yet willing to retract his 3 day notice and commit to staying for treatment. Patient says that his parents want him out of the hospital and do not want him to get ECT. Manager Servicing explained again that the only treatments for catatonia are benzodiazepines and ECT which patient said he understood. -patient is catatonic and remains with significantly impaired functioning. Manager Servicing reviewed literature on catatonia in [employer]To[employer] and standard treatment is that if benzodiazepines are not effectively resolving catatonia within 1 week, ECT becomes the next and only other treatment option and should be started promptl; otherwise risk catatonia developing into a malignant catatonia which can be life-threatening (malignant catatonia which is associated with fever, autonomic instability (hypertension/hypotension, tachycardia, tachypnea, diaphoresis, delirium, rigidity and ). Additionally patient is on only half his regular dose of lithium and did not get full dose of Invega Sustenna leaving his psychotic illness only partially treated. Patient requires prompting to do ADLs. At this time, patient is not safe for discharge, needs continued treatment with detention. If patient does not retract his 3 day notice will very likely petitioned the court for involuntary commitment and substituted judgment for treatment. -greeting card writer has reached out to father who is patient's guardian and left a voicemail. -Focused neuro exam: No upper/lower limb stiffness or rigidity; b/l patellar, triceps brachioradialis reflexes 2+/ WNL -No autonomic instability and low concern for NMS however ordered WBC, CPK; LDH; also ordered bun/Cr given patient on lithium and also lying in bed much of the day with some mildly increased risk for rhabdo 11/25 Patient remains with catatonic symptoms, hardly moving hardly talking, with significant psychomotor retardation, speech latency; hardly eating so greeting card writer ordered ensure since he continues to drink fluid. Manager Servicing discussed patient's catatonic symptoms and he retracted is 3 day notice saying he wants to remain for treatment; he says he wants ECT. Manager Servicing discussed case with his father who is guardian. After discussing catatonia and treatment, patient's father/guardian said that he would agree with ECT treatment as long as his mother concurred and asked greeting card writer to call patient's mother Alejandrina. Manager Servicing discussed case with Alejandrina who also agreed with ECT given the lack of other options. 11/26 continue current treatment plan 11/27 remains with severe catatonic symptoms; will increase monitoring of vitals to t.i.d.; nursing staff informed to make sure patient walks the davis once per day to avoid DVT; otherwise to inform provider to consider DVT prophylaxis. Discussed case with colleague who recommended giving a 1 time extra Ativan dose to see if there was any benefit at all as a means to consider whether not to increase total daily Ativan dose. Discussed case with legal and filling out paperwork to amend Parsons with ECT. 11/29/2022: No changes to current plan. 11/30 patient remains catatonic; continue with efforts to procure treatment for ECT and submitted affidavit Patient's mother left voicemail saying that he has a long history of trauma; also that she hopes will be at the lowest dose of medication possible and reiterated ideas about a new residential 12/01, auditory hallucinations and paranoid delusions; impaired insight and judgment prevail. Continued catatonic symptoms Patient educated on: diagnosis, medication risk/benefits and ECT Informed Consent: does not understand and further education needed Reason for continued inpatient stay Substantial Risk for: inability to function Time Spent With Patient Time: Total time managing care of this patient today ____ minutes.
[2022-12-01 13:25] VITALS: BP 116/71; PULSE 93; RESP 18; TEMP 36.8; O2SAT 95
[2022-12-01 19:10] VITALS: BP 113/68; PULSE 102; TEMP 36.1
[2022-12-02 08:30] VITALS: BP 117/73; PULSE 93; RESP 18; TEMP 36; O2SAT 95
[2022-12-02] MEDS: Lithium Carbonate 300 MG CAPSULE PO ×2 (08:42→20:02)
[2022-12-02] MEDS: LORazepam 1 MG TABLET 4 MG PO ×4 (08:43→20:02)
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
[2022-12-02 13:00] VITALS: BP 136/93; PULSE 103; RESP 18; TEMP 36.2; O2SAT 97
[2022-12-02 16:51] VITALS: BP 118/77; PULSE 96; TEMP 36.2
[2022-12-02] MEDS: Melatonin 3 MG TABLET PO (21:16)
--- NOTE | 2022-12-02 21:33 | PC.NURSE ---
At 2109 pt came to RN and asked for Melatonin, quality control lead provider notified. New order for Melatonin 3 mg bedtime PRN
[2022-12-03] MEDS: LORazepam 1 MG TABLET 4 MG PO ×4 (08:12→20:04)
[2022-12-03] MEDS: Lithium Carbonate 300 MG CAPSULE PO ×2 (08:12→20:04)
[2022-12-03 08:15] VITALS: BP 121/73; PULSE 85; RESP 18
--- NOTE | 2022-12-03 08:56 | P.PNPSI_ITS ---
Subjective Subjective Date of Service: 12/03/22 Reason For Visit: schizoaffective d/o; bipolar type Interim History: Met with patient; discussed with team Met with patient as he was walking the davis. He agreed that he is walking very slowly and cannot walk any faster and that this is not his baseline ability; when turning around patient needed to do multiple shuffle steps. Rn Circulating again explained the effects of catatonia. Patient said he is feeling nauseous from the Ativan however does not want any medication for nausea and agrees to continue taking Ativan, not wanting catatonic symptoms to worsen. It is not clear if patient's symptoms are improving Mental Status Exam Mental Status Exam Narrative: Pt is alert and oriented; behavior is slowed, quiet, remains in bed almost all day, eating very little; patient is not in physical distress; dressed in hospital attire with unkempt hair, but improved hygiene; mood is blunted; affect blunted; eye contact with a blank stare; Speech is latent, few words, slowed, low volume and monotone; significant psychomotor retardation present; thought process is marred by thought blocking but can be goal directed; Thought content is on treatment; no paranoid delusions expressed, though he will only drink bottled water; denies any SI/HI. Positive for Patients insight and judgment impaired. Diagnostics Vital Signs (24Hr): Vital Signs - 24 hr 12/02/22 13:00 12/02/22 16:51 12/03/22 08:15 Temperature 97.1 F 97.1 F Pulse Rate 103 H 96 85 Respiratory Rate 18 18 Blood Pressure 136/93 H 118/77 121/73 Pulse Oximetry 97 Oxygen Delivery Method Room Air Room Air BMI result Body Mass Index 29.7 Labs 11/24/22 16:28 Medications Medications Current Medications Acetaminophen (Acetaminophen 325 Mg Tablet) 650 mg PO Q6H PRN PRN Reason: Headache/Pain Mild Scale (1-3) Al Hydroxide/Mg Hydroxide (Magnesium Hydrox/Alum Hydrox 30 Ml Oral.Susp) 30 ml PO Q6H PRN PRN Reason: Heartburn/Nausea Calcium Carbonate (Calcium Carbonate 750 Mg Tab.Chew) 750 mg PO BID [facility] Last Admin: 12/03/22 08:13 Dose: Not Given Hydroxyzine HCl (Hydroxyzine Hcl 25 Mg Tablet) 25 mg PO Q6H PRN PRN Reason: Anxiety [place] Carbonate ([place] Carbonate 300 Mg Capsule) 300 mg PO BID [facility] Last Admin: 12/03/22 08:12 Dose: 300 mg Lorazepam (Lorazepam 1 Mg Tablet) 4 mg PO QID [facility] Last Admin: 12/03/22 08:12 Dose: 4 mg Magnesium Hydroxide (Milk Of Magnesia 30 Ml Oral.Susp) 30 ml PO DAILY PRN PRN Reason: Constipation Last Admin: 11/17/22 19:43 Dose: 30 ml Melatonin (Melatonin 3 Mg Tablet) 3 mg PO BEDTIME PRN PRN Reason: Insomnia Last Admin: 12/02/22 21:16 Dose: 3 mg Paliperidone Palmitate (Paliperidone Palmitate 234 Mg/1.5 Ml Syringe) 234 mg IM Q30D [facility] Last Admin: 11/13/22 09:36 Dose: 234 mg Allergies Allergies Allergy/AdvReac Type Severity Reaction Status Date / Time No Known Allergies Allergy Verified 09/05/22 21:55 Assessment & Plan Assessment & Plan (1) Schizophrenia, 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 Zabala is a 37 year-old male, on community Parsons/guardian, with hx of schizophrenia. He resides at from [facility] for about one year. Since then, per staff, pt has had about 12 inpatient admission. Pt was recently discharged from medical floor after being treated for pneumonia. The day after pt was aretha cribed as disorganized, wondering the streets, laying on the streets. He was brought via EMS to [facility]. Utox is negative. Pt does have hx of cannabis use but this time it was negative. Pt presents with symptoms of catatonia including waxy flexibility, negativism, intermittent mutism and black stare. Pt has not missed dose of Invega Sustenna- he has been on 234mg IM which has been given on 09/15 while on M3, 10/17 in the community. Pt also on haldol 30mg po qhs. Will hold haldol given s/s of catatonia. Pt is on Parsons which expires today but extension has been filed and granted- per CM awating paperwork from court. Guardian is his father- Joe Wells [phone]. PLAN CV Q 15 minute checks Hope for ECT Pursuing legal paperwork/affidavit for ECT DC Xeralto (pt now walks davis w/ prompting) Continue ativan 4mg po QID- for continued catatonia (up from 2mg) DC haldol due to likely cause of catatonia (started at most recent admission at [facility]) Received Invega Sustenna 234 mg IM on 11/13 HOLD Off on Invega Sustenna 156mg IM (due on by 11/20) since pt remains w/ catatonia HOSPITAL COURSE: 11/06 continue ativan, monitor s/s catatonia. hold haldol until some improvement in s/s of catatonia. 11/07/22- continue current regime and plan of care. Pt denies all symptoms. 11/08/22- starting to hear reports of evening improvement. continue current plan for now. 11/09 file for involuntary tx due to inability to care for self due to catatonia. will restart lithium 300mg po BID. 11/10 slightly less mute, still with delayed response rate and appears internally preoccupied. will lower ativan continue monitor for worsening of s/s of catatonia. 11/11 less mute, more spontaneous in speech, less psychomotor retardation. 11/12 continue tx. Next Invega Sustenna 234mg IM due on 11/13/202211/13 He received Invega Sustenna 234mg IM today. continue to monitor exa cerbation of catatonia. continue ativan 1mg po TID. 11/14/2022 No clear improvement to this point; Patient fearful M withdrawn 11/15/2022 No clear improvement question ECT 11/16 patient remains with catatonic symptoms; staff reports patient is doing a little better will continue with Ativan; still need collateral on baseline 11/17 restarted Ativan 2 mg t.i.d. since it accidentally fell off and patient's catatonic symptoms have worsened. Patient understands he has catatonia and signed a CV to remain on the unit longer for treatment 11/18 Patient remains with significant catatonic symptoms, slowed speech, slow movements, hardly getting out of bed at all, not eating much, but still seems to be drinking fluids adequately. Talked with patient's provider LESLIE Laurent who reports that over the past year she has only seen him 3 times because he ends up in the hospital so frequently. She says that typically he will get out of the hospital and within a few weeks eloped from the shelter, looking for cannabis; once he starts smoking cannabis he is gets and all kinds of other substance abuse. She says he was last at [facility] where he was started on Haldol which seems the likely cause of this episode of catatonia. She says this admission was the 1st time he was not engaged in substance abuse. She says at baseline he is able to have a fluent conversation; she said his speech may be a little bit slowed but not much and talks spontaneously without any latency or thought blocking. She agrees that current presentation sounds like catatonia 11/19 patient agrees to increasing Ativan if needed; discussed possibility of ECT which he said he agreed to consider (patient on [facility] Parsons and has a guardian and is not able to consent) 11/20 No change, patient remains lying in bed, moving very slowly, significant speech latency, talking slowly. Hardly eating (though continues to drink fluids). Agrees to increase Ativan. Discussed situation with legal arm of the team; as patient is currently on a Parsons order with a guardian, he cannot consent to ECT. Hopefully with increased Ativan, catatonic symptoms will break. Discussed treatment for catatonia with colleagues with 2 different thoughts, one going as high as 16 mg per day, another hesitant to go above 8 mg. Since no improvement thus far inspector automatic typewriter decided to split the difference and increased to tot al of 12 mg daily (there is little harm in going to higher doses of ativan other than it makes tapering off a more lengthy process) 11/21/22 Continue with current treatment plan 11/22/22 Continue treatmetn plan 11/23 pt some improvement, showering yesterday, sat in on a group and willing to walk the davis each shift to avoid DVT. However, when not prompted, stays in bed, hardly moving, eating very little, significant psycomotor retardation and speech latency. Agrees to increase ativan; says he is open to ECT if he needs it but his parents, father who is guardian, is against it. Later in day, pt signed 3 day. Thus, Will increase Ativan to 4mg qid (total daily dose of 16mg) in hopes for effect. His improvement is minimal and he remains at significant risk for continued and worsening catatonic symptoms. Will reach out to Father/guardian; will dc Xeralto since walking periodically during day. 11/24 patient remains with retarded catatonia with Inhibited movements, posturing, blankly staring; poor food intake; Though thankfully seems to be adequate fluid intake. currently no longer at risk for DVT; since patient is now walking with prompting. Has insight to know that he has catatonia; however while he seems to understand that without treatment this is a high risk of it worsening and that it can become life-threatening and despite expressing he wants to live and wants treatment, he is not yet willing to retract his 3 day notice and commit to staying for treatment. Patient says that his parents want him out of the hospital and do not want him to get ECT. Rn Circulating explained again that the only treatments for catatonia are benzodiazepines and ECT which patient said he understood. -patient is catatonic and remains with significantly impaired functioning. Rn Circulating reviewed literature on catatonia in [employer]To[employer] and standard treatment is that if benzodiazepines are not effectively resolving catatonia within 1 week, ECT becomes the next and only other treatment option and should be started promptl; otherwise risk catatonia developing into a malignant catatonia which can be life-threatening (malignant catatonia which is associated with fever, autonomic instability (hypertension/hypotension, tachycardia, tachypnea, diaphoresis, delirium, rigidity and ). Additionally patient is on only half his regular dose of lithium and did not get full dose of Invega Sustenna leaving his psychotic illness only partially treated. Patient requires prompting to do ADLs. At this time, patient is not safe for discharge, needs continued treatment with fpc. If patient does not retract his 3 day notice will very likely petitioned the court for involuntary commitment and substituted judgment for treatment. -inspector automatic typewriter has reached out to father who is patient's guardian and left a voicemail. -Focused neuro exam: No upper/lower limb stiffness or rigidity; b/l patellar, triceps brachioradialis reflexes 2+/ WNL -No autonomic instability and low concern for NMS however ordered WBC, CPK; LDH; also ordered bun/Cr given patient on lithium and also lying in bed much of the d ay with some mildly increased risk for rhabdo 11/25 Patient remains with catatonic symptoms, hardly moving hardly talking, with significant psychomotor retardation, speech latency; hardly eating so inspector automatic typewriter ordered ensure since he continues to drink fluid. Rn Circulating discussed patient's catatonic symptoms and he retracted is 3 day notice saying he wants to remain for treatment; he says he wants ECT. Rn Circulating discussed case with his father who is guardian. After discussing catatonia and treatment, patient's father/guardian said that he would agree with ECT treatment as long as his mother concurred and asked inspector automatic typewriter to call patient's mother Alejandrina. Rn Circulating discussed case with Alejandrina who also agreed with ECT given the lack of other options. 11/26 continue current treatment plan 11/27 remains with severe catatonic symptoms; will increase monitoring of vitals to t.i.d.; nursing staff informed to make sure patient walks the davis once per day to avoid DVT; otherwise to inform provider to consider DVT prophylaxis. Discussed case with colleague who recommended giving a 1 time extra Ativan dose to see if there was any benefit at all as a means to consider whether not to increase total daily Ativan dose. Discussed case with legal and filling out paperwork to amend [facility] with ECT. 11/29/2022: No changes to current plan. 11/30 patient remains catatonic; continue with efforts to procure treatment for ECT and submitted affidavit Patient's mother left voicemail saying that he has a long history of trauma; also that she hopes will be at the lowest dose of medication possible and reiterated ideas about a new shelter 12/01, auditory hallucinations and paranoid delusions; impaired insight and judgment prevail. Continued catatonic symptoms 12/02 Patient seems a little bit better today. Still with very slow movements, speech latency, trouble getting words out however patient's deficiencies in these areas seem a little less severe. Cautiously hopeful that minimal improvement today will continue to increase. Continue current treatment regimen. 12/03 Met with patient as he was walking the davis. He agreed that he is walking very slowly and cannot walk any faster and that this is not his baseline ability; when turning around patient needed to do multiple shuffle steps. Rn Circulating again explained the effects of catatonia. Patient said he is feeling nauseous from the Ativan however does not want any medication for nausea and agrees to continue taking Ativan, not wanting catatonic symptoms to worsen. It is not clear if patient's symptoms are improving; continue current regimen Patient educated on: diagnosis and medication risk/benefits Informed Consent: understands, does not understand and further education needed Reason for continued inpatient stay Substantial Risk for: inability to function Time Spent With Patient Time: Total time managing care of this patient today ____ minutes.
[2022-12-03 13:00] VITALS: BP 113/67; PULSE 113; RESP 18
[2022-12-03 18:00] VITALS: BP 122/78; PULSE 78; RESP 16; TEMP 36.4; O2SAT 98
[2022-12-04 07:58] VITALS: BP 121/69; PULSE 92; RESP 18
[2022-12-04] MEDS: LORazepam 1 MG TABLET 4 MG PO ×4 (08:16→21:17)
[2022-12-04] MEDS: Lithium Carbonate 300 MG CAPSULE PO ×2 (08:16→21:17)
--- NOTE | 2022-12-04 10:26 | P.PNPSI_ITS ---
Subjective Subjective Date of Service: 12/04/22 Reason For Visit: schizoaffective d/o; bipolar type Interim History: Met with patient; discussed with team Unfortunately no change in presentation. Patient remains struggling to get words out, to move his body. Emergency Medicine Physician sat down with patient who is lying in bed with a Joaquin over his face. It took him about 30 seconds before he could get it off his face so he could look at senior grant writer. Emergency Medicine Physician again explained that this inability to move quickly or fluidly is due to catatonia patient shook his head yes. He agrees to continuing with Ativan treatment. Mental Status Exam Mental Status Exam Narrative: Pt is alert and oriented; behavior is slowed, quiet, remains in bed almost all day, eating very little; patient is not in physical distress; dressed in hospital attire with unkempt hair, but improved hygiene; mood is blunted; affect blunted; eye contact with a blank stare; Speech is latent, few words, slowed, low volume and monotone; significant psychomotor retardation present; thought process is marred by thought blocking but can be goal directed; Thought content is on treatment; no paranoid delusions expressed, though he will only drink bottled water; denies any SI/HI. Positive for AH Patients insight and judgment impaired. Diagnostics Vital Signs (24Hr): Vital Signs - 24 hr 12/03/22 13:00 12/03/22 18:00 12/04/22 07:58 Temperature 97.6 F Pulse Rate 113 H 78 92 Respiratory Rate 18 16 18 Blood Pressure 113/67 122/78 121/69 Pulse Oximetry 98 Oxygen Delivery Method Room Air Room Air BMI result Body Mass Index 29.7 Labs 11/24/22 16:28 Medications Medications Current Medications Acetaminophen (Acetaminophen 325 Mg Tablet) 650 mg PO Q6H PRN PRN Reason: Headache/Pain Mild Scale (1-3) Al Hydroxide/Mg Hydroxide (Magnesium Hydrox/Alum Hydrox 30 Ml Oral.Susp) 30 ml PO Q6H PRN PRN Reason: Heartburn/Nausea Calcium Carbonate (Calcium Carbonate 750 Mg Tab.Chew) 750 mg PO BID [facility] Last Admin: 12/04/22 08:16 Dose: Not Given Hydroxyzine HCl (Hydroxyzine Hcl 25 Mg Tablet) 25 mg PO Q6H PRN PRN Reason: Anxiety Clancy Carbonate (Clancy Carbonate 300 Mg Capsule) 300 mg PO BID [facility] Last Admin: 12/04/22 08:16 Dose: 300 mg Lorazepam (Lorazepam 1 Mg Tablet) 4 mg PO QID [facility] Last Admin: 12/04/22 08:16 Dose: 4 mg Magnesium Hydroxide (Milk Of Magnesia 30 Ml Oral.Susp) 30 ml PO DAILY PRN PRN Reason: Constipation Last Admin: 11/17/22 19:43 Dose: 30 ml Melatonin (Melatonin 3 Mg Tablet) 3 mg PO BEDTIME PRN PRN Reason: Insomnia Last Admin: 12/02/22 21:16 Dose: 3 mg Paliperidone Palmitate (Paliperidone Palmitate 234 Mg/1.5 Ml Syringe) 234 mg IM Q30D [facility] Last Admin: 11/13/22 09:36 Dose: 234 mg Allergies Allergies Allergy/AdvReac Type Severity Reaction Status Date / Time No Known Allergies Allergy Verified 09/05/22 21:55 Assessment & Plan Assessment & Plan (1) Schizophrenia, 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 Zabala is a 37 year-old male, on community [employer]/guardian, with hx of schi zophrenia. He resides at from [facility] for about one year. Since then, per staff, pt has had about 12 inpatient admission. Pt was recently discharged from medical floor after being treated for pneumonia. The day after pt was described as disorganized, wondering the streets, laying on the streets. He was brought via EMS to [facility]. Utox is negative. Pt does have hx of cannabis use but this time it was negative. Pt presents with symptoms of catatonia including waxy flexibility, negativism, intermittent mutism and black stare. Pt has not missed dose of Invega Sustenna- he has been on 234mg IM which has been given on 09/15 while on M3, 10/17 in the community. Pt also on haldol 30mg po qhs. Will hold haldol given s/s of catatonia. Pt is on [employer] which expires today but extension has been filed and granted- per CM awating paperwork from court. Guardian is his father- Joe Wells [phone]. PLAN CV Q 15 minute checks Hope for ECT Pursuing legal paperwork/affidavit for ECT DC Xeralto (pt now walks davis w/ prompting) Continue ativan 4mg po QID- for continued catatonia (up from 2mg) DC haldol due to likely cause of catatonia (started at most recent admission at [facility]) Received Invega Sustenna 234 mg IM on 11/13 HOLD Off on Invega Sustenna 156mg IM (due on by 11/20) since pt remains w/ catatonia HOSPITAL COURSE: 11/06 continue ativan, monitor s/s catatonia. hold haldol until some improvement in s/s of catatonia. 11/07/22- continue current regime and plan of care. Pt denies all symptoms. 11/08/22- starting to hear reports of evening improvement. continue current plan for now. 11/09 file for involuntary tx due to inability to care for self due to catatonia. will restart lithium 300mg po BID. 11/10 slightly less mute, still with delayed response rate and appears internally preoccupied. will lower ativan continue monitor for worsening of s/s of catatonia. 11/11 less mute, more spontaneous in speech, less psychomotor retardation. 11/12 continue tx. Next Invega Sustenna 234mg IM due on 11/13/202211/13 He received Invega Sustenna 234mg IM today. continue to monitor exacerbation of catatonia. continue ativan 1mg po TID. 11/14/2022 No clear improvement to this point; Patient fearful M withdrawn 11/15/2022 No clear improvement question ECT 11/16 patient remains with catatonic symptoms; staff reports patient is doing a little better will continue with Ativan; still need collateral on baseline 11/17 restarted Ativan 2 mg t.i.d. since it accidentally fell off and patient's catatonic symptoms have worsened. Patient understands he has catatonia and signed a CV to remain on the unit longer for treatment 11/18 Patient remains with significant catatonic symptoms, slowed speech, slow movements, hardly getting out of bed at all, not eating much, but still seems to be drinking fluids adequately. Talked with patient's provider LESLIE Laurent who reports that over the past year she has only seen him 3 times because he ends up in the hospital so frequently. She says that typically he will get out of the hospital and within a few weeks eloped from the detention, looking for cannabis; once he starts smoking cannabis he is gets and all kinds of other substance abuse. She says he was last at [facility] where he was started on Haldol which seems the likely cause of this episode of catatonia. She says this admission was the 1st time he was not engaged in substance abuse. She says at baseline he is able to have a fluent conversation; she said his speech may be a little bit slowed but not much and talks spontaneously without any latency or thought blocking. She agrees that current presentation sounds like catatonia 11/19 patient agrees to increasing Ativan if needed; discussed possibility of ECT which he said he agreed to consider (patient on [facility] Parsons and has a guardian and is not able to consent) 11/20 No change, patient remains lying in bed, moving very slowly, significant speech latency, talking slowly. Hardly eating (though continues to drink fluids). Agrees to increase Ativan. Discussed situation with legal arm of the team; as patient is currently on a Parsons order with a guardian, he cannot consent to ECT. Hopefully with increased Ativan, catatonic symptoms will break. Discussed treatment for catatonia with colleagues with 2 different thoughts, one going as high as 16 mg per day, another hesitant to go above 8 mg. Since no improvement thus far senior grant writer decided to split the difference and increased to total of 12 mg daily (there is little harm in going to higher doses of ativan other than it makes tapering off a more lengthy process) 11/21/22 Continue with current treatment plan 11/22/22 Continue treatmetn plan 11/23 pt some improvement, showering yesterday, sat in on a group and willing to walk the davis each shift to avoid DVT. However, when not prompted, stays in bed, hardly moving, eating very little, significant psycomotor retardation and speech latency. Agrees to increase ativan; says he is open to ECT if he needs it but his parents, father who is guardian, is against it. Later in day, pt signed 3 day. Thus, Will increase Ativan to 4mg qid (total daily dose of 16mg) in hopes for effect. His improvement is minimal and he remains at significant risk for continued and worsening catatonic symptoms. Will reach out to Father/guardian; will dc Xeralto since walking periodically during day. 8/22 patient remains with retarded catatonia with Inhibited movements, posturing, blankly staring; poor food intake; Though thankfully seems to be adequate fluid intake. currently no longer at risk for DVT; since patient is now walking with prompting. Has insight to know that he has catatonia; however while he seems to understand that without treatment this is a high risk of it worsening and that it can become life-threatening and despite expressing he wants to live and wants treatment, he is not yet willing to retract his 3 day notice and commit to staying for treatment. Patient says that his parents want him out of the hospital and do not want him to get ECT. Emergency Medicine Physician explained again that the only treatments for catatonia are benzodiazepines and ECT which patient said he understood. -patient is catatonic and remains with significantly impaired functioning. Emergency Medicine Physician reviewed literature on catatonia in [employer] and standard treatment is that if benzodiazepines are not effectively resolving catatonia within 1 week, ECT becomes the next and only other treatment option and should be started promptl; otherwise risk catatonia developing into a malignant catatonia which can be life-threatening (malignant catatonia which is associated with fever, aut onomic instability (hypertension/hypotension, tachycardia, tachypnea, diaphoresis, delirium, rigidity and ). Additionally patient is on only half his regular dose of lithium and did not get full dose of Invega Sustenna leaving his psychotic illness only partially treated. Patient requires prompting to do ADLs. At this time, patient is not safe for discharge, needs continued treatment with senior care. If patient does not retract his 3 day notice will very likely petitioned the court for involuntary commitment and substituted judgment for treatment. -senior grant writer has reached out to father who is patient's guardian and left a voicemail. -Focused neuro exam: No upper/lower limb stiffness or rigidity; b/l patellar, triceps brachioradialis reflexes 2+/ WNL -No autonomic instability and low concern for NMS however ordered WBC, CPK; LDH; also ordered bun/Cr given patient on lithium and also lying in bed much of the day with some mildly increased risk for rhabdo 11/25 Patient remains with catatonic symptoms, hardly moving hardly talking, with significant psychomotor retardation, speech latency; hardly eating so senior grant writer ordered ensure since he continues to drink fluid. Emergency Medicine Physician discussed patient's catatonic symptoms and he retracted is 3 day notice saying he wants to remain for treatment; he says he wants ECT. Emergency Medicine Physician discussed case with his father who is guardian. After discussing catatonia and treatment, patient's father/guardian said that he would agree with ECT treatment as long as his mother concurred and asked senior grant writer to call patient's mother Alejandrina. Emergency Medicine Physician discussed case with Alejandrina who also agreed with ECT given the lack of other options. 11/26 continue current treatment plan 11/27 remains with severe catatonic symptoms; will increase monitoring of vitals to t.i.d.; nursing staff informed to make sure patient walks the davis once per day to avoid DVT; otherwise to inform provider to consider DVT prophylaxis. Discussed case with colleague who recommended giving a 1 time extra Ativan dose to see if there was any benefit at all as a means to consider whether not to increase total daily Ativan dose. Discussed case with legal and filling out paperwork to amend [facility] with ECT. 11/29/2022: No changes to current plan. 11/30 patient remains catatonic; continue with efforts to procure treatment for ECT and submitted affidavit Patient's mother left voicemail saying that he has a long history of trauma; also that she hopes will be at the lowest dose of medication possible and reiterated ideas about a new detention 12/01, auditory hallucinations and paranoid delusions; impaired insight and judgment prevail. Continued catatonic symptoms 12/02 Patient seems a little bit better today. Still with very slow movements, speech latency, trouble getting words out however patient's deficiencies in these areas seem a little less severe. Cautiously hopeful that minimal improvement today will continue to increase. Continue current treatment regimen. 12/03 Met with patient as he was walking the davis. He agreed that he is walking very slowly and cannot walk any faster and that this is not his baseline ability; when turning around patient needed to do multiple shuffle steps. Emergency Medicine Physician again explained the effects of catatonia. Patient said he is feeling nauseous from the Ativan however does not want any medication for nausea and agrees to continue taking Ativan, not wanting catatonic symptoms to worsen. It is not clear if patient's symptoms are improving; continue current regimen 12/04 there does not seem to be any improvement in catatonic symptoms and it remains difficult for him to move or get words out. Continue Ativan treatment; will continue to pursue ECT -so far have left lithium medication scheduled though at half his home dose; senior grant writer cannot find literature regarding lithium catatonia; discussed with colleagues who also had no opinion on whether to continue or discontinue. Emergency Medicine Physician will consider discontinuing it Patient educated on: diagnosis and medication risk/benefits Informed Consent: understands and further education needed Reason for continued inpatient stay Substantial Risk for: inability to function Time Spent With Patient Time: Total time managing care of this patient today ____ minutes.
[2022-12-04 13:00] VITALS: RESP 18
[2022-12-04 14:50] VITALS: BMI 29.5
[2022-12-04 20:40] VITALS: BP 125/93; PULSE 95; RESP 18; TEMP 36.4; O2SAT 95
[2022-12-04] MEDS: Melatonin 3 MG TABLET PO (21:22)
--- NOTE | 2022-12-05 09:04 | HO.PSYCHPN ---
Subjective Subjective Date of Service: 12/05/22 Reason For Visit: schizoaffective d/o; bipolar type Interim History: met with patient; discussed with team No change in presentation. Patient endorses auditory hallucinations not in yes that they bother him. Patient says his condition is the same and he continues to have much trouble moving or getting his words out. Patient says I do not know regarding why he is on lithium Mental Status Exam Mental Status Exam Narrative: Pt is alert and oriented; behavior is slowed, quiet, remains in bed almost all day, eating very little; patient is not in physical distress; dressed in hospital attire with unkempt hair, but improved hygiene; mood is blunted; affect blunted; eye contact with a blank stare; Speech is latent, few words, slowed, low volume and monotone; significant psychomotor retardation present; thought process is marred by thought blocking but can be goal directed; Thought content is on treatment; no paranoid delusions expressed, though he will only drink bottled water; denies any SI/HI. Positive for AH Patients insight and judgment impaired. Diagnostics Vital Signs (24Hr): Vital Signs - 24 hr 12/04/22 13:00 12/04/22 20:40 Temperature 97.5 F Pulse Rate 95 Respiratory Rate 18 18 Blood Pressure 125/93 H Pulse Oximetry 95 Oxygen Delivery Method Room Air Room Air BMI result Body Mass Index 29.5 Labs 11/24/22 16:28 Medications Medications Current Medications Acetaminophen (Acetaminophen 325 Mg Tablet) 650 mg PO Q6H PRN PRN Reason: Headache/Pain Mild Scale (1-3) Al Hydroxide/Mg Hydroxide (Magnesium Hydrox/Alum Hydrox 30 Ml Oral.Susp) 30 ml PO Q6H PRN PRN Reason: Heartburn/Nausea Calcium Carbonate (Calcium Carbonate 750 Mg Tab.Chew) 750 mg PO BID [facility] Last Admin: 12/04/22 21:17 Dose: Not Given Hydroxyzine HCl (Hydroxyzine Hcl 25 Mg Tablet) 25 mg PO Q6H PRN PRN Reason: Anxiety [place] Carbonate ([place] Carbonate 300 Mg Capsule) 300 mg PO BID [facility] Last Admin: 12/04/22 21:17 Dose: 300 mg Lorazepam (Lorazepam 1 Mg Tablet) 4 mg PO QID [facility] Last Admin: 12/04/22 21:17 Dose: 4 mg Magnesium Hydroxide (Milk Of Magnesia 30 Ml Oral.Susp) 30 ml PO DAILY PRN PRN Reason: Constipation Last Admin: 11/17/22 19:43 Dose: 30 ml Melatonin (Melatonin 3 Mg Tablet) 3 mg PO BEDTIME PRN PRN Reason: Insomnia Last Admin: 12/04/22 21:22 Dose: 3 mg Paliperidone Palmitate (Paliperidone Palmitate 234 Mg/1.5 Ml Syringe) 234 mg IM Q30D [facility] Last Admin: 11/13/22 09:36 Dose: 234 mg Allergies Allergies Allergy/AdvReac Type Severity Reaction Status Date / Time No Known Allergies Allergy Verified 09/05/22 21:55 Assessment & Plan Assessment & Plan (1) Schizophrenia, 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 Zabala is a 37 year-old male, on community Parsons/guardian, with hx of schizophrenia. He resides at from [facility] for about one year. Since then, per staff, pt has had about 12 inpatient admission. Pt was recently discharged from medical floor after being treated for pneumonia. The day after pt was described as disorganized, wondering the streets, laying on the streets. He was brought via EMS to [facility]. Utox is negative. Pt does have hx of cannabis use but this time it was negative. Pt presents with symptoms of catatonia including waxy flexibility, negativism, intermittent mutism and black stare. Pt has not missed dose of Invega Sustenna- he has been on 234mg IM which has been given on 09/15 while on M3, 10/17 in the community. Pt also on haldol 30mg po qhs. Will hold haldol given s/s of catatonia. Pt is on Parsons which expires today but extension has been filed and granted- per CM awating paperwork from court. Guardian is his father- Joe Wells [phone]. PLAN CV Q 15 minute checks Hope for ECT Pursuing legal paperwork/affidavit for ECT DC Xeralto (pt now walks davis w/ prompting) Continue ativan 4mg po QID- for continued catatonia (up from 2mg) DC haldol due to likely cause of catatonia (started at most recent admission at [facility]) Received Invega Sustenna 234 mg IM on 11/13 HOLD Off on Invega Sustenna 156mg IM (due on by 11/20) since pt remains w/ catatonia HOSPITAL COURSE: 11/06 continue ativan, monitor s/s catatonia. hold haldol until some improvement in s/s of catatonia. 11/07/22- continue current regime and plan of care. Pt denies all symptoms. 11/08/22- starting to hear reports of evening improvement. continue current plan for now. 11/09 file for involuntary tx due to inability to care for self due to catatonia. will restart lithium 300mg po BID. 11/10 slightly less mute, still with delayed response rate and appears internally preoccupied. will lower ativan continue monitor for worsening of s/s of catatonia. 11/11 less mute, more spontaneous in speech, less psychomotor retardation. 11/12 continue tx. Next Invega Sustenna 234mg IM due on 11/13/202211/13 He received Invega Sustenna 234mg IM today. continue to monitor exacerbation of catatonia. continue ativan 1mg po TID. 11/14/2022 No clear improvement to this point; Patient fearful M withdrawn 11/15/2022 No clear improvement question ECT 11/16 patient remains with catatonic symptoms; staff reports patient is doing a little better will continue with Ativan; still need collateral on baseline 11/17 restarted Ativan 2 mg t.i.d. since it accidentally fell off and patient's catatonic symptoms have worsened. Patient understands he has catatonia and signed a CV to remain on the unit longer for treatment 11/18 Patient remains with significant catatonic symptoms, slowed speech, slow movements, hardly getting out of bed at all, not eating much, but still seems to be drinking fluids adequately. Talked with patient's provider LESLIE Laurent who reports that over the past year she has only seen him 3 times because he ends up in the hospital so frequently. She says that typically he will get out of the hospital and within a few weeks eloped from the residential, looking for cannabis; once he starts smoking cannabis he is gets and all kinds of other substance abuse. She says he was last at [facility] where he was started on Haldol which seems the likely cause of this episode of catatonia. She says this admission was the 1st time he was not engaged in substance abuse. She says at baseline he is able to have a fluent conversation; she said his speech may be a little bit slowed but not much and talks spontaneously without any latency or thought blocking. She agrees that current presentation sounds like catatonia 11/19 patient agrees to increasing Ativan if needed; discussed possibility of ECT which he said he agreed to consider (patient on [facility] Parsons and has a guardian and is not able to consent) 11/20 No change, patient remains lying in bed, moving very slowly, significant speech latency, talking slowly. Hardly eating (though continues to drink fluids). Agrees to increase Ativan. Discussed situation with legal arm of the team; as patient is currently on a Parsons order with a guardian, he cannot consent to ECT. Hopefully with increased Ativan, catatonic symptoms will break. Discussed treatment for catatonia with colleagues with 2 different thoughts, one going as high as 16 mg per day, another hesitant to go above 8 mg. Since no improvement thus far curriculum writer decided to split the difference and increased to total of 12 mg daily (there is little harm in going to higher doses of ativan other than it makes tapering off a more lengthy process) 11/21/22 Continue with current treatment plan 11/22/22 Continue treatmetn plan 11/23 pt some improvement, showering yesterday, sat in on a group and willing to walk the davis each shift to avoid DVT. However, when not prompted, stays in bed, hardly moving, eating very little, significant psycomotor retardation and speech latency. Agrees to increase ativan; says he is open to ECT if he needs it but his parents, father who is guardian, is against it. Later in day, pt signed 3 day. Thus, Will increase Ativan to 4mg qid (total daily dose of 16mg) in hopes for effect. His improvement is minimal and he remains at significant risk for continued and worsening catatonic symptoms. Will reach out to Father/guardian; will dc Xeralto since walking periodically during day. 11/24 patient remains with retarded catatonia with Inhibited movements, posturing, blankly staring; poor food intake; Though thankfully seems to be adequate fluid intake. currently no longer at risk for DVT; since patient is now walking with prompting. Has insight to know that he has catatonia; however while he seems to understand that without treatment this is a high risk of it worsening and that it can become life-threatening and despite expressing he wants to live and wants treatment, he is not yet willing to retract his 3 day notice and commit to staying for treatment. Patient says that his parents want him out of the hospital and do not want him to get ECT. Blow Mold Technician explained again that the only treatments for catatonia are benzodiazepines and ECT which patient said he understood. -patient is catatonic and remains with significantly impaired functioning. Blow Mold Technician reviewed literature on catatonia in [employer] and standard treatment is that if benzodiazepines are not effectively resolving catatonia within 1 week, ECT becomes the next and only other treatment option and should be started promptl; otherwise risk catatonia developing into a malignant catatonia which can be life-threatening (malignant catatonia which is associated with fever, autonomic instability (hypertension/hypotension, tachycardia, tachypnea, diaphoresis, delirium, rigidity and ). Additionally patient is on only half his regular dose of lithium and did not get full dose of Invega Sustenna leaving his psychotic illness only partially treated. Patient requires prompting to do ADLs. At this time, patient is not safe for discharge, needs continued treatment with detention. If patient does not retract his 3 day notice will very likely petitioned the court for involuntary commitment and substituted judgment for treatment. -curriculum writer has reached out to father who is patient's guardian and left a voicemail. -Focused neuro exam: No upper/lower limb stiffness or rigidity; b/l patellar, triceps brachioradialis reflexes 2+/ WNL -No autonomic instability and low concern for NMS however ordered WBC, CPK; LDH; also ordered bun/Cr given patient on lithium and also lying in bed much of the day with some mildly increased risk for rhabdo 11/25 Patient remains with catatonic symptoms, hardly moving hardly talking, with significant psychomotor retardation, speech latency; hardly eating so curriculum writer ordered ensure since he continues to drink fluid. Blow Mold Technician discussed patient's catatonic symptoms and he retracted is 3 day notice saying he wants to remain for treatment; he says he wants ECT. Blow Mold Technician discussed case with his father who is guardian. After discussing catatonia and treatment, patient's father/guardian said that he would agree with ECT treatment as long as his mother concurred and asked curriculum writer to call patient's mother Alejandrina. Blow Mold Technician discussed case with Alejandrina who also agreed with ECT given the lack of other options. 11/26 continue current treatment plan 11/27 remains with severe catatonic symptoms; will increase monitoring of vitals to t.i.d.; nursing staff informed to make sure patient walks the davis once per day to avoid DVT; otherwise to inform provider to consider DVT prophylaxis. Discussed case with colleague who recommended giving a 1 time extra Ativan dose to see if there was any benefit at all as a means to consider whether not to increase total daily Ativan dose. Discussed case with legal and filling out paperwork to amend [facility]a with ECT. 11/29/2022: No changes to current plan. 11/30 patient remains catatonic; continue with efforts to procure treatment for ECT and submitted affidavit Patient's mother left voicemail saying that he has a long history of trauma; also that she hopes will be at the lowest dose of medication possible and reiterated ideas about a new residential 12/01, auditory hallucinations and paranoid delusions; impaired insight and judgment prevail. Continued catatonic symptoms 12/02 Patient seems a little bit better today. Still with very slow movements, speech latency, trouble getting words out however patient's deficiencies in these areas seem a little less severe. Cautiously hopeful that minimal improvement today will continue to increase. Continue current treatment regimen. 12/03 Met with patient as he was walking the davis. He agreed that he is walking very slowly and cannot walk any faster and that this is not his baseline ability; when turning around patient needed to do multiple shuffle steps. Blow Mold Technician again explained the effects of catatonia. Patient said he is feeling nauseous from the Ativan however does not want any medication for nausea and agrees to continue taking Ativan, not wanting catatonic symptoms to worsen. It is not clear if patient's symptoms are improving; continue current regimen 12/04 there does not seem to be any improvement in catatonic symptoms and it remains difficult for him to move or get words out. Continue Ativan treatment; will continue to pursue ECT -so far have left lithium medication scheduled though at half his home dose; curriculum writer cannot find literature regarding lithium catatonia; discussed with colleagues who also had no opinion on whether to continue or discontinue. Blow Mold Technician will consider discontinuing it 12/05 no change in presentation, remains severely catatonic with much trouble moving, articulating, hardly eating. Remains with auditory hallucinations that he say bother him. Discussed lithium with Dr. Chavarria who does not have any strong opinion on its continuation or discontinuation; however both agree that it is unlikely to be benefiting patient since it is at half his regular home dose and thus might as well discontinue it for now; also lithium can increase delirium side effect from ECT which remains hopeful treatment. Will reduced to 300 mg for now. Patient educated on: diagnosis and medication risk/benefits Informed Consent: understands and further education needed Reason for continued inpatient stay Substantial Risk for: inability to function Time Spent With Patient Time: Total time managing care of this patient today ____ minutes.
[2022-12-05] MEDS: Lithium Carbonate 300 MG CAPSULE PO ×2 (09:55→20:26)
[2022-12-05] MEDS: LORazepam 1 MG TABLET 4 MG PO ×4 (09:55→20:26)
[2022-12-05 10:05] VITALS: BP 112/67; PULSE 81; RESP 16; TEMP 36.6; O2SAT 94
[2022-12-05 19:16] VITALS: BP 106/55; PULSE 88; TEMP 36.6
[2022-12-05] MEDS: Milk of Magnesia 30 ML ORAL.SUSP PO (22:36)
[2022-12-05] MEDS: Melatonin 3 MG TABLET PO (22:37)
[2022-12-06 09:00] VITALS: BP 114/71; PULSE 81; RESP 18; TEMP 37.5; O2SAT 97
[2022-12-06] MEDS: LORazepam 1 MG TABLET 4 MG PO ×4 (09:19→20:15)
--- NOTE | 2022-12-06 09:50 | HO.PSYCHPN ---
Subjective Subjective Date of Service: 12/06/22 Reason For Visit: schizoaffective d/o; bipolar type Interim History: Met with Patient; discussed with team No change in presentation; remains catatonic with much trouble walking and talking Mental Status Exam Mental Status Exam Narrative: Pt is alert and oriented; behavior is slowed, quiet, remains in bed almost all day, eating very little; patient is not in physical distress; dressed in hospital attire with unkempt hair, but improved hygiene; mood is blunted; affect blunted; eye contact with a blank stare; Speech is latent, few words, slowed, low volume and monotone; significant psychomotor retardation present; thought process is marred by thought blocking but can be goal directed; Thought content is on treatment; no paranoid delusions expressed, though he will only drink bottled water; denies any SI/HI. Positive for Patients insight and judgment impaired. Diagnostics Vital Signs (24Hr): Vital Signs - 24 hr 12/05/22 10:05 12/05/22 19:16 Temperature 97.9 F 97.9 F Pulse Rate 81 88 Respiratory Rate 16 Blood Pressure 112/67 106/55 L Pulse Oximetry 94 Oxygen Delivery Method Room Air BMI result Body Mass Index 29.5 Labs 11/24/22 16:28 Medications Medications Current Medications Acetaminophen (Acetaminophen 325 Mg Tablet) 650 mg PO Q6H PRN PRN Reason: Headache/Pain Mild Scale (1-3) Al Hydroxide/Mg Hydroxide (Magnesium Hydrox/Alum Hydrox 30 Ml Oral.Susp) 30 ml PO Q6H PRN PRN Reason: Heartburn/Nausea Calcium Carbonate (Calcium Carbonate 750 Mg Tab.Chew) 750 mg PO BID [facility] Last Admin: 12/06/22 09:19 Dose: Not Given Hydroxyzine HCl (Hydroxyzine Hcl 25 Mg Tablet) 25 mg PO Q6H PRN PRN Reason: Anxiety [place] Carbonate ([place] Carbonate 300 Mg Capsule) 300 mg PO BEDTIME [facility] Last Admin: 12/05/22 20:26 Dose: 300 mg Lorazepam (Lorazepam 1 Mg Tablet) 4 mg PO QID [facility] Last Admin: 12/06/22 09:19 Dose: 4 mg Magnesium Hydroxide (Milk Of Magnesia 30 Ml Oral.Susp) 30 ml PO DAILY PRN PRN Reason: Constipation Last Admin: 12/05/22 22:36 Dose: 30 ml Melatonin (Melatonin 3 Mg Tablet) 3 mg PO BEDTIME PRN PRN Reason: Insomnia Last Admin: 12/05/22 22:37 Dose: 3 mg Paliperidone Palmitate (Paliperidone Palmitate 234 Mg/1.5 Ml Syringe) 234 mg IM Q30D [facility] Last Admin: 11/13/22 09:36 Dose: 234 mg Allergies Allergies Allergy/AdvReac Type Severity Reaction Status Date / Time No Known Allergies Allergy Verified 09/05/22 21:55 Assessment & Plan Assessment & Plan (1) Schizophrenia, 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 Zabala is a 37 year-old male, on community Parsons/guardian, with hx of schizophrenia. He resides at from [facility] for about one year. Since then, per staff, pt has had about 12 inpatient admission. Pt was recently discharged from medical floor after being treated for pneumonia. The day after pt was described as disorganized, wondering the streets, laying on the streets. He was brought via EMS to [facility]. Utox is negative. Pt does have hx of cannabis use but this time it was negative. Pt presents with symptoms of catatonia including waxy flexibility, negativism, intermittent mutism and black stare. Pt has not missed dose of Invega Sustenna- he has been on 234mg IM which has been given on 09/15 while on M3, 10/17 in the community. Pt also on haldol 30mg po qhs. Will hold haldol given s/s of catatonia. Pt is on Parsons which expires today but extension has been filed and granted- per CM awating paperwork from court. Guardian is his father- Joe Wells [phone]. PLAN CV Q 15 minute checks Hope for ECT Pursuing legal paperwork/affidavit for ECT DC Xeralto (pt now walks davis w/ prompting) Continue ativan 4mg po QID- for continued catatonia (up from 2mg) DC haldol due to likely cause of catatonia (started at most recent admission at [facility]) Received Invega Sustenna 234 mg IM on 11/13 HOLD Off on Invega Sustenna 156mg IM (due on by 11/20) since pt remains w/ catatonia HOSPITAL COURSE: 11/06 continue ativan, monitor s/s catatonia. hold haldol until some improvement in s/s of catatonia. 11/07/22- continue current regime and plan of care. Pt denies all symptoms. 11/08/22- starting to hear reports of evening improvement. continue current plan for now. 11/09 file for involuntary tx due to inability to care for self due to catatonia. will restart lithium 300mg po BID. 11/10 slightly less mute, still with delayed response rate and appears internally preoccupied. will lower ativan continue monitor for worsening of s/s of catatonia. 11/11 less mute, more spontaneous in speech, less psychomotor retardation. 11/12 continue tx. Next Invega Sustenna 234mg IM due on 11/13/202211/13 He received Invega Sustenna 234mg IM today. continue to monitor exacerbation of catatonia. continue ativan 1mg po TID. 11/14/2022 No clear improvement to this point; Patient fearful M withdrawn 11/15/2022 No clear improvement question ECT 11/16 patient remains with catatonic symptoms; staff reports patient is doing a little better will continue with Ativan; still need collateral on baseline 11/17 restarted Ativan 2 mg t.i.d. since it accidentally fell off and patient's catatonic symptoms have worsened. Patient understands he has catatonia and signed a CV to remain on the unit longer for treatment 11/18 Patient remains with significant catatonic symptoms, slowed speech, slow movements, hardly getting out of bed at all, not eating much, but still seems to be drinking fluids adequately. Talked with patient's provider LESLIE Laurent who reports that over the past year she has only seen him 3 times because he ends up in the hospital so frequently. She says that typically he will get out of the hospital and within a few weeks eloped from the [facility]pc, looking for cannabis; once he starts smoking cannabis he is gets and all kinds of other substance abuse. She says he was last at [facility] where he was started on Haldol which seems the likely cause of this episode of catatonia. She says this admission was the 1st time he was not engaged in substance abuse. She says at baseline he is able to have a fluent conversation; she said his speech may be a little bit slowed but not much and talks spontaneously without any latency or thought blocking. She agrees that current presentation sounds like catatonia 11/19 patient agrees to increasing Ativan if needed; discussed possibility of ECT which he said he agreed to consider (patient on community Parsons and has a guardian and is not able to consent) 11/20 No change, patient remains lying in bed, moving very slowly, significant speech latency, talking slowly. Hardly eating (though continues to drink fluids). Agrees to increase Ativan. Discussed situation with legal arm of the team; as patient is currently on a Parsons order with a guardian, he cannot consent to ECT. Hopefully with increased Ativan, catatonic symptoms will break. Discussed treatment for catatonia with colleagues with 2 different thoughts, one going as high as 16 mg per day, another hesitant to go above 8 mg. Since no improvement thus far fiction and nonfiction writer prose decided to split the difference and increased to total of 12 mg daily (there is little harm in going to higher doses of ativan other than it makes tapering off a more lengthy process) 11/21/22 Continue with current treatment plan 11/22/22 Continue treatmetn plan 11/23 pt some improvement, showering yesterday, sat in on a group and willing to walk the davis each shift to avoid DVT. However, when not prompted, stays in bed, hardly moving, eating very little, significant psycomotor retardation and speech latency. Agrees to increase ativan; says he is open to ECT if he needs it but his parents, father who is guardian, is against it. Later in day, pt signed 3 day. Thus, Will increase Ativan to 4mg qid (total daily dose of 16mg) in hopes for effect. His improvement is minimal and he remains at significant risk for continued and worsening catatonic symptoms. Will reach out to Father/guardian; will dc Xeralto since walking periodically during day. 11/24 patient remains with retarded catatonia with Inhibited movements, posturing, blankly staring; poor food intake; Though thankfully seems to be adequate fluid intake. currently no longer at risk for DVT; since patient is now walking with prompting. Has insight to know that he has catatonia; however while he seems to understand that without treatment this is a high risk of it worsening and that it can become life-threatening and despite expressing he wants to live and wants treatment, he is not yet willing to retract his 3 day notice and commit to staying for treatment. Patient says that his parents want him out of the hospital and do not want him to get ECT. Bath Mixer explained again that the only treatments for catatonia are benzodiazepines and ECT which patient said he understood. -patient is catatonic and remains with significantly impaired functioning. Bath Mixer reviewed literature on catatonia in [employer] and standard treatment is that if benzodiazepines are not effectively resolving catatonia within 1 week, ECT becomes the next and only other treatment option and should be started promptl; otherwise risk catatonia developing into a malignant catatonia which can be life-threatening (malignant catatonia which is associated with fever, autonomic instability (hypertension/hypotension, tachycardia, tachypnea, diaphoresis, delirium, rigidity and ). Additionally patient is on only half his regular dose of lithium and did not get full dose of Invega Sustenna leaving his psychotic illness only partially treated. Patient requires prompting to do ADLs. At this time, patient is not safe for discharge, needs continued treatment with intermediate. If patient does not retract his 3 day notice will very likely petitioned the court for involuntary commitment and substituted judgment for treatment. -fiction and nonfiction writer prose has reached out to father who is patient's guardian and left a voicemail. -Focused neuro exam: No upper/lower limb stiffness or rigidity; b/l patellar, triceps brachioradialis reflexes 2+/ WNL -No autonomic instability and low concern for NMS however ordered WBC, CPK; LDH; also ordered bun/Cr given patient on lithium and also lying in bed much of the day with some mildly increased risk for rhabdo 11/25 Patient remains with catatonic symptoms, hardly moving hardly talking, with significant psychomotor retardation, speech latency; hardly eating so fiction and nonfiction writer prose ordered ensure since he continues to drink fluid. Bath Mixer discussed patient's catatonic symptoms and he retracted is 3 day notice saying he wants to remain for treatment; he says he wants ECT. Bath Mixer discussed case with his father who is guardian. After discussing catatonia and treatment, patient's father/guardian said that he would agree with ECT treatment as long as his mother concurred and asked fiction and nonfiction writer prose to call patient's mother Alejandrina. Bath Mixer discussed case with Alejandrina who also agreed with ECT given the lack of other options. 11/26 continue current treatment plan 11/27 remains with severe catatonic symptoms; will increase monitoring of vitals to t.i.d.; nursing staff informed to make sure patient walks the davis once per day to avoid DVT; otherwise to inform provider to consider DVT prophylaxis. Discussed case with colleague who recommended giving a 1 time extra Ativan dose to see if there was any benefit at all as a means to consider whether not to increase total daily Ativan dose. Discussed case with legal and filling out paperwork to amend [facility] with ECT. 11/29/2022: No changes to current plan. 11/30 patient remains catatonic; continue with efforts to procure treatment for ECT and submitted affidavit Patient's mother left voicemail saying that he has a long history of trauma; also that she hopes will be at the lowest dose of medication possible and reiterated ideas about a new fpc 12/01, auditory hallucinations and paranoid delusions; impaired insight and judgment prevail. Continued catatonic symptoms 12/02 Patient seems a little bit better today. Still with very slow movements, speech latency, trouble getting words out however patient's deficiencies in these areas seem a little less severe. Cautiously hopeful that minimal improvement today will continue to increase. Continue current treatment regimen. 12/03 Met with patient as he was walking the davis. He agreed that he is walking very slowly and cannot walk any faster and that this is not his baseline ability; when turning around patient needed to do multiple shuffle steps. Bath Mixer again explained the effects of catatonia. Patient said he is feeling nauseous from the Ativan however does not want any medication for nausea and agrees to continue taking Ativan, not wanting catatonic symptoms to worsen. It is not clear if patient's symptoms are improving; continue current regimen 12/04 there does not seem to be any improvement in catatonic symptoms and it remains difficult for him to move or get words out. Continue Ativan treatment; will continue to pursue ECT -so far have left lithium medication scheduled though at half his home dose; fiction and nonfiction writer prose cannot find literature regarding lithium catatonia; discussed with colleagues who also had no opinion on whether to continue or discontinue. Bath Mixer will consider discontinuing it 12/05 no change in presentation, remains severely catatonic with much trouble moving, articulating, hardly eating. Remains with auditory hallucinations that he say bother him. Discussed lithium with Dr. Chavarria who does not have any strong opinion on its continuation or discontinuation; however both agree that it is unlikely to be benefiting patient since it is at half his regular home dose and thus might as well discontinue it for now; also lithium can increase delirium side effect from ECT which remains hopeful treatment. Will reduced to 300 mg for now. 12/06 no change in presentation, no improvement Patient educated on: diagnosis Informed Consent: understands and further education needed Reason for continued inpatient stay Substantial Risk for: inability to function Time Spent With Patient Time: Total time managing care of this patient today ____ minutes.
[2022-12-06 13:00] VITALS: BP 122/80; PULSE 98; RESP 18; TEMP 36.6; O2SAT 95
[2022-12-06 19:50] VITALS: BP 120/76; PULSE 81; RESP 16; TEMP 36.7; O2SAT 98
[2022-12-06] MEDS: Melatonin 3 MG TABLET PO (20:15)
[2022-12-06] MEDS: Lithium Carbonate 300 MG CAPSULE PO (20:15)
[2022-12-07 08:05] VITALS: BP 121/63; PULSE 79; RESP 18; TEMP 36.6; O2SAT 97
[2022-12-07] MEDS: LORazepam 1 MG TABLET 4 MG PO ×4 (08:23→21:40)
--- NOTE | 2022-12-07 10:22 | HO.PSYCHPN ---
Subjective Subjective Date of Service: 12/07/22 Reason For Visit: schizoaffective d/o; bipolar type Interim History: Met with Patient; discussed with team Patient walking the davis little more today than usual. He says that he is better though still has significant trouble getting words. Says auditory hallucinations remain but not that bad... Mental Status Exam Mental Status Exam Narrative: Pt is alert and oriented; behavior is slowed, quiet, remains in bed almost all day, eating very little; patient is not in physical distress; dressed in hospital attire with unkempt hair, but improved hygiene; mood is blunted; affect blunted; eye contact with a blank stare; Speech is latent, few words, slowed, low volume and monotone; significant psychomotor retardation present; thought process is marred by thought blocking but can be goal directed; Thought content is on treatment; no paranoid delusions expressed, though he will only drink bottled water; denies any SI/HI. Positive for Patients insight and judgment impaired. Diagnostics Vital Signs (24Hr): Vital Signs - 24 hr 12/06/22 13:00 12/06/22 19:50 12/07/22 08:05 Temperature 97.8 F 98.1 F 97.8 F Pulse Rate 98 81 79 Respiratory Rate 18 16 18 Blood Pressure 122/80 120/76 121/63 Pulse Oximetry 95 98 97 Oxygen Delivery Method Room Air Room Air Room Air BMI result Body Mass Index 29.5 Labs 11/24/22 16:28 Medications Medications Current Medications Acetaminophen (Acetaminophen 325 Mg Tablet) 650 mg PO Q6H PRN PRN Reason: Headache/Pain Mild Scale (1-3) Al Hydroxide/Mg Hydroxide (Magnesium Hydrox/Alum Hydrox 30 Ml Oral.Susp) 30 ml PO Q6H PRN PRN Reason: Heartburn/Nausea Calcium Carbonate (Calcium Carbonate 750 Mg Tab.Chew) 750 mg PO BID [facility] Last Admin: 12/07/22 08:45 Dose: Not Given Hydroxyzine HCl (Hydroxyzine Hcl 25 Mg Tablet) 25 mg PO Q6H PRN PRN Reason: Anxiety [place] Carbonate ([place] Carbonate 300 Mg Capsule) 300 mg PO BEDTIME [facility] Last Admin: 12/06/22 20:15 Dose: 300 mg Lorazepam (Lorazepam 1 Mg Tablet) 4 mg PO QID [facility] Last Admin: 12/07/22 08:23 Dose: 4 mg Magnesium Hydroxide (Milk Of Magnesia 30 Ml Oral.Susp) 30 ml PO DAILY PRN PRN Reason: Constipation Last Admin: 12/05/22 22:36 Dose: 30 ml Melatonin (Melatonin 3 Mg Tablet) 3 mg PO BEDTIME PRN PRN Reason: Insomnia Last Admin: 12/06/22 20:15 Dose: 3 mg Paliperidone Palmitate (Paliperidone Palmitate 234 Mg/1.5 Ml Syringe) 234 mg IM Q30D [facility] Last Admin: 11/13/22 09:36 Dose: 234 mg Allergies Allergies Allergy/AdvReac Type Severity Reaction Status Date / Time No Known Allergies Allergy Verified 09/05/22 21:55 Assessment & Plan Assessment & Plan (1) Schizophrenia, 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 Zabala is a 37 year-old male, on community Parsons/guardian, with hx of schizophrenia. He resides at from [facility] for about one year. Since then, per staff, pt has had about 12 inpatient admission. Pt was recently discharged from medical floor after being treated for pneumonia. The day after pt was described as disorganized, wondering the streets, laying on the streets. He was brought via EMS to [facility]. Utox is negative. Pt does have hx of cannabis use but this time it was negative. Pt presents with symptoms of catatonia including waxy flexibility, negativism, intermittent mutism and black stare. Pt has not missed dose of Invega Sustenna- he has been on 234mg IM which has been given on 09/15 while on M3, 10/17 in the community. Pt also on haldol 30mg po qhs. Will hold haldol given s/s of catatonia. Pt is on Parsons which expires today but extension has been filed and granted- per CM awating paperwork from court. Guardian is his father- Joe Wells [phone]. PLAN CV Q 15 minute checks Hope for ECT Pursuing legal paperwork/affidavit for ECT DC Xeralto (pt now walks davis w/ prompting) Continue ativan 4mg po QID- for continued catatonia (up from 2mg) DC haldol due to likely cause of catatonia (started at most recent admission at [facility]) Received Invega Sustenna 234 mg IM on 11/13 HOLD Off on Invega Sustenna 156mg IM (due on by 11/20) since pt remains w/ catatonia HOSPITAL COURSE: 11/06 continue ativan, monitor s/s catatonia. hold haldol until some improvement in s/s of catatonia. 11/07/22- continue current regime and plan of care. Pt denies all symptoms. 11/08/22- starting to hear reports of evening improvement. continue current plan for now. 11/09 file for involuntary tx due to inability to care for self due to catatonia. will restart lithium 300mg po BID. 11/10 slightly less mute, still with delayed response rate and appears internally preoccupied. will lower ativan continue monitor for worsening of s/s of catatonia. 11/11 less mute, more spontaneous in speech, less psychomotor retardation. 11/12 continue tx. Next Invega Sustenna 234mg IM due on 11/13/202211/13 He received Invega Sustenna 234mg IM today. continue to monitor exacerbation of catatonia. continue ativan 1mg po TID. 11/14/2022 No clear improvement to this point; Patient fearful M withdrawn 11/15/2022 No clear improvement question ECT 11/16 patient remains with catatonic symptoms; staff reports patient is doing a little better will continue with Ativan; still need collateral on baseline 11/17 restarted Ativan 2 mg t.i.d. since it accidentally fell off and patient's catatonic symptoms have worsened. Patient understands he has catatonia and signed a CV to remain on the unit longer for treatment 11/18 Patient remains with significant catatonic symptoms, slowed speech, slow movements, hardly getting out of bed at all, not eating much, but still seems to be drinking fluids adequately. Talked with patient's provider LESLIE Laurent who reports that over the past year she has only seen him 3 times because he ends up in the hospital so frequently. She says that typically he will get out of the hospital and within a few weeks eloped from the [facility], looking for cannabis; once he starts smoking cannabis he is gets and all kinds of other substance abuse. She says he was last at [facility] where he was started on Haldol which seems the likely cause of this episode of catatonia. She says this admission was the 1st time he was not engaged in substance abuse. She says at baseline he is able to have a fluent conversation; she said his speech may be a little bit slowed but not much and talks spontaneously without any latency or thought blocking. She agrees that current presentation sounds like catatonia 11/19 patient agrees to increasing Ativan if needed; discussed possibility of ECT which he said he agreed to consider (patient on [facility] [employer] and has a guardian and is not able to consent) 11/20 No change, patient remains lying in bed, moving very slowly, significant speech latency, talking slowly. Hardly eating (though continues to drink fluids). Agrees to increase Ativan. Discussed situation with legal arm of the team; as patient is currently on a Parsons order with a guardian, he cannot consent to ECT. Hopefully with increased Ativan, catatonic symptoms will break. Discussed treatment for catatonia with colleagues with 2 different thoughts, one going as high as 16 mg per day, another hesitant to go above 8 mg. Since no improvement thus far underwriter mortgage loan decided to split the difference and increased to total of 12 mg daily (there is little harm in going to higher doses of ativan other than it makes tapering off a more lengthy process) 11/21/22 Continue with current treatment plan 11/22/22 Continue treatmetn plan 11/23 pt some improvement, showering yesterday, sat in on a group and willing to walk the davis each shift to avoid DVT. However, when not prompted, stays in bed, hardly moving, eating very little, significant psycomotor retardation and speech latency. Agrees to increase ativan; says he is open to ECT if he needs it but his parents, father who is guardian, is against it. Later in day, pt signed 3 day. Thus, Will increase Ativan to 4mg qid (total daily dose of 16mg) in hopes for effect. His improvement is minimal and he remains at significant risk for continued and worsening catatonic symptoms. Will reach out to Father/guardian; will dc Xeralto since walking periodically during day. 11/24 patient remains with retarded catatonia with Inhibited movements, posturing, blankly staring; poor food intake; Though thankfully seems to be adequate fluid intake. currently no longer at risk for DVT; since patient is now walking with prompting. Has insight to know that he has catatonia; however while he seems to understand that without treatment this is a high risk of it worsening and that it can become life-threatening and despite expressing he wants to live and wants treatment, he is not yet willing to retract his 3 day notice and commit to staying for treatment. Patient says that his parents want him out of the hospital and do not want him to get ECT. Exerciser explained again that the only treatments for catatonia are benzodiazepines and ECT which patient said he understood. -patient is catatonic and remains with significantly impaired functioning. Exerciser reviewed literature on catatonia in [employer] and standard treatment is that if benzodiazepines are not effectively resolving catatonia within 1 week, ECT becomes the next and only other treatment option and should be started promptl; otherwise risk catatonia developing into a malignant catatonia which can be life-threatening (malignant catatonia which is associated with fever, autonomic instability (hypertension/hypotension, tachycardia, tachypnea, diaphoresis, delirium, rigidity and ). Additionally patient is on only half his regular dose of lithium and did not get full dose of Invega Sustenna leaving his psychotic illness only partially treated. Patient requires prompting to do ADLs. At this time, patient is not safe for discharge, needs continued treatment with group home. If patient does not retract his 3 day notice will very likely petitioned the court for involuntary commitment and substituted judgment for treatment. -underwriter mortgage loan has reached out to father who is patient's guardian and left a voicemail. -Focused neuro exam: No upper/lower limb stiffness or rigidity; b/l patellar, triceps brachioradialis reflexes 2+/ WNL -No autonomic instability and low concern for NMS however ordered WBC, CPK; LDH; also ordered bun/Cr given patient on lithium and also lying in bed much of the day with some mildly increased risk for rhabdo 11/25 Patient remains with catatonic symptoms, hardly moving hardly talking, with significant psychomotor retardation, speech latency; hardly eating so underwriter mortgage loan ordered ensure since he continues to drink fluid. Exerciser discussed patient's catatonic symptoms and he retracted is 3 day notice saying he wants to remain for treatment; he says he wants ECT. Exerciser discussed case with his father who is guardian. After discussing catatonia and treatment, patient's father/guardian said that he would agree with ECT treatment as long as his mother concurred and asked underwriter mortgage loan to call patient's mother Alejandrina. Exerciser discussed case with Alejandrina who also agreed with ECT given the lack of other options. 11/26 continue current treatment plan 11/27 remains with severe catatonic symptoms; will increase monitoring of vitals to t.i.d.; nursing staff informed to make sure patient walks the davis once per day to avoid DVT; otherwise to inform provider to consider DVT prophylaxis. Discussed case with colleague who recommended giving a 1 time extra Ativan dose to see if there was any benefit at all as a means to consider whether not to increase total daily Ativan dose. Discussed case with legal and filling out paperwork to amend [place] with ECT. 11/29/2022: No changes to current plan. 11/30 patient remains catatonic; continue with efforts to procure treatment for ECT and submitted affidavit Patient's mother left voicemail saying that he has a long history of trauma; also that she hopes will be at the lowest dose of medication possible and reiterated ideas about a new fpc 12/01, auditory hallucinations and paranoid delusions; impaired insight and judgment prevail. Continued catatonic symptoms 12/02 Patient seems a little bit better today. Still with very slow movements, speech latency, trouble getting words out however patient's deficiencies in these areas seem a little less severe. Cautiously hopeful that minimal improvement today will continue to increase. Continue current treatment regimen. 12/03 Met with patient as he was walking the davis. He agreed that he is walking very slowly and cannot walk any faster and that this is not his baseline ability; when turning around patient needed to do multiple shuffle steps. Exerciser again explained the effects of catatonia. Patient said he is feeling nauseous from the Ativan however does not want any medication for nausea and agrees to continue taking Ativan, not wanting catatonic symptoms to worsen. It is not clear if patient's symptoms are improving; continue current regimen 12/04 there does not seem to be any improvement in catatonic symptoms and it remains difficult for him to move or get words out. Continue Ativan treatment; will continue to pursue ECT -so far have left lithium medication scheduled though at half his home dose; underwriter mortgage loan cannot find literature regarding lithium catatonia; discussed with colleagues who also had no opinion on whether to continue or discontinue. Exerciser will consider discontinuing it 12/05 no change in presentation, remains severely catatonic with much trouble moving, articulating, hardly eating. Remains with auditory hallucinations that he say bother him. Discussed lithium with Dr. Chavarria who does not have any strong opinion on its continuation or discontinuation; however both agree that it is unlikely to be benefiting patient since it is at half his regular home dose and thus might as well discontinue it for now; also lithium can increase delirium side effect from ECT which remains hopeful treatment. Will reduced to 300 mg for now. 12/06 no change in presentation, no improvement 12/07 walking the halls a little more than usual; otherwise little change and still with catatonic symptoms; agrees to continue with Ativan Patient educated on: diagnosis and medication risk/benefits Informed Consent: understands Reason for continued inpatient stay Substantial Risk for: inability to function Time Spent With Patient Time: Total time managing care of this patient today ____ minutes.
[2022-12-07 12:45] VITALS: BP 110/72; PULSE 109; RESP 18; TEMP 36.2; O2SAT 96
[2022-12-07 18:00] VITALS: BP 118/78; PULSE 80; RESP 18; TEMP 36.1; O2SAT 96
[2022-12-07] MEDS: Lithium Carbonate 300 MG CAPSULE PO (21:41)
[2022-12-08] MEDS: LORazepam 1 MG TABLET 4 MG PO ×4 (09:28→20:04)
[2022-12-08 09:30] VITALS: BP 126/71; PULSE 87; RESP 18; TEMP 36.7; O2SAT 96
--- NOTE | 2022-12-08 13:42 | HO.PSYCHPN ---
Subjective Subjective Date of Service: 12/08/22 Reason For Visit: schizoaffective d/o; bipolar type Interim History: Met with patient; discussed with team No change; maybe walking the halls a little more than before, but still very slowly, shuffling. Still hardly eating, takes much effort to get mumbled words out; disheveled. Slow movements. Significant speech latency, Mumbling his words out. Patient reports auditory hallucinations; also says he has intermittent visual hallucinations and sees orbs. Patient said his mother's coming to visit today. Patient's mother Alejandrina came to the unit today to visit her son. She said that he is like a zombie and far from when he is normally like; she reminisced about how he was when she last saw him months ago and they went to a coffee shop, shopping...had great conversation. She said he spent about 20 minutes with her but hardly said anything and then got up and left the room Mental Status Exam Mental Status Exam Narrative: Pt is alert and oriented; behavior is slowed, quiet, remains in bed almost all day, eating very little; patient is not in physical distress; dressed in hospital attire with unkempt hair, but improved hygiene; mood is blunted; affect blunted; eye contact with a blank stare; Speech is latent, few words, slowed, low volume and monotone; significant psychomotor retardation present; thought process is marred by thought blocking but can be goal directed; Thought content is on treatment; no paranoid delusions expressed, though he will only drink bottled water; denies any SI/HI. Positive for Patients insight and judgment impaired. Diagnostics Vital Signs (24Hr): Vital Signs - 24 hr 12/07/22 18:00 12/08/22 09:30 Temperature 97 F 98.1 F Pulse Rate 80 87 Respiratory Rate 18 18 Blood Pressure 118/78 126/71 Pulse Oximetry 96 96 Oxygen Delivery Method Room Air BMI result Body Mass Index 29.5 Labs 11/24/22 16:28 Medications Medications Current Medications Acetaminophen (Acetaminophen 325 Mg Tablet) 650 mg PO Q6H PRN PRN Reason: Headache/Pain Mild Scale (1-3) Al Hydroxide/Mg Hydroxide (Magnesium Hydrox/Alum Hydrox 30 Ml Oral.Susp) 30 ml PO Q6H PRN PRN Reason: Heartburn/Nausea Calcium Carbonate (Calcium Carbonate 750 Mg Tab.Chew) 750 mg PO BID [facility] Last Admin: 12/08/22 09:30 Dose: Not Given Hydroxyzine HCl (Hydroxyzine Hcl 25 Mg Tablet) 25 mg PO Q6H PRN PRN Reason: Anxiety [place] Carbonate ([place] Carbonate 300 Mg Capsule) 300 mg PO BEDTIME [facility] Last Admin: 12/07/22 21:41 Dose: 300 mg Lorazepam (Lorazepam 1 Mg Tablet) 4 mg PO QID [facility] Last Admin: 12/08/22 13:05 Dose: 4 mg Magnesium Hydroxide (Milk Of Magnesia 30 Ml Oral.Susp) 30 ml PO DAILY PRN PRN Reason: Constipation Last Admin: 12/05/22 22:36 Dose: 30 ml Melatonin (Melatonin 3 Mg Tablet) 3 mg PO BEDTIME PRN PRN Reason: Insomnia Last Admin: 12/06/22 20:15 Dose: 3 mg Paliperidone Palmitate (Paliperidone Palmitate 234 Mg/1.5 Ml Syringe) 234 mg IM Q30D [facility] Last Admin: 11/13/22 09:36 Dose: 234 mg Allergies Allergies Allergy/AdvReac Type Severity Reaction Status Date / Time No Known Allergies Allergy Verified 09/05/22 21:55 Assessment & Plan Assessment & Plan (1) Schizophrenia, 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 Zabala is a 37 year-old male, on community Parsons/guardian, with hx of schizophrenia. He resides at from [facility] for about one year. Since then, per staff, pt has had about 12 inpatient admission. Pt was recently discharged from medical floor after being treated for pneumonia. The day after pt was described as disorganized, wondering the streets, laying on the streets. He was brought via EMS to [facility]. Utox is negative. Pt does have hx of cannabis use but this time it was negative. Pt presents with symptoms of catatonia including waxy flexibility, negativism, intermittent mutism and black stare. Pt has not missed dose of Invega Sustenna- he has been on 234mg IM which has been given on 09/15 while on M3, 10/17 in the community. Pt also on haldol 30mg po qhs. Will hold haldol given s/s of catatonia. Pt is on Parsons which expires today but extension has been filed and granted- per CM awating paperwork from court. Guardian is his father- Joe Wells [phone]. PLAN CV Q 15 minute checks Hope for ECT Pursuing legal paperwork/affidavit for ECT DC Xeralto (pt now walks davis w/ prompting) Continue ativan 4mg po QID- for continued catatonia (up from 2mg) DC haldol due to likely cause of catatonia (started at most recent admission at [facility]) Received Invega Sustenna 234 mg IM on 11/13 HOLD Off on Invega Sustenna 156mg IM (due on by 11/20) since pt remains w/ catatonia HOSPITAL COURSE: 11/06 continue ativan, monitor s/s catatonia. hold haldol until some improvement in s/s of catatonia. 11/07/22- continue current regime and plan of care. Pt denies all symptoms. 11/08/22- starting to hear reports of evening improvement. continue current plan for now. 11/09 file for involuntary tx due to inability to care for self due to catatonia. will restart lithium 300mg po BID. 11/10 slightly less mute, still with delayed response rate and appears internally preoccupied. will lower ativan continue monitor for worsening of s/s of catatonia. 11/11 less mute, more spontaneous in speech, less psychomotor retardation. 11/12 continue tx. Next Invega Sustenna 234mg IM due on 11/13/202211/13 He received Invega Sustenna 234mg IM today. continue to monitor exacerbation of catatonia. continue ativan 1mg po TID. 11/14/2022 No clear improvement to this point; Patient fearful M withdrawn 11/15/2022 No clear improvement question ECT 11/16 patient remains with catatonic symptoms; staff reports patient is doing a little better will continue with Ativan; still need collateral on baseline 11/17 restarted Ativan 2 mg t.i.d. since it accidentally fell off and patient's catatonic symptoms have worsened. Patient understands he has catatonia and signed a CV to remain on the unit longer for treatment 11/18 Patient remains with significant catatonic symptoms, slowed speech, slow movements, hardly getting out of bed at all, not eating much, but still seems to be drinking fluids adequately. Talked with patient's provider LESLIE Laurent who reports that over the past year she has only seen him 3 times because he ends up in the hospital so frequently. She says that typically he will get out of the hospital and within a few weeks eloped from the custodial, looking for cannabis; once he starts smoking cannabis he is gets and all kinds of other substance abuse. She says he was last at [facility] where he was started on Haldol which seems the likely cause of this episode of catatonia. She says this admission was the 1st time he was not engaged in substance abuse. She says at baseline he is able to have a fluent conversation; she said his speech may be a little bit slowed but not much and talks spontaneously without any latency or thought blocking. She agrees that current presentation sounds like catatonia 11/19 patient agrees to increasing Ativan if needed; discussed possibility of ECT which he said he agreed to consider ([facility] on [facility] and has a guardian and is not able to consent) 11/20 No change, patient remains lying in bed, moving very slowly, significant speech latency, talking slowly. Hardly eating (though continues to drink fluids). Agrees to increase Ativan. Discussed situation with legal arm of the team; as patient is currently on a Parsons order with a guardian, he cannot consent to ECT. Hopefully with increased Ativan, catatonic symptoms will break. Discussed treatment for catatonia with colleagues with 2 different thoughts, one going as high as 16 mg per day, another hesitant to go above 8 mg. Since no improvement thus far screenplay writer decided to split the difference and increased to total of 12 mg daily (there is little harm in going to higher doses of ativan other than it makes tapering off a more lengthy process) 11/21/22 Continue with current treatment plan 11/22/22 Continue treatmetn plan 11/23 pt some improvement, showering yesterday, sat in on a group and willing to walk the davis each shift to avoid DVT. However, when not prompted, stays in bed, hardly moving, eating very little, significant psycomotor retardation and speech latency. Agrees to increase ativan; says he is open to ECT if he needs it but his parents, father who is guardian, is against it. Later in day, pt signed 3 day. Thus, Will increase Ativan to 4mg qid (total daily dose of 16mg) in hopes for effect. His improvement is minimal and he remains at significant risk for continued and worsening catatonic symptoms. Will reach out to Father/guardian; will dc Xeralto since walking periodically during day. 11/24 patient remains with retarded catatonia with Inhibited movements, posturing, blankly staring; poor food intake; Though thankfully seems to be adequate fluid intake. currently no longer at risk for DVT; since patient is now walking with prompting. Has insight to know that he has catatonia; however while he seems to understand that without treatment this is a high risk of it worsening and that it can become life-threatening and despite expressing he wants to live and wants treatment, he is not yet willing to retract his 3 day notice and commit to staying for treatment. Patient says that his parents want him out of the hospital and do not want him to get ECT. Shirt Cleaner explained again that the only treatments for catatonia are benzodiazepines and ECT which patient said he understood. -patient is catatonic and remains with significantly impaired functioning. Shirt Cleaner reviewed literature on catatonia in [employer] and standard treatment is that if benzodiazepines are not effectively resolving catatonia within 1 week, ECT becomes the next and only other treatment option and should be started promptl; otherwise risk catatonia developing into a malignant catatonia which can be life-threatening (malignant catatonia which is associated with fever, autonomic instability (hypertension/hypotension, tachycardia, tachypnea, diaphoresis, delirium, rigidity and ). Additionally patient is on only half his regular dose of lithium and did not get full dose of Invega Sustenna leaving his psychotic illness only partially treated. Patient requires prompting to do ADLs. At this time, patient is not safe for discharge, needs continued treatment with correction. If patient does not retract his 3 day notice will very likely petitioned the court for involuntary commitment and substituted judgment for treatment. -screenplay writer has reached out to father who is patient's guardian and left a voicemail. -Focused neuro exam: No upper/lower limb stiffness or rigidity; b/l patellar, triceps brachioradialis reflexes 2+/ WNL -No autonomic instability and low concern for NMS however ordered WBC, CPK; LDH; also ordered bun/Cr given patient on lithium and also lying in bed much of the day with some mildly increased risk for rhabdo 11/25 Patient remains with catatonic symptoms, hardly moving hardly talking, with significant psychomotor retardation, speech latency; hardly eating so screenplay writer ordered ensure since he continues to drink fluid. Shirt Cleaner discussed patient's catatonic symptoms and he retracted is 3 day notice saying he wants to remain for treatment; he says he wants ECT. Shirt Cleaner discussed case with his father who is guardian. After discussing catatonia and treatment, patient's father/guardian said that he would agree with ECT treatment as long as his mother concurred and asked screenplay writer to call patient's mother Alejandrina. Shirt Cleaner discussed case with Alejandrina who also agreed with ECT given the lack of other options. 11/26 continue current treatment plan 11/27 remains with severe catatonic symptoms; will increase monitoring of vitals to t.i.d.; nursing staff informed to make sure patient walks the davis once per day to avoid DVT; otherwise to inform provider to consider DVT prophylaxis. Discussed case with colleague who recommended giving a 1 time extra Ativan dose to see if there was any benefit at all as a means to consider whether not to increase total daily Ativan dose. Discussed case with legal and filling out paperwork to amend [facility] with ECT. 11/29/2022: No changes to current plan. 11/30 patient remains catatonic; continue with efforts to procure treatment for ECT and submitted affidavit Patient's mother left voicemail saying that he has a long history of trauma; also that she hopes will be at the lowest dose of medication possible and reiterated ideas about a new custodial 12/01, auditory hallucinations and paranoid delusions; impaired insight and judgment prevail. Continued catatonic symptoms 12/02 Patient seems a little bit better today. Still with very slow movements, speech latency, trouble getting words out however patient's deficiencies in these areas seem a little less severe. Cautiously hopeful that minimal improvement today will continue to increase. Continue current treatment regimen. 12/03 Met with patient as he was walking the davis. He agreed that he is walking very slowly and cannot walk any faster and that this is not his baseline ability; when turning around patient needed to do multiple shuffle steps. Shirt Cleaner again explained the effects of catatonia. Patient said he is feeling nauseous from the Ativan however does not want any medication for nausea and agrees to continue taking Ativan, not wanting catatonic symptoms to worsen. It is not clear if patient's symptoms are improving; continue current regimen 12/04 there does not seem to be any improvement in catatonic symptoms and it remains difficult for him to move or get words out. Continue Ativan treatment; will continue to pursue ECT -so far have left lithium medication scheduled though at half his home dose; screenplay writer cannot find literature regarding lithium catatonia; discussed with colleagues who also had no opinion on whether to continue or discontinue. Shirt Cleaner will consider discontinuing it 12/05 no change in presentation, remains severely catatonic with much trouble moving, articulating, hardly eating. Remains with auditory hallucinations that he say bother him. Discussed lithium with Dr. Chavarria who does not have any strong opinion on its continuation or discontinuation; however both agree that it is unlikely to be benefiting patient since it is at half his regular home dose and thus might as well discontinue it for now; also lithium can increase delirium side effect from ECT which remains hopeful treatment. Will reduced to 300 mg for now. 12/06 no change in presentation, no improvement 12/07 walking the halls a little more than usual; otherwise little change and still with catatonic symptoms; agrees to continue with Ativan 12/08 no change in presentation; still severe catatonic symptoms. Endorses auditory and visual hallucinations, saying he sees orbs. -Patient's mother Alejandrina came to the unit today to visit her son. Shirt Cleaner met her on the unit and She said that he is like a zombie and far from when he is normally like; she reminisced about how he was when she last saw him months ago and they went to a coffee shop, shopping...had great conversation. She said he spent about 20 minutes with her but hardly said anything and then got up and left the room Patient educated on: diagnosis Informed Consent: understands and further education needed Reason for continued inpatient stay Substantial Risk for: inability to function Time Spent With Patient Time: Total time managing care of this patient today ____ minutes.
[2022-12-08 15:42] VITALS: BP 124/71; PULSE 82; RESP 18; TEMP 36.8; O2SAT 98
[2022-12-08 19:27] VITALS: BP 93/53; PULSE 99; TEMP 36.4
[2022-12-08] MEDS: Lithium Carbonate 300 MG CAPSULE PO (20:05)
[2022-12-08] MEDS: Melatonin 3 MG TABLET PO (21:40)
[2022-12-09] MEDS: LORazepam 1 MG TABLET 4 MG PO ×4 (08:59→20:31)
[2022-12-09 09:00] VITALS: BP 118/79; PULSE 96; RESP 18; TEMP 36.2; O2SAT 98
--- NOTE | 2022-12-09 09:42 | HO.PSYCHPN ---
Subjective Subjective Date of Service: 12/09/22 Reason For Visit: schizoaffective d/o; bipolar type Interim History: Met with patient; discussed with team no change in presentation Mental Status Exam Mental Status Exam Narrative: Pt is alert and oriented; behavior is slowed, quiet, remains in bed almost all day, eating very little; patient is not in physical distress; dressed in hospital attire with unkempt hair, but improved hygiene; mood is blunted; affect blunted; eye contact with a blank stare; Speech is latent, few words, slowed, low volume and monotone; significant psychomotor retardation present; thought process is marred by thought blocking but can be goal directed; Thought content is on treatment; no paranoid delusions expressed, though he will only drink bottled water; denies any SI/HI. Positive for Patients insight and judgment impaired. Diagnostics Vital Signs (24Hr): Vital Signs - 24 hr 12/08/22 15:42 12/08/22 19:27 12/09/22 09:00 Temperature 98.3 F 97.6 F 97.1 F Pulse Rate 82 99 96 Respiratory Rate 18 18 Blood Pressure 124/71 93/53 L 118/79 Pulse Oximetry 98 98 Oxygen Delivery Method Room Air Room Air BMI result Body Mass Index 29.5 Labs 11/24/22 16:28 Medications Medications Current Medications Acetaminophen (Acetaminophen 325 Mg Tablet) 650 mg PO Q6H PRN PRN Reason: Headache/Pain Mild Scale (1-3) Al Hydroxide/Mg Hydroxide (Magnesium Hydrox/Alum Hydrox 30 Ml Oral.Susp) 30 ml PO Q6H PRN PRN Reason: Heartburn/Nausea Calcium Carbonate (Calcium Carbonate 750 Mg Tab.Chew) 750 mg PO BID [facility] Last Admin: 12/08/22 21:13 Dose: Not Given Hydroxyzine HCl (Hydroxyzine Hcl 25 Mg Tablet) 25 mg PO Q6H PRN PRN Reason: Anxiety Crumpler Carbonate (Crumpler Carbonate 300 Mg Capsule) 300 mg PO BEDTIME [facility] Last Admin: 12/08/22 20:05 Dose: 300 mg Lorazepam (Lorazepam 1 Mg Tablet) 4 mg PO QID [facility] Last Admin: 12/09/22 08:59 Dose: 4 mg Magnesium Hydroxide (Milk Of Magnesia 30 Ml Oral.Susp) 30 ml PO DAILY PRN PRN Reason: Constipation Last Admin: 12/05/22 22:36 Dose: 30 ml Melatonin (Melatonin 3 Mg Tablet) 3 mg PO BEDTIME PRN PRN Reason: Insomnia Last Admin: 12/08/22 21:40 Dose: 3 mg Paliperidone Palmitate (Paliperidone Palmitate 234 Mg/1.5 Ml Syringe) 234 mg IM Q30D [facility] Last Admin: 11/13/22 09:36 Dose: 234 mg Allergies Allergies Allergy/AdvReac Type Severity Reaction Status Date / Time No Known Allergies Allergy Verified 09/05/22 21:55 Assessment & Plan Assessment & Plan (1) Schizophrenia, 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 Zabala is a 37 year-old male, on community Parsons/guardian, with hx of schizophrenia. He resides at from [facility] for about one year. Since then, per staff, pt has had about 12 inpatient admission. Pt was recently discharged from medical floor after being treated for pneumonia. The day after pt was described as disorganized, wondering the streets, laying on the streets. He was brought via EMS to [facility]. Utox is negative. Pt does have hx of cannabis use but this time it was negative. Pt presents with symptoms of catatonia including waxy flexibility, negativism, intermittent mutism and black stare. Pt has not missed dose of Invega Sustenna- he has been on 234mg IM which has been given on 09/15 while on M3, 10/17 in the community. Pt also on haldol 30mg po qhs. Will hold haldol given s/s of catatonia. Pt is on Parsons which expires today but extension has been filed and granted- per CM awating paperwork from court. Guardian is his father- Joe Wells [phone]. PLAN CV Q 15 minute checks Hope for ECT Pursuing legal paperwork/affidavit for ECT DC Xeralto (pt now walks davis w/ prompting) Continue ativan 4mg po QID- for continued catatonia (up from 2mg) DC haldol due to likely cause of catatonia (started at most recent admission at [facility]) Received Invega Sustenna 234 mg IM on 11/13 HOLD Off on Invega Sustenna 156mg IM (due on by 11/20) since pt remains w/ catatonia HOSPITAL COURSE: 11/06 continue ativan, monitor s/s catatonia. hold haldol until some improvement in s/s of catatonia. 11/07/22- continue current regime and plan of care. Pt denies all symptoms. 11/08/22- starting to hear reports of evening improvement. continue current plan for now. 11/09 file for involuntary tx due to inability to care for self due to catatonia. will restart lithium 300mg po BID. 11/10 slightly less mute, still with delayed response rate and appears internally preoccupied. will lower ativan continue monitor for worsening of s/s of catatonia. 11/11 less mute, more spontaneous in speech, less psychomotor retardation. 11/12 continue tx. Next Invega Sustenna 234mg IM due on 11/13/202211/13 He received Invega Sustenna 234mg IM today. continue to monitor exacerbation of catatonia. continue ativan 1mg po TID. 11/14/2022 No clear improvement to this point; Patient fearful M withdrawn 11/15/2022 No clear improvement question ECT 11/16 patient remains with catatonic symptoms; staff reports patient is doing a little better will continue with Ativan; still need collateral on baseline 11/17 restarted Ativan 2 mg t.i.d. since it accidentally fell off and patient's catatonic symptoms have worsened. Patient understands he has catatonia and signed a CV to remain on the unit longer for treatment 11/18 Patient remains with significant catatonic symptoms, slowed speech, slow movements, hardly getting out of bed at all, not eating much, but still seems to be drinking fluids adequately. Talked with patient's provider LESLIE Laurent who reports that over the past year she has only seen him 3 times because he ends up in the hospital so frequently. She says that typically he will get out of the hospital and within a few weeks eloped from the long-term, looking for cannabis; once he starts smoking cannabis he is gets and all kinds of other substance abuse. She says he was last at [facility] where he was started on Haldol which seems the likely cause of this episode of catatonia. She says this admission was the 1st time he was not engaged in substance abuse. She says at baseline he is able to have a fluent conversation; she said his speech may be a little bit slowed but not much and talks spontaneously without any latency or thought blocking. She agrees that current presentation sounds like catatonia 11/19 patient agrees to increasing Ativan if needed; discussed possibility of ECT which he said he agreed to consider (patient on community Parsons and has a guardian and is not able to consent) 11/20 No change, patient remains lying in bed, moving very slowly, significant speech latency, talking slowly. Hardly eating (though continues to drink fluids). Agrees to increase Ativan. Discussed situation with legal arm of the team; as patient is currently on a Parsons order with a guardian, he cannot consent to ECT. Hopefully with increased Ativan, catatonic symptoms will break. Discussed treatment for catatonia with colleagues with 2 different thoughts, one going as high as 16 mg per day, another hesitant to go above 8 mg. Since no improvement thus far marine underwriter decided to split the difference and increased to total of 12 mg daily (there is little harm in going to higher doses of ativan other than it makes tapering off a more lengthy process) 11/21/22 Continue with current treatment plan 11/22/22 Continue treatmetn plan 11/23 pt some improvement, showering yesterday, sat in on a group and willing to walk the davis each shift to avoid DVT. However, when not prompted, stays in bed, hardly moving, eating very little, significant psycomotor retardation and speech latency. Agrees to increase ativan; says he is open to ECT if he needs it but his parents, father who is guardian, is against it. Later in day, pt signed 3 day. Thus, Will increase Ativan to 4mg qid (total daily dose of 16mg) in hopes for effect. His improvement is minimal and he remains at significant risk for continued and worsening catatonic symptoms. Will reach out to Father/guardian; will dc Xeralto since walking periodically during day. 11/24 patient remains with retarded catatonia with Inhibited movements, posturing, blankly staring; poor food intake; Though thankfully seems to be adequate fluid intake. currently no longer at risk for DVT; since patient is now walking with prompting. Has insight to know that he has catatonia; however while he seems to understand that without treatment this is a high risk of it worsening and that it can become life-threatening and despite expressing he wants to live and wants treatment, he is not yet willing to retract his 3 day notice and commit to staying for treatment. Patient says that his parents want him out of the hospital and do not want him to get ECT. Cement Breaker explained again that the only treatments for catatonia are benzodiazepines and ECT which patient said he understood. -patient is catatonic and remains with significantly impaired functioning. Cement Breaker reviewed literature on catatonia in [employer] and standard treatment is that if benzodiazepines are not effectively resolving catatonia within 1 week, ECT becomes the next and only other treatment option and should be started promptl; otherwise risk catatonia developing into a malignant catatonia which can be life-threatening (malignant catatonia which is associated with fever, autonomic instability (hypertension/hypotension, tachycardia, tachypnea, diaphoresis, delirium, rigidity and ). Additionally patient is on only half his regular dose of lithium and did not get full dose of Invega Sustenna leaving his psychotic illness only partially treated. Patient requires prompting to do ADLs. At this time, patient is not safe for discharge, needs continued treatment with senior living. If patient does not retract his 3 day notice will very likely petitioned the court for involuntary commitment and substituted judgment for treatment. -marine underwriter has reached out to father who is patient's guardian and left a voicemail. -Focused neuro exam: No upper/lower limb stiffness or rigidity; b/l patellar, triceps brachioradialis reflexes 2+/ WNL -No autonomic instability and low concern for NMS however ordered WBC, CPK; LDH; also ordered bun/Cr given patient on lithium and also lying in bed much of the day with some mildly increased risk for rhabdo 11/25 Patient remains with catatonic symptoms, hardly moving hardly talking, with significant psychomotor retardation, speech latency; hardly eating so marine underwriter ordered ensure since he continues to drink fluid. Cement Breaker discussed patient's catatonic symptoms and he retracted is 3 day notice saying he wants to remain for treatment; he says he wants ECT. Cement Breaker discussed case with his father who is guardian. After discussing catatonia and treatment, patient's father/guardian said that he would agree with ECT treatment as long as his mother concurred and asked marine underwriter to call patient's mother Alejandrina. Cement Breaker discussed case with Alejandrina who also agreed with ECT given the lack of other options. 11/26 continue current treatment plan 11/27 remains with severe catatonic symptoms; will increase monitoring of vitals to t.i.d.; nursing staff informed to make sure patient walks the davis once per day to avoid DVT; otherwise to inform provider to consider DVT prophylaxis. Discussed case with colleague who recommended giving a 1 time extra Ativan dose to see if there was any benefit at all as a means to consider whether not to increase total daily Ativan dose. Discussed case with legal and filling out paperwork to amend [facility] with ECT. 11/29/2022: No changes to current plan. 11/30 patient remains catatonic; continue with efforts to procure treatment for ECT and submitted affidavit Patient's mother left voicemail saying that he has a long history of trauma; also that she hopes will be at the lowest dose of medication possible and reiterated ideas about a new long-term 12/01, auditory hallucinations and paranoid delusions; impaired insight and judgment prevail. Continued catatonic symptoms 12/02 Patient seems a little bit better today. Still with very slow movements, speech latency, trouble getting words out however patient's deficiencies in these areas seem a little less severe. Cautiously hopeful that minimal improvement today will continue to increase. Continue current treatment regimen. 12/03 Met with patient as he was walking the davis. He agreed that he is walking very slowly and cannot walk any faster and that this is not his baseline ability; when turning around patient needed to do multiple shuffle steps. Cement Breaker again explained the effects of catatonia. Patient said he is feeling nauseous from the Ativan however does not want any medication for nausea and agrees to continue taking Ativan, not wanting catatonic symptoms to worsen. It is not clear if patient's symptoms are improving; continue current regimen 12/04 there does not seem to be any improvement in catatonic symptoms and it remains difficult for him to move or get words out. Continue Ativan treatment; will continue to pursue ECT -so far have left lithium medication scheduled though at half his home dose; marine underwriter cannot find literature regarding lithium catatonia; discussed with colleagues who also had no opinion on whether to continue or discontinue. Cement Breaker will consider discontinuing it 12/05 no change in presentation, remains severely catatonic with much trouble moving, articulating, hardly eating. Remains with auditory hallucinations that he say bother him. Discussed lithium with Dr. Chavarria who does not have any strong opinion on its continuation or discontinuation; however both agree that it is unlikely to be benefiting patient since it is at half his regular home dose and thus might as well discontinue it for now; also lithium can increase delirium side effect from ECT which remains hopeful treatment. Will reduced to 300 mg for now. 12/06 no change in presentation, no improvement 12/07 walking the halls a little more than usual; otherwise little change and still with catatonic symptoms; agrees to continue with Ativan 12/08 no change in presentation; still severe catatonic symptoms. Endorses auditory and visual hallucinations, saying he sees orbs. -Patient's mother Alejandrina came to the unit today to visit her son. Cement Breaker met her on the unit and She said that he is like a zombie and far from when he is normally like; she reminisced about how he was when she last saw him months ago and they went to a coffee shop, shopping...had great conversation. She said he spent about 20 minutes with her but hardly said anything and then got up and left the room 12/09 no change; continue tx plan Patient educated on: diagnosis and medication risk/benefits Informed Consent: understands Reason for continued inpatient stay Substantial Risk for: inability to function Time Spent With Patient Time: Total time managing care of this patient today ____ minutes.
[2022-12-09 17:25] VITALS: BP 123/71; PULSE 88; TEMP 36.6
[2022-12-09] MEDS: Melatonin 3 MG TABLET PO (20:31)
[2022-12-10] MEDS: LORazepam 1 MG TABLET 4 MG PO ×4 (08:16→20:05)
[2022-12-10 08:20] VITALS: BP 117/82; PULSE 88; RESP 18; TEMP 36.6; O2SAT 95
[2022-12-10 12:58] VITALS: BP 120/82; PULSE 131; RESP 18; TEMP 37.1; O2SAT 96
[2022-12-10 16:28] VITALS: BP 126/80; PULSE 93; TEMP 36.6
[2022-12-10] MEDS: Melatonin 3 MG TABLET PO (20:12)
[2022-12-11 08:15] VITALS: BP 116/65; PULSE 84; RESP 18; TEMP 36.3; O2SAT 95
[2022-12-11] MEDS: LORazepam 1 MG TABLET 4 MG PO ×4 (08:28→19:44)
--- NOTE | 2022-12-11 09:09 | HO.PSYCHPN ---
Subjective Subjective Date of Service: 12/10/22 Reason For Visit: schizoaffective d/o; bipolar type Interim History: late entry note for pt seen 12/10 no change in presentation; says he does not have catatonia mother left VM and bottle of PQQ supplement asking newspaper writer to add to regimen Mental Status Exam Mental Status Exam Narrative: Pt is alert and oriented; behavior is slowed, quiet, remains in bed almost all day, eating very little; patient is not in physical distress; dressed in hospital attire with unkempt hair, but improved hygiene; mood is blunted; affect blunted; eye contact with a blank stare; Speech is latent, few words, slowed, low volume and monotone; significant psychomotor retardation present; thought process is marred by thought blocking but can be goal directed; Thought content is on treatment; no paranoid delusions expressed, though he will only drink bottled water; denies any SI/HI. Positive for AH Patients insight and judgment impaired. Diagnostics Vital Signs (24Hr): Vital Signs - 24 hr 12/10/22 12:58 12/10/22 16:28 12/11/22 08:15 Temperature 98.7 F 97.9 F 97.3 F Pulse Rate 131 H 93 84 Respiratory Rate 18 18 Blood Pressure 120/82 126/80 116/65 Pulse Oximetry 96 95 Oxygen Delivery Method Room Air Room Air BMI result Body Mass Index 29.5 Labs 11/24/22 16:28 Medications Medications Current Medications Acetaminophen (Acetaminophen 325 Mg Tablet) 650 mg PO Q6H PRN PRN Reason: Headache/Pain Mild Scale (1-3) Al Hydroxide/Mg Hydroxide (Magnesium Hydrox/Alum Hydrox 30 Ml Oral.Susp) 30 ml PO Q6H PRN PRN Reason: Heartburn/Nausea Calcium Carbonate (Calcium Carbonate 750 Mg Tab.Chew) 750 mg PO BID [facility] Last Admin: 12/11/22 08:28 Dose: Not Given Hydroxyzine HCl (Hydroxyzine Hcl 25 Mg Tablet) 25 mg PO Q6H PRN PRN Reason: Anxiety Lorazepam (Lorazepam 1 Mg Tablet) 4 mg PO QID [facility] Last Admin: 12/11/22 08:28 Dose: 4 mg Magnesium Hydroxide (Milk Of Magnesia 30 Ml Oral.Susp) 30 ml PO DAILY PRN PRN Reason: Constipation Last Admin: 12/05/22 22:36 Dose: 30 ml Melatonin (Melatonin 3 Mg Tablet) 3 mg PO BEDTIME PRN PRN Reason: Insomnia Last Admin: 12/10/22 20:12 Dose: 3 mg Paliperidone Palmitate (Paliperidone Palmitate 234 Mg/1.5 Ml Syringe) 234 mg IM Q30D [facility] Last Admin: 11/13/22 09:36 Dose: 234 mg Allergies Allergies Allergy/AdvReac Type Severity Reaction Status Date / Time No Known Allergies Allergy Verified 09/05/22 21:55 Assessment & Plan Assessment & Plan (1) Schizophrenia, 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 Zabala is a 37 year-old male, on community Parsons/guardian, with hx of schizophrenia. He resides at from [facility] for about one year. Since then, per staff, pt has had about 12 inpatient admission. Pt was recently discharged from medical floor after being treated for pneumonia. The day after pt was described as disorganized, wondering the streets, laying on the streets. He was brought via EMS to [facility]. Utox is negative. Pt does have hx of cannabis use but this time it was negative. Pt presents with symptoms of catatonia including waxy flexibility, negativism, intermittent mutism and black stare. Pt has not missed dose of Invega Sustenna- he has been on 234mg IM which has been given on 09/15 while on M3, 10/17 in the community. Pt also on haldol 30mg po qhs. Will hold haldol given s/s of catatonia. Pt is on Parsons which expires today but extension has been filed and granted- per CM awating paperwork from court. Guardian is his father- Joe Wells [phone]. PLAN CV Q 15 minute checks Hope for ECT Pursuing legal paperwork/affidavit for ECT DC Xeralto (pt now walks davis w/ prompting) Continue ativan 4mg po QID- for continued catatonia (up from 2mg) DC haldol due to likely cause of catatonia (started at most recent admission at [facility]) Received Invega Sustenna 234 mg IM on 11/13 HOLD Off on Invega Sustenna 156mg IM (due on by 11/20) since pt remains w/ catatonia HOSPITAL COURSE: 11/06 continue ativan, monitor s/s catatonia. hold haldol until some improvement in s/s of catatonia. 11/07/22- continue current regime and plan of care. Pt denies all symptoms. 11/08/22- starting to hear reports of evening improvement. continue current plan for now. 11/09 file for involuntary tx due to inability to care for self due to catatonia. will restart lithium 300mg po BID. 11/10 slightly less mute, still with delayed response rate and appears internally preoccupied. will lower ativan continue monitor for worsening of s/s of catatonia. 11/11 less mute, more spontaneous in speech, less psychomotor retardation. 11/12 continue tx. Next Invega Sustenna 234mg IM due on 11/13/202211/13 He received Invega Sustenna 234mg IM today. continue to monitor exacerbation of catatonia. continue ativan 1mg po TID. 11/14/2022 No clear improvement to this point; Patient fearful M withdrawn 11/15/2022 No clear improvement question ECT 11/16 patient remains with catatonic symptoms; staff reports patient is doing a little better will continue with Ativan; still need collateral on baseline 11/17 restarted Ativan 2 mg t.i.d. since it accidentally fell off and patient's catatonic symptoms have worsened. Patient understands he has catatonia and signed a CV to remain on the unit longer for treatment 11/18 Patient remains with significant catatonic symptoms, slowed speech, slow movements, hardly getting out of bed at all, not eating much, but still seems to be drinking fluids adequately. Talked with patient's provider LESLIE Laurent who reports that over the past year she has only seen him 3 times because he ends up in the hospital so frequently. She says that typically he will get out of the hospital and within a few weeks eloped from the [facility], looking for cannabis; once he starts smoking cannabis he is gets and all kinds of other substance abuse. She says he was last at [facility] where he was started on Haldol which seems the likely cause of this episode of catatonia. She says this admission was the 1st time he was not engaged in substance abuse. She says at baseline he is able to have a fluent conversation; she said his speech may be a little bit slowed but not much and talks spontaneously without any latency or thought blocking. She agrees that current presentation sounds like catatonia 11/19 patient agrees to increasing Ativan if needed; discussed possibility of ECT which he said he agreed to consider (patient on community Parsons and has a guardian and is not able to consent) 11/20 No change, patient remains lying in bed, moving very slowly, significant speech latency, talking slowly. Hardly eating (though continues to drink fluids). Agrees to increase Ativan. Discussed situation with legal arm of the team; as patient is currently on a Parsons order with a guardian, he cannot consent to ECT. Hopefully with increased Ativan, catatonic symptoms will break. Discussed treatment for catatonia with colleagues with 2 different thoughts, one going as high as 16 mg per day, another hesitant to go above 8 mg. Since no improvement thus far newspaper writer decided to split the difference and increased to total of 12 mg daily (there is little harm in going to higher doses of ativan other than it makes tapering off a more lengthy process) 11/21/22 Continue with current treatment plan 11/22/22 Continue treatmetn plan 11/23 pt some improvement, showering yesterday, sat in on a group and willing to walk the davis each shift to avoid DVT. However, when not prompted, stays in bed, hardly moving, eating very little, significant psycomotor retardation and speech latency. Agrees to increase ativan; says he is open to ECT if he needs it but his parents, father who is guardian, is against it. Later in day, pt signed 3 day. Thus, Will increase Ativan to 4mg qid (total daily dose of 16mg) in hopes for effect. His improvement is minimal and he remains at significant risk for continued and worsening catatonic symptoms. Will reach out to Father/guardian; will dc Xeralto since walking periodically during day. 11/24 patient remains with retarded catatonia with Inhibited movements, posturing, blankly staring; poor food intake; Though thankfully seems to be adequate fluid intake. currently no longer at risk for DVT; since patient is now walking with prompting. Has insight to know that he has catatonia; however while he seems to understand that without treatment this is a high risk of it worsening and that it can become life-threatening and despite expressing he wants to live and wants treatment, he is not yet willing to retract his 3 day notice and commit to staying for treatment. Patient says that his parents want him out of the hospital and do not want him to get ECT. Community Ambassador explained again that the only treatments for catatonia are benzodiazepines and ECT which patient said he understood. -patient is catatonic and remains with significantly impaired functioning. Community Ambassador reviewed literature on catatonia in [employer] and standard treatment is that if benzodiazepines are not effectively resolving catatonia within 1 week, ECT becomes the next and only other treatment option and should be started promptl; otherwise risk catatonia developing into a malignant catatonia which can be life-threatening (malignant catatonia which is associated with fever, autonomic instability (hypertension/hypotension, tachycardia, tachypnea, diaphoresis, delirium, rigidity and ). Additionally patient is on only half his regular dose of lithium and did not get full dose of Invega Sustenna leaving his psychotic illness only partially treated. Patient requires prompting to do ADLs. At this time, patient is not safe for discharge, needs continued treatment with jail. If patient does not retract his 3 day notice will very likely petitioned the court for involuntary commitment and substituted judgment for treatment. -newspaper writer has reached out to father who is patient's guardian and left a voicemail. -Focused neuro exam: No upper/lower limb stiffness or rigidity; b/l patellar, triceps brachioradialis reflexes 2+/ WNL -No autonomic instability and low concern for NMS however ordered WBC, CPK; LDH; also ordered bun/Cr given patient on lithium and also lying in bed much of the day with some mildly increased risk for rhabdo 11/25 Patient remains with catatonic symptoms, hardly moving hardly talking, with significant psychomotor retardation, speech latency; hardly eating so newspaper writer ordered ensure since he continues to drink fluid. Community Ambassador discussed patient's catatonic symptoms and he retracted is 3 day notice saying he wants to remain for treatment; he says he wants ECT. Community Ambassador discussed case with his father who is guardian. After discussing catatonia and treatment, patient's father/guardian said that he would agree with ECT treatment as long as his mother concurred and asked newspaper writer to call patient's mother Alejandrina. Community Ambassador discussed case with Alejandrina who also agreed with ECT given the lack of other options. 11/26 continue current treatment plan 11/27 remains with severe catatonic symptoms; will increase monitoring of vitals to t.i.d.; nursing staff informed to make sure patient walks the davis once per day to avoid DVT; otherwise to inform provider to consider DVT prophylaxis. Discussed case with colleague who recommended giving a 1 time extra Ativan dose to see if there was any benefit at all as a means to consider whether not to increase total daily Ativan dose. Discussed case with legal and filling out paperwork to amend [facility] with ECT. 11/29/2022: No changes to current plan. 11/30 patient remains catatonic; continue with efforts to procure treatment for ECT and submitted affidavit Patient's mother left voicemail saying that he has a long history of trauma; also that she hopes will be at the lowest dose of medication possible and reiterated ideas about a new [facility] 12/01, auditory hallucinations and paranoid delusions; impaired insight and judgment prevail. Continued catatonic symptoms 12/02 Patient seems a little bit better today. Still with very slow movements, speech latency, trouble getting words out however patient's deficiencies in these areas seem a little less severe. Cautiously hopeful that minimal improvement today will continue to increase. Continue current treatment regimen. 12/03 Met with patient as he was walking the davis. He agreed that he is walking very slowly and cannot walk any faster and that this is not his baseline ability; when turning around patient needed to do multiple shuffle steps. Community Ambassador again explained the effects of catatonia. Patient said he is feeling nauseous from the Ativan however does not want any medication for nausea and agrees to continue taking Ativan, not wanting catatonic symptoms to worsen. It is not clear if patient's symptoms are improving; continue current regimen 12/04 there does not seem to be any improvement in catatonic symptoms and it remains difficult for him to move or get words out. Continue Ativan treatment; will continue to pursue ECT -so far have left lithium medication scheduled though at half his home dose; newspaper writer cannot find literature regarding lithium catatonia; discussed with colleagues who also had no opinion on whether to continue or discontinue. Community Ambassador will consider discontinuing it 9/2 no change in presentation, remains severely catatonic with much trouble moving, articulating, hardly eating. Remains with auditory hallucinations that he say bother him. Discussed lithium with Dr. Chavarria who does not have any strong opinion on its continuation or discontinuation; however both agree that it is unlikely to be benefiting patient since it is at half his regular home dose and thus might as well discontinue it for now; also lithium can increase delirium side effect from ECT which remains hopeful treatment. Will reduced to 300 mg for now. 12/06 no change in presentation, no improvement 12/07 walking the halls a little more than usual; otherwise little change and still with catatonic symptoms; agrees to continue with Ativan 12/08 no change in presentation; still severe catatonic symptoms. Endorses auditory and visual hallucinations, saying he sees orbs. -Patient's mother Alejandrina came to the unit today to visit her son. Community Ambassador met her on the unit and She said that he is like a zombie and far from when he is normally like; she reminisced about how he was when she last saw him months ago and they went to a coffee shop, shopping...had great conversation. She said he spent about 20 minutes with her but hardly said anything and then got up and left the room 12/09 no change; continue tx plan 12/10 no change; continue tx plan; mother left bottle of PQQ supplement, however mother not guardian -pt intermittently vacillates, sometimes saying he does not have catatonia, other times that he does and wants tx Patient educated on: diagnosis Informed Consent: understands, does not understand and further education needed Reason for continued inpatient stay Substantial Risk for: inability to function Time Spent With Patient Time: Total time managing care of this patient today ____ minutes.
--- NOTE | 2022-12-11 09:51 | HO.PSYCHPN ---
Subjective Subjective Date of Service: 12/11/22 Reason For Visit: schizoaffective d/o; bipolar type Subjective Notes: Section 7 Interim History: Pt in bed. He denies SI/HI. He also denies AH/VH and other physical concerns. Pt reports I don't think ECT will work on me. When asked why, pt states I don't know Per nursing, he may be briefly visible but then goes back to bed, mostly staring at the ceiling, delayed response. Review of Systems Review of Systems Nothing acute. Ongoing monitoring around mobilization and intake Yes all other systems are reviewed and are negative Mental Status Exam Mental Status Exam Narrative: Pt is alert and oriented; behavior is slowed, quiet, remains in bed almost all day, eating very little; patient is not in physical distress; dressed in hospital attire with unkempt hair, but improved hygiene; mood is blunted; affect blunted; eye contact with a blank stare; Speech is latent, few words, slowed, low volume and monotone; significant psychomotor retardation present; thought process is marred by thought blocking but can be goal directed; Thought content is on treatment; no paranoid delusions expressed, though he will only drink bottled water; denies any SI/HI. Positive for AH Patients insight and judgment impaired. Diagnostics Vital Signs (24Hr): Vital Signs - 24 hr 12/10/22 12:58 12/10/22 16:28 12/11/22 08:15 Temperature 98.7 F 97.9 F 97.3 F Pulse Rate 131 H 93 84 Respiratory Rate 18 18 Blood Pressure 120/82 126/80 116/65 Pulse Oximetry 96 95 Oxygen Delivery Method Room Air Room Air BMI result Body Mass Index 29.5 Labs 11/24/22 16:28 Medications Medications Current Medications Acetaminophen (Acetaminophen 325 Mg Tablet) 650 mg PO Q6H PRN PRN Reason: Headache/Pain Mild Scale (1-3) Al Hydroxide/Mg Hydroxide (Magnesium Hydrox/Alum Hydrox 30 Ml Oral.Susp) 30 ml PO Q6H PRN PRN Reason: Heartburn/Nausea Calcium Carbonate (Calcium Carbonate 750 Mg Tab.Chew) 750 mg PO BID [facility] Last Admin: 12/11/22 08:28 Dose: Not Given Hydroxyzine HCl (Hydroxyzine Hcl 25 Mg Tablet) 25 mg PO Q6H PRN PRN Reason: Anxiety Lorazepam (Lorazepam 1 Mg Tablet) 4 mg PO QID [facility] Last Admin: 12/11/22 08:28 Dose: 4 mg Magnesium Hydroxide (Milk Of Magnesia 30 Ml Oral.Susp) 30 ml PO DAILY PRN PRN Reason: Constipation Last Admin: 12/05/22 22:36 Dose: 30 ml Melatonin (Melatonin 3 Mg Tablet) 3 mg PO BEDTIME PRN PRN Reason: Insomnia Last Admin: 12/10/22 20:12 Dose: 3 mg Paliperidone Palmitate (Paliperidone Palmitate 234 Mg/1.5 Ml Syringe) 234 mg IM Q30D [facility] Last Admin: 11/13/22 09:36 Dose: 234 mg Allergies Allergies Allergy/AdvReac Type Severity Reaction Status Date / Time No Known Allergies Allergy Verified 09/05/22 21:55 Assessment & Plan Assessment & Plan (1) Schizophrenia, 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 Zabala is a 37 year-old male, on community Parsons/guardian, with hx of schizophrenia. He resides at from [facility] for about one year. Since then, per staff, pt has had about 12 inpatient admission. Pt was recently discharged from medical floor after being treated for pneumonia. The day after pt was described as disorganized, wondering the streets, laying on the streets. He was brought via EMS to [facility]. Utox is negative. Pt does have hx of cannabis use but this time it was negative. Pt presents with symptoms of catatonia including waxy flexibility, negativism, intermittent mutism and black stare. Pt has not missed dose of Invega Sustenna- he has been on 234mg IM which has been given on 09/15 while on M3, 10/17 in the [facility]. Pt also on haldol 30mg po qhs. Will hold haldol given s/s of catatonia. Pt is on Parsons which expires today but extension has been filed and granted- per CM awating paperwork from court. Guardian is his father- Joe Wells [phone]. PLAN CV Q 15 minute checks Hope for ECT Pursuing legal paperwork/affidavit for ECT DC Xeralto (pt now walks davis w/ prompting) Continue ativan 4mg po QID- for continued catatonia (up from 2mg) DC haldol due to likely cause of catatonia (started at most recent admission at [facility]) Received Invega Sustenna 234 mg IM on 11/13 HOLD Off on Invega Sustenna 156mg IM (due on by 11/20) since pt remains w/ catatonia HOSPITAL COURSE: 11/06 continue ativan, monitor s/s catatonia. hold haldol until some improvement in s/s of catatonia. 11/07/22- continue current regime and plan of care. Pt denies all symptoms. 11/08/22- starting to hear reports of evening improvement. continue current plan for now. 11/09 file for involuntary tx due to inability to care for self due to catatonia. will restart lithium 300mg po BID. 11/10 slightly less mute, still with delayed response rate and appears internally preoccupied. will lower ativan continue monitor for worsening of s/s of catatonia. 11/11 less mute, more spontaneous in speech, less psychomotor retardation. 11/12 continue tx. Next Invega Sustenna 234mg IM due on 11/13/202211/13 He received Invega Sustenna 234mg IM today. continue to monitor exacerbation of catatonia. continue ativan 1mg po TID. 11/14/2022 No clear improvement to this point; Patient fearful M withdrawn 11/15/2022 No clear improvement question ECT 11/16 patient remains with catatonic symptoms; staff reports patient is doing a little better will continue with Ativan; still need collateral on baseline 11/17 restarted Ativan 2 mg t.i.d. since it accidentally fell off and patient's catatonic symptoms have worsened. Patient understands he has catatonia and signed a CV to remain on the unit longer for treatment 11/18 Patient remains with significant catatonic symptoms, slowed speech, slow movements, hardly getting out of bed at all, not eating much, but still seems to be drinking fluids adequately. Talked with patient's provider LESLIE Laurent who reports that over the past year she has only seen him 3 times because he ends up in the hospital so frequently. She says that typically he will get out of the hospital and within a few weeks [facility], [facility]; once he starts smoking cannabis he is gets and all kinds of other substance abuse. She says he was last at [facility] where he was started on Haldol which seems the likely cause of this episode of catatonia. She says this admission was the 1st time he was not engaged in substance abuse. She says at baseline he is able to have a fluent conversation; she said his speech may be a little bit slowed but not much and talks spontaneously without any latency or thought blocking. She agrees that current presentation sounds like catatonia 11/19 patient agrees to increasing Ativan if needed; discussed possibility of ECT which he said he agreed to consider (patient on [employer] and has a guardian and is not able to consent) 11/20 No change, patient remains lying in bed, moving very slowly, significant speech latency, talking slowly. Hardly eating (though continues to drink fluids). Agrees to increase Ativan. Discussed situation with legal arm of the team; as patient is currently on a Parsons order with a guardian, he cannot consent to ECT. Hopefully with increased Ativan, catatonic symptoms will break. Discussed treatment for catatonia with colleagues with 2 different thoughts, one going as high as 16 mg per day, another hesitant to go above 8 mg. Since no improvement thus far scientific writer decided to split the difference and increased to total of 12 mg daily (there is little harm in going to higher doses of ativan other than it makes tapering off a more lengthy process) 11/21/22 Continue with current treatment plan 11/22/22 Continue treatmetn plan 11/23 pt some improvement, showering yesterday, sat in on a group and willing to walk the davis each shift to avoid DVT. However, when not prompted, stays in bed, hardly moving, eating very little, significant psycomotor retardation and speech latency. Agrees to increase ativan; says he is open to ECT if he needs it but his parents, father who is guardian, is against it. Later in day, pt signed 3 day. Thus, Will increase Ativan to 4mg qid (total daily dose of 16mg) in hopes for effect. His improvement is minimal and he remains at significant risk for continued and worsening catatonic symptoms. Will reach out to Father/guardian; will dc Xeralto since walking periodically during day. 11/24 patient remains with retarded catatonia with Inhibited movements, posturing, blankly staring; poor food intake; Though thankfully seems to be adequate fluid intake. currently no longer at risk for DVT; since patient is now walking with prompting. Has insight to know that he has catatonia; however while he seems to understand that without treatment this is a high risk of it worsening and that it can become life-threatening and despite expressing he wants to live and wants treatment, he is not yet willing to retract his 3 day notice and commit to staying for treatment. Patient says that his parents want him out of the hospital and do not want him to get ECT. Pipe Smoking Machine Offbearer explained again that the only treatments for catatonia are benzodiazepines and ECT which patient said he understood. -patient is catatonic and remains with significantly impaired functioning. Pipe Smoking Machine Offbearer reviewed literature on catatonia in [employer] and standard treatment is that if benzodiazepines are not effectively resolving catatonia within 1 week, ECT becomes the next and only other treatment option and should be started promptl; otherwise risk catatonia developing into a malignant catatonia which can be life-threatening (malignant catatonia which is associated with fever, autonomic instability (hypertension/hypotension, tachycardia, tachypnea, diaphoresis, delirium, rigidity and ). Additionally patient is on only half his regular dose of lithium and did not get full dose of Invega Sustenna leaving his psychotic illness only partially treated. Patient requires prompting to do ADLs. At this time, patient is not safe for discharge, needs continued treatment with custodial. If patient does not retract his 3 day notice will very likely petitioned the court for involuntary commitment and substituted judgment for treatment. -scientific writer has reached out to father who is patient's guardian and left a voicemail. -Focused neuro exam: No upper/lower limb stiffness or rigidity; b/l patellar, triceps brachioradialis reflexes 2+/ WNL -No autonomic instability and low concern for NMS however ordered WBC, CPK; LDH; also ordered bun/Cr given patient on lithium and also lying in bed much of the day with some mildly increased risk for rhabdo 11/25 Patient remains with catatonic symptoms, hardly moving hardly talking, with significant psychomotor retardation, speech latency; hardly eating so scientific writer ordered ensure since he continues to drink fluid. Pipe Smoking Machine Offbearer discussed patient's catatonic symptoms and he retracted is 3 day notice saying he wants to remain for treatment; he says he wants ECT. Pipe Smoking Machine Offbearer discussed case with his father who is guardian. After discussing catatonia and treatment, patient's father/guardian said that he would agree with ECT treatment as long as his mother concurred and asked scientific writer to call patient's mother Alejandrina. Pipe Smoking Machine Offbearer discussed case with Alejandrina who also agreed with ECT given the lack of other options. 11/26 continue current treatment plan 11/27 remains with severe catatonic symptoms; will increase monitoring of vitals to t.i.d.; nursing staff informed to make sure patient walks the davis once per day to avoid DVT; otherwise to inform provider to consider DVT prophylaxis. Discussed case with colleague who recommended giving a 1 time extra Ativan dose to see if there was any benefit at all as a means to consider whether not to increase total daily Ativan dose. Discussed case with legal and filling out paperwork to amend [facility] with ECT. 11/29/2022: No changes to current plan. 11/30 patient remains catatonic; continue with efforts to procure treatment for ECT and submitted affidavit Patient's mother left voicemail saying that he has a long history of trauma; also that she hopes will be at the lowest dose of medication possible and reiterated ideas about a new [facility] 12/01, auditory hallucinations and paranoid delusions; impaired insight and judgment prevail. Continued catatonic symptoms 12/02 Patient seems a little bit better today. Still with very slow movements, speech latency, trouble getting words out however patient's deficiencies in these areas seem a little less severe. Cautiously hopeful that minimal improvement today will continue to increase. Continue current treatment regimen. 12/03 Met with patient as he was walking the davis. He agreed that he is walking very slowly and cannot walk any faster and that this is not his baseline ability; when turning around patient needed to do multiple shuffle steps. Pipe Smoking Machine Offbearer again explained the effects of catatonia. Patient said he is feeling nauseous from the Ativan however does not want any medication for nausea and agrees to continue taking Ativan, not wanting catatonic symptoms to worsen. It is not clear if patient's symptoms are improving; continue current regimen 12/04 there does not seem to be any improvement in catatonic symptoms and it remains difficult for him to move or get words out. Continue Ativan treatment; will continue to pursue ECT -so far have left lithium medication scheduled though at half his home dose; scientific writer cannot find literature regarding lithium catatonia; discussed with colleagues who also had no opinion on whether to continue or discontinue. Pipe Smoking Machine Offbearer will consider discontinuing it 12/05 no change in presentation, remains severely catatonic with much trouble moving, articulating, hardly eating. Remains with auditory hallucinations that he say bother him. Discussed lithium with Dr. Chavarria who does not have any strong opinion on its continuation or discontinuation; however both agree that it is unlikely to be benefiting patient since it is at half his regular home dose and thus might as well discontinue it for now; also lithium can increase delirium side effect from ECT which remains hopeful treatment. Will reduced to 300 mg for now. 12/06 no change in presentation, no improvement 12/07 walking the halls a little more than usual; otherwise little change and still with catatonic symptoms; agrees to continue with Ativan 12/08 no change in presentation; still severe catatonic symptoms. Endorses auditory and visual hallucinations, saying he sees orbs. -Patient's mother Alejandrina came to the unit today to visit her son. Pipe Smoking Machine Offbearer met her on the unit and She said that he is like a zombie and far from when he is normally like; she reminisced about how he was when she last saw him months ago and they went to a coffee shop, shopping...had great conversation. She said he spent about 20 minutes with her but hardly said anything and then got up and left the room 12/09 no change; continue tx plan 12/10 no change; continue tx plan; mother left bottle of PQQ supplement, however mother not guardian -pt intermittently vacillates, sometimes saying he does not have catatonia, other times that he does and wants tx 12/11 continue tx. pending ECT Reason for continued inpatient stay Substantial Risk for: inability to function Time Spent With Patient Time: Total time managing care of this patient today ____ minutes.
[2022-12-11 13:00] VITALS: BP 118/75; PULSE 88; RESP 18; TEMP 36.3; O2SAT 98
--- NOTE | 2022-12-11 16:10 | MHC.CLN ---
NUTRITION DISCONTINUED ENSURE TID. RD AVAILABLE BY CONSULT NEEDED.
[2022-12-11 18:00] VITALS: BP 128/77; PULSE 86; RESP 18; TEMP 36.6; O2SAT 98
[2022-12-11] MEDS: Calcium Carbonate 750 MG TAB.CHEW PO (19:44)
[2022-12-11] MEDS: Melatonin 3 MG TABLET PO (19:51)
[2022-12-12 08:00] VITALS: BP 123/75; PULSE 100; RESP 18; TEMP 36.2; O2SAT 94
[2022-12-12] MEDS: LORazepam 1 MG TABLET 4 MG PO ×3 (08:37→20:25)
--- NOTE | 2022-12-12 08:47 | P.PNPSI_ITS ---
Subjective Subjective Date of Service: 12/12/22 Reason For Visit: schizoaffective d/o; bipolar type Interim History: Pt seen, discussed with team. Plan of care reviewed. Making needs known. No changes today to regime. Pt asking team to change to IM Ativan due to GI distress. Team report that pt has just started to increase intake and may be experiencing discomfort from this. When pt was approached by tw he did not discuss this nor request this change. Reporting no sx of concern. Medication Compliance: Intermittent Mental Status Exam Mental Status Exam Patient Appearance: Disheveled Patient Orientation: Person and Place Level of Consciousness: Alert Patient Behavior: Guarded and Good Eye Contact Mood Description: Constricted Affect Description: Constricted Patient Cognition Impaired: No Ability to Follow Directions: Fair Speech Pattern: Spontaneous Speech Memory Description: Episodic Impaired Delusions: Paranoid Ideation Thought Process: Distracted Thought Content: positive for [place] Judgement: Poor Diagnostics Vital Signs (24Hr): Vital Signs - 24 hr 12/11/22 13:00 12/11/22 18:00 Temperature 97.3 F 97.9 F Pulse Rate 88 86 Respiratory Rate 18 18 Blood Pressure 118/75 128/77 Pulse Oximetry 98 98 Oxygen Delivery Method Room Air Room Air BMI result Body Mass Index 29.5 Labs 11/24/22 16:28 Medications Medications Current Medications Acetaminophen (Acetaminophen 325 Mg Tablet) 650 mg PO Q6H PRN PRN Reason: Headache/Pain Mild Scale (1-3) Al Hydroxide/Mg Hydroxide (Magnesium Hydrox/Alum Hydrox 30 Ml Oral.Susp) 30 ml PO Q6H PRN PRN Reason: Heartburn/Nausea Calcium Carbonate (Calcium Carbonate 750 Mg Tab.Chew) 750 mg PO BID [facility] Last Admin: 12/12/22 08:38 Dose: Not Given Hydroxyzine HCl (Hydroxyzine Hcl 25 Mg Tablet) 25 mg PO Q6H PRN PRN Reason: Anxiety Lorazepam (Lorazepam 1 Mg Tablet) 4 mg PO QID [facility] Last Admin: 12/12/22 08:37 Dose: 4 mg Magnesium Hydroxide (Milk Of Magnesia 30 Ml Oral.Susp) 30 ml PO DAILY PRN PRN Reason: Constipation Last Admin: 12/05/22 22:36 Dose: 30 ml Melatonin (Melatonin 3 Mg Tablet) 3 mg PO BEDTIME PRN PRN Reason: Insomnia Last Admin: 12/11/22 19:51 Dose: 3 mg Paliperidone Palmitate (Paliperidone Palmitate 234 Mg/1.5 Ml Syringe) 234 mg IM Q30D [facility] Last Admin: 11/13/22 09:36 Dose: 234 mg Allergies Allergies Allergy/AdvReac Type Severity Reaction Status Date / Time No Known Allergies Allergy Verified 09/05/22 21:55 Assessment & Plan Assessment & Plan (1) Schizophrenia, 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 Zabala is a 37 year-old male, on community Parsons/guardian, with hx of schizophrenia. He resides at from [facility] for about one year. Since then, per staff, pt has had about 12 inpatient admission. Pt was recently discharged from medical floor after being treated for pneumonia. The day after pt was described as disorganized, wondering the streets, laying on the streets. He was brought via EMS to [facility]. Utox is negative. Pt does have hx of cannabis use but this time it was negative. Pt presents with symptoms of catatonia including waxy flexibility, negativism, intermittent mutism and black stare. Pt has not missed dose of Invega Sustenna- he has been on 234mg IM which has been given on 09/15 while on M3, 10/17 in the community. Pt also on haldol 30mg po qhs. Will hold haldol given s/s of catatonia. Pt is on Parsons which expires today but extension has been filed and granted- per CM awating paperwork from court. Guardian is his father- Joe Wells [phone]. PLAN CV Q 15 minute checks Hope for ECT Pursuing legal paperwork/affidavit for ECT DC Xeralto (pt now walks davis w/ prompting) Continue ativan 4mg po QID- for continued catatonia (up from 2mg) DC haldol due to likely cause of catatonia (started at most recent admission at [facility]) Received Invega Sustenna 234 mg IM on 11/13 HOLD Off on Invega Sustenna 156mg IM (due on by 11/20) since pt remains w/ catatonia HOSPITAL COURSE: 11/06 continue ativan, monitor s/s catatonia. hold haldol until some improvement in s/s of catatonia. 11/07/22- continue current regime and plan of care. Pt denies all symptoms. 11/08/22- starting to hear reports of evening improvement. continue current plan for now. 11/09 file for involuntary tx due to inability to care for self due to catatonia. will restart lithium 300mg po BID. 11/10 slightly less mute, still with delayed response rate and appears internally preoccupied. will lower ativan continue monitor for worsening of s/s of catatonia. 11/11 less mute, more spontaneous in speech, less psychomotor retardation. 11/12 continue tx. Next Invega Sustenna 234mg IM due on 11/13/202211/13 He received Invega Sustenna 234mg IM today. continue to monitor exacerbation of catatonia. continue ativan 1mg po TID. 11/14/2022 No clear improvement to this point; Patient fearful M withdrawn 11/15/2022 No clear improvement question ECT 11/16 patient remains with catatonic symptoms; staff reports patient is doing a little better will continue with Ativan; still need collateral on baseline 11/17 restarted Ativan 2 mg t.i.d. since it accidentally fell off and patient's catatonic symptoms have worsened. Patient understands he has catatonia and signed a CV to remain on the unit longer for treatment 11/18 Patient remains with significant catatonic symptoms, slowed speech, slow movements, hardly getting out of bed at all, not eating much, but still seems to be drinking fluids adequately. Talked with patient's provider LESLIE Laurent who reports that over the past year she has only seen him 3 times because he ends up in the hospital so frequently. She says that typically he will get out of the hospital and within a few weeks eloped from the [facility], looking for cannabis; once he starts smoking cannabis he is gets and all kinds of other substance abuse. She says he was last at [facility] where he was started on Haldol which seems the likely cause of this episode of catatonia. She says this admission was the 1st time he was not engaged in substance abuse. She says at baseline he is able to have a fluent conversation; she said his speech may be a little bit slowed but not much and talks spontaneously without any latency or thought blocking. She agrees that current presentation sounds like catatonia 11/19 patient agrees to increasing Ativan if needed; discussed possibility of ECT which he said he agreed to consider (patient on community Parsons and has a guardian and is not able to consent) 11/20 No change, patient remains lying in bed, moving very slowly, significant speech latency, talking slowly. Hardly eating (though continues to drink fluids). Agrees to increase Ativan. Discussed situation with legal arm of the team; as patient is currently on a Parsons order with a guardian, he cannot consent to ECT. Hopefully with increased Ativan, catatonic symptoms will break. Discussed treatment for catatonia with colleagues with 2 different thoughts, one going as high as 16 mg per day, another hesitant to go above 8 mg. Since no improvement thus far magnetic tape typewriter operator decided to split the difference and increased to total of 12 mg daily (there is little harm in going to higher doses of ativan other than it makes tapering off a more lengthy process) 11/21/22 Continue with current treatment plan 11/22/22 Continue treatmetn plan 11/23 pt some improvement, showering yesterday, sat in on a group and willing to walk the davis each shift to avoid DVT. However, when not prompted, stays in bed, hardly moving, eating very little, significant psycomotor retardation and speech latency. Agrees to increase ativan; says he is open to ECT if he needs it but his parents, father who is guardian, is against it. Later in day, pt signed 3 day. Thus, Will increase Ativan to 4mg qid (total daily dose of 16mg) in hopes for effect. His improvement is minimal and he remains at significant risk for continued and worsening catatonic symptoms. Will reach out to Father/guardian; will dc Xeralto since walking periodically during day. 11/24 patient remains with retarded catatonia with Inhibited movements, posturing, blankly staring; poor food intake; Though thankfully seems to be adequate fluid intake. currently no longer at risk for DVT; since patient is now walking with prompting. Has insight to know that he has catatonia; however while he seems to understand that without treatment this is a high risk of it worsening and that it can become life-threatening and despite expressing he wants to live and wants treatment, he is not yet willing to retract his 3 day notice and commit to staying for treatment. Patient says that his parents want him out of the hospital and do not want him to get ECT. Oscillograph Technician explained again that the only treatments for catatonia are benzodiazepines and ECT which patient said he understood. -patient is catatonic and remains with significantly impaired functioning. Oscillograph Technician reviewed literature on catatonia in [employer] and standard treatment is that if benzodiazepines are not effectively resolving catatonia within 1 week, ECT becomes the next and only other treatment option and should be started promptl; otherwise risk catatonia developing into a malignant catatonia which can be life-threatening (malignant catatonia which is associated with fever, autonomic instability (hypertension/hypotension, tachycardia, tachypnea, diaphoresis, delirium, rigidity and ). Additionally patient is on only half his regular dose of lithium and did not get full dose of Invega Sustenna leaving his psychotic illness only partially treated. Patient requires prompting to do ADLs. At this time, patient is not safe for discharge, needs continued treatment with fpc. If patient does not retract his 3 day notice will very likely petitioned the court for involuntary commitment and substituted judgment for treatment. -magnetic tape typewriter operator has reached out to father who is patient's guardian and left a voicemail. -Focused neuro exam: No upper/lower limb stiffness or rigidity; b/l patellar, triceps brachioradialis reflexes 2+/ WNL -No autonomic instability and low concern for NMS however ordered WBC, CPK; LDH; also ordered bun/Cr given patient on lithium and also lying in bed much of the day with some mildly increased risk for rhabdo 11/25 Patient remains with catatonic symptoms, hardly moving hardly talking, with significant psychomotor retardation, speech latency; hardly eating so magnetic tape typewriter operator ordered ensure since he continues to drink fluid. Oscillograph Technician discussed patient's catatonic symptoms and he retracted is 3 day notice saying he wants to remain for treatment; he says he wants ECT. Oscillograph Technician discussed case with his father who is guardian. After discussing catatonia and treatment, patient's father/guardian said that he would agree with ECT treatment as long as his mother concurred and asked magnetic tape typewriter operator to call patient's mother Alejandrina. Oscillograph Technician discussed case with Alejandrina who also agreed with ECT given the lack of other options. 11/26 continue current treatment plan 11/27 remains with severe catatonic symptoms; will increase monitoring of vitals to t.i.d.; nursing staff informed to make sure patient walks the davis once per day to avoid DVT; otherwise to inform provider to consider DVT prophylaxis. Discussed case with colleague who recommended giving a 1 time extra Ativan dose to see if there was any benefit at all as a means to consider whether not to increase total daily Ativan dose. Discussed case with legal and filling out paperwork to amend [facility] with ECT. 11/29/2022: No changes to current plan. 11/30 patient remains catatonic; continue with efforts to procure treatment for ECT and submitted affidavit Patient's mother left voicemail saying that he has a long history of trauma; also that she hopes will be at the lowest dose of medication possible and reiterated ideas about a new [facility] 12/01, auditory hallucinations and paranoid delusions; impaired insight and judgment prevail. Continued catatonic symptoms 12/02 Patient seems a little bit better today. Still with very slow movements, speech latency, trouble getting words out however patient's deficiencies in these areas seem a little less severe. Cautiously hopeful that minimal improvement today will continue to increase. Continue current treatment regimen. 12/03 Met with patient as he was walking the davis. He agreed that he is walking very slowly and cannot walk any faster and that this is not his baseline ability; when turning around patient needed to do multiple shuffle steps. Oscillograph Technician again explained the effects of catatonia. Patient said he is feeling nauseous from the Ativan however does not want any medication for nausea and agrees to continue taking Ativan, not wanting catatonic symptoms to worsen. It is not clear if patient's symptoms are improving; continue current regimen 12/04 there does not seem to be any improvement in catatonic symptoms and it remains difficult for him to move or get words out. Continue Ativan treatment; will continue to pursue ECT -so far have left lithium medication scheduled though at half his home dose; magnetic tape typewriter operator cannot find literature regarding lithium catatonia; discussed with colleagues who also had no opinion on whether to continue or discontinue. Oscillograph Technician will consider discontinuing it 12/05 no change in presentation, remains severely catatonic with much trouble moving, articulating, hardly eating. Remains with auditory hallucinations that he say bother him. Discussed lithium with Dr. Chavarria who does not have any strong opinion on its continuation or discontinuation; however both agree that it is unlikely to be benefiting patient since it is at half his regular home dose and thus might as well discontinue it for now; also lithium can increase delirium side effect from ECT which remains hopeful treatment. Will reduced to 300 mg for now. 12/06 no change in presentation, no improvement 12/07 walking the halls a little more than usual; otherwise little change and still with catatonic symptoms; agrees to continue with Ativan 12/08 no change in presentation; still severe catatonic symptoms. Endorses auditory and visual hallucinations, saying he sees orbs. -Patient's mother Alejandrina came to the unit today to visit her son. Oscillograph Technician met her on the unit and She said that he is like a zombie and far from when he is normally like; she reminisced about how he was when she last saw him months ago and they went to a coffee shop, shopping...had great conversation. She said he spent about 20 minutes with her but hardly said anything and then got up and left the room 12/09 no change; continue tx plan 12/10 no change; continue tx plan; mother left bottle of PQQ supplement, however mother not guardian -pt intermittently vacillates, sometimes saying he does not have catatonia, other times that he does and wants tx 12/11 continue tx. pending ECT 12/12 continue tx Informed Consent: does not understand Reason for continued inpatient stay Substantial Risk for: rapid decompensation Time Spent With Patient Time: Total time managing care of this patient today ____ minutes.
[2022-12-12 13:00] VITALS: RESP 16
[2022-12-12 18:00] VITALS: BP 127/82; PULSE 97; TEMP 36.4; O2SAT 95
[2022-12-12] MEDS: Melatonin 3 MG TABLET PO (20:25)
[2022-12-12] MEDS: Calcium Carbonate 750 MG TAB.CHEW PO (20:25)
--- NOTE | 2022-12-13 05:52 | HO.PSYCHPN ---
Subjective Subjective Date of Service: 12/13/22 Reason For Visit: schizoaffective d/o; bipolar type Interim History: Pt seen in [facility], discussed with the team and plan of care reviewed. He reports some improvement. Appetite with increase. Refused Ativan 12/12. Accepted today. Visable in [facility] intermittently Mostly in his room, yet awake, alert and meditating . Medication Compliance: Yes Side effects from medications: No Attending Groups: No Review of Systems Acute medical concerns: No Medical Review of Systems: unchanged Mental Status Exam Mental Status Exam Patient Appearance: Disheveled Patient Orientation: Person and Place Level of Consciousness: Alert Patient Behavior: Guarded and Good Eye Contact Mood Description: Constricted Affect Description: Constricted Patient Cognition Impaired: No Ability to Follow Directions: Fair Speech Pattern: Spontaneous Speech Memory Description: Episodic Impaired Delusions: Paranoid Ideation Thought Process: Distracted Thought Content: positive for [place] Judgement: Poor Diagnostics Vital Signs (24Hr): Vital Signs - 24 hr 12/12/22 08:00 12/12/22 13:00 12/12/22 18:00 Temperature 97.1 F 97.5 F Pulse Rate 100 97 Respiratory Rate 18 16 Blood Pressure 123/75 127/82 Pulse Oximetry 94 95 Oxygen Delivery Method Room Air Room Air BMI result Body Mass Index 29.5 Labs 11/24/22 16:28 Medications Medications Current Medications Acetaminophen (Acetaminophen 325 Mg Tablet) 650 mg PO Q6H PRN PRN Reason: Headache/Pain Mild Scale (1-3) Al Hydroxide/Mg Hydroxide (Magnesium Hydrox/Alum Hydrox 30 Ml Oral.Susp) 30 ml PO Q6H PRN PRN Reason: Heartburn/Nausea Calcium Carbonate (Calcium Carbonate 750 Mg Tab.Chew) 750 mg PO BID [facility] Last Admin: 12/12/22 20:25 Dose: 750 mg Hydroxyzine HCl (Hydroxyzine Hcl 25 Mg Tablet) 25 mg PO Q6H PRN PRN Reason: Anxiety Lorazepam (Lorazepam 1 Mg Tablet) 4 mg PO QID [facility] Last Admin: 12/12/22 20:25 Dose: 4 mg Magnesium Hydroxide (Milk Of Magnesia 30 Ml Oral.Susp) 30 ml PO DAILY PRN PRN Reason: Constipation Last Admin: 12/05/22 22:36 Dose: 30 ml Melatonin (Melatonin 3 Mg Tablet) 3 mg PO BEDTIME PRN PRN Reason: Insomnia Last Admin: 12/12/22 20:25 Dose: 3 mg Paliperidone Palmitate (Paliperidone Palmitate 234 Mg/1.5 Ml Syringe) 234 mg IM Q30D [facility] Last Admin: 11/13/22 09:36 Dose: 234 mg Allergies Allergies Allergy/AdvReac Type Severity Reaction Status Date / Time No Known Allergies Allergy Verified 09/05/22 21:55 Assessment & Plan Assessment & Plan (1) Schizophrenia, 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 Zabala is a 37 year-old male, on community Parsons/guardian, with hx of schizophrenia. He resides at from [facility] for about one year. Since then, per staff, pt has had about 12 inpatient admission. Pt was recently discharged from medical floor after being treated for pneumonia. The day after pt was described as disorganized, wondering the streets, laying on the streets. He was brought via EMS to [facility]. Utox is negative. Pt does have hx of cannabis use but this time it was negative. Pt presents with symptoms of catatonia including waxy flexibility, negativism, intermittent mutism and black stare. Pt has not missed dose of Invega Sustenna- he has been on 234mg IM which has been given on 09/15 while on M3, 10/17 in the community. Pt also on haldol 30mg po qhs. Will hold haldol given s/s of catatonia. Pt is on Parsons which expires today but extension has been filed and granted- per CM awating paperwork from court. Guardian is his father- Joe Wells [phone]. PLAN CV Q 15 minute checks Hope for ECT Pursuing legal paperwork/affidavit for ECT DC Xeralto (pt now walks davis w/ prompting) Continue ativan 4mg po QID- for continued catatonia (up from 2mg) DC haldol due to likely cause of catatonia (started at most recent admission at [facility]) Received Invega Sustenna 234 mg IM on 11/13 HOLD Off on Invega Sustenna 156mg IM (due on by 11/20) since pt remains w/ catatonia HOSPITAL COURSE: 11/06 continue ativan, monitor s/s catatonia. hold haldol until some improvement in s/s of catatonia. 11/07/22- continue current regime and plan of care. Pt denies all symptoms. 11/08/22- starting to hear reports of evening improvement. continue current plan for now. 11/09 file for involuntary tx due to inability to care for self due to catatonia. will restart lithium 300mg po BID. 11/10 slightly less mute, still with delayed response rate and appears internally preoccupied. will lower ativan continue monitor for worsening of s/s of catatonia. 11/11 less mute, more spontaneous in speech, less psychomotor retardation. 11/12 continue tx. Next Invega Sustenna 234mg IM due on 11/13/202211/13 He received Invega Sustenna 234mg IM today. continue to monitor exacerbation of catatonia. continue ativan 1mg po TID. 11/14/2022 No clear improvement to this point; Patient fearful M withdrawn 11/15/2022 No clear improvement question ECT 11/16 patient remains with catatonic symptoms; staff reports patient is doing a little better will continue with Ativan; still need collateral on baseline 11/17 restarted Ativan 2 mg t.i.d. since it accidentally fell off and patient's catatonic symptoms have worsened. Patient understands he has catatonia and signed a CV to remain on the unit longer for treatment 11/18 Patient remains with significant catatonic symptoms, slowed speech, slow movements, hardly getting out of bed at all, not eating much, but still seems to be drinking fluids adequately. Talked with patient's provider LESLIE Laurent who reports that over the past year she has only seen him 3 times because he ends up in the hospital so frequently. She says that typically he will get out of the hospital and within a few weeks eloped from the assisted, looking for cannabis; once he starts smoking cannabis he is gets and all kinds of other substance abuse. She says he was last at [facility] where he was started on Haldol which seems the likely cause of this episode of catatonia. She says this admission was the 1st time he was not engaged in substance abuse. She says at baseline he is able to have a fluent conversation; she said his speech may be a little bit slowed but not much and talks spontaneously without any latency or thought blocking. She agrees that current presentation sounds like catatonia 11/19 patient agrees to increasing Ativan if needed; discussed possibility of ECT which he said he agreed to consider (patient on community Parsons and has a guardian and is not able to consent) 11/20 No change, patient remains lying in bed, moving very slowly, significant speech latency, talking slowly. Hardly eating (though continues to drink fluids). Agrees to increase Ativan. Discussed situation with legal arm of the team; as patient is currently on a Parsons order with a guardian, he cannot consent to ECT. Hopefully with increased Ativan, catatonic symptoms will break. Discussed treatment for catatonia with colleagues with 2 different thoughts, one going as high as 16 mg per day, another hesitant to go above 8 mg. Since no improvement thus far commercial insurance underwriter decided to split the difference and increased to total of 12 mg daily (there is little harm in going to higher doses of ativan other than it makes tapering off a more lengthy process) 11/21/22 Continue with current treatment plan 11/22/22 Continue treatmetn plan 11/23 pt some improvement, showering yesterday, sat in on a group and willing to walk the davis each shift to avoid DVT. However, when not prompted, stays in bed, hardly moving, eating very little, significant psycomotor retardation and speech latency. Agrees to increase ativan; says he is open to ECT if he needs it but his parents, father who is guardian, is against it. Later in day, pt signed 3 day. Thus, Will increase Ativan to 4mg qid (total daily dose of 16mg) in hopes for effect. His improvement is minimal and he remains at significant risk for continued and worsening catatonic symptoms. Will reach out to Father/guardian; will dc Xeralto since walking periodically during day. 11/24 patient remains with retarded catatonia with Inhibited movements, posturing, blankly staring; poor food intake; Though thankfully seems to be adequate fluid intake. currently no longer at risk for DVT; since patient is now walking with prompting. Has insight to know that he has catatonia; however while he seems to understand that without treatment this is a high risk of it worsening and that it can become life-threatening and despite expressing he wants to live and wants treatment, he is not yet willing to retract his 3 day notice and commit to staying for treatment. Patient says that his parents want him out of the hospital and do not want him to get ECT. Manager Of Transportation explained again that the only treatments for catatonia are benzodiazepines and ECT which patient said he understood. -patient is catatonic and remains with significantly impaired functioning. Manager Of Transportation reviewed literature on catatonia in [employer] and standard treatment is that if benzodiazepines are not effectively resolving catatonia within 1 week, ECT becomes the next and only other treatment option and should be started promptl; otherwise risk catatonia developing into a malignant catatonia which can be life-threatening (malignant catatonia which is associated with fever, autonomic instability (hypertension/hypotension, tachycardia, tachypnea, diaphoresis, delirium, rigidity and ). Additionally patient is on only half his regular dose of lithium and did not get full dose of Invega Sustenna leaving his psychotic illness only partially treated. Patient requires prompting to do ADLs. At this time, patient is not safe for discharge, needs continued treatment with fdc. If patient does not retract his 3 day notice will very likely petitioned the court for involuntary commitment and substituted judgment for treatment. -commercial insurance underwriter has reached out to father who is patient's guardian and left a voicemail. -Focused neuro exam: No upper/lower limb stiffness or rigidity; b/l patellar, triceps brachioradialis reflexes 2+/ WNL -No autonomic instability and low concern for NMS however ordered WBC, CPK; LDH; also ordered bun/Cr given patient on lithium and also lying in bed much of the day with some mildly increased risk for rhabdo 11/25 Patient remains with catatonic symptoms, hardly moving hardly talking, with significant psychomotor retardation, speech latency; hardly eating so commercial insurance underwriter ordered ensure since he continues to drink fluid. Manager Of Transportation discussed patient's catatonic symptoms and he retracted is 3 day notice saying he wants to remain for treatment; he says he wants ECT. Manager Of Transportation discussed case with his father who is guardian. After discussing catatonia and treatment, patient's father/guardian said that he would agree with ECT treatment as long as his mother concurred and asked commercial insurance underwriter to call patient's mother Alejandrina. Manager Of Transportation discussed case with Alejandrina who also agreed with ECT given the lack of other options. 11/26 continue current treatment plan 11/27 remains with severe catatonic symptoms; will increase monitoring of vitals to t.i.d.; nursing staff informed to make sure patient walks the davis once per day to avoid DVT; otherwise to inform provider to consider DVT prophylaxis. Discussed case with colleague who recommended giving a 1 time extra Ativan dose to see if there was any benefit at all as a means to consider whether not to increase total daily Ativan dose. Discussed case with legal and filling out paperwork to amend [facility] with ECT. 11/29/2022: No changes to current plan. 11/30 patient remains catatonic; continue with efforts to procure treatment for ECT and submitted affidavit Patient's mother left voicemail saying that he has a long history of trauma; also that she hopes will be at the lowest dose of medication possible and reiterated ideas about a new assisted 12/01, auditory hallucinations and paranoid delusions; impaired insight and judgment prevail. Continued catatonic symptoms 12/02 Patient seems a little bit better today. Still with very slow movements, speech latency, trouble getting words out however patient's deficiencies in these areas seem a little less severe. Cautiously hopeful that minimal improvement today will continue to increase. Continue current treatment regimen. 12/03 Met with patient as he was walking the davis. He agreed that he is walking very slowly and cannot walk any faster and that this is not his baseline ability; when turning around patient needed to do multiple shuffle steps. Manager Of Transportation again explained the effects of catatonia. Patient said he is feeling nauseous from the Ativan however does not want any medication for nausea and agrees to continue taking Ativan, not wanting catatonic symptoms to worsen. It is not clear if patient's symptoms are improving; continue current regimen 12/04 there does not seem to be any improvement in catatonic symptoms and it remains difficult for him to move or get words out. Continue Ativan treatment; will continue to pursue ECT -so far have left lithium medication scheduled though at half his home dose; commercial insurance underwriter cannot find literature regarding lithium catatonia; discussed with colleagues who also had no opinion on whether to continue or discontinue. Manager Of Transportation will consider discontinuing it 12/05 no change in presentation, remains severely catatonic with much trouble moving, articulating, hardly eating. Remains with auditory hallucinations that he say bother him. Discussed lithium with Dr. Chavarria who does not have any strong opinion on its continuation or discontinuation; however both agree that it is unlikely to be benefiting patient since it is at half his regular home dose and thus might as well discontinue it for now; also lithium can increase delirium side effect from ECT which remains hopeful treatment. Will reduced to 300 mg for now. 12/06 no change in presentation, no improvement 12/07 walking the halls a little more than usual; otherwise little change and still with catatonic symptoms; agrees to continue with Ativan 12/08 no change in presentation; still severe catatonic symptoms. Endorses auditory and visual hallucinations, saying he sees orbs. -Patient's mother Alejandrina came to the unit today to visit her son. Manager Of Transportation met her on the unit and She said that he is like a zombie and far from when he is normally like; she reminisced about how he was when she last saw him months ago and they went to a coffee shop, shopping...had great conversation. She said he spent about 20 minutes with her but hardly said anything and then got up and left the room 12/09 no change; continue tx plan 12/10 no change; continue tx plan; mother left bottle of PQQ supplement, however mother not guardian -pt intermittently vacillates, sometimes saying he does not have catatonia, other times that he does and wants tx 12/11 continue tx. pending ECT 12/13 continue tx. Reason for continued inpatient stay Substantial Risk for: rapid decompensation Time Spent With Patient Time: Total time managing care of this patient today ____ minutes.
[2022-12-13 09:00] VITALS: BP 139/89; PULSE 96; RESP 18; TEMP 36.7; O2SAT 99
[2022-12-13] MEDS: LORazepam 1 MG TABLET 4 MG PO ×4 (09:03→20:20)
[2022-12-13] MEDS: Paliperidone Palmitate 234 MG/1.5 ML SYRINGE IM (10:02)
[2022-12-13 13:00] VITALS: BP 128/76; PULSE 100; RESP 18; TEMP 36.3; O2SAT 95
[2022-12-13 18:00] VITALS: BP 135/78; PULSE 79; TEMP 36.2; O2SAT 99
[2022-12-13] MEDS: Melatonin 3 MG TABLET PO (20:24)
[2022-12-14 09:00] VITALS: BP 132/86; PULSE 132; RESP 18; TEMP 36.4; O2SAT 97
[2022-12-14] MEDS: LORazepam 1 MG TABLET 4 MG PO ×4 (09:05→21:09)
[2022-12-14] MEDS: Calcium Carbonate 750 MG TAB.CHEW PO (09:11)
--- NOTE | 2022-12-14 10:30 | P.PNPSI_ITS ---
Subjective Subjective Date of Service: 12/14/22 Reason For Visit: schizoaffective d/o; bipolar type Interim History: met with patient; discussed with team pt says he's bad today ...because he's still here... software writer discussed how his mom says he's not at his normal self... Pt says his mom is a liar but the reason he gives is that she lied about his fingernails, that when he was a kid they stopped growing..and she said that never happened. Mental Status Exam Mental Status Exam Narrative: Pt is alert and oriented; behavior is slowed, quiet, remains in bed most of the day, eating little, but more; patient is not in physical distress; dressed in hospital attire with unkempt hair, but adequate hygiene; mood is blunted; affect blunted; eye contact with a blank stare; Speech is latent, few words, slowed, low volume and monotone; significant psychomotor retardation present; thought process is marred by thought blocking but goal directed; Thought content is on discharge; intermittent paranoid delusions expressed; denies any SI/HI. Positive for Patients insight and judgment impaired. Diagnostics Vital Signs (24Hr): Vital Signs - 24 hr 12/13/22 13:00 12/13/22 18:00 12/14/22 09:00 Temperature 97.3 F 97.1 F 97.6 F Pulse Rate 100 79 132 H Respiratory Rate 18 18 Blood Pressure 128/76 135/78 132/86 Pulse Oximetry 95 99 97 Oxygen Delivery Method Room Air Room Air Room Air BMI result Body Mass Index 29.5 Labs 11/24/22 16:28 Medications Medications Current Medications Acetaminophen (Acetaminophen 325 Mg Tablet) 650 mg PO Q6H PRN PRN Reason: Headache/Pain Mild Scale (1-3) Al Hydroxide/Mg Hydroxide (Magnesium Hydrox/Alum Hydrox 30 Ml Oral.Susp) 30 ml PO Q6H PRN PRN Reason: Heartburn/Nausea Calcium Carbonate (Calcium Carbonate 750 Mg Tab.Chew) 750 mg PO BID [facility] Last Admin: 12/14/22 09:11 Dose: 750 mg Hydroxyzine HCl (Hydroxyzine Hcl 25 Mg Tablet) 25 mg PO Q6H PRN PRN Reason: Anxiety Lorazepam (Lorazepam 1 Mg Tablet) 4 mg PO QID [facility] Last Admin: 12/14/22 09:05 Dose: 4 mg Magnesium Hydroxide (Milk Of Magnesia 30 Ml Oral.Susp) 30 ml PO DAILY PRN PRN Reason: Constipation Last Admin: 12/05/22 22:36 Dose: 30 ml Melatonin (Melatonin 3 Mg Tablet) 3 mg PO BEDTIME PRN PRN Reason: Insomnia Last Admin: 12/13/22 20:24 Dose: 3 mg Paliperidone Palmitate (Paliperidone Palmitate 234 Mg/1.5 Ml Syringe) 234 mg IM Q30D [facility] Last Admin: 12/13/22 10:02 Dose: 234 mg Allergies Allergies Allergy/AdvReac Type Severity Reaction Status Date / Time No Known Allergies Allergy Verified 09/05/22 21:55 Assessment & Plan Assessment & Plan (1) Schizophrenia, 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 Zabala is a 37 year-old male, on community Parsons/guardian, with hx of schizophrenia. He resides at from [facility] for about one year. Since then, per staff, pt has had about 12 inpatient admission. Pt was recently discharged from medical floor after being treated for pneumonia. The day after pt was described as disorganized, wondering the streets, laying on the streets. He was brought via EMS to [facility]. Utox is negative. Pt does have hx of cannabis use but this time it was negative. Pt presents with symptoms of catatonia including waxy flexibility, negativism, intermittent mutism and black stare. Pt has not missed dose of Invega Sustenna- he has been on 234mg IM which has been given on 09/15 while on M3, 10/17 in the community. Pt also on haldol 30mg po qhs. Will hold haldol given s/s of catatonia. Pt is on Parsons which expires today but extension has been filed and granted- per CM awating paperwork from court. Guardian is his father- Joe Wells [phone]. PLAN CV Q 15 minute checks Hope for ECT Pursuing legal paperwork/affidavit for ECT DC Xeralto (pt now walks davis w/ prompting) Continue ativan 4mg po QID- for continued catatonia (up from 2mg) DC haldol due to likely cause of catatonia (started at most recent admission at [facility]) Received Invega Sustenna 234 mg IM on 11/13 HOLD Off on Invega Sustenna 156mg IM (due on by 11/20) since pt remains w/ catatonia HOSPITAL COURSE: 11/06 continue ativan, monitor s/s catatonia. hold haldol until some improvement in s/s of catatonia. 11/07/22- continue current regime and plan of care. Pt denies all symptoms. 11/08/22- starting to hear reports of evening improvement. continue current plan for now. 11/09 file for involuntary tx due to inability to care for self due to catatonia. will restart lithium 300mg po BID. 11/10 slightly less mute, still with delayed response rate and appears internally preoccupied. will lower ativan continue monitor for worsening of s/s of catatonia. 11/11 less mute, more spontaneous in speech, less psychomotor retardation. 11/12 continue tx. Next Invega Sustenna 234mg IM due on 11/13/202211/13 He received Invega Sustenna 234mg IM today. continue to monitor exacerbation of catatonia. continue ativan 1mg po TID. 11/14/2022 No clear improvement to this point; Patient fearful M withdrawn 11/15/2022 No clear improvement question ECT 11/16 patient remains with catatonic symptoms; staff reports patient is doing a little better will continue with Ativan; still need collateral on baseline 11/17 restarted Ativan 2 mg t.i.d. since it accidentally fell off and patient's catatonic symptoms have worsened. Patient understands he has catatonia and signed a CV to remain on the unit longer for treatment 11/18 Patient remains with significant catatonic symptoms, slowed speech, slow movements, hardly getting out of bed at all, not eating much, but still seems to be drinking fluids adequately. Talked with patient's provider LESLIE Laurent who reports that over the past year she has only seen him 3 times because he ends up in the hospital so frequently. She says that typically he will get out of the hospital and within a few weeks [facility], [facility] for cannabis; once he starts smoking cannabis he is gets and all kinds of other substance abuse. She says he was last at [facility] where he was started on Haldol which seems the likely cause of this episode of catatonia. She says this admission was the 1st time he was not engaged in substance abuse. She says at baseline he is able to have a fluent conversation; she said his speech may be a little bit slowed but not much and talks spontaneously without any latency or thought blocking. She agrees that current presentation sounds like catatonia 11/19 patient agrees to increasing Ativan if needed; discussed possibility of ECT which he said he agreed to consider (patient on [facility] and has a guardian and is not able to consent) 11/20 No change, patient remains lying in bed, moving very slowly, significant speech latency, talking slowly. Hardly eating (though continues to drink fluids). Agrees to increase Ativan. Discussed situation with legal arm of the team; as patient is currently on a Parsons order with a guardian, he cannot consent to ECT. Hopefully with increased Ativan, catatonic symptoms will break. Discussed treatment for catatonia with colleagues with 2 different thoughts, one going as high as 16 mg per day, another hesitant to go above 8 mg. Since no improvement thus far software writer decided to split the difference and increased to total of 12 mg daily (there is little harm in going to higher doses of ativan other than it makes tapering off a more lengthy process) 11/21/22 Continue with current treatment plan 11/22/22 Continue treatmetn plan 11/23 pt some improvement, showering yesterday, sat in on a group and willing to walk the davis each shift to avoid DVT. However, when not prompted, stays in bed, hardly moving, eating very little, significant psycomotor retardation and speech latency. Agrees to increase ativan; says he is open to ECT if he needs it but his parents, father who is guardian, is against it. Later in day, pt signed 3 day. Thus, Will increase Ativan to 4mg qid (total daily dose of 16mg) in hopes for effect. His improvement is minimal and he remains at significant risk for continued and worsening catatonic symptoms. Will reach out to Father/guardian; will dc Xeralto since walking periodically during day. 11/24 patient remains with retarded catatonia with Inhibited movements, posturing, blankly staring; poor food intake; Though thankfully seems to be adequate fluid intake. currently no longer at risk for DVT; since patient is now walking with prompting. Has insight to know that he has catatonia; however while he seems to understand that without treatment this is a high risk of it worsening and that it can become life-threatening and despite expressing he wants to live and wants treatment, he is not yet willing to retract his 3 day notice and commit to staying for treatment. Patient says that his parents want him out of the hospital and do not want him to get ECT. Signal Operator Technical explained again that the only treatments for catatonia are benzodiazepines and ECT which patient said he understood. -patient is catatonic and remains with significantly impaired functioning. Signal Operator Technical reviewed literature on catatonia in [employer] and standard treatment is that if benzodiazepines are not effectively resolving catatonia within 1 week, ECT becomes the next and only other treatment option and should be started promptl; otherwise risk catatonia developing into a malignant catatonia which can be life-threatening (malignant catatonia which is associated with fever, autonomic instability (hypertension/hypotension, tachycardia, tachypnea, diaphoresis, delirium, rigidity and ). Additionally patient is on only half his regular dose of lithium and did not get full dose of Invega Sustenna leaving his psychotic illness only partially treated. Patient requires prompting to do ADLs. At this time, patient is not safe for discharge, needs continued treatment with correction. If patient does not retract his 3 day notice will very likely petitioned the court for involuntary commitment and substituted judgment for treatment. -software writer has reached out to father who is patient's guardian and left a voicemail. -Focused neuro exam: No upper/lower limb stiffness or rigidity; b/l patellar, triceps brachioradialis reflexes 2+/ WNL -No autonomic instability and low concern for NMS however ordered WBC, CPK; LDH; also ordered bun/Cr given patient on lithium and also lying in bed much of the day with some mildly increased risk for rhabdo 11/25 Patient remains with catatonic symptoms, hardly moving hardly talking, with significant psychomotor retardation, speech latency; hardly eating so software writer ordered ensure since he continues to drink fluid. Signal Operator Technical discussed patient's catatonic symptoms and he retracted is 3 day notice saying he wants to remain for treatment; he says he wants ECT. Signal Operator Technical discussed case with his father who is guardian. After discussing catatonia and treatment, patient's father/guardian said that he would agree with ECT treatment as long as his mother concurred and asked software writer to call patient's mother Alejandrina. Signal Operator Technical discussed case with Alejandrina who also agreed with ECT given the lack of other options. 11/26 continue current treatment plan 11/27 remains with severe catatonic symptoms; will increase monitoring of vitals to t.i.d.; nursing staff informed to make sure patient walks the davis once per day to avoid DVT; otherwise to inform provider to consider DVT prophylaxis. Discussed case with colleague who recommended giving a 1 time extra Ativan dose to see if there was any benefit at all as a means to consider whether not to increase total daily Ativan dose. Discussed case with legal and filling out paperwork to amend [facility] with ECT. 11/29/2022: No changes to current plan. 11/30 patient remains catatonic; continue with efforts to procure treatment for ECT and submitted affidavit Patient's mother left voicemail saying that he has a long history of trauma; also that she hopes will be at the lowest dose of medication possible and reiterated ideas about a new [facility] 12/01, auditory hallucinations and paranoid delusions; impaired insight and judgment prevail. Continued catatonic symptoms 12/02 Patient seems a little bit better today. Still with very slow movements, speech latency, trouble getting words out however patient's deficiencies in these areas seem a little less severe. Cautiously hopeful that minimal improvement today will continue to increase. Continue current treatment regimen. 12/03 Met with patient as he was walking the davis. He agreed that he is walking very slowly and cannot walk any faster and that this is not his baseline ability; when turning around patient needed to do multiple shuffle steps. Signal Operator Technical again explained the effects of catatonia. Patient said he is feeling nauseous from the Ativan however does not want any medication for nausea and agrees to continue taking Ativan, not wanting catatonic symptoms to worsen. It is not clear if patient's symptoms are improving; continue current regimen 12/04 there does not seem to be any improvement in catatonic symptoms and it remains difficult for him to move or get words out. Continue Ativan treatment; will continue to pursue ECT -so far have left lithium medication scheduled though at half his home dose; software writer cannot find literature regarding lithium catatonia; discussed with colleagues who also had no opinion on whether to continue or discontinue. Signal Operator Technical will consider discontinuing it 12/05 no change in presentation, remains severely catatonic with much trouble moving, articulating, hardly eating. Remains with auditory hallucinations that he say bother him. Discussed lithium with Dr. Chavarria who does not have any strong opinion on its continuation or discontinuation; however both agree that it is unlikely to be benefiting patient since it is at half his regular home dose and thus might as well discontinue it for now; also lithium can increase delirium side effect from ECT which remains hopeful treatment. Will reduced to 300 mg for now. 12/06 no change in presentation, no improvement 12/07 walking the halls a little more than usual; otherwise little change and still with catatonic symptoms; agrees to continue with Ativan 12/08 no change in presentation; still severe catatonic symptoms. Endorses auditory and visual hallucinations, saying he sees orbs. -Patient's mother Alejandrina came to the unit today to visit her son. Signal Operator Technical met her on the unit and She said that he is like a zombie and far from when he is normally like; she reminisced about how he was when she last saw him months ago and they went to a coffee shop, shopping...had great conversation. She said he spent about 20 minutes with her but hardly said anything and then got up and left the room 12/09 no change; continue tx plan 12/10 no change; continue tx plan; mother left bottle of PQQ supplement, however mother not guardian -pt intermittently vacillates, sometimes saying he does not have catatonia, other times that he does and wants tx 12/11 continue tx. pending ECT 12/13 continue tx. 12/14 pt is a little improved, walking more, eating more; he moves a little bit better and his speech though still very latent and slow, is a little bit more fluid. pt received Invega Sustenna 234mg this past weekend. Patients catatonia is not worsening and has not for weeks; rather it's actually showing some signs of improving. Pt has bothersome AH that he says he wants help resolving. It appears that Haldol added to invega is what triggered Catatonia rather than Invega itself. At this time, it seems continuing Invega is low riks. Patient educated on: diagnosis and medication risk/benefits Informed Consent: understands, does not understand and further education needed Reason for continued inpatient stay Substantial Risk for: inability to function Time Spent With Patient Time: Total time managing care of this patient today ____ minutes.
--- NOTE | 2022-12-14 18:41 | PC.NURSE ---
184 pt refused vital sign assessment
[2022-12-15 08:40] VITALS: BP 127/77; PULSE 99; RESP 18; TEMP 36.7; O2SAT 94
[2022-12-15] MEDS: LORazepam 1 MG TABLET 4 MG PO ×4 (08:49→20:26)
[2022-12-15 13:00] VITALS: BP 122/78; PULSE 102; RESP 16; TEMP 36.6; O2SAT 96
[2022-12-15 17:41] VITALS: BP 124/75; PULSE 94; TEMP 36.4
--- NOTE | 2022-12-15 17:45 | P.PNPSI_ITS ---
Subjective Subjective Date of Service: 12/15/22 Reason For Visit: schizoaffective d/o; bipolar type Interim History: Met with patient; discussed with team same presentation; staff agrees pt is walking, eating a little more, moving better. Mental Status Exam Mental Status Exam Narrative: Pt is alert and oriented; behavior is slowed, quiet, remains in bed most of the day, eating little, but more; patient is not in physical distress; dressed in hospital attire with unkempt hair, but adequate hygiene; mood is blunted; affect blunted; eye contact with a blank stare; Speech is latent, few words, slowed, low volume and monotone; significant psychomotor retardation present but a little less; thought process is marred by thought blocking but goal directed; Thought content is on discharge; intermittent paranoid delusions expressed; denies any SI/HI. Positive for AH Patients insight and judgment impaired. Diagnostics Vital Signs (24Hr): Vital Signs - 24 hr 12/15/22 08:40 12/15/22 13:00 Temperature 98.1 F 97.9 F Pulse Rate 99 102 H Respiratory Rate 18 16 Blood Pressure 127/77 122/78 Pulse Oximetry 94 96 Oxygen Delivery Method Room Air Room Air BMI result Body Mass Index 29.5 Labs 11/24/22 16:28 Medications Medications Current Medications Acetaminophen (Acetaminophen 325 Mg Tablet) 650 mg PO Q6H PRN PRN Reason: Headache/Pain Mild Scale (1-3) Al Hydroxide/Mg Hydroxide (Magnesium Hydrox/Alum Hydrox 30 Ml Oral.Susp) 30 ml PO Q6H PRN PRN Reason: Heartburn/Nausea Calcium Carbonate (Calcium Carbonate 750 Mg Tab.Chew) 750 mg PO BID [facility] Last Admin: 12/15/22 08:50 Dose: Not Given Hydroxyzine HCl (Hydroxyzine Hcl 25 Mg Tablet) 25 mg PO Q6H PRN PRN Reason: Anxiety Lorazepam (Lorazepam 1 Mg Tablet) 4 mg PO QID [facility] Last Admin: 12/15/22 16:08 Dose: 4 mg Magnesium Hydroxide (Milk Of Magnesia 30 Ml Oral.Susp) 30 ml PO DAILY PRN PRN Reason: Constipation Last Admin: 12/05/22 22:36 Dose: 30 ml Melatonin (Melatonin 3 Mg Tablet) 3 mg PO BEDTIME PRN PRN Reason: Insomnia Last Admin: 12/13/22 20:24 Dose: 3 mg Allergies Allergies Allergy/AdvReac Type Severity Reaction Status Date / Time No Known Allergies Allergy Verified 09/05/22 21:55 Assessment & Plan Assessment & Plan (1) Schizophrenia, 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 Zabala is a 37 year-old male, on community Parsons/guardian, with hx of schizophrenia. He resides at from [facility] for about one year. Since then, per staff, pt has had about 12 inpatient admission. Pt was recently discharged from medical floor after being treated for pneumonia. The day after pt was described as disorganized, wondering the streets, laying on the streets. He was brought via EMS to [facility]. Utox is negative. Pt does have hx of cannabis use but this time it was negative. Pt presents with symptoms of catatonia including waxy flexibility, negativism, intermittent mutism and black stare. Pt has not missed dose of Invega Sustenna- he has been on 234mg IM which has been given on 09/15 while on M3, 10/17 in the [facility]. Pt also on haldol 30mg po qhs. Will hold haldol given s/s of catatonia. Pt is on Parsons which expires today but extension has been filed and granted- per CM awating paperwork from court. Guardian is his father- Joe Wells [phone]. PLAN CV Q 15 minute checks Hope for ECT Pursuing legal paperwork/affidavit for ECT DC Xeralto (pt now walks davis w/ prompting) Continue ativan 4mg po QID- for continued catatonia (up from 2mg) DC haldol due to likely cause of catatonia (started at most recent admission at [facility]) Received Invega Sustenna 234 mg IM on 11/13 HOLD Off on Invega Sustenna 156mg IM (due on by 11/20) since pt remains w/ catatonia HOSPITAL COURSE: 11/06 continue ativan, monitor s/s catatonia. hold haldol until some improvement in s/s of catatonia. 11/07/22- continue current regime and plan of care. Pt denies all symptoms. 11/08/22- starting to hear reports of evening improvement. continue current plan for now. 11/09 file for involuntary tx due to inability to care for self due to catatonia. will restart lithium 300mg po BID. 11/10 slightly less mute, still with delayed response rate and appears internally preoccupied. will lower ativan continue monitor for worsening of s/s of catatonia. 11/11 less mute, more spontaneous in speech, less psychomotor retardation. 11/12 continue tx. Next Invega Sustenna 234mg IM due on 11/13/202211/13 He received Invega Sustenna 234mg IM today. continue to monitor exacerbation of catatonia. continue ativan 1mg po TID. 11/14/2022 No clear improvement to this point; Patient fearful M withdrawn 11/15/2022 No clear improvement question ECT 11/16 patient remains with catatonic symptoms; staff reports patient is doing a little better will continue with Ativan; still need collateral on baseline 11/17 restarted Ativan 2 mg t.i.d. since it accidentally fell off and patient's catatonic symptoms have worsened. Patient understands he has catatonia and signed a CV to remain on the unit longer for treatment 11/18 Patient remains with significant catatonic symptoms, slowed speech, slow movements, hardly getting out of bed at all, not eating much, but still seems to be drinking fluids adequately. Talked with patient's provider LESLIE Laurent who reports that over the past year she has only seen him 3 times because he ends up in the hospital so frequently. She says that typically he will get out of the hospital and within a few weeks eloped from the residential, looking for cannabis; once he starts smoking cannabis he is gets and all kinds of other substance abuse. She says he was last at [facility] where he was started on Haldol which seems the likely cause of this episode of catatonia. She says this admission was the 1st time he was not engaged in substance abuse. She says at baseline he is able to have a fluent conversation; she said his speech may be a little bit slowed but not much and talks spontaneously without any latency or thought blocking. She agrees that current presentation sounds like catatonia 11/19 patient agrees to increasing Ativan if needed; discussed possibility of ECT which he said he agreed to consider (patient on [facility] and has a guardian and is not able to consent) 11/20 No change, patient remains lying in bed, moving very slowly, significant speech latency, talking slowly. Hardly eating (though continues to drink fluids). Agrees to increase Ativan. Discussed situation with legal arm of the team; as patient is currently on a Parsons order with a guardian, he cannot consent to ECT. Hopefully with increased Ativan, catatonic symptoms will break. Discussed treatment for catatonia with colleagues with 2 different thoughts, one going as high as 16 mg per day, another hesitant to go above 8 mg. Since no improvement thus far global technical writer decided to split the difference and increased to total of 12 mg daily (there is little harm in going to higher doses of ativan other than it makes tapering off a more lengthy process) 11/21/22 Continue with current treatment plan 11/22/22 Continue treatmetn plan 11/23 pt some improvement, showering yesterday, sat in on a group and willing to walk the davis each shift to avoid DVT. However, when not prompted, stays in bed, hardly moving, eating very little, significant psycomotor retardation and speech latency. Agrees to increase ativan; says he is open to ECT if he needs it but his parents, father who is guardian, is against it. Later in day, pt signed 3 day. Thus, Will increase Ativan to 4mg qid (total daily dose of 16mg) in hopes for effect. His improvement is minimal and he remains at significant risk for continued and worsening catatonic symptoms. Will reach out to Father/guardian; will dc Xeralto since walking periodically during day. 11/24 patient remains with retarded catatonia with Inhibited movements, posturing, blankly staring; poor food intake; Though thankfully seems to be adequate fluid intake. currently no longer at risk for DVT; since patient is now walking with prompting. Has insight to know that he has catatonia; however while he seems to understand that without treatment this is a high risk of it worsening and that it can become life-threatening and despite expressing he wants to live and wants treatment, he is not yet willing to retract his 3 day notice and commit to staying for treatment. Patient says that his parents want him out of the hospital and do not want him to get ECT. Pizza Driver explained again that the only treatments for catatonia are benzodiazepines and ECT which patient said he understood. -patient is catatonic and remains with significantly impaired functioning. Pizza Driver reviewed literature on catatonia in [employer] and standard treatment is that if benzodiazepines are not effectively resolving catatonia within 1 week, ECT becomes the next and only other treatment option and should be started promptl; otherwise risk catatonia developing into a malignant catatonia which can be life-threatening (malignant catatonia which is associated with fever, autonomic instability (hypertension/hypotension, tachycardia, tachypnea, diaphoresis, delirium, rigidity and ). Additionally patient is on only half his regular dose of lithium and did not get full dose of Invega Sustenna leaving his psychotic illness only partially treated. Patient requires prompting to do ADLs. At this time, patient is not safe for discharge, needs continued treatment with intermediate. If patient does not retract his 3 day notice will very likely petitioned the court for involuntary commitment and substituted judgment for treatment. -global technical writer has reached out to father who is patient's guardian and left a voicemail. -Focused neuro exam: No upper/lower limb stiffness or rigidity; b/l patellar, triceps brachioradialis reflexes 2+/ WNL -No autonomic instability and low concern for NMS however ordered WBC, CPK; LDH; also ordered bun/Cr given patient on lithium and also lying in bed much of the day with some mildly increased risk for rhabdo 11/25 Patient remains with catatonic symptoms, hardly moving hardly talking, with significant psychomotor retardation, speech latency; hardly eating so global technical writer ordered ensure since he continues to drink fluid. Pizza Driver discussed patient's catatonic symptoms and he retracted is 3 day notice saying he wants to remain for treatment; he says he wants ECT. Pizza Driver discussed case with his father who is guardian. After discussing catatonia and treatment, patient's father/guardian said that he would agree with ECT treatment as long as his mother concurred and asked global technical writer to call patient's mother Alejandrina. Pizza Driver discussed case with Alejandrina who also agreed with ECT given the lack of other options. 11/26 continue current treatment plan 11/27 remains with severe catatonic symptoms; will increase monitoring of vitals to t.i.d.; nursing staff informed to make sure patient walks the davis once per day to avoid DVT; otherwise to inform provider to consider DVT prophylaxis. Discussed case with colleague who recommended giving a 1 time extra Ativan dose to see if there was any benefit at all as a means to consider whether not to increase total daily Ativan dose. Discussed case with legal and filling out paperwork to amend [facility] with ECT. 11/29/2022: No changes to current plan. 11/30 patient remains catatonic; continue with efforts to procure treatment for ECT and submitted affidavit Patient's mother left voicemail saying that he has a long history of trauma; also that she hopes will be at the lowest dose of medication possible and reiterated ideas about a new residential 12/01, auditory hallucinations and paranoid delusions; impaired insight and judgment prevail. Continued catatonic symptoms 12/02 Patient seems a little bit better today. Still with very slow movements, speech latency, trouble getting words out however patient's deficiencies in these areas seem a little less severe. Cautiously hopeful that minimal improvement today will continue to increase. Continue current treatment regimen. 12/03 Met with patient as he was walking the davis. He agreed that he is walking very slowly and cannot walk any faster and that this is not his baseline ability; when turning around patient needed to do multiple shuffle steps. Pizza Driver again explained the effects of catatonia. Patient said he is feeling nauseous from the Ativan however does not want any medication for nausea and agrees to continue taking Ativan, not wanting catatonic symptoms to worsen. It is not clear if patient's symptoms are improving; continue current regimen 12/04 there does not seem to be any improvement in catatonic symptoms and it remains difficult for him to move or get words out. Continue Ativan treatment; will continue to pursue ECT -so far have left lithium medication scheduled though at half his home dose; global technical writer cannot find literature regarding lithium catatonia; discussed with colleagues who also had no opinion on whether to continue or discontinue. Pizza Driver will consider discontinuing it 12/05 no change in presentation, remains severely catatonic with much trouble moving, articulating, hardly eating. Remains with auditory hallucinations that he say bother him. Discussed lithium with Dr. Chavarria who does not have any strong opinion on its continuation or discontinuation; however both agree that it is unlikely to be benefiting patient since it is at half his regular home dose and thus might as well discontinue it for now; also lithium can increase delirium side effect from ECT which remains hopeful treatment. Will reduced to 300 mg for now. 12/06 no change in presentation, no improvement 12/07 walking the halls a little more than usual; otherwise little change and still with catatonic symptoms; agrees to continue with Ativan 12/08 no change in presentation; still severe catatonic symptoms. Endorses auditory and visual hallucinations, saying he sees orbs. -Patient's mother Alejandrina came to the unit today to visit her son. Pizza Driver met her on the unit and She said that he is like a zombie and far from when he is normally like; she reminisced about how he was when she last saw him months ago and they went to a coffee shop, shopping...had great conversation. She said he spent about 20 minutes with her but hardly said anything and then got up and left the room 12/09 no change; continue tx plan 12/10 no change; continue tx plan; mother left bottle of PQQ supplement, however mother not guardian -pt intermittently vacillates, sometimes saying he does not have catatonia, other times that he does and wants tx12/11 continue tx. pending ECT 12/13 continue tx. 12/14 pt is a little improved, walking more, eating more; he moves a little bit better and his speech though still very latent and slow, is a little bit more fluid.? pt received Invega Sustenna 234mg this past weekend. Patients catatonia is not worsening and has not for weeks; rather it's actually showing some signs of improving. Pt has bothersome AH that he says he wants help resolving. It appears that Haldol added to invega is what triggered Catatonia rather than Invega itself. At this time, it seems continuing Invega is low riks.? 12/15 staff agrees pt moving a little better, talking a little more easily Patient educated on: diagnosis Informed Consent: understands Reason for continued inpatient stay Substantial Risk for: inability to function Time Spent With Patient Time: Total time managing care of this patient today ____ minutes.
[2022-12-16] MEDS: LORazepam 1 MG TABLET 4 MG PO ×4 (08:19→20:23)
[2022-12-16 08:20] VITALS: BP 111/67; PULSE 92; RESP 18; TEMP 36.1; O2SAT 94
[2022-12-16 13:00] VITALS: BP 112/68; PULSE 94; RESP 18; TEMP 36.1; O2SAT 96
[2022-12-16 17:12] VITALS: BP 131/84; PULSE 92; RESP 18; TEMP 36.1; O2SAT 96
--- NOTE | 2022-12-16 21:43 | P.PNPSI_ITS ---
Subjective Subjective Date of Service: 12/16/22 Reason For Visit: schizoaffective d/o; bipolar type Subjective Notes: 3 Day Interim History: met with patient; discussed with team pt signed 3 day notice today; discussed how he wants to go...when asked where, he says outside...to stand on the ground... then what? to put my feet on the ground... eventually pt said he would go to the jail. Discussed need for jail to weigh in on whether they feel the can take him in current condition. he complains of so many voices bothering him at night which he says it's worse at night. Mental Status Exam Mental Status Exam Narrative: Pt is alert and oriented; behavior is slowed, quiet, remains in bed most of the day, eating little, but more; patient is not in physical distress; dressed in hospital attire with unkempt hair, but adequate hygiene; mood is blunted; affect blunted; eye contact with a blank stare; Speech is latent, few words, slowed, low volume and monotone; significant psychomotor retardation present but a little less; thought process is marred by thought blocking but goal directed; Thought content is on discharge; intermittent paranoid delusions expressed; denies any SI/HI. Positive for AH Patients insight and judgment impaired. Diagnostics Vital Signs (24Hr): Vital Signs - 24 hr 12/16/22 08:20 12/16/22 13:00 12/16/22 17:12 Temperature 97.0 F 96.9 F 96.9 F Pulse Rate 92 94 92 Respiratory Rate 18 18 18 Blood Pressure 111/67 112/68 131/84 Pulse Oximetry 94 96 96 Oxygen Delivery Method Room Air Room Air Room Air BMI result Body Mass Index 29.5 Labs 11/24/22 16:28 Medications Medications Current Medications Acetaminophen (Acetaminophen 325 Mg Tablet) 650 mg PO Q6H PRN PRN Reason: Headache/Pain Mild Scale (1-3) Al Hydroxide/Mg Hydroxide (Magnesium Hydrox/Alum Hydrox 30 Ml Oral.Susp) 30 ml PO Q6H PRN PRN Reason: Heartburn/Nausea Calcium Carbonate (Calcium Carbonate 750 Mg Tab.Chew) 750 mg PO BID SMITA Last Admin: 12/16/22 20:33 Dose: Not Given Hydroxyzine HCl (Hydroxyzine Hcl 25 Mg Tablet) 25 mg PO Q6H PRN PRN Reason: Anxiety Lorazepam (Lorazepam 1 Mg Tablet) 4 mg PO QID SMITA Last Admin: 12/16/22 20:23 Dose: 4 mg Magnesium Hydroxide (Milk Of Magnesia 30 Ml Oral.Susp) 30 ml PO DAILY PRN PRN Reason: Constipation Last Admin: 12/05/22 22:36 Dose: 30 ml Melatonin (Melatonin 3 Mg Tablet) 3 mg PO BEDTIME PRN PRN Reason: Insomnia Last Admin: 12/13/22 20:24 Dose: 3 mg Allergies Allergies Allergy/AdvReac Type Severity Reaction Status Date / Time No Known Allergies Allergy Verified 09/05/22 21:55 Assessment & Plan Assessment & Plan (1) Schizophrenia, 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 Zabala is a 37 year-old male, on community Parsons/guardian, with hx of schizophrenia. He resides at from [facility] for about one year. Since then, per staff, pt has had about 12 inpatient admission. Pt was recently discharged from medical floor after being treated for pneumonia. The day after pt was described as disorganized, wondering the streets, laying on the streets. He was brought via EMS to [facility]. Utox is negative. Pt does have hx of cannabis use but this time it was negative. Pt presents with symptoms of catatonia including waxy flexibility, negativism, intermittent mutism and black stare. Pt has not missed dose of Invega Sustenna- he has been on 234mg IM which has been given on 09/15 while on M3, 10/17 in the community. Pt also on haldol 30mg po qhs. Will hold haldol given s/s of catatonia. Pt is on Parsons which expires today but extension has been filed and granted- per CM awating paperwork from court. Guardian is his father- Joe Wells [phone]. PLAN CV Q 15 minute checks Hope for ECT Pursuing legal paperwork/affidavit for ECT DC Xeralto (pt now walks davis w/ prompting) Continue ativan 4mg po QID- for continued catatonia (up from 2mg) DC haldol due to likely cause of catatonia (started at most recent admission at [facility]) Received Invega Sustenna 234 mg IM on 11/13 HOLD Off on Invega Sustenna 156mg IM (due on by 11/20) since pt remains w/ catatonia HOSPITAL COURSE: 11/06 continue ativan, monitor s/s catatonia. hold haldol until some improvement in s/s of catatonia. 11/07/22- continue current regime and plan of care. Pt denies all symptoms. 11/08/22- starting to hear reports of evening improvement. continue current plan for now. 11/09 file for involuntary tx due to inability to care for self due to catatonia. will restart lithium 300mg po BID. 11/10 slightly less mute, still with delayed response rate and appears internally preoccupied. will lower ativan continue monitor for worsening of s/s of catatonia. 11/11 less mute, more spontaneous in speech, less psychomotor retardation. 11/12 continue tx. Next Invega Sustenna 234mg IM due on 11/13/202211/13 He received Invega Sustenna 234mg IM today. continue to monitor exacerbation of catatonia. continue ativan 1mg po TID. 11/14/2022 No clear improvement to this point; Patient fearful M withdrawn 11/15/2022 No clear improvement question ECT 11/16 patient remains with catatonic symptoms; staff reports patient is doing a little better will continue with Ativan; still need collateral on baseline 11/17 restarted Ativan 2 mg t.i.d. since it accidentally fell off and patient's catatonic symptoms have worsened. Patient understands he has catatonia and signed a CV to remain on the unit longer for treatment 11/18 Patient remains with significant catatonic symptoms, slowed speech, slow movements, hardly getting out of bed at all, not eating much, but still seems to be drinking fluids adequately. Talked with patient's provider LESLIE Laurent who reports that over the past year she has only seen him 3 times because he ends up in the hospital so frequently. She says that typically he will get out of the hospital and within a few weeks eloped from the jail, looking for cannabis; once he starts smoking cannabis he is gets and all kinds of other substance abuse. She says he was last at [facility] where he was started on Haldol which seems the likely cause of this episode of catatonia. She says this admission was the 1st time he was not engaged in substance abuse. She says at baseline he is able to have a fluent conversation; she said his speech may be a little bit slowed but not much and talks spontaneously without any latency or thought blocking. She agrees that current presentation sounds like catatonia 11/19 patient agrees to increasing Ativan if needed; discussed possibility of ECT which he said he agreed to consider (patient on [facility] and has a guardian and is not able to consent) 11/20 No change, patient remains lying in bed, moving very slowly, significant speech latency, talking slowly. Hardly eating (though continues to drink fluids). Agrees to increase Ativan. Discussed situation with legal arm of the team; as patient is currently on a Parsons order with a guardian, he cannot consent to ECT. Hopefully with increased Ativan, catatonic symptoms will break. Discussed treatment for catatonia with colleagues with 2 different thoughts, one going as high as 16 mg per day, another hesitant to go above 8 mg. Since no improvement thus far sports writer decided to split the difference and increased to total of 12 mg daily (there is little harm in going to higher doses of ativan other than it makes tapering off a more lengthy process) 11/21/22 Continue with current treatment plan 11/22/22 Continue treatmetn plan 11/23 pt some improvement, showering yesterday, sat in on a group and willing to walk the davis each shift to avoid DVT. However, when not prompted, stays in bed, hardly moving, eating very little, significant psycomotor retardation and speech latency. Agrees to increase ativan; says he is open to ECT if he needs it but his parents, father who is guardian, is against it. Later in day, pt signed 3 day. Thus, Will increase Ativan to 4mg qid (total daily dose of 16mg) in hopes for effect. His improvement is minimal and he remains at significant risk for continued and worsening catatonic symptoms. Will reach out to Father/guardian; will dc Xeralto since walking periodically during day. 11/24 patient remains with retarded catatonia with Inhibited movements, posturing, blankly staring; poor food intake; Though thankfully seems to be adequate fluid intake. currently no longer at risk for DVT; since patient is now walking with prompting. Has insight to know that he has catatonia; however while he seems to understand that without treatment this is a high risk of it worsening and that it can become life-threatening and despite expressing he wants to live and wants treatment, he is not yet willing to retract his 3 day notice and commit to staying for treatment. Patient says that his parents want him out of the hospital and do not want him to get ECT. Philosophy Specialist explained again that the only treatments for catatonia are benzodiazepines and ECT which patient said he understood. -patient is catatonic and remains with significantly impaired functioning. Philosophy Specialist reviewed literature on catatonia in [employer] and standard treatment is that if benzodiazepines are not effectively resolving catatonia within 1 week, ECT becomes the next and only other treatment option and should be started promptl; otherwise risk catatonia developing into a malignant catatonia which can be life-threatening (malignant catatonia which is associated with fever, autonomic instability (hypertension/hypotension, tachycardia, tachypnea, diaphoresis, delirium, rigidity and ). Additionally patient is on only half his regular dose of lithium and did not get full dose of Invega Sustenna leaving his psychotic illness only partially treated. Patient requires prompting to do ADLs. At this time, patient is not safe for discharge, needs continued treatment with [facility]. If patient does not retract his 3 day notice will very likely petitioned the court for involuntary commitment and substituted judgment for treatment. -sports writer has reached out to father who is patient's guardian and left a voicemail. -Focused neuro exam: No upper/lower limb stiffness or rigidity; b/l patellar, triceps brachioradialis reflexes 2+/ WNL -No autonomic instability and low concern for NMS however ordered WBC, CPK; LDH; also ordered bun/Cr given patient on lithium and also lying in bed much of the day with some mildly increased risk for rhabdo 11/25 Patient remains with catatonic symptoms, hardly moving hardly talking, with significant psychomotor retardation, speech latency; hardly eating so sports writer ordered ensure since he continues to drink fluid. Philosophy Specialist discussed patient's catatonic symptoms and he retracted is 3 day notice saying he wants to remain for treatment; he says he wants ECT. Philosophy Specialist discussed case with his father who is guardian. After discussing catatonia and treatment, patient's father/guardian said that he would agree with ECT treatment as long as his mother concurred and asked sports writer to call patient's mother Alejandrina. Philosophy Specialist discussed case with Alejandrina who also agreed with ECT given the lack of other options. 11/26 continue current treatment plan 11/27 remains with severe catatonic symptoms; will increase monitoring of vitals to t.i.d.; nursing staff informed to make sure patient walks the davis once per day to avoid DVT; otherwise to inform provider to consider DVT prophylaxis. Discussed case with colleague who recommended giving a 1 time extra Ativan dose to see if there was any benefit at all as a means to consider whether not to increase total daily Ativan dose. Discussed case with legal and filling out paperwork to amend [facility] with ECT. 11/29/2022: No changes to current plan. 11/30 patient remains catatonic; continue with efforts to procure treatment for ECT and submitted affidavit Patient's mother left voicemail saying that he has a long history of trauma; also that she hopes will be at the lowest dose of medication possible and reiterated ideas about a new jail 12/01, auditory hallucinations and paranoid delusions; impaired insight and judgment prevail. Continued catatonic symptoms 12/02 Patient seems a little bit better today. Still with very slow movements, speech latency, trouble getting words out however patient's deficiencies in these areas seem a little less severe. Cautiously hopeful that minimal improvement today will continue to increase. Continue current treatment regimen. 12/03 Met with patient as he was walking the davis. He agreed that he is walking very slowly and cannot walk any faster and that this is not his baseline ability; when turning around patient needed to do multiple shuffle steps. Philosophy Specialist again explained the effects of catatonia. Patient said he is feeling nauseous from the Ativan however does not want any medication for nausea and agrees to continue taking Ativan, not wanting catatonic symptoms to worsen. It is not clear if patient's symptoms are improving; continue current regimen 12/04 there does not seem to be any improvement in catatonic symptoms and it remains difficult for him to move or get words out. Continue Ativan treatment; will continue to pursue ECT -so far have left lithium medication scheduled though at half his home dose; sports writer cannot find literature regarding lithium catatonia; discussed with colleagues who also had no opinion on whether to continue or discontinue. Philosophy Specialist will consider discontinuing it 12/05 no change in presentation, remains severely catatonic with much trouble moving, articulating, hardly eating. Remains with auditory hallucinations that he say bother him. Discussed lithium with Dr. Chavarria who does not have any strong opinion on its continuation or discontinuation; however both agree that it is unlikely to be benefiting patient since it is at half his regular home dose and thus might as well discontinue it for now; also lithium can increase delirium side effect from ECT which remains hopeful treatment. Will reduced to 300 mg for now. 12/06 no change in presentation, no improvement 12/07 walking the halls a little more than usual; otherwise little change and still with catatonic symptoms; agrees to continue with Ativan 12/08 no change in presentation; still severe catatonic symptoms. Endorses auditory and visual hallucinations, saying he sees orbs. -Patient's mother Alejandrina came to the unit today to visit her son. Philosophy Specialist met her on the unit and She said that he is like a zombie and far from when he is normally like; she reminisced about how he was when she last saw him months ago and they went to a coffee shop, shopping...had great conversation. She said he spent about 20 minutes with her but hardly said anything and then got up and left the room 12/09 no change; continue tx plan 12/10 no change; continue tx plan; mother left bottle of PQQ supplement, however mother not guardian -pt intermittently vacillates, sometimes saying he does not have catatonia, other times that he does and wants tx 12/11 continue tx. pending ECT 12/13 continue tx. 12/14 pt is a little improved, walking more, eating more; he moves a little bit better and his speech though still very latent and slow, is a little bit more fluid.? pt received Invega Sustenna 234mg this past weekend. Patients catatonia is not worsening and has not for weeks; rather it's actually showing some signs of improving. Pt has bothersome AH that he says he wants help resolving. It appears that Haldol added to invega is what triggered Catatonia rather than Invega itself. At this time, it seems continuing Invega is low riks.? 12/15 staff agrees pt moving a little better, talking a little more easily 12/16 pt signed 3 day notice today; discussed how he wants to go...when asked where, he says outside...to stand on the ground... then what? to put my feet on the ground... eventually pt said he would go to the jail. Discussed need for jail to weigh in on whether they feel the can take him in current condition. Still has AH and he complains of so many voices bothering him at night which he says it's worse at night. Patient educated on: diagnosis and medication risk/benefits Informed Consent: understands, does not understand and further education needed Reason for continued inpatient stay Substantial Risk for: inability to function Time Spent With Patient Time: Total time managing care of this patient today ____ minutes.
[2022-12-17 09:31] VITALS: BP 118/74; PULSE 97; RESP 16; TEMP 36.8; O2SAT 96
[2022-12-17] MEDS: LORazepam 1 MG TABLET 4 MG PO ×4 (09:32→20:25)
[2022-12-17 12:57] VITALS: BMI 28.8
[2022-12-17 13:00] VITALS: BP 120/71; PULSE 97
[2022-12-17 20:28] VITALS: BP 106/68; PULSE 85; TEMP 36.9
[2022-12-18] MEDS: LORazepam 1 MG TABLET 4 MG PO ×4 (08:38→20:48)
[2022-12-18 09:00] VITALS: BP 124/70; PULSE 80; RESP 18; TEMP 36.2; O2SAT 96
--- NOTE | 2022-12-18 09:27 | P.PNPSI_ITS ---
Subjective Subjective Date of Service: 12/17/22 Reason For Visit: schizoaffective d/o; bipolar type Interim History: Late entry for patient seen 12/17 no change in presentation; pt agreed to retract 3 day and then resign one in order to better set up dispo plan. nursing home staff responded and will see pt and assess distance from baseline -pt says he's depressed. Mental Status Exam Mental Status Exam Narrative: Pt is alert and oriented; behavior is slowed, quiet, remains in bed most of the day, eating more consistently; patient is not in physical distress; dressed in hospital attire with unkempt hair, but adequate hygiene; mood is blunted; affect blunted; eye contact with a blank stare; Speech is latent, few words, slowed, low volume and monotone; significant psychomotor retardation present but less; thought process is marred by thought blocking but goal directed; Thought content is on discharge; intermittent paranoid delusions expressed; denies any SI/HI. Positive for Patients insight and judgment impaired. Diagnostics Vital Signs (24Hr): Vital Signs - 24 hr 12/17/22 09:31 12/17/22 13:00 12/17/22 20:28 Temperature 98.3 F 98.5 F Pulse Rate 97 97 85 Respiratory Rate 16 Blood Pressure 118/74 120/71 106/68 Pulse Oximetry 96 Oxygen Delivery Method Room Air BMI result Body Mass Index 28.8 Labs 11/24/22 16:28 Medications Medications Current Medications Acetaminophen (Acetaminophen 325 Mg Tablet) 650 mg PO Q6H PRN PRN Reason: Headache/Pain Mild Scale (1-3) Al Hydroxide/Mg Hydroxide (Magnesium Hydrox/Alum Hydrox 30 Ml Oral.Susp) 30 ml PO Q6H PRN PRN Reason: Heartburn/Nausea Calcium Carbonate (Calcium Carbonate 750 Mg Tab.Chew) 750 mg PO BID [facility] Last Admin: 12/18/22 09:06 Dose: Not Given Hydroxyzine HCl (Hydroxyzine Hcl 25 Mg Tablet) 25 mg PO Q6H PRN PRN Reason: Anxiety Lorazepam (Lorazepam 1 Mg Tablet) 4 mg PO QID [facility] Last Admin: 12/18/22 08:38 Dose: 4 mg Magnesium Hydroxide (Milk Of Magnesia 30 Ml Oral.Susp) 30 ml PO DAILY PRN PRN Reason: Constipation Last Admin: 12/05/22 22:36 Dose: 30 ml Melatonin (Melatonin 3 Mg Tablet) 3 mg PO BEDTIME PRN PRN Reason: Insomnia Last Admin: 12/13/22 20:24 Dose: 3 mg Allergies Allergies Allergy/AdvReac Type Severity Reaction Status Date / Time No Known Allergies Allergy Verified 09/05/22 21:55 Assessment & Plan Assessment & Plan (1) Schizophrenia, 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 Zabala is a 37 year-old male, on community Parsons/guardian, with hx of schizophrenia. He resides at from [facility] for about one year. Since then, per staff, pt has had about 12 inpatient admission. Pt was recently discharged from medical floor after being treated for pneumonia. The day after pt was described as disorganized, wondering the streets, laying on the streets. He was brought via EMS to [facility]. Utox is negative. Pt does have hx of cannabis use but this time it was negative. Pt presents with symptoms of catatonia including waxy flexibility, negativism, intermittent mutism and black stare. Pt has not missed dose of Invega Sustenna- he has been on 234mg IM which has been given on 09/15 while on M3, 10/17 in the community. Pt also on haldol 30mg po qhs. Will hold haldol given s/s of catatonia. Pt is on Parsons which expires today but extension has been filed and granted- per CM awating paperwork from court. Guardian is his father- Joe Wells [phone]. PLAN CV Q 15 minute checks Hope for ECT Pursuing legal paperwork/affidavit for ECT DC Xeralto (pt now walks davis w/ prompting) Continue ativan 4mg po QID- for continued catatonia (up from 2mg) DC haldol due to likely cause of catatonia (started at most recent admission at [facility]) Received Invega Sustenna 234 mg IM on 11/13 HOLD Off on Invega Sustenna 156mg IM (due on by 11/20) since pt remains w/ catatonia HOSPITAL COURSE: 11/06 continue ativan, monitor s/s catatonia. hold haldol until some improvement in s/s of catatonia. 11/07/22- continue current regime and plan of care. Pt denies all symptoms. 11/08/22- starting to hear reports of evening improvement. continue current plan for now. 11/09 file for involuntary tx due to inability to care for self due to catatonia. will restart lithium 300mg po BID. 11/10 slightly less mute, still with delayed response rate and appears internally preoccupied. will lower ativan continue monitor for worsening of s/s of catatonia. 11/11 less mute, more spontaneous in speech, less psychomotor retardation. 11/12 continue tx. Next Invega Sustenna 234mg IM due on 11/13/202211/13 He received Invega Sustenna 234mg IM today. continue to monitor exacerbation of catatonia. continue ativan 1mg po TID. 11/14/2022 No clear improvement to this point; Patient fearful M withdrawn 11/15/2022 No clear improvement question ECT 11/16 patient remains with catatonic symptoms; staff reports patient is doing a little better will continue with Ativan; still need collateral on baseline 11/17 restarted Ativan 2 mg t.i.d. since it accidentally fell off and patient's catatonic symptoms have worsened. Patient understands he has catatonia and signed a CV to remain on the unit longer for treatment 11/18 Patient remains with significant catatonic symptoms, slowed speech, slow movements, hardly getting out of bed at all, not eating much, but still seems to be drinking fluids adequately. Talked with patient's provider LESLIE Laurent who reports that over the past year she has only seen him 3 times because he ends up in the hospital so frequently. She says that typically he will get out of the hospital and within a few weeks eloped from the retirement, looking for cannabis; once he starts smoking cannabis he is gets and all kinds of other substance abuse. She says he was last at [facility] where he was started on Haldol which seems the likely cause of this episode of catatonia. She says this admission was the 1st time he was not engaged in substance abuse. She says at baseline he is able to have a fluent conversation; she said his speech may be a little bit slowed but not much and talks spontaneously without any latency or thought blocking. She agrees that current presentation sounds like catatonia 11/19 patient agrees to increasing Ativan if needed; discussed possibility of ECT which he said he agreed to consider (patient on community Parsons and has a guardian and is not able to consent) 11/20 No change, patient remains lying in bed, moving very slowly, significant speech latency, talking slowly. Hardly eating (though continues to drink fluids). Agrees to increase Ativan. Discussed situation with legal arm of the team; as patient is currently on a Parsons order with a guardian, he cannot consent to ECT. Hopefully with increased Ativan, catatonic symptoms will break. Discussed treatment for catatonia with colleagues with 2 different thoughts, one going as high as 16 mg per day, another hesitant to go above 8 mg. Since no improvement thus far commercial lines underwriter decided to split the difference and increased to total of 12 mg daily (there is little harm in going to higher doses of ativan other than it makes tapering off a more lengthy process) 11/21/22 Continue with current treatment plan 11/22/22 Continue treatmetn plan 11/23 pt some improvement, showering yesterday, sat in on a group and willing to walk the davis each shift to avoid DVT. However, when not prompted, stays in bed, hardly moving, eating very little, significant psycomotor retardation and speech latency. Agrees to increase ativan; says he is open to ECT if he needs it but his parents, father who is guardian, is against it. Later in day, pt signed 3 day. Thus, Will increase Ativan to 4mg qid (total daily dose of 16mg) in hopes for effect. His improvement is minimal and he remains at significant risk for continued and worsening catatonic symptoms. Will reach out to Father/guardian; will dc Xeralto since walking periodically during day. 11/24 patient remains with retarded catatonia with Inhibited movements, posturing, blankly staring; poor food intake; Though thankfully seems to be adequate fluid intake. currently no longer at risk for DVT; since patient is now walking with prompting. Has insight to know that he has catatonia; however while he seems to understand that without treatment this is a high risk of it worsening and that it can become life-threatening and despite expressing he wants to live and wants treatment, he is not yet willing to retract his 3 day notice and commit to staying for treatment. Patient says that his parents want him out of the hospital and do not want him to get ECT. [employer] explained again that the only treatments for catatonia are benzodiazepines and ECT which patient said he understood. -patient is catatonic and remains with significantly impaired functioning. Vertica Architect reviewed literature on catatonia in [employer]To[employer] and standard treatment is that if benzodiazepines are not effectively resolving catatonia within 1 week, ECT becomes the next and only other treatment option and should be started promptl; otherwise risk catatonia developing into a malignant catatonia which can be life-threatening (malignant catatonia which is associated with fever, autonomic instability (hypertension/hypotension, tachycardia, tachypnea, diaphoresis, delirium, rigidity and ). Additionally patient is on only half his regular dose of lithium and did not get full dose of Invega Sustenna leaving his psychotic illness only partially treated. Patient requires prompting to do ADLs. At this time, patient is not safe for discharge, needs continued treatment with correction. If patient does not retract his 3 day notice will very likely petitioned the court for involuntary commitment and substituted judgment for treatment. -commercial lines underwriter has reached out to father who is patient's guardian and left a voicemail. -Focused neuro exam: No upper/lower limb stiffness or rigidity; b/l patellar, triceps brachioradialis reflexes 2+/ WNL -No autonomic instability and low concern for NMS however ordered WBC, CPK; LDH; also ordered bun/Cr given patient on lithium and also lying in bed much of the day with some mildly increased risk for rhabdo 11/25 Patient remains with catatonic symptoms, hardly moving hardly talking, with significant psychomotor retardation, speech latency; hardly eating so commercial lines underwriter ordered ensure since he continues to drink fluid. [employer] Architect discussed patient's catatonic symptoms and he retracted is 3 day notice saying he wants to remain for treatment; he says he wants ECT. [employer] Architect discussed case with his father who is guardian. After discussing catatonia and treatment, patient's father/guardian said that he would agree with ECT treatment as long as his mother concurred and asked commercial lines underwriter to call patient's mother Alejandrina. Vertica Architect discussed case with Alejandrina who also agreed with ECT given the lack of other options. 11/26 continue current treatment plan 11/27 remains with severe catatonic symptoms; will increase monitoring of vitals to t.i.d.; nursing staff informed to make sure patient walks the davis once per day to avoid DVT; otherwise to inform provider to consider DVT prophylaxis. Discussed case with colleague who recommended giving a 1 time extra Ativan dose to see if there was any benefit at all as a means to consider whether not to increase total daily Ativan dose. Discussed case with legal and filling out paperwork to amend [facility] with ECT. 11/29/2022: No changes to current plan. 11/30 patient remains catatonic; continue with efforts to procure treatment for ECT and submitted affidavit Patient's mother left voicemail saying that he has a long history of trauma; also that she hopes will be at the lowest dose of medication possible and reiterated ideas about a new retirement 12/01, auditory hallucinations and paranoid delusions; impaired insight and judgment prevail. Continued catatonic symptoms 12/02 Patient seems a little bit better today. Still with very slow movements, speech latency, trouble getting words out however patient's deficiencies in these areas seem a little less severe. Cautiously hopeful that minimal improvement today will continue to increase. Continue current treatment regimen. 12/03 Met with patient as he was walking the davis. He agreed that he is walking very slowly and cannot walk any faster and that this is not his baseline ability; when turning around patient needed to do multiple shuffle steps. [employer]ica Architect again explained the effects of catatonia. Patient said he is feeling nauseous from the Ativan however does not want any medication for nausea and agrees to continue taking Ativan, not wanting catatonic symptoms to worsen. It is not clear if patient's symptoms are improving; continue current regimen 12/04 there does not seem to be any improvement in catatonic symptoms and it remains difficult for him to move or get words out. Continue Ativan treatment; will continue to pursue ECT -so far have left lithium medication scheduled though at half his home dose; commercial lines underwriter cannot find literature regarding lithium catatonia; discussed with colleagues who also had no opinion on whether to continue or discontinue. [employer] Architect will consider discontinuing it 12/05 no change in presentation, remains severely catatonic with much trouble moving, articulating, hardly eating. Remains with auditory hallucinations that he say bother him. Discussed lithium with Dr. Chavarria who does not have any strong opinion on its continuation or discontinuation; however both agree that it is unlikely to be benefiting patient since it is at half his regular home dose and thus might as well discontinue it for now; also lithium can increase delirium side effect from ECT which remains hopeful treatment. Will reduced to 300 mg for now. 12/06 no change in presentation, no improvement 12/07 walking the halls a little more than usual; otherwise little change and still with catatonic symptoms; agrees to continue with Ativan 12/08 no change in presentation; still severe catatonic symptoms. Endorses auditory and visual hallucinations, saying he sees orbs. -Patient's mother Alejandrina came to the unit today to visit her son. Vertica Architect met her on the unit and She said that he is like a zombie and far from when he is normally like; she reminisced about how he was when she last saw him months ago and they went to a coffee shop, shopping...had great conversation. She said he spent about 20 minutes with her but hardly said anything and then got up and left the room 12/09 no change; continue tx plan 12/10 no change; continue tx plan; mother left bottle of PQQ supplement, however mother not guardian -pt intermittently vacillates, sometimes saying he does not have catatonia, other times that he does and wants tx 12/11 continue tx. pending ECT 12/13 continue tx. 12/14 pt is a little improved, walking more, eating more; he moves a little bit better and his speech though still very latent and slow, is a little bit more fluid.? pt received Invega Sustenna 234mg this past weekend. Patients catatonia is not worsening and has not for weeks; rather it's actually showing some signs of improving. Pt has bothersome AH that he says he wants help resolving. It appears that Haldol added to invega is what triggered Catatonia rather than Invega itself. At this time, it seems continuing Invega is low riks.? 12/15 staff agrees pt moving a little better, talking a little more easily 12/16 pt signed 3 day notice today; discussed how he wants to go...when asked where, he says outside...to stand on the ground... then what? to put my feet on the ground... eventually pt said he would go to the retirement. Discussed need for retirement to weigh in on whether they feel the can take him in current condition. Still has AH and he complains of so many voices bothering him at night which he says it's worse at night. 12/17 continue tx plan -3 day notice in; at this point it is unlikely that catatonia will worsen; as it seems to be improving and he's moving, eating more, talking more, pt may be able to return to retirement, continue on Ativan and allow Catatonia to slowly resolve. -discussed with Dr. Chavarria who met pt with commercial lines underwriter today and agrees that pt still has significant catatonic symptoms, but that they are at low risk for worsening and becoming malignant. -need collateral from retirement to see if they can managment pt Patient educated on: diagnosis and medication risk/benefits Informed Consent: understands, does not understand and further education needed Reason for continued inpatient stay Substantial Risk for: inability to function and rapid decompensation Time Spent With Patient Time: Total time managing care of this patient today ____ minutes.
--- NOTE | 2022-12-18 09:28 | P.PNPSI_ITS ---
Subjective Subjective Date of Service: 12/18/22 Reason For Visit: schizoaffective d/o; bipolar type Interim History: Met with patient; discussed with team [place] [facility] staff came to meet w/ patient; report that he slower than usual, speech more latent, but overall not that far from baseline Mental Status Exam Mental Status Exam Narrative: Pt is alert and oriented; behavior is slowed, quiet, remains in bed most of the day, eating more consistently; patient is not in physical distress; dressed in hospital attire with unkempt hair, but adequate hygiene; mood is blunted; affect blunted; eye contact with a blank stare; Speech is latent, few words, slowed, low volume and monotone; significant psychomotor retardation present but less; thought process is marred by thought blocking but goal directed; Thought content is on discharge; intermittent paranoid delusions expressed; denies any SI/HI. Positive for AH Patients insight and judgment impaired. Diagnostics Vital Signs (24Hr): Vital Signs - 24 hr 12/17/22 09:31 12/17/22 13:00 12/17/22 20:28 Temperature 98.3 F 98.5 F Pulse Rate 97 97 85 Respiratory Rate 16 Blood Pressure 118/74 120/71 106/68 Pulse Oximetry 96 Oxygen Delivery Method Room Air BMI result Body Mass Index 28.8 Labs 11/24/22 16:28 Medications Medications Current Medications Acetaminophen (Acetaminophen 325 Mg Tablet) 650 mg PO Q6H PRN PRN Reason: Headache/Pain Mild Scale (1-3) Al Hydroxide/Mg Hydroxide (Magnesium Hydrox/Alum Hydrox 30 Ml Oral.Susp) 30 ml PO Q6H PRN PRN Reason: Heartburn/Nausea Calcium Carbonate (Calcium Carbonate 750 Mg Tab.Chew) 750 mg PO BID [facility] Last Admin: 12/18/22 09:06 Dose: Not Given Hydroxyzine HCl (Hydroxyzine Hcl 25 Mg Tablet) 25 mg PO Q6H PRN PRN Reason: Anxiety Lorazepam (Lorazepam 1 Mg Tablet) 4 mg PO QID [facility] Last Admin: 12/18/22 08:38 Dose: 4 mg Magnesium Hydroxide (Milk Of Magnesia 30 Ml Oral.Susp) 30 ml PO DAILY PRN PRN Reason: Constipation Last Admin: 12/05/22 22:36 Dose: 30 ml Melatonin (Melatonin 3 Mg Tablet) 3 mg PO BEDTIME PRN PRN Reason: Insomnia Last Admin: 12/13/22 20:24 Dose: 3 mg Allergies Allergies Allergy/AdvReac Type Severity Reaction Status Date / Time No Known Allergies Allergy Verified 09/05/22 21:55 Assessment & Plan Assessment & Plan (1) Schizophrenia, 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 Zabala is a 37 year-old male, on community Parsons/guardian, with hx of schizophrenia. He resides at from [facility] for about one year. Since then, per staff, pt has had about 12 inpatient admission. Pt was recently discharged from medical floor after being treated for pneumonia. The day after pt was described as disorganized, wondering the streets, laying on the streets. He was brought via EMS to [facility]. Utox is negative. Pt does have hx of cannabis use but this time it was negative. Pt presents with symptoms of catatonia including waxy flexibility, negativism, intermittent mutism and black stare. Pt has not missed dose of Invega Sustenna- he has been on 234mg IM which has been given on 09/15 while on M3, 10/17 in the community. Pt also on haldol 30mg po qhs. Will hold haldol given s/s of catatonia. Pt is on Parsons which expires today but extension has been filed and granted- per CM awating paperwork from court. Guardian is his father- Joe Wells [phone]. PLAN CV Q 15 minute checks Hope for ECT Pursuing legal paperwork/affidavit for ECT DC Xeralto (pt now walks davis w/ prompting) Continue ativan 4mg po QID- for continued catatonia (up from 2mg) DC haldol due to likely cause of catatonia (started at most recent admission at [facility]) Received Invega Sustenna 234 mg IM on 11/13 HOLD Off on Invega Sustenna 156mg IM (due on by 11/20) since pt remains w/ catatonia HOSPITAL COURSE: 11/06 continue ativan, monitor s/s catatonia. hold haldol until some improvement in s/s of catatonia. 11/07/22- continue current regime and plan of care. Pt denies all symptoms. 11/08/22- starting to hear reports of evening improvement. continue current plan for now. 11/09 file for involuntary tx due to inability to care for self due to catatonia. will restart lithium 300mg po BID. 11/10 slightly less mute, still with delayed response rate and appears internally preoccupied. will lower ativan continue monitor for worsening of s/s of catatonia. 11/11 less mute, more spontaneous in speech, less psychomotor retardation. 11/12 continue tx. Next Invega Sustenna 234mg IM due on 11/13/202211/13 He received Invega Sustenna 234mg IM today. continue to monitor exacerbation of catatonia. continue ativan 1mg po TID. 11/14/2022 No clear improvement to this point; Patient fearful M withdrawn 11/15/2022 No clear improvement question ECT 11/16 patient remains with catatonic symptoms; staff reports patient is doing a little better will continue with Ativan; still need collateral on baseline 11/17 restarted Ativan 2 mg t.i.d. since it accidentally fell off and patient's catatonic symptoms have worsened. Patient understands he has catatonia and signed a CV to remain on the unit longer for treatment 11/18 Patient remains with significant catatonic symptoms, slowed speech, slow movements, hardly getting out of bed at all, not eating much, but still seems to be drinking fluids adequately. Talked with patient's provider LESLIE Laurent who reports that over the past year she has only seen him 3 times because he ends up in the hospital so frequently. She says that typically he will get out of the hospital and within a few weeks eloped from the [place] [facility], looking for cannabis; once he starts smoking cannabis he is gets and all kinds of other substance abuse. She says he was last at [facility] where he was started on Haldol which seems the likely cause of this episode of catatonia. She says this admission was the 1st time he was not engaged in substance abuse. She says at baseline he is able to have a fluent conversation; she said his speech may be a little bit slowed but not much and talks spontaneously without any latency or thought blocking. She agrees that current presentation sounds like catatonia 11/19 patient agrees to increasing Ativan if needed; discussed possibility of ECT which he said he agreed to consider (patient on [facility] and has a guardian and is not able to consent) 11/20 No change, patient remains lying in bed, moving very slowly, significant speech latency, talking slowly. Hardly eating (though continues to drink fluids). Agrees to increase Ativan. Discussed situation with legal arm of the team; as patient is currently on a Parsons order with a guardian, he cannot consent to ECT. Hopefully with increased Ativan, catatonic symptoms will break. Discussed treatment for catatonia with colleagues with 2 different thoughts, one going as high as 16 mg per day, another hesitant to go above 8 mg. Since no improvement thus far bond underwriter decided to split the difference and increased to total of 12 mg daily (there is little harm in going to higher doses of ativan other than it makes tapering off a more lengthy process) 11/21/22 Continue with current treatment plan 11/22/22 Continue treatmetn plan 11/23 pt some improvement, showering yesterday, sat in on a group and willing to walk the davis each shift to avoid DVT. However, when not prompted, stays in bed, hardly moving, eating very little, significant psycomotor retardation and speech latency. Agrees to increase ativan; says he is open to ECT if he needs it but his parents, father who is guardian, is against it. Later in day, pt signed 3 day. Thus, Will increase Ativan to 4mg qid (total daily dose of 16mg) in hopes for effect. His improvement is minimal and he remains at significant risk for continued and worsening catatonic symptoms. Will reach out to Father/guardian; will dc Xeralto since walking periodically during day. 11/24 patient remains with retarded catatonia with Inhibited movements, posturing, blankly staring; poor food intake; Though thankfully seems to be adequate fluid intake. currently no longer at risk for DVT; since patient is now walking with prompting. Has insight to know that he has catatonia; however while he seems to understand that without treatment this is a high risk of it worsening and that it can become life-threatening and despite expressing he wants to live and wants treatment, he is not yet willing to retract his 3 day notice and commit to staying for treatment. Patient says that his parents want him out of the hospital and do not want him to get ECT. [employer] Specialist explained again that the only treatments for catatonia are benzodiazepines and ECT which patient said he understood. -patient is catatonic and remains with significantly impaired functioning. [employer] Specialist reviewed literature on catatonia in [employer] and standard treatment is that if benzodiazepines are not effectively resolving catatonia within 1 week, ECT becomes the next and only other treatment option and should be started promptl; otherwise risk catatonia developing into a malignant catatonia which can be life-threatening (malignant catatonia which is associated with fever, autonomic instability (hypertension/hypotension, tachycardia, tachypnea, diaphoresis, delirium, rigidity and ). Additionally patient is on only half his regular dose of lithium and did not get full dose of Invega Sustenna leaving his psychotic illness only partially treated. Patient requires prompting to do ADLs. At this time, patient is not safe for discharge, needs continued treatment with senior living. If patient does not retract his 3 day notice will very likely petitioned the court for involuntary commitment and substituted judgment for treatment. -bond underwriter has reached out to father who is patient's guardian and left a voicemail. -Focused neuro exam: No upper/lower limb stiffness or rigidity; b/l patellar, triceps brachioradialis reflexes 2+/ WNL -No autonomic instability and low concern for NMS however ordered WBC, CPK; LDH; also ordered bun/Cr given patient on lithium and also lying in bed much of the day with some mildly increased risk for rhabdo 11/25 Patient remains with catatonic symptoms, hardly moving hardly talking, with significant psychomotor retardation, speech latency; hardly eating so bond underwriter ordered ensure since he continues to drink fluid. [employer] Specialist discussed patient's catatonic symptoms and he retracted is 3 day notice saying he wants to remain for treatment; he says he wants ECT. [employer] Specialist discussed case with his father who is guardian. After discussing catatonia and treatment, patient's father/guardian said that he would agree with ECT treatment as long as his mother concurred and asked bond underwriter to call patient's mother Alejandrina. [employer] Specialist discussed case with Alejandrina who also agreed with ECT given the lack of other options. 11/26 continue current treatment plan 11/27 remains with severe catatonic symptoms; will increase monitoring of vitals to t.i.d.; nursing staff informed to make sure patient walks the davis once per day to avoid DVT; otherwise to inform provider to consider DVT prophylaxis. Discussed case with colleague who recommended giving a 1 time extra Ativan dose to see if there was any benefit at all as a means to consider whether not to increase total daily Ativan dose. Discussed case with legal and filling out paperwork to amend [facility] with ECT. 11/29/2022: No changes to current plan. 11/30 patient remains catatonic; continue with efforts to procure treatment for ECT and submitted affidavit Patient's mother left voicemail saying that he has a long history of trauma; also that she hopes will be at the lowest dose of medication possible and reiterated ideas about a new [place] [facility] 12/01, auditory hallucinations and paranoid delusions; impaired insight and judgment prevail. Continued catatonic symptoms 12/02 Patient seems a little bit better today. Still with very slow movements, speech latency, trouble getting words out however patient's deficiencies in these areas seem a little less severe. Cautiously hopeful that minimal improvement today will continue to increase. Continue current treatment regimen. 12/03 Met with patient as he was walking the davis. He agreed that he is walking very slowly and cannot walk any faster and that this is not his baseline ability; when turning around patient needed to do multiple shuffle steps. [employer] Specialist again explained the effects of catatonia. Patient said he is feeling nauseous from the Ativan however does not want any medication for nausea and agrees to continue taking Ativan, not wanting catatonic symptoms to worsen. It is not clear if patient's symptoms are improving; continue current regimen 12/04 there does not seem to be any improvement in catatonic symptoms and it remains difficult for him to move or get words out. Continue Ativan treatment; will continue to pursue ECT -so far have left lithium medication scheduled though at half his home dose; bond underwriter cannot find literature regarding lithium catatonia; discussed with colleagues who also had no opinion on whether to continue or discontinue. [employer] Specialist will consider discontinuing it 12/05 no change in presentation, remains severely catatonic with much trouble moving, articulating, hardly eating. Remains with auditory hallucinations that he say bother him. Discussed lithium with Dr. Chavarria who does not have any strong opinion on its continuation or discontinuation; however both agree that it is unlikely to be benefiting patient since it is at half his regular home dose and thus might as well discontinue it for now; also lithium can increase delirium side effect from ECT which remains hopeful treatment. Will reduced to 300 mg for now. 12/06 no change in presentation, no improvement 12/07 walking the halls a little more than usual; otherwise little change and still with catatonic symptoms; agrees to continue with Ativan 12/08 no change in presentation; still severe catatonic symptoms. Endorses auditory and visual hallucinations, saying he sees orbs. -Patient's mother Alejandrina came to the unit today to visit her son. [employer] Specialist met her on the unit and She said that he is like a zombie and far from when he is normally like; she reminisced about how he was when she last saw him months ago and they went to a coffee shop, shopping...had great conversation. She said he spent about 20 minutes with her but hardly said anything and then got up and left the room 12/09 no change; continue tx plan 12/10 no change; continue tx plan; mother left bottle of PQQ supplement, however mother not guardian -pt intermittently vacillates, sometimes saying he does not have catatonia, other times that he does and wants tx 12/11 continue tx. pending ECT 12/13 continue tx. 12/14 pt is a little improved, walking more, eating more; he moves a little bit better and his speech though still very latent and slow, is a little bit more fluid.? pt received Invega Sustenna 234mg this past weekend. Patients catatonia is not worsening and has not for weeks; rather it's actually showing some signs of improving. Pt has bothersome AH that he says he wants help resolving. It appears that Haldol added to invega is what triggered Catatonia rather than Invega itself. At this time, it seems continuing Invega is low riks.? 12/15 staff agrees pt moving a little better, talking a little more easily 12/16 pt signed 3 day notice today; discussed how he wants to go...when asked where, he says outside...to stand on the ground... then what? to put my feet on the ground... eventually pt said he would go to the [place] [facility]. Discussed need for [place] [facility] to weigh in on whether they feel the can take him in current condition. Still has AH and he complains of so many voices bothering him at night which he says it's worse at night. 12/17 continue tx plan -3 day notice in; at this point it is unlikely that catatonia will worsen; as it seems to be improving and he's moving, eating more, talking more, pt may be able to return to [place] [facility], continue on Ativan and allow Catatonia to slowly resolve. -discussed with Dr. Chavarria who met pt with bond underwriter today and agrees that pt still has significant catatonic symptoms, but that they are at low risk for worsening and becoming malignant. -need collateral from [facility] to see if they can management pt 12/18 [facility] staff say pt not at baseline but not that far off Reason for continued inpatient stay Substantial Risk for: rapid decompensation Time Spent With Patient Time: Total time managing care of this patient today ____ minutes.
[2022-12-18 13:00] VITALS: BP 119/76; PULSE 99; RESP 18; TEMP 36.4; O2SAT 96
[2022-12-18 18:00] VITALS: BP 122/68; PULSE 81; RESP 16; TEMP 36.6; O2SAT 97
[2022-12-18] MEDS: Calcium Carbonate 750 MG TAB.CHEW PO (20:48)
[2022-12-19 09:00] VITALS: BP 108/69; PULSE 92; RESP 16; TEMP 36.9; O2SAT 92
[2022-12-19] MEDS: LORazepam 1 MG TABLET 4 MG PO ×4 (09:05→21:12)
--- NOTE | 2022-12-19 11:37 | P.PNPSI_ITS ---
Subjective Subjective Date of Service: 12/19/22 Reason For Visit: schizoaffective d/o; bipolar type Subjective Notes: Clarke Warning and Section 7 Medical Problems Affecting Mental Status: No Interim History: Patient got up and asked for water- lying in bed oddly having pjs over head like a wrap- intense stare- one word answers yes or no = not volunteering much otherwise in spontaneous conversation taking meds- not attending to adls, or consistent eating Medication Compliance: Yes Side effects from medications: No Attending Groups: No Review of Systems Acute medical concerns: No other than concern about how much he is eating- this is being monitored Medical Review of Systems: unchanged Mental Status Exam Mental Status Exam Patient Appearance: Disheveled and Unkempt Patient Orientation: Person and Place Level of Consciousness: Awake Patient Behavior: Guarded, Passive and Isolative Mood Description: Constricted Affect Description: Flat Ability to Follow Directions: Fair Speech Pattern: Impoverished and Delayed Thought Process: Slowed Thinking Thought Content: positive for Poverty of Content Judgement: Poor Diagnostics Vital Signs (24Hr): Vital Signs - 24 hr 12/18/22 13:00 12/18/22 18:00 Temperature 97.5 F 97.8 F Pulse Rate 99 81 Respiratory Rate 18 16 Blood Pressure 119/76 122/68 Pulse Oximetry 96 97 Oxygen Delivery Method Room Air Room Air BMI result Body Mass Index 28.8 Labs 11/24/22 16:28 Medications Medications Current Medications Acetaminophen (Acetaminophen 325 Mg Tablet) 650 mg PO Q6H PRN PRN Reason: Headache/Pain Mild Scale (1-3) Al Hydroxide/Mg Hydroxide (Magnesium Hydrox/Alum Hydrox 30 Ml Oral.Susp) 30 ml PO Q6H PRN PRN Reason: Heartburn/Nausea Calcium Carbonate (Calcium Carbonate 750 Mg Tab.Chew) 750 mg PO BID [facility] Last Admin: 12/19/22 09:07 Dose: Not Given Hydroxyzine HCl (Hydroxyzine Hcl 25 Mg Tablet) 25 mg PO Q6H PRN PRN Reason: Anxiety Lorazepam (Lorazepam 1 Mg Tablet) 4 mg PO QID [facility] Last Admin: 12/19/22 09:05 Dose: 4 mg Magnesium Hydroxide (Milk Of Magnesia 30 Ml Oral.Susp) 30 ml PO DAILY PRN PRN Reason: Constipation Last Admin: 12/05/22 22:36 Dose: 30 ml Melatonin (Melatonin 3 Mg Tablet) 3 mg PO BEDTIME PRN PRN Reason: Insomnia Last Admin: 12/13/22 20:24 Dose: 3 mg Allergies Allergies Allergy/AdvReac Type Severity Reaction Status Date / Time No Known Allergies Allergy Verified 09/05/22 21:55 Assessment & Plan Assessment & Plan (1) Schizophrenia, 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 Zabala is a 37 year-old male, on community Parsons/guardian, with hx of schizophrenia. He resides at from [facility] for about one year. Since then, per staff, pt has had about 12 inpatient admission. Pt was recently discharged from medical floor after being treated for pneumonia. The day after pt was described as disorganized, wondering the streets, laying on the streets. He was brought via EMS to [facility]. Utox is negative. Pt does have hx of cannabis use but this time it was negative. Pt presents with symptoms of catatonia including waxy flexibility, negativism, intermittent mutism and black stare. Pt has not missed dose of Invega Sustenna- he has been on 234mg IM which has been given on 09/15 while on M3, 10/17 in the community. Pt also on haldol 30mg po qhs. Will hold haldol given s/s of catatonia. Pt is on Parsons which expires today but extension has been filed and granted- per CM awating paperwork from court. Guardian is his father- Joe Wells [phone]. PLAN CV Q 15 minute checks Hope for ECT Pursuing legal paperwork/affidavit for ECT DC Xeralto (pt now walks davis w/ prompting) Continue ativan 4mg po QID- for continued catatonia (up from 2mg) DC haldol due to likely cause of catatonia (started at most recent admission at [facility]) Received Invega Sustenna 234 mg IM on 11/13 HOLD Off on Invega Sustenna 156mg IM (due on by 11/20) since pt remains w/ catatonia HOSPITAL COURSE: 11/06 continue ativan, monitor s/s catatonia. hold haldol until some improvement in s/s of catatonia. 11/07/22- continue current regime and plan of care. Pt denies all symptoms. 11/08/22- starting to hear reports of evening improvement. continue current plan for now. 11/09 file for involuntary tx due to inability to care for self due to catatonia. will restart lithium 300mg po BID. 11/10 slightly less mute, still with delayed response rate and appears internally preoccupied. will lower ativan continue monitor for worsening of s/s of catatonia. 11/11 less mute, more spontaneous in speech, less psychomotor retardation. 11/12 continue tx. Next Invega Sustenna 234mg IM due on 11/13/202211/13 He received Invega Sustenna 234mg IM today. continue to monitor exacerbation of catatonia. continue ativan 1mg po TID. 11/14/2022 No clear improvement to this point; Patient fearful M withdrawn 11/15/2022 No clear improvement question ECT 11/16 patient remains with catatonic symptoms; staff reports patient is doing a little better will continue with Ativan; still need collateral on baseline 11/17 restarted Ativan 2 mg t.i.d. since it accidentally fell off and patient's catatonic symptoms have worsened. Patient understands he has catatonia and signed a CV to remain on the unit longer for treatment 11/18 Patient remains with significant catatonic symptoms, slowed speech, slow movements, hardly getting out of bed at all, not eating much, but still seems to be drinking fluids adequately. Talked with patient's provider LESLIE Laurent who reports that over the past year she has only seen him 3 times because he ends up in the hospital so frequently. She says that typically he will get out of the hospital and within a few weeks [facility] the [facility], looking for cannabis; once he starts smoking cannabis he is gets and all kinds of other substance abuse. She says he was last at [facility] where he was started on Haldol which seems the likely cause of this episode of catatonia. She says this admission was the 1st time he was not engaged in substance abuse. She says at baseline he is able to have a fluent conversation; she said his speech may be a little bit slowed but not much and talks spontaneously without any latency or thought blocking. She agrees that current presentation sounds like catatonia 11/19 patient agrees to increasing Ativan if needed; discussed possibility of ECT which he said he agreed to consider (patient on community Parsons and has a guardian and is not able to consent) 11/20 No change, patient remains lying in bed, moving very slowly, significant speech latency, talking slowly. Hardly eating (though continues to drink fluids). Agrees to increase Ativan. Discussed situation with legal arm of the team; as patient is currently on a Parsons order with a guardian, he cannot consent to ECT. Hopefully with increased Ativan, catatonic symptoms will break. Discussed treatment for catatonia with colleagues with 2 different thoughts, one going as high as 16 mg per day, another hesitant to go above 8 mg. Since no improvement thus far lead technical writer decided to split the difference and increased to total of 12 mg daily (there is little harm in going to higher doses of ativan other than it makes tapering off a more lengthy process) 11/21/22 Continue with current treatment plan 11/22/22 Continue treatmetn plan 11/23 pt some improvement, showering yesterday, sat in on a group and willing to walk the davis each shift to avoid DVT. However, when not prompted, stays in bed, hardly moving, eating very little, significant psycomotor retardation and speech latency. Agrees to increase ativan; says he is open to ECT if he needs it but his parents, father who is guardian, is against it. Later in day, pt signed 3 day. Thus, Will increase Ativan to 4mg qid (total daily dose of 16mg) in hopes for effect. His improvement is minimal and he remains at significant risk for continued and worsening catatonic symptoms. Will reach out to Father/guardian; will dc Xeralto since walking periodically during day. 11/24 patient remains with retarded catatonia with Inhibited movements, posturing, blankly staring; poor food intake; Though thankfully seems to be adequate fluid intake. currently no longer at risk for DVT; since patient is now walking with prompting. Has insight to know that he has catatonia; however while he seems to understand that without treatment this is a high risk of it worsening and that it can become life-threatening and despite expressing he wants to live and wants treatment, he is not yet willing to retract his 3 day notice and commit to staying for treatment. Patient says that his parents want him out of the hospital and do not want him to get ECT. Solution Advisor explained again that the only treatments for catatonia are benzodiazepines and ECT which patient said he understood. -patient is catatonic and remains with significantly impaired functioning. Solution Advisor reviewed literature on catatonia in [employer]To[employer] and standard treatment is that if benzodiazepines are not effectively resolving catatonia within 1 week, ECT becomes the next and only other treatment option and should be started promptl; otherwise risk catatonia developing into a malignant catatonia which can be life-threatening (malignant catatonia which is associated with fever, autonomic instability (hypertension/hypotension, tachycardia, tachypnea, diaphoresis, delirium, rigidity and ). Additionally patient is on only half his regular dose of lithium and did not get full dose of Invega Sustenna leaving his psychotic illness only partially treated. Patient requires prompting to do ADLs. At this time, patient is not safe for discharge, needs continued treatment with shelter. If patient does not retract his 3 day notice will very likely petitioned the court for involuntary commitment and substituted judgment for treatment. -lead technical writer has reached out to father who is patient's guardian and left a voicemail. -Focused neuro exam: No upper/lower limb stiffness or rigidity; b/l patellar, triceps brachioradialis reflexes 2+/ WNL -No autonomic instability and low concern for NMS however ordered WBC, CPK; LDH; also ordered bun/Cr given patient on lithium and also lying in bed much of the day with some mildly increased risk for rhabdo 11/25 Patient remains with catatonic symptoms, hardly moving hardly talking, with significant psychomotor retardation, speech latency; hardly eating so lead technical writer ordered ensure since he continues to drink fluid. Solution Advisor discussed patient's catatonic symptoms and he retracted is 3 day notice saying he wants to remain for treatment; he says he wants ECT. Solution Advisor discussed case with his father who is guardian. After discussing catatonia and treatment, patient's father/guardian said that he would agree with ECT treatment as long as his mother concurred and asked lead technical writer to call patient's mother Alejandrina. Solution Advisor discussed case with Alejandrina who also agreed with ECT given the lack of other options. 11/26 continue current treatment plan 11/27 remains with severe catatonic symptoms; will increase monitoring of vitals to t.i.d.; nursing staff informed to make sure patient walks the davis once per day to avoid DVT; otherwise to inform provider to consider DVT prophylaxis. Discussed case with colleague who recommended giving a 1 time extra Ativan dose to see if there was any benefit at all as a means to consider whether not to increase total daily Ativan dose. Discussed case with legal and filling out paperwork to amend [facility] with ECT. 11/29/2022: No changes to current plan. 11/30 patient remains catatonic; continue with efforts to procure treatment for ECT and submitted affidavit Patient's mother left voicemail saying that he has a long history of trauma; also that she hopes will be at the lowest dose of medication possible and reiterated ideas about a new fdc 12/01, auditory hallucinations and paranoid delusions; impaired insight and judgment prevail. Continued catatonic symptoms 12/02 Patient seems a little bit better today. Still with very slow movements, speech latency, trouble getting words out however patient's deficiencies in these areas seem a little less severe. Cautiously hopeful that minimal improvement today will continue to increase. Continue current treatment regimen. 12/03 Met with patient as he was walking the davis. He agreed that he is walking very slowly and cannot walk any faster and that this is not his baseline ability; when turning around patient needed to do multiple shuffle steps. Solution Advisor again explained the effects of catatonia. Patient said he is feeling nauseous from the Ativan however does not want any medication for nausea and agrees to continue taking Ativan, not wanting catatonic symptoms to worsen. It is not clear if patient's symptoms are improving; continue current regimen 12/04 there does not seem to be any improvement in catatonic symptoms and it remains difficult for him to move or get words out. Continue Ativan treatment; will continue to pursue ECT -so far have left lithium medication scheduled though at half his home dose; lead technical writer cannot find literature regarding lithium catatonia; discussed with colleagues who also had no opinion on whether to continue or discontinue. Solution Advisor will consider discontinuing it 12/05 no change in presentation, remains severely catatonic with much trouble moving, articulating, hardly eating. Remains with auditory hallucinations that he say bother him. Discussed lithium with Dr. Chavarria who does not have any strong opinion on its continuation or discontinuation; however both agree that it is unlikely to be benefiting patient since it is at half his regular home dose and thus might as well discontinue it for now; also lithium can increase delirium side effect from ECT which remains hopeful treatment. Will reduced to 300 mg for now. 12/06 no change in presentation, no improvement 12/07 walking the halls a little more than usual; otherwise little change and still with catatonic symptoms; agrees to continue with Ativan 12/08 no change in presentation; still severe catatonic symptoms. Endorses auditory and visual hallucinations, saying he sees orbs. -Patient's mother Alejandrina came to the unit today to visit her son. Solution Advisor met her on the unit and She said that he is like a zombie and far from when he is normally like; she reminisced about how he was when she last saw him months ago and they went to a coffee shop, shopping...had great conversation. She said he spent about 20 minutes with her but hardly said anything and then got up and left the room 12/09 no change; continue tx plan 12/10 no change; continue tx plan; mother left bottle of PQQ supplement, however mother not guardian -pt intermittently vacillates, sometimes saying he does not have catatonia, other times that he does and wants tx 12/11 continue tx. pending ECT 12/13 continue tx. 12/14 pt is a little improved, walking more, eating more; he moves a little bit better and his speech though still very latent and slow, is a little bit more fluid.? pt received Invega Sustenna 234mg this past weekend. Patients catatonia is not worsening and has not for weeks; rather it's actually showing some signs of improving. Pt has bothersome AH that he says he wants help resolving. It appears that Haldol added to invega is what triggered Catatonia rather than Invega itself. At this time, it seems continuing Invega is low riks.? 12/15 staff agrees pt moving a little better, talking a little more easily 12/16 pt signed 3 day notice today; discussed how he wants to go...when asked where, he says outside...to stand on the ground... then what? to put my feet on the ground... eventually pt said he would go to the [facility]. Discussed need for fdc to weigh in on whether they feel the can take him in current condition. Still has AH and he complains of so many voices bothering him at night which he says it's worse at night. 12/17 continue tx plan -3 day notice in; at this point it is unlikely that catatonia will worsen; as it seems to be improving and he's moving, eating more, talking more, pt may be able to return to fdc, continue on Ativan and allow Catatonia to slowly resolve. -discussed with Dr. Chavarria who met pt with lead technical writer today and agrees that pt still has significant catatonic symptoms, but that they are at low risk for worsening and becoming malignant. -need collateral from fdc to see if they can management pt 12/18 [facility] staff say pt not at baseline but not that far off 12/19 CTP Patient educated on: other Informed Consent: further education needed Reason for continued inpatient stay Substantial Risk for: harm to self, inability to function, rapid decompensation and med/psych decompensation Time Spent With Patient Time: Total time managing care of this patient today ____ minutes.
[2022-12-19 20:42] VITALS: BP 118/75; PULSE 77; TEMP 36.1
[2022-12-20] MEDS: LORazepam 1 MG TABLET 4 MG PO ×4 (08:13→20:09)
[2022-12-20 08:58] VITALS: BP 100/61; PULSE 85; RESP 16; TEMP 36.2; O2SAT 96
--- NOTE | 2022-12-20 11:34 | HO.PSYCHPN ---
Subjective Subjective Date of Service: 12/20/22 Reason For Visit: schizoaffective d/o; bipolar type Subjective Notes: Clarke Warning and Section 7 Interim History: 37 yo with catatonia sitting in room eating lunch- nursing told me he had not eating breakfast but told his nurse he had. Pt mostly non verbal will shake his head yes or no and keeps good eye contact- Medication Compliance: Yes (only on lorazepam for catatonia at this time) Side effects from medications: No Attending Groups: No Review of Systems Acute medical concerns: No Medical Review of Systems: unchanged Mental Status Exam Mental Status Exam Narrative: no shirt, gunjan pants, agrees to shower today - maybe lip service- Patient Appearance: Disheveled and Unkempt Level of Consciousness: Awake and Alert Patient Behavior: Dependent and Passive Mood Description: Calm Affect Description: Apprehensive Ability to Follow Directions: Fair Speech Pattern: Impoverished Thought Process: Slowed Thinking Abnormal Motor Activity Signs and Symptoms: Psychomotor Retardation Judgement: Poor Diagnostics Vital Signs (24Hr): Vital Signs - 24 hr 12/19/22 20:42 12/20/22 08:58 Temperature 96.9 F 97.2 F Pulse Rate 77 85 Respiratory Rate 16 Blood Pressure 118/75 100/61 Pulse Oximetry 96 Oxygen Delivery Method Room Air BMI result Body Mass Index 28.8 Labs 11/24/22 16:28 Medications Medications Current Medications Acetaminophen (Acetaminophen 325 Mg Tablet) 650 mg PO Q6H PRN PRN Reason: Headache/Pain Mild Scale (1-3) Al Hydroxide/Mg Hydroxide (Magnesium Hydrox/Alum Hydrox 30 Ml Oral.Susp) 30 ml PO Q6H PRN PRN Reason: Heartburn/Nausea Calcium Carbonate (Calcium Carbonate 750 Mg Tab.Chew) 750 mg PO BID [facility] Last Admin: 12/20/22 08:48 Dose: Not Given Hydroxyzine HCl (Hydroxyzine Hcl 25 Mg Tablet) 25 mg PO Q6H PRN PRN Reason: Anxiety Lorazepam (Lorazepam 1 Mg Tablet) 4 mg PO QID [facility] Last Admin: 12/20/22 08:13 Dose: 4 mg Magnesium Hydroxide (Milk Of Magnesia 30 Ml Oral.Susp) 30 ml PO DAILY PRN PRN Reason: Constipation Last Admin: 12/05/22 22:36 Dose: 30 ml Melatonin (Melatonin 3 Mg Tablet) 3 mg PO BEDTIME PRN PRN Reason: Insomnia Last Admin: 12/13/22 20:24 Dose: 3 mg Allergies Allergies Allergy/AdvReac Type Severity Reaction Status Date / Time No Known Allergies Allergy Verified 09/05/22 21:55 Assessment & Plan Assessment & Plan (1) Schizophrenia, 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 Zabala is a 37 year-old male, on community Parsons/guardian, with hx of schizophrenia. He resides at from [facility] for about one year. Since then, per staff, pt has had about 12 inpatient admission. Pt was recently discharged from medical floor after being treated for pneumonia. The day after pt was described as disorganized, wondering the streets, laying on the streets. He was brought via EMS to [facility]. Utox is negative. Pt does have hx of cannabis use but this time it was negative. Pt presents with symptoms of catatonia including waxy flexibility, negativism, intermittent mutism and black stare. Pt has not missed dose of Invega Sustenna- he has been on 234mg IM which has been given on 09/15 while on M3, 10/17 in the community. Pt also on haldol 30mg po qhs. Will hold haldol given s/s of catatonia. Pt is on Parsons which expires today but extension has been filed and granted- per CM awating paperwork from court. Guardian is his father- Joe Wells [phone]. PLAN CV Q 15 minute checks Hope for ECT Pursuing legal paperwork/affidavit for ECT DC Xeralto (pt now walks davis w/ prompting) Continue ativan 4mg po QID- for continued catatonia (up from 2mg) DC haldol due to likely cause of catatonia (started at most recent admission at [facility]) Received Invega Sustenna 234 mg IM on 11/13 HOLD Off on Invega Sustenna 156mg IM (due on by 11/20) since pt remains w/ catatonia HOSPITAL COURSE: 11/06 continue ativan, monitor s/s catatonia. hold haldol until some improvement in s/s of catatonia. 11/07/22- continue current regime and plan of care. Pt denies all symptoms. 11/08/22- starting to hear reports of evening improvement. continue current plan for now. 11/09 file for involuntary tx due to inability to care for self due to catatonia. will restart lithium 300mg po BID. 11/10 slightly less mute, still with delayed response rate and appears internally preoccupied. will lower ativan continue monitor for worsening of s/s of catatonia. 11/11 less mute, more spontaneous in speech, less psychomotor retardation. 11/12 continue tx. Next Invega Sustenna 234mg IM due on 11/13/202211/13 He received Invega Sustenna 234mg IM today. continue to monitor exacerbation of catatonia. continue ativan 1mg po TID. 11/14/2022 No clear improvement to this point; Patient fearful M withdrawn 11/15/2022 No clear improvement question ECT 11/16 patient remains with catatonic symptoms; staff reports patient is doing a little better will continue with Ativan; still need collateral on baseline 11/17 restarted Ativan 2 mg t.i.d. since it accidentally fell off and patient's catatonic symptoms have worsened. Patient understands he has catatonia and signed a CV to remain on the unit longer for treatment 11/18 Patient remains with significant catatonic symptoms, slowed speech, slow movements, hardly getting out of bed at all, not eating much, but still seems to be drinking fluids adequately. Talked with patient's provider LESLIE Laurent who reports that over the past year she has only seen him 3 times because he ends up in the hospital so frequently. She says that typically he will get out of the hospital and within a few weeks eloped from the half-way, looking for cannabis; once he starts smoking cannabis he is gets and all kinds of other substance abuse. She says he was last at [facility] where he was started on Haldol which seems the likely cause of this episode of catatonia. She says this admission was the 1st time he was not engaged in substance abuse. She says at baseline he is able to have a fluent conversation; she said his speech may be a little bit slowed but not much and talks spontaneously without any latency or thought blocking. She agrees that current presentation sounds like catatonia 11/19 patient agrees to increasing Ativan if needed; discussed possibility of ECT which he said he agreed to consider (patient on [facility] and has a guardian and is not able to consent) 11/20 No change, patient remains lying in bed, moving very slowly, significant speech latency, talking slowly. Hardly eating (though continues to drink fluids). Agrees to increase Ativan. Discussed situation with legal arm of the team; as patient is currently on a Parsons order with a guardian, he cannot consent to ECT. Hopefully with increased Ativan, catatonic symptoms will break. Discussed treatment for catatonia with colleagues with 2 different thoughts, one going as high as 16 mg per day, another hesitant to go above 8 mg. Since no improvement thus far law writer decided to split the difference and increased to total of 12 mg daily (there is little harm in going to higher doses of ativan other than it makes tapering off a more lengthy process) 11/21/22 Continue with current treatment plan 11/22/22 Continue treatmetn plan 11/23 pt some improvement, showering yesterday, sat in on a group and willing to walk the davis each shift to avoid DVT. However, when not prompted, stays in bed, hardly moving, eating very little, significant psycomotor retardation and speech latency. Agrees to increase ativan; says he is open to ECT if he needs it but his parents, father who is guardian, is against it. Later in day, pt signed 3 day. Thus, Will increase Ativan to 4mg qid (total daily dose of 16mg) in hopes for effect. His improvement is minimal and he remains at significant risk for continued and worsening catatonic symptoms. Will reach out to Father/guardian; will dc Xeralto since walking periodically during day. 11/24 patient remains with retarded catatonia with Inhibited movements, posturing, blankly staring; poor food intake; Though thankfully seems to be adequate fluid intake. currently no longer at risk for DVT; since patient is now walking with prompting. Has insight to know that he has catatonia; however while he seems to understand that without treatment this is a high risk of it worsening and that it can become life-threatening and despite expressing he wants to live and wants treatment, he is not yet willing to retract his 3 day notice and commit to staying for treatment. Patient says that his parents want him out of the hospital and do not want him to get ECT. Computer Analyst Supervisor explained again that the only treatments for catatonia are benzodiazepines and ECT which patient said he understood. -patient is catatonic and remains with significantly impaired functioning. Computer Analyst Supervisor reviewed literature on catatonia in [employer] and standard treatment is that if benzodiazepines are not effectively resolving catatonia within 1 week, ECT becomes the next and only other treatment option and should be started promptl; otherwise risk catatonia developing into a malignant catatonia which can be life-threatening (malignant catatonia which is associated with fever, autonomic instability (hypertension/hypotension, tachycardia, tachypnea, diaphoresis, delirium, rigidity and ). Additionally patient is on only half his regular dose of lithium and did not get full dose of Invega Sustenna leaving his psychotic illness only partially treated. Patient requires prompting to do ADLs. At this time, patient is not safe for discharge, needs continued treatment with assisted. If patient does not retract his 3 day notice will very likely petitioned the court for involuntary commitment and substituted judgment for treatment. -law writer has reached out to father who is patient's guardian and left a voicemail. -Focused neuro exam: No upper/lower limb stiffness or rigidity; b/l patellar, triceps brachioradialis reflexes 2+/ WNL -No autonomic instability and low concern for NMS however ordered WBC, CPK; LDH; also ordered bun/Cr given patient on lithium and also lying in bed much of the day with some mildly increased risk for rhabdo 11/25 Patient remains with catatonic symptoms, hardly moving hardly talking, with significant psychomotor retardation, speech latency; hardly eating so law writer ordered ensure since he continues to drink fluid. Computer Analyst Supervisor discussed patient's catatonic symptoms and he retracted is 3 day notice saying he wants to remain for treatment; he says he wants ECT. Computer Analyst Supervisor discussed case with his father who is guardian. After discussing catatonia and treatment, patient's father/guardian said that he would agree with ECT treatment as long as his mother concurred and asked law writer to call patient's mother Alejandrina. Computer Analyst Supervisor discussed case with Alejandrina who also agreed with ECT given the lack of other options. 11/26 continue current treatment plan 11/27 remains with severe catatonic symptoms; will increase monitoring of vitals to t.i.d.; nursing staff informed to make sure patient walks the davis once per day to avoid DVT; otherwise to inform provider to consider DVT prophylaxis. Discussed case with colleague who recommended giving a 1 time extra Ativan dose to see if there was any benefit at all as a means to consider whether not to increase total daily Ativan dose. Discussed case with legal and filling out paperwork to amend [facility] with ECT. 11/29/2022: No changes to current plan. 11/30 patient remains catatonic; continue with efforts to procure treatment for ECT and submitted affidavit Patient's mother left voicemail saying that he has a long history of trauma; also that she hopes will be at the lowest dose of medication possible and reiterated ideas about a new half-way 12/01, auditory hallucinations and paranoid delusions; impaired insight and judgment prevail. Continued catatonic symptoms 12/02 Patient seems a little bit better today. Still with very slow movements, speech latency, trouble getting words out however patient's deficiencies in these areas seem a little less severe. Cautiously hopeful that minimal improvement today will continue to increase. Continue current treatment regimen. 12/03 Met with patient as he was walking the davis. He agreed that he is walking very slowly and cannot walk any faster and that this is not his baseline ability; when turning around patient needed to do multiple shuffle steps. Computer Analyst Supervisor again explained the effects of catatonia. Patient said he is feeling nauseous from the Ativan however does not want any medication for nausea and agrees to continue taking Ativan, not wanting catatonic symptoms to worsen. It is not clear if patient's symptoms are improving; continue current regimen 12/04 there does not seem to be any improvement in catatonic symptoms and it remains difficult for him to move or get words out. Continue Ativan treatment; will continue to pursue ECT -so far have left lithium medication scheduled though at half his home dose; law writer cannot find literature regarding lithium catatonia; discussed with colleagues who also had no opinion on whether to continue or discontinue. Computer Analyst Supervisor will consider discontinuing it 12/05 no change in presentation, remains severely catatonic with much trouble moving, articulating, hardly eating. Remains with auditory hallucinations that he say bother him. Discussed lithium with Dr. Chavarria who does not have any strong opinion on its continuation or discontinuation; however both agree that it is unlikely to be benefiting patient since it is at half his regular home dose and thus might as well discontinue it for now; also lithium can increase delirium side effect from ECT which remains hopeful treatment. Will reduced to 300 mg for now. 12/06 no change in presentation, no improvement 12/07 walking the halls a little more than usual; otherwise little change and still with catatonic symptoms; agrees to continue with Ativan 12/08 no change in presentation; still severe catatonic symptoms. Endorses auditory and visual hallucinations, saying he sees orbs. -Patient's mother Alejandrina came to the unit today to visit her son. Computer Analyst Supervisor met her on the unit and She said that he is like a zombie and far from when he is normally like; she reminisced about how he was when she last saw him months ago and they went to a coffee shop, shopping...had great conversation. She said he spent about 20 minutes with her but hardly said anything and then got up and left the room 12/09 no change; continue tx plan 12/10 no change; continue tx plan; mother left bottle of PQQ supplement, however mother not guardian -pt intermittently vacillates, sometimes saying he does not have catatonia, other times that he does and wants tx 12/11 continue tx. pending ECT 12/13 continue tx. 12/14 pt is a little improved, walking more, eating more; he moves a little bit better and his speech though still very latent and slow, is a little bit more fluid.? pt received Invega Sustenna 234mg this past weekend. Patients catatonia is not worsening and has not for weeks; rather it's actually showing some signs of improving. Pt has bothersome AH that he says he wants help resolving. It appears that Haldol added to invega is what triggered Catatonia rather than Invega itself. At this time, it seems continuing Invega is low riks.? 12/15 staff agrees pt moving a little better, talking a little more easily 12/16 pt signed 3 day notice today; discussed how he wants to go...when asked where, he says outside...to stand on the ground... then what? to put my feet on the ground... eventually pt said he would go to the half-way. Discussed need for half-way to weigh in on whether they feel the can take him in current condition. Still has AH and he complains of so many voices bothering him at night which he says it's worse at night. 12/17 continue tx plan -3 day notice in; at this point it is unlikely that catatonia will worsen; as it seems to be improving and he's moving, eating more, talking more, pt may be able to return to half-way, continue on Ativan and allow Catatonia to slowly resolve. -discussed with Dr. Chavarria who met pt with law writer today and agrees that pt still has significant catatonic symptoms, but that they are at low risk for worsening and becoming malignant. -need collateral from half-way to see if they can management pt 12/18 half-way staff say pt not at baseline but not that far off 12/19 CTP 12/20 =ctp , likely will need sec 8 - thought seems to be doing better- Reason for continued inpatient stay Substantial Risk for: rapid decompensation and med/psych decompensation Time Spent With Patient Time: Total time managing care of this patient today ____ minutes.
[2022-12-20 13:52] VITALS: BP 102/61; PULSE 91; RESP 16; TEMP 36.6; O2SAT 93
[2022-12-20 18:39] VITALS: BP 110/73; PULSE 91; TEMP 36.1
[2022-12-21 09:00] VITALS: BP 107/68; PULSE 86; RESP 18; TEMP 36.6; O2SAT 96
[2022-12-21] MEDS: LORazepam 1 MG TABLET 4 MG PO ×4 (09:05→21:55)
--- NOTE | 2022-12-21 09:32 | HO.PSYCHPN ---
Subjective Subjective Date of Service: 12/21/22 Reason For Visit: schizoaffective d/o; bipolar type Interim History: Met with patient; discussed with team; reviewed notes Patient with same presentation. Says he is good and when discussing discharge tomorrow says that makes him feel great. Patient says auditory hallucinations have resolved and that he wants to take Invega Sustenna since he thinks it helps. Patient says he will continue taking Ativan. Private Security Guard discussed smoking cannabis and other drugs and how it will very likely exacerbate psychotic symptoms wind him back in the hospital. Patient said he understood and will avoid. Denies any other questions. Remains with speech latency and slowed movements however both her much improved and patient is eating and drinking, attending to ADLs. Diagnostics Vital Signs (24Hr): Vital Signs - 24 hr 12/20/22 13:52 12/20/22 18:39 12/21/22 09:00 Temperature 97.8 F 97 F 97.8 F Pulse Rate 91 91 86 Respiratory Rate 16 18 Blood Pressure 102/61 110/73 107/68 Pulse Oximetry 93 96 Oxygen Delivery Method Room Air Room Air BMI result Body Mass Index 28.8 Labs 11/24/22 16:28 Medications Medications Current Medications Acetaminophen (Acetaminophen 325 Mg Tablet) 650 mg PO Q6H PRN PRN Reason: Headache/Pain Mild Scale (1-3) Al Hydroxide/Mg Hydroxide (Magnesium Hydrox/Alum Hydrox 30 Ml Oral.Susp) 30 ml PO Q6H PRN PRN Reason: Heartburn/Nausea Calcium Carbonate (Calcium Carbonate 750 Mg Tab.Chew) 750 mg PO BID [facility] Last Admin: 12/21/22 09:07 Dose: Not Given Hydroxyzine HCl (Hydroxyzine Hcl 25 Mg Tablet) 25 mg PO Q6H PRN PRN Reason: Anxiety Lorazepam (Lorazepam 1 Mg Tablet) 4 mg PO QID [facility] Last Admin: 12/21/22 09:05 Dose: 4 mg Magnesium Hydroxide (Milk Of Magnesia 30 Ml Oral.Susp) 30 ml PO DAILY PRN PRN Reason: Constipation Last Admin: 12/05/22 22:36 Dose: 30 ml Melatonin (Melatonin 3 Mg Tablet) 3 mg PO BEDTIME PRN PRN Reason: Insomnia Last Admin: 12/13/22 20:24 Dose: 3 mg Allergies Allergies Allergy/AdvReac Type Severity Reaction Status Date / Time No Known Allergies Allergy Verified 09/05/22 21:55 Assessment & Plan Assessment & Plan (1) Schizophrenia, 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 Zabala is a 37 year-old male, on community Parsons/guardian, with hx of schizophrenia. He resides at from [facility] for about one year. Since then, per staff, pt has had about 12 inpatient admission. Pt was recently discharged from medical floor after being treated for pneumonia. The day after pt was described as disorganized, wondering the streets, laying on the streets. He was brought via EMS to [facility]. Utox is negative. Pt does have hx of cannabis use but this time it was negative. Pt presents with symptoms of catatonia including waxy flexibility, negativism, intermittent mutism and black stare. Pt has not missed dose of Invega Sustenna- he has been on 234mg IM which has been given on 09/15 while on M3, 10/17 in the community. Pt also on haldol 30mg po qhs. Will hold haldol given s/s of catatonia. Pt is on Parsons which expires today but extension has been filed and granted- per CM awating paperwork from court. Guardian is his father- Joe Wells [phone]. PLAN CV Q 15 minute checks Hope for ECT Pursuing legal paperwork/affidavit for ECT DC Xeralto (pt now walks davis w/ prompting) Continue ativan 4mg po QID- for continued catatonia (up from 2mg) DC haldol due to likely cause of catatonia (started at most recent admission at [facility]) Received Invega Sustenna 234 mg IM on 11/13 HOLD Off on Invega Sustenna 156mg IM (due on by 11/20) since pt remains w/ catatonia HOSPITAL COURSE: 11/06 continue ativan, monitor s/s catatonia. hold haldol until some improvement in s/s of catatonia. 11/07/22- continue current regime and plan of care. Pt denies all symptoms. 11/08/22- starting to hear reports of evening improvement. continue current plan for now. 11/09 file for involuntary tx due to inability to care for self due to catatonia. will restart lithium 300mg po BID. 11/10 slightly less mute, still with delayed response rate and appears internally preoccupied. will lower ativan continue monitor for worsening of s/s of catatonia. 11/11 less mute, more spontaneous in speech, less psychomotor retardation. 11/12 continue tx. Next Invega Sustenna 234mg IM due on 11/13/202211/13 He received Invega Sustenna 234mg IM today. continue to monitor exacerbation of catatonia. continue ativan 1mg po TID. 11/14/2022 No clear improvement to this point; Patient fearful M withdrawn 11/15/2022 No clear improvement question ECT 11/16 patient remains with catatonic symptoms; staff reports patient is doing a little better will continue with Ativan; still need collateral on baseline 11/17 restarted Ativan 2 mg t.i.d. since it accidentally fell off and patient's catatonic symptoms have worsened. Patient understands he has catatonia and signed a CV to remain on the unit longer for treatment 11/18 Patient remains with significant catatonic symptoms, slowed speech, slow movements, hardly getting out of bed at all, not eating much, but still seems to be drinking fluids adequately. Talked with patient's provider LESLIE Laurent who reports that over the past year she has only seen him 3 times because he ends up in the hospital so frequently. She says that typically he will get out of the hospital and within a few weeks eloped from the senior care, looking for cannabis; once he starts smoking cannabis he is gets and all kinds of other substance abuse. She says he was last at [facility] where he was started on Haldol which seems the likely cause of this episode of catatonia. She says this admission was the 1st time he was not engaged in substance abuse. She says at baseline he is able to have a fluent conversation; she said his speech may be a little bit slowed but not much and talks spontaneously without any latency or thought blocking. She agrees that current presentation sounds like catatonia 11/19 patient agrees to increasing Ativan if needed; discussed possibility of ECT which he said he agreed to consider (patient on [facility] and has a guardian and is not able to consent) 11/20 No change, patient remains lying in bed, moving very slowly, significant speech latency, talking slowly. Hardly eating (though continues to drink fluids). Agrees to increase Ativan. Discussed situation with legal arm of the team; as patient is currently on a Parsons order with a guardian, he cannot consent to ECT. Hopefully with increased Ativan, catatonic symptoms will break. Discussed treatment for catatonia with colleagues with 2 different thoughts, one going as high as 16 mg per day, another hesitant to go above 8 mg. Since no improvement thus far senior medical writer decided to split the difference and increased to total of 12 mg daily (there is little harm in going to higher doses of ativan other than it makes tapering off a more lengthy process) 11/21/22 Continue with current treatment plan 11/22/22 Continue treatmetn plan 11/23 pt some improvement, showering yesterday, sat in on a group and willing to walk the davis each shift to avoid DVT. However, when not prompted, stays in bed, hardly moving, eating very little, significant psycomotor retardation and speech latency. Agrees to increase ativan; says he is open to ECT if he needs it but his parents, father who is guardian, is against it. Later in day, pt signed 3 day. Thus, Will increase Ativan to 4mg qid (total daily dose of 16mg) in hopes for effect. His improvement is minimal and he remains at significant risk for continued and worsening catatonic symptoms. Will reach out to Father/guardian; will dc Xeralto since walking periodically during day. 11/24 patient remains with retarded catatonia with Inhibited movements, posturing, blankly staring; poor food intake; Though thankfully seems to be adequate fluid intake. currently no longer at risk for DVT; since patient is now walking with prompting. Has insight to know that he has catatonia; however while he seems to understand that without treatment this is a high risk of it worsening and that it can become life-threatening and despite expressing he wants to live and wants treatment, he is not yet willing to retract his 3 day notice and commit to staying for treatment. Patient says that his parents want him out of the hospital and do not want him to get ECT. Private Security Guard explained again that the only treatments for catatonia are benzodiazepines and ECT which patient said he understood. -patient is catatonic and remains with significantly impaired functioning. Private Security Guard reviewed literature on catatonia in [employer] and standard treatment is that if benzodiazepines are not effectively resolving catatonia within 1 week, ECT becomes the next and only other treatment option and should be started promptl; otherwise risk catatonia developing into a malignant catatonia which can be life-threatening (malignant catatonia which is associated with fever, autonomic instability (hypertension/hypotension, tachycardia, tachypnea, diaphoresis, delirium, rigidity and ). Additionally patient is on only half his regular dose of lithium and did not get full dose of Invega Sustenna leaving his psychotic illness only partially treated. Patient requires prompting to do ADLs. At this time, patient is not safe for discharge, needs continued treatment with custodial. If patient does not retract his 3 day notice will very likely petitioned the court for involuntary commitment and substituted judgment for treatment. -senior medical writer has reached out to father who is patient's guardian and left a voicemail. -Focused neuro exam: No upper/lower limb stiffness or rigidity; b/l patellar, triceps brachioradialis reflexes 2+/ WNL -No autonomic instability and low concern for NMS however ordered WBC, CPK; LDH; also ordered bun/Cr given patient on lithium and also lying in bed much of the day with some mildly increased risk for rhabdo 11/25 Patient remains with catatonic symptoms, hardly moving hardly talking, with significant psychomotor retardation, speech latency; hardly eating so senior medical writer ordered ensure since he continues to drink fluid. Private Security Guard discussed patient's catatonic symptoms and he retracted is 3 day notice saying he wants to remain for treatment; he says he wants ECT. Private Security Guard discussed case with his father who is guardian. After discussing catatonia and treatment, patient's father/guardian said that he would agree with ECT treatment as long as his mother concurred and asked senior medical writer to call patient's mother Alejandrina. Private Security Guard discussed case with Alejandrina who also agreed with ECT given the lack of other options. 11/26 continue current treatment plan 11/27 remains with severe catatonic symptoms; will increase monitoring of vitals to t.i.d.; nursing staff informed to make sure patient walks the davis once per day to avoid DVT; otherwise to inform provider to consider DVT prophylaxis. Discussed case with colleague who recommended giving a 1 time extra Ativan dose to see if there was any benefit at all as a means to consider whether not to increase total daily Ativan dose. Discussed case with legal and filling out paperwork to amend [facility] with ECT. 11/29/2022: No changes to current plan. 11/30 patient remains catatonic; continue with efforts to procure treatment for ECT and submitted affidavit Patient's mother left voicemail saying that he has a long history of trauma; also that she hopes will be at the lowest dose of medication possible and reiterated ideas about a new senior care 12/01, auditory hallucinations and paranoid delusions; impaired insight and judgment prevail. Continued catatonic symptoms 12/02 Patient seems a little bit better today. Still with very slow movements, speech latency, trouble getting words out however patient's deficiencies in these areas seem a little less severe. Cautiously hopeful that minimal improvement today will continue to increase. Continue current treatment regimen. 12/03 Met with patient as he was walking the davis. He agreed that he is walking very slowly and cannot walk any faster and that this is not his baseline ability; when turning around patient needed to do multiple shuffle steps. Private Security Guard again explained the effects of catatonia. Patient said he is feeling nauseous from the Ativan however does not want any medication for nausea and agrees to continue taking Ativan, not wanting catatonic symptoms to worsen. It is not clear if patient's symptoms are improving; continue current regimen 12/04 there does not seem to be any improvement in catatonic symptoms and it remains difficult for him to move or get words out. Continue Ativan treatment; will continue to pursue ECT -so far have left lithium medication scheduled though at half his home dose; senior medical writer cannot find literature regarding lithium catatonia; discussed with colleagues who also had no opinion on whether to continue or discontinue. Private Security Guard will consider discontinuing it 12/05 no change in presentation, remains severely catatonic with much trouble moving, articulating, hardly eating. Remains with auditory hallucinations that he say bother him. Discussed lithium with Dr. Chavarria who does not have any strong opinion on its continuation or discontinuation; however both agree that it is unlikely to be benefiting patient since it is at half his regular home dose and thus might as well discontinue it for now; also lithium can increase delirium side effect from ECT which remains hopeful treatment. Will reduced to 300 mg for now. 12/06 no change in presentation, no improvement 12/07 walking the halls a little more than usual; otherwise little change and still with catatonic symptoms; agrees to continue with Ativan 12/08 no change in presentation; still severe catatonic symptoms. Endorses auditory and visual hallucinations, saying he sees orbs. -Patient's mother Alejandrina came to the unit today to visit her son. Private Security Guard met her on the unit and She said that he is like a zombie and far from when he is normally like; she reminisced about how he was when she last saw him months ago and they went to a coffee shop, shopping...had great conversation. She said he spent about 20 minutes with her but hardly said anything and then got up and left the room 12/09 no change; continue tx plan 12/10 no change; continue tx plan; mother left bottle of PQQ supplement, however mother not guardian -pt intermittently vacillates, sometimes saying he does not have catatonia, other times that he does and wants tx 12/11 continue tx. pending ECT 12/13 continue tx. 12/14 pt is a little improved, walking more, eating more; he moves a little bit better and his speech though still very latent and slow, is a little bit more fluid.? pt received Invega Sustenna 234mg this past weekend. Patients catatonia is not worsening and has not for weeks; rather it's actually showing some signs of improving. Pt has bothersome AH that he says he wants help resolving. It appears that Haldol added to invega is what triggered Catatonia rather than Invega itself. At this time, it seems continuing Invega is low riks.? 12/15 staff agrees pt moving a little better, talking a little more easily 12/16 pt signed 3 day notice today; discussed how he wants to go...when asked where, he says outside...to stand on the ground... then what? to put my feet on the ground... eventually pt said he would go to the senior care. Discussed need for senior care to weigh in on whether they feel the can take him in current condition. Still has AH and he complains of so many voices bothering him at night which he says it's worse at night. 12/17 continue tx plan -3 day notice in; at this point it is unlikely that catatonia will worsen; as it seems to be improving and he's moving, eating more, talking more, pt may be able to return to senior care, continue on Ativan and allow Catatonia to slowly resolve. -discussed with Dr. Chavarria who met pt with senior medical writer today and agrees pt still has significant catatonic symptoms, but that they are at low risk for worsening and becoming malignant. -need collateral from senior care to see if they can management pt 12/18 senior care staff say pt not at baseline but not that far off 12/19 CTP 12/20 =ctp , likely will need sec 8 - thought seems to be doing better- 12/21 Patient with same presentation. Says he is good and when discussing discharge tomorrow says that makes him feel great. Patient says auditory hallucinations have resolved and that he wants to take Invega Sustenna since he thinks it helps. Patient says he will continue taking Ativan. Private Security Guard discussed smoking cannabis and other drugs and how it will very likely exacerbate psychotic symptoms wind him back in the hospital. Patient said he understood and will avoid. Denies any other questions. Remains with speech latency and slowed movements however both her much improved and patient is eating and drinking, attending to ADLs. Although insight is impaired, He also seems to have he enough insight into catatonia and his need for treatment. -Patient's 3 day notice is coming due. While he remains with catatonic symptoms, senior care staff say he is not that far off from baseline. Patient says he will continue taking Ativan as prescribed. Patient has significant support in the community. While senior medical writer would like to see patient remain and get ECT which could very well clear catatonic symptoms up quickly, patient prefers discharge. He remains at risk for relapse with substance abuse and further decompensation however he seems to understand this and articulates his preference to continue treatment for catatonia in the community rather than having to remain on the unit. He is not in imminent risk for harm to self or others and does not rise to the level of involuntary commitment. Request for discharge will be honored -senior medical writer called and left message for outpatient prescriber Patient educated on: diagnosis, medication risk/benefits and medical condition Informed Consent: understands Reason for continued inpatient stay Substantial Risk for: stable for discharge Time Spent With Patient Time: Total time managing care of this patient today ____ minutes.
[2022-12-21 13:00] VITALS: BP 92/53; PULSE 82
[2022-12-21 19:45] VITALS: BP 116/66; PULSE 83; TEMP 36.4; O2SAT 93
[2022-12-21] MEDS: Calcium Carbonate 750 MG TAB.CHEW PO (21:56)
[2022-12-22 08:31] VITALS: BP 117/75; PULSE 95; RESP 18; TEMP 36.1; O2SAT 97
[2022-12-22] MEDS: LORazepam 1 MG TABLET 4 MG PO (08:32)
--- NOTE | 2022-12-22 09:58 | P.DS_ITS ---
DS: Providers Provider Date of Service: 12/22/22 Date of admission: 11/04/22 18:26 Date of discharge: 12/22/22 Primary care physician: Unknown Physician Attending physician on admission: Elio Kumar Consults: 11/04/22 20:55 Consult to Hospitalist Routine Comment: Consulting Provider: Hospitalist Reason For Exam: [facility] Transfer Attending physician on discharge: Elio Kumar DS: Diagnosis Discharge Diagnosis (1) Schizophrenia, catatonic: Status: Acute DS: Medications Discharge Medications Home Medications: Previous Rx's Medication Instructions Recorded famotidine 20 mg tablet 20 mg PO BID 30 days #60 tabs 09/21/22 calcium carbonate 300 mg (750 mg) 2.5 tab PO BID #0 tabs 12/22/22 chewable tablet (Antacid Extra Strength (calcium carb)) lorazepam 1 mg tablet 4 mg (4 x 1 mg) PO QID 30 days 12/22/22 #480 tabs melatonin 3 mg tablet 3 mg PO BEDTIME PRN sleep 30 days 12/22/22 #30 tabs paliperidone palmitate 234 mg/1.5 234 mg (1.5 mL) IM Q4W 28 days 12/22/22 mL intramuscular syringe (Invega #1.5 mL Sustenna) Mental Status Exam Mental Status Exam Narrative: Pt is alert and oriented; behavior is still slowed and quiet but less so; up and about more in the milieu; eating and drinking appropriately; patient is not in physical distress; dressed in hospital attire with unkempt hair, but adequate hygiene; mood is blunted; affect blunted; eye contact with a blank stare; Speech is latent, few words, slowed, low volume and monotone; psychomotor retardation present but less; thought process is marred by thought blocking but goal directed and logical; Thought content is on discharge; intermittent paranoid delusions expressed; denies any SI/HI. Positive for AH Patients insight and judgment impaired but at baseline and adequate. DS: Summary Hospital Course Hospital Course: HPI: Mr. Zabala is a 37 year-old male, on community Parsons/guardian, with hx of schizophrenia. He resides at from [facility] for about one year. Since then, per staff, pt has had about 12 inpatient admission. Pt was recently discharged from medical floor after being treated for pneumonia. The day after pt was described as disorganized, wondering the streets, laying on the streets. He was brought via EMS to [facility] [place]. Utox is negative. Pt does have hx of cannabis use but this time it was negative. Pt presents with symptoms of catatonia including waxy flexibility, negativism, intermittent mutism and black stare. Pt has not missed dose of Invega Sustenna- he has been on 234mg IM which has been given on 09/15 while on M3, 10/17 in the community. Pt also on haldol 30mg po qhs. Will hold haldol given s/s of catatonia. Pt is on Parsons which expires today but extension has been filed and granted- per CM awating paperwork from court. Guardian is his father- Joe Wells [phone]. HOSPITAL COURSE: 11/05/22 Patient presented to the hospital with paranoid delusions and catatonia likely due to Haldol which she had recently been started on. Haldol was discontinued. Patient was started on Ativan to treat catatonic symptoms which were severe included mutism, low lying in bed all day, hardly eating, hardly moving to the point where patient needed to be on anticoagulant medication for a time. Over the course of the admission patient's catatonia remains significant and Ativan was eventually increased to 4 mg q.i.d.,(discussed with several colleagues who agreed with this regimen; literature also indicates the need to sometimes go to this dose and higher to treat catatonia). Patient has a guardian who was ambivalent about ECT but eventually agreed. However patient on a community Parsons necessitating court order for ECT. While court date was pending, patient continued with Ativan and eventually his symptoms improved, catatonia seemed mostly to be resolving and collateral indicated that patient was nearing baseline. -patient had been on Invega Sustenna 234 mg received on 11/13; initially plan was to hold off on continuing Invega Sustenna however patient complained of auditory hallucinations that he wanted treated and since catatonia was resolv ing, Invega Sustenna continued. See below for details regarding hospital course 11/16 patient remains with catatonic symptoms; staff reports patient is doing a little better will continue with Ativan; still need collateral on baseline 11/17 restarted Ativan 2 mg t.i.d. since it accidentally fell off and patient's catatonic symptoms have worsened. Patient understands he has catatonia and signed a CV to remain on the unit longer for treatment 11/18 Patient remains with significant catatonic symptoms, slowed speech, slow movements, hardly getting out of bed at all, not eating much, but still seems to be drinking fluids adequately. Talked with patient's provider LESLIE Laurent who reports that over the past year she has only seen him 3 times because he ends up in the hospital so frequently. She says that typically he will get out of the hospital and within a few weeks eloped from the [facility]pc, looking for cannabis; once he starts smoking cannabis he is gets and all kinds of other substance abuse. She says he was last at [facility] where he was started on Haldol which seems the likely cause of this episode of catatonia. She says this admission was the 1st time he was not engaged in substance abuse. She says at baseline he is able to have a fluent conversation; she said his speech may be a little bit slowed but not much and talks spontaneously without any latency or thought blocking. She agrees that current presentation sounds like catatonia 11/19 patient agrees to increasing Ativan if needed; discussed possibility of ECT which he said he agreed to consider (patient on community Parsons and has a guardian and is not able to consent) 11/20 No change, patient remains lying in bed, moving very slowly, significant speech latency, talking slowly. Hardly eating (though continues to drink fluids). Agrees to increase Ativan. Discussed situation with legal arm of the team; as patient is currently on a Parsons order with a guardian, he cannot consent to ECT. Hopefully with increased Ativan, catatonic symptoms will break. Discussed treatment for catatonia with colleagues with 2 different thoughts, one going as high as 16 mg per day, another hesitant to go above 8 mg. Since no improvement thus far news writer decided to split the difference and increased to total of 12 mg daily (there is little harm in going to higher doses of ativan other than it makes tapering off a more lengthy process) 11/23 pt some improvement, showering yesterday, sat in on a group and willing to walk the davis each shift to avoid DVT. However, when not prompted, stays in bed, hardly moving, eating very little, significant psycomotor retardation and speech latency. Agrees to increase ativan; says he is open to ECT if he needs it but his parents, father who is guardian, is against it. Later in day, pt signed 3 day. Thus, Will increase Ativan to 4mg qid (total daily dose of 16mg) in hopes for effect. His improvement is minimal and he remains at significant risk for continued and worsening catatonic symptoms. Will reach out to Father/guardian; will dc Xeralto since walking periodically during day. 11/24 patient remains with retarded catatonia with Inhibited movements, posturing, blankly staring; poor food intake; Though thankfully seems to be adequate fluid intake. currently no longer at risk for DVT; since patient is now walking with prompting. Has insight to know that he has catatonia; however while he seems to understand that without treatment this is a high risk of it worsening and that it can become life-threatening and despite expressing he want s to live and wants treatment, he is not yet willing to retract his 3 day notice and commit to staying for treatment. Patient says that his parents want him out of the hospital and do not want him to get ECT. Multiple Effect Evaporator Operator explained again that the only treatments for catatonia are benzodiazepines and ECT which patient said he understood. -patient is catatonic and remains with significantly impaired functioning. Multiple Effect Evaporator Operator reviewed literature on catatonia in UpTo[employer] and standard treatment is that if benzodiazepines are not effectively resolving catatonia within 1 week, ECT becomes the next and only other treatment option and should be started promptl; otherwise risk catatonia developing into a malignant catatonia which can be life-threatening (malignant catatonia which is associated with fever, autonomic instability (hypertension/hypotension, tachycardia, tachypnea, diaphoresis, delirium, rigidity and ). Additionally patient is on only half his regular dose of lithium and did not get full dose of Invega Sustenna leaving his psychotic illness only partially treated. Patient requires prompting to do ADLs. At this time, patient is not safe for discharge, needs continued treatment with retirement. If patient does not retract his 3 day notice will very likely petitioned the court for involuntary commitment and substituted judgment for treatment. -news writer has reached out to father who is patient's guardian and left a voicemail. -Focused neuro exam: No upper/lower limb stiffness or rigidity; b/l patellar, triceps brachioradialis reflexes 2+/ WNL -No autonomic instability and low concern for NMS however ordered WBC, CPK; LDH; also ordered bun/Cr given patient on lithium and also lying in bed much of the day with some mildly increased risk for rhabdo 11/25 Patient remains with catatonic symptoms, hardly moving hardly talking, with significant psychomotor retardation, speech latency; hardly eating so news writer ordered ensure since he continues to drink fluid. Multiple Effect Evaporator Operator discussed patient's catatonic symptoms and he retracted is 3 day notice saying he wants to remain for treatment; he says he wants ECT. Multiple Effect Evaporator Operator discussed case with his father who is guardian. After discussing catatonia and treatment, patient's father/guardian said that he would agree with ECT treatment as long as his mother concurred and asked news writer to call patient's mother Alejandrina. Multiple Effect Evaporator Operator discussed case with Alejandrina who also agreed with ECT given the lack of other options. 11/27 remains with severe catatonic symptoms; will increase monitoring of vitals to t.i.d.; nursing staff informed to make sure patient walks the davis once per day to avoid DVT; otherwise to inform provider to consider DVT prophylaxis. Discussed case with colleague who recommended giving a 1 time extra Ativan dose to see if there was any benefit at all as a means to consider whether not to increase total daily Ativan dose. Discussed case with legal and filling out paperwork to amend [place] with ECT. 11/30 patient remains catatonic; continue with efforts to procure treatment for ECT and submitted affidavit Patient's mother left voicemail saying that he has a long history of trauma; Pt with auditory hallucinations and paranoid delusions; impaired insight and judgment prevail. Continued catatonic symptoms 12/02 Patient seems a little bit better today. Still with very slow movements, speech latency, trouble getting words out however patient's deficiencies in these areas seem a little less severe. Cautiously hopeful that minimal improvement today will continue to increase. Continue current treatment r georgi. 12/03 Met with patient as he was walking the davis. He agreed that he is walking very slowly and cannot walk any faster and that this is not his baseline ability; when turning around patient needed to do multiple shuffle steps. Multiple Effect Evaporator Operator again explained the effects of catatonia. Patient said he is feeling nauseous from the Ativan however does not want any medication for nausea and agrees to continue taking Ativan, not wanting catatonic symptoms to worsen. It is not clear if patient's symptoms are improving; continue current regimen 12/04 there does not seem to be any improvement in catatonic symptoms and it remains difficult for him to move or get words out. Continue Ativan treatment; will continue to pursue ECT -so far have left lithium medication scheduled though at half his home dose; news writer cannot find literature regarding lithium catatonia; discussed with colleagues who also had no opinion on whether to continue or discontinue. Multiple Effect Evaporator Operator will consider discontinuing it 12/05 no change in presentation, remains severely catatonic with much trouble moving, articulating, hardly eating. Remains with auditory hallucinations that he say bother him. Discussed lithium with Dr. Chavarria who does not have any strong opinion on its continuation or discontinuation; however both agree that it is unlikely to be benefiting patient since it is at half his regular home dose and thus might as well discontinue it for now; also lithium can increase delirium side effect from ECT which remains hopeful treatment. Will reduced to 300 mg for now. 12/08 no change in presentation; still severe catatonic symptoms. Endorses auditory and visual hallucinations, saying he sees orbs. -Patient's mother Alejandrina came to the unit today to visit her son. Multiple Effect Evaporator Operator met her on the unit and She said that he is like a zombie and far from when he is normally like; she reminisced about how he was when she last saw him months ago and they went to a coffee shop, shopping...had great conversation. She said he spent about 20 minutes with her but hardly said anything and then got up and left the room 12/14 pt is a little improved, walking more, eating more; he moves a little bit better and his speech though still very latent and slow, is a little bit more fluid.? pt received Invega Sustenna 234mg this past weekend. Patients catatonia is not worsening and has not for weeks; rather it's actually showing some signs of improving. Pt has bothersome AH that he says he wants help resolving. It appears that Haldol added to invega is what triggered Catatonia rather than Invega itself. At this time, it seems continuing Invega is low riks.? -staff agrees pt moving a little better, talking a little more easily 12/16 pt signed 3 day notice today; discussed how he wants to go...when asked where, he says outside...to stand on the ground... then what? to put my feet on the ground... eventually pt said he would go to the fpc. Discussed need for fpc to weigh in on whether they feel the can take him in current condition. Still has AH and he complains of so many voices bothering him at night which he says it's worse at night. 12/17 -3 day notice in; at this point it is unlikely that catatonia will worsen; as it seems to be improving and he's moving, eating more, talking more, pt may be able to return to fpc, continue on Ativan and allow Catatonia to slowly resol ve. -discussed with Dr. Chavarria who met pt with news writer today and agrees that while pt still has significant catatonic symptoms, he is at low risk for them to worsen and/or become malignant. 12/18 fpc staff say pt not at baseline but not that far off Patient says auditory hallucinations have resolved and that he wants to take Invega Sustenna since he thinks it helps. Patient says he will continue taking Ativan. Multiple Effect Evaporator Operator discussed smoking cannabis and other drugs and how it will very likely exacerbate psychotic symptoms wind him back in the hospital. Patient said he understood and will avoid. Remains with speech latency and slowed movements however both her much improved and patient is eating and drinking, attending to ADLs. Although insight is impaired, He also understands he has catatonia and his need for continued treatment with ativan which he reiterates he will continue. While news writer would like to see patient remain and get ECT which could very well clear catatonic sym ptoms up quickly, patient prefers discharge. Multiple Effect Evaporator Operator and patient discussed his risk for relapse with substance abuse, elopement and decompensation; he acknowledges these risks but continues to clearly articulates his preference that he wants to continue treatment for catatonia in the community rather than remaining on the unit. At this point patient does not rise to the level of involuntary commitment. Multiple Effect Evaporator Operator cannot testify that patient is in imminent risk for harm to self or others; he consistently denies any SI or HI and has not displayed any unsafe behavior at all throughout his admission on the unit. Nor can news writer testify that patient is unable to take care of himself in the community. Patient is eating, drinking and attending to ADLs on his own; he walks daily and has consistently demonstrated ability to ask for things he wants or needs. Furthermore patient has significant, extensive outpt support; he lives in a fpc with staff 26/10 who assist patient with ADLs and administer medication and thus there is indeed a less restrictive setting in which patient can continue treatment. Patient has consistently wanted discharge but has also demonstrated insight and judgment by willingly retracting his 3 day notice to stay longer for additional treatment. In discussing patient's symptoms, patient says that he normally talks and walks this way at home and at this point says he just wants to go home and continue treatment there. Despite still having catatonic symptoms, Patients fpc staff visited him on the unit and concur that patient is actually presenting fairly close to his baseline. Patient has been treated with Ativan which has reduced catatonic symptoms. Patient should remain on current high dose of Ativan, possibly for at least another week or more, to make sure catatonic symptoms do not again re-emerge or worsen; following that, patient will need to be tapered off Ativan which will be a several week (month?) process at minimum. Given that patient is significantly improved and corroborating reports say he is fairly close to his baseline, it is not reasonable to expect patient to remain on a locked inpatient unit just to undergo a lengthy Ativan taper. Patient's 3 day notice has come due and treatment was discussed with patient; he seems to understand the treatment plan and says he will continue taking Ativan as prescribed but clearly expresses the desire to do so back at the fpc. At baseline, patient is at Chronic risk for relapse, decompensation, eloping from fpc and quickly wandering into unsafe situations; this remains the case now. However, as mentioned, this is his baseline and these issues have been going on for quite some time; a longer stay on the inpatient unit will not mitigate these risks (rather, this requires finding a medication regimen that significantly reduces his psychotic symptoms, something with which neither patient nor his guardian are or have been willing to pursue). Patient does not rise to the level of involuntary commitment and his request for discharge honored. Time spent discussing smoking cessation with patient: 3 to 10 minutes Status at Discharge Functional status at discharge: independent ambulation Overall status at discharge: patient is progressing back to baseline Time Spent with Patient Time attestation: Total time managing care of this patient today ____ minutes. Time spent: Greater than 30 minutes Discharge Plan Discharge Anticipated Discharge Date/Time: 12/22/22 11:00 Patient Disposition: Home, Self-Care Discharge Diagnosis: Schizophrenia Catatonia; Referrals: [facility] w Savi Vasile [Other] - 01/05/23 1:15 pm (This appt is in-person.) Winnie Rodriguez NP [Nurse Practitioner] - 02/01/23 10:45 am Discharge Medications: New calcium carbonate [Antacid Ext Str (calcium carb)] 300 mg (750 mg) Tablet,Chewable 2.5 tab PO BID Qty: 0 0RF lorazepam [Ativan] 2 mg tablet 4 mg PO QID 30 Days Qty: 240 1RF Continued famotidine 20 mg Tablet 20 mg PO BID 30 Days Qty: 60 0RF Invega Sustenna 234 mg/1.5 mL syringe 234 mg IM Q4W 28 Days Qty: 1.5 0RF Rx Instructions: due 01/08/23 (last dose on 12/13/22) Changed melatonin 3 mg tablet 3 mg PO BEDTIME PRN (Reason: sleep) 30 Days Qty: 30 0RF Discontinued lamotrigine 25 mg Tablet 25 mg PO DAILY 30 Days Qty: 30 0RF lithium carbonate 300 mg tablet extended release 600 mg PO BID 30 Days Qty: 120 0RF hydroxyzine HCl 50 mg tablet 50 mg PO TID PRN (Reason: Anxiety) 30 Days Qty: 90 0RF propranolol 10 mg tablet 10 mg PO DAILY 30 Days Qty: 30 0RF haloperidol 20 mg tablet 20 mg PO BEDTIME 30 Days Qty: 30 0RF haloperidol 10 mg tablet 10 mg PO BEDTIME 30 Days Qty: 30 0RF benztropine 1 mg tablet 1 mg PO BID 30 Days Qty: 60 0RF mirtazapine 15 mg tablet 15 mg PO BEDTIME 30 Days Qty: 30 0RF Discharge Orders: Discharge Order (Routine); Ordered 12/22/22 Ordered By: Elio Kumar Diet: Regular diet Activity on Discharge: As tolerated Stand Alone Forms: Patient Portal Discharge page, Community Support Care Plan Goals: Maintain mood and safe behaviors Take medications as prescribed Continue to pursue sobriety Practice coping skills Continue with outpatient providers and reach out to them as needed Health Concerns: Mood stability and behaviors Sobriety Catatonia Plan of Treatment: Follow up with your PCP, psychiatric provider and other outpatient providers regarding above concerns Take medications as prescribed Assessment: Risk assessment at time of discharge:? Patient was interviewed prior to discharge and found to be fully oriented and without any SI or HI. Discharge Date/Time: 12/22/22 11:35
[2022-12-22] MEDS: Naloxone HCl Nasal TAKE HOME 4 MG SPRAY 8 MG NOSTRILALT (10:16)
== END 2022-12-22 11:35 | disposition home or self-care (01) | DRG 885 ==
PROVIDERS: Clinical Nurse Specialist Psychiatric/Mental Health, Adult; Social Worker; Admitting Provider Psychiatry & Neurology Psychiatry; Visit Provider Psychiatry & Neurology Psychiatry
DX: F20.2 Catatonic schizophrenia (principal); Z79.899 Other long term (current) drug therapy; Z87.891 Personal history of nicotine dependence
CPT/HCPCS: 36415; 80053; 80061; 80178; 82550; 82607; 82746; 83036; 83615; 83735; 84439; 84443; 93005; J2426

== ENCOUNTER 2022-11-04 18:26 | Outpatient (BNV) | payer MEDICAID, SELFPAY | END 2022-11-13 13:26 | PROVIDERS: Admitting Provider Psychiatry & Neurology Psychiatry; Visit Provider Internal Medicine Cardiovascular Disease | DX: R07.9 Chest pain, unspecified (principal) | CPT/HCPCS: 93010 ==

== ENCOUNTER → 2022-11-04 18:26 | Outpatient (BNV) | payer MEDICAID, SELFPAY | PROVIDERS: Admitting Provider Psychiatry & Neurology Psychiatry; Visit Provider Psychiatry & Neurology Psychiatry | DX: F20.2 Catatonic schizophrenia (principal) | CPT/HCPCS: 99231 ==

== ENCOUNTER → 2022-11-04 18:26 | Outpatient (BNV) | payer OTHER, SELFPAY | PROVIDERS: Admitting Provider Psychiatry & Neurology Psychiatry; Visit Provider Social Worker | DX: F20.2 Catatonic schizophrenia (principal) | CPT/HCPCS: 90792; 99231; 99232; 99239 ==

== ENCOUNTER → 2022-11-04 18:26 | Outpatient (BNV) | payer MEDICAID, SELFPAY | PROVIDERS: Admitting Provider Psychiatry & Neurology Psychiatry; Visit Provider Student in an Organized Health Care Education/Training Program | DX: Z02.89 Encounter for other administrative examinations (principal) | CPT/HCPCS: 99429 ==